=== PATIENT | female | born 2000 | race Caucasian/White ===

== ENCOUNTER 2021-01-29 13:49 | Emergency (ER) | payer OTHER ==
[~2021-01-29] VITALS: Ht 157.5 cm; Wt 83.5 kg
[2021-01-29] MEDS ORDERED: VITAD400CA FT (14:09)
[2021-01-29] MEDS ORDERED: PRENMIS3 PO (14:09)
[2021-01-29] MEDS ORDERED: METF500T13 PO (14:09)
[2021-01-29 15:21] LABS: BASO # 0.1 10^3/uL (0.0-0.2); BASO % 1.2 % (0.0-1.0); EOS # 0.2 10^3/uL (0.0-0.5); EOS % 1.9 % (0.0-3.0); HEMATOCRIT 40.4 % (36.0-47.0); HEMOGLOBIN 13.8 g/dl (12.0-15.5); LYMPH # 2.9 10^3/uL (1.5-5.0); MEAN CORPUSCULAR HEMOGLOBIN 30.3 pg (27.0-33.0); MEAN CORPUSCULAR HGB CONC 34.2 g/dl (32.0-36.5); MEAN CORPUSCULAR VOLUME 88.8 fl (80.0-96.0); MONO # 0.6 10^3/uL (0.0-0.8); NEUTROPHILS # 6.5 10^3/uL (1.5-8.5); NEUTROPHILS % 62.6 % (36.0-66.0); PLATELET COUNT, AUTOMATED 369 10^3/uL (150-450); RED BLOOD COUNT 4.55 10^6/uL (4.00-5.40); WHITE BLOOD COUNT 10.4 10^3/uL (4.0-10.0)
[2021-01-29] MEDS ORDERED: NS 1,000 ML IV ONE (15:25)
[2021-01-29 15:51] LABS: ALBUMIN 3.8 GM/DL (3.2-5.2); ALT/SGPT 40 U/L (12-78); BILIRUBIN,DIRECT < 0.1 MG/DL (0.0-0.2); BILIRUBIN,TOTAL 0.3 MG/DL (0.2-1.0); LIPASE 86 U/L (73-393); TOTAL PROTEIN 7.3 GM/DL (6.4-8.2)
--- NOTE | 2021-01-29 16:20 | REP ---
INDICATION: right flank/abd pain COMPARISON: None. TECHNIQUE: Real time garcia scale ultrasound examination using curved array transducer. FINDINGS: Liver suggests fatty infiltration without focal hepatic lesion. Pancreas is incompletely evaluated due to interposed bowel gas but visualized portions appear normal. Gallbladder appears contracted and without significant wall thickening, gallstones or pericholecystic fluid. No biliary ductal dilatation is appreciated and the common bile duct measures 2.5 mm diameter. The right kidney is normal in reniform shape without hydronephrosis and measures 9.8 x 5.4 x 4.4 cm. No ascites in the visualized right upper quadrant. IMPRESSION: Hepatosteatosis. Otherwise normal right upper quadrant ultrasound. <Electronically signed by Casper Presley > 01/29/21 [id number]
[2021-01-29 18:20] VITALS: BP 105/75
== END 2021-01-29 19:34 | disposition home or self-care (01) ==
LOC: M ED 13:49
DX: R10.9 Unspecified abdominal pain (principal); E28.2 Polycystic ovarian syndrome; Z79.84 Long term (current) use of oral hypoglycemic drugs

== ENCOUNTER 2021-03-20 13:54 | Emergency (ER) | payer OTHER ==
[~2021-03-20] VITALS: Ht 157.5 cm; Wt 84.3 kg
[~2021-03-20 13:54] MED LIST: METF500T13 PO; PRENMIS3 PO; VITAD400CA FT
[2021-03-20] MEDS ORDERED: PROG1CAP8 PO (14:03)
[2021-03-20] MEDS ORDERED: NS 1,000 ML IV ONE (15:30)
[2021-03-20 15:59] LABS: BASO # 0.1 10^3/uL (0.0-0.2); BASO % 0.5 % (0.0-1.0); EOS # 0.1 10^3/uL (0.0-0.5); EOS % 0.6 % (0.0-3.0); HEMATOCRIT 39.3 % (36.0-47.0); HEMOGLOBIN 13.4 g/dl (12.0-15.5); LYMPH # 1.9 10^3/uL (1.5-5.0); LYMPH % 16.4 % (24.0-44.0); MEAN CORPUSCULAR HEMOGLOBIN 30.5 pg (27.0-33.0); MEAN CORPUSCULAR HGB CONC 34.1 g/dl (32.0-36.5); MEAN CORPUSCULAR VOLUME 89.3 fl (80.0-96.0); MONO # 0.7 10^3/uL (0.0-0.8); MONO % 5.6 % (2.0-8.0); NEUTROPHILS # 8.9 10^3/uL (1.5-8.5); NEUTROPHILS % 76.4 % (36.0-66.0); PLATELET COUNT, AUTOMATED 305 10^3/uL (150-450); WHITE BLOOD COUNT 11.6 10^3/uL (4.0-10.0)
[2021-03-20 16:48] LABS: ALBUMIN 3.4 GM/DL (3.2-5.2); ALT/SGPT 21 U/L (12-78); BILIRUBIN,DIRECT < 0.1 MG/DL (0.0-0.2); BILIRUBIN,TOTAL 0.2 MG/DL (0.2-1.0); BLOOD UREA NITROGEN 5 MG/DL (7-18); CALCIUM LEVEL 8.9 MG/DL (8.5-10.1); CARBON DIOXIDE LEVEL 26 MEQ/L (21-32); CHLORIDE LEVEL 106 MEQ/L (98-107); CREATININE FOR GFR 0.56 MG/DL (0.55-1.30); FREE THYROXINE INDEX 4.1 % (1.3-4.8); GLOMERULAR FILTRATION RATE > 60.0 (>60); GLUCOSE, FASTING 97 MG/DL (70-100); MAGNESIUM LEVEL 2.1 MG/DL (1.8-2.4); POTASSIUM SERUM 3.8 MEQ/L (3.5-5.1); SODIUM LEVEL 139 MEQ/L (136-145); T UPTAKE 27 % (30-39); TOTAL PROTEIN 6.9 GM/DL (6.4-8.2)
[2021-03-20 17:22] VITALS: BP 137/87
--- NOTE | 2021-03-21 03:16 | ECGEPIP ---
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
== END 2021-03-20 17:26 | disposition home or self-care (01) ==
LOC: M ED 13:54
DX: O99.411 Diseases of the circulatory system complicating pregnancy, first trimester (principal); R00.2 Palpitations; R53.1 Weakness; O21.9 Vomiting of pregnancy, unspecified; Z3A.08 8 weeks gestation of pregnancy; Z79.899 Other long term (current) drug therapy

== ENCOUNTER 2021-04-20 21:45 | Emergency (ER) | payer OTHER ==
[~2021-04-20] VITALS: Ht 157.5 cm; Wt 85.0 kg
[2021-04-20 21:45] VITALS: BP 139/82
[~2021-04-20 21:45] MED LIST changes: +PROG1CAP8 PO
[2021-04-20] MEDS ORDERED: ACET-683 PO (22:00)
== END 2021-04-20 22:10 | disposition left against medical advice (07) ==
LOC: M ED 21:45
DX: Z53.21 Procedure and treatment not carried out due to patient leaving prior to being seen by health care provider (principal)

== ENCOUNTER 2021-05-08 15:14 | Emergency (ER) | payer OTHER ==
[~2021-05-08] VITALS: Ht 157.5 cm; Wt 85.5 kg
[~2021-05-08 15:14] MED LIST changes: +ACET-683 PO
[2021-05-08 15:55] LABS: BASO # 0.1 10^3/uL (0.0-0.2); BASO % 0.4 % (0.0-1.0); EOS # 0.1 10^3/uL (0.0-0.5); EOS % 0.6 % (0.0-3.0); HEMATOCRIT 37.3 % (36.0-47.0); HEMOGLOBIN 12.8 g/dl (12.0-15.5); LYMPH % 16.2 % (24.0-44.0); MEAN CORPUSCULAR HEMOGLOBIN 30.3 pg (27.0-33.0); MEAN CORPUSCULAR HGB CONC 34.3 g/dl (32.0-36.5); MEAN CORPUSCULAR VOLUME 88.4 fl (80.0-96.0); MONO # 0.6 10^3/uL (0.0-0.8); MONO % 4.8 % (2.0-8.0); NEUTROPHILS # 9.7 10^3/uL (1.5-8.5); NEUTROPHILS % 77.4 % (36.0-66.0); PLATELET COUNT, AUTOMATED 235 10^3/uL (150-450); RED BLOOD COUNT 4.22 10^6/uL (4.00-5.40); WHITE BLOOD COUNT 12.5 10^3/uL (4.0-10.0)
[2021-05-08] MEDS ORDERED: NS 1,000 ML IV ONE (16:05)
[2021-05-08 16:23] LABS: FREE T4 0.97 NG/DL (0.76-1.46); THYROID STIMULATING HORMONE 1.52 uIU/ML (0.358-3.740)
[2021-05-08 16:45] VITALS: BP 124/79
[2021-05-08] MEDS ORDERED: ACETAMINOPHEN 325 MG/10.15 ML UDC PO ONE (17:00)
== END 2021-05-08 17:34 | disposition home or self-care (01) ==
LOC: M ED 15:14
DX: I45.6 Pre-excitation syndrome (principal); R00.2 Palpitations; E28.2 Polycystic ovarian syndrome

== ENCOUNTER 2021-07-12 23:45 | Outpatient (CLI) | payer OTHER ==
[~2021-07-12] VITALS: Ht 157.5 cm; Wt 91.6 kg
[2021-07-13 00:01] VITALS: BP 114/61
--- NOTE | 2021-07-13 00:44 | IPNPDOC ---
Text Note Date of Service The patient was seen on 07/13/21. NOTE Chief Complaint: Ms. Jovel is a 21 year old at 25+1 weeks gestation presenting to L&D triage for complaints of decreased movement. Patient presents: spouse HPI: Reports usually fetus is active throughout the day, ever since 19wks . On Wednesday, felt only 2 movements throughout the day. No contractions, no bleeding. Some increased vaginal discharge. No other concerns today. . Denies any headaches, nausea, vomiting, RUQ pain. Denies any dysuria, vaginal itching/burning. Objective: VS: BP 114/61, HR 63, RR 18, Temp 98.2 General: Alert. Well-appearing, in no acute distress PSYCH: Well groomed. Appropriate affect, normal mood. Conversed easily. Neuro: Oriented to time, place, and person. RESP: Unlabored breathing. CV: No cyanosis. No edema to bilateral upper and lower extremities. ABD: Soft, non-tender. MSK: legs without edema bilaterally. Normal mvmt all extremities. Steady gait. Mamta from a seated position without assistance. Obstetrical: FHR: FHR on monitor 145 with moderate variability. No contractions. Toll Test Worker present for exam: Yeni Lorenzana&D RN Limited Trans-Abdominal Ultrasound Performed Today: Presentation: BREECH Placenta location: anterior Movement Present Heart Rate Present Amniotic fluid: MVP 3.86cm A/P 21yo at 25+1 wks gestation evaluated in L&D triage for complaints of decreased movement. VSS and normal Benign physical exam Normal FHR, reassuring. Normal MVP. TAUS showing: breech with anterior placenta. Pt feeling movement after being placed on monitor, in addition to feeling movement visualized on US. Discussed change in movements when fetus is breech with anterior placenta. Discussed where best to feel movements while fetus in this position. She royal balized understanding. Plan: Educated on routine OB return precautions and warning signs. Follow up on [facility] clinic as previously scheduled. VS,Fishbone, I+O VS, Fishbone, I+O Vital Signs Date Time Temp Pulse Resp B/P (MAP) Pulse Ox O2 Delivery O2 Flow Rate FiO2 07/13/21 00:01 98.2 83 18 114/61 (78) Room Air COLLEEN KWON CNM Jul 13, 2021 00:43
== END 2021-07-13 00:45 | disposition home or self-care (01) ==
LOC: M LDO 23:45
PROVIDERS: ATTEND Advanced Practice Midwife
DX: O36.8120 Decreased fetal movements, second trimester, not applicable or unspecified (principal); Z3A.25 25 weeks gestation of pregnancy; O32.1XX0 Maternal care for breech presentation, not applicable or unspecified
CPT/HCPCS: 59025; G0378; G0463

== ENCOUNTER 2021-07-20 09:06 | Outpatient (CLI) | payer OTHER ==
[~2021-07-20] VITALS: Ht 157.5 cm; Wt 91.8 kg
[2021-07-20 09:38] VITALS: BP 128/75
[2021-07-20] MEDS ORDERED: HOME MED LIST COMPLETE! XX SCH (09:45)
[2021-07-20 10:15] VITALS: BP 123/70
--- NOTE | 2021-07-20 17:13 | HPE ---
HISTORY AND PHYSICAL DATE OF ADMISSION: 07/20/2021 HISTORY OF PRESENT ILLNESS: This lady is a 21-year-old 3, para 0, whose last menstrual period (LMP) is unknown. Her estimated date of confinement (EDC) by early ultrasound on 7 weeks, 6 days is October 25, 2021. She is at 26 weeks of gestation, comes with a history of decreased movement after having gone to the [facility] [employer]. She reports that she had issues with decreased movement at 20 weeks and has intermittent periods where she does not feel the baby move. She has not had headache, nausea, vomiting, right upper quadrant pain, no dysuria, vaginal discharge, bleeding. PHYSICAL EXAMINATION: On examination today, she does not appear in any acute distress. Vital signs: Blood pressure is 128/75, respirations 16, pulse 90, temperature is 97.4. She is on the monitor, which shows good variability, moderate variability with baseline normal accelerations were noted. No contractions were seen. The baby seems to be quite active. Limited ultrasound. The patient is in the breech presentation. The placenta is anterior. Good movements were seen. Heart rate was normal at 144 beats per minute and the NEGRO was within normal limits. The smallest vertical pocket was 3.0. She is GBS positive, as one of her risk factors. She has maternal obesity with a body mass index (BMI) of 33.149, history of suicidal ideation and depression, frequency urinary tract infection and Erjwk-Xtonjpvbr-Aolbz syndrome for which she is waiting to get her Holter monitor to evaluate the situation. SUMMARY IN PRESENT: We have an active fetus issue of not feeling movement secondary to anterior placenta has nothing to do with her travel experience. The patient was reassured by looking at the monitor strip and the patient was discharged undelivered to follow up with her appointment with Daisha Long and her cardiology appointment for her Holter monitor. All questions were answered, 20 minute discussion. Daisha Long OB
== END 2021-07-20 10:28 | disposition home or self-care (01) ==
LOC: M LDO 09:06
PROVIDERS: ATTEND Obstetrics & Gynecology
DX: O36.8120 Decreased fetal movements, second trimester, not applicable or unspecified (principal); Z3A.20 20 weeks gestation of pregnancy; O99.820 Streptococcus B carrier state complicating pregnancy; O99.212 Obesity complicating pregnancy, second trimester; E66.9 Obesity, unspecified; O99.342 Other mental disorders complicating pregnancy, second trimester; F32.9 Major depressive disorder, single episode, unspecified; I45.6 Pre-excitation syndrome; O99.412 Diseases of the circulatory system complicating pregnancy, second trimester
CPT/HCPCS: 59025; G0378; G0463

== ENCOUNTER 2021-08-05 13:04 | Outpatient (CLI) | payer OTHER ==
[~2021-08-05] VITALS: Ht 157.5 cm; Wt 97.8 kg
[2021-08-05 13:36] VITALS: BP 132/66
[2021-08-05] MEDS ORDERED: HOME MED LIST COMPLETE! XX SCH (13:50)
[2021-08-05 13:58] VITALS: BP 125/67
[2021-08-05 14:02] LABS: HEMATOCRIT 38.5 % (36.0-47.0); HEMOGLOBIN 12.8 g/dl (12.0-15.5); MEAN CORPUSCULAR HEMOGLOBIN 29.8 pg (27.0-33.0); MEAN CORPUSCULAR HGB CONC 33.2 g/dl (32.0-36.5); MEAN CORPUSCULAR VOLUME 89.5 fl (80.0-96.0); PLATELET COUNT, AUTOMATED 231 10^3/uL (150-450); WHITE BLOOD COUNT 12.2 10^3/uL (4.0-10.0)
--- NOTE | 2021-08-05 14:14 | REP ---
INDICATION: fall, r/o abruption. COMPARISON: None. TECHNIQUE: Real-time sonographic evaluation of gravid uterus performed. FINDINGS: There is a single living intrauterine gestation. The estimated gestational age is reportedly 28 weeks 3 days, EDC 10/25/2021. position cephalic. Placenta lateral on the left, grade 2 with no previa or abruption. heart rate 161 beats per minute. Amniotic fluid within normal limits. NEGRO 10.6 within normal range 9.3-22.9. The cervix is closed and measures 3.1 cm in length. IMPRESSION: No evidence of placenta previa or abruption as described above. <Electronically signed by Jaswant Alcantar > 08/05/21 [id number]
--- NOTE | 2021-08-05 14:35 | IPNPDOC ---
Obstetrical Progress Note Date of Service Aug 05, 2021 Subjective 21 yo at 28w3d with MAGALI of 25 OCT 2021 presents to L&D with complaints of fall from standing at 1230 today after tripping. She reports that she landed on her right side and her right abdomen. She denies contractions, leaking of fluid, vaginal bleeding, and reports positive movement. She reports only soreness to her right side and her right abdomen. She has supportive family at the bedside. Objective Vital Signs Date Time Temp Pulse Resp B/P (MAP) Pulse Ox O2 Delivery O2 Flow Rate FiO2 08/05/21 13:36 99.1 84 18 132/66 (88) US: Reassuring, with no abruption or placenta previa noted, NEGRO: 10.6 cm Blood type: A Positive, no rhogam indicated Assessment: IUP at 28w3d Fall from standing Assessment Heart Rate (FHR): 145 Variability: Moderate Accelerations: Present Decelerations: None Tocometer Contractions: No Assessment and Plan Age: 21 : 3 Term: 0 Pre-term: 0 Abortions: 2 Livin Weeks & Days 28w3d Status: Reassuring Additional Comments Plan: Prolonged monitoring x4 hours If remains stable, then will discharge to home Recommended to continue to monitor QID blood sugars, as she is checking her blood sugars vs 28 wk GCT Reminded to complete remainder of 28 week labs FKC and PTL precautions discussed Recommend to keep all appointments at [facility] INSURANCE LEGAL ASSISTANT Return to L&D if symptoms worsen or persist EULA DE LA ROSA CNM Aug 05, 2021 14:35
[2021-08-05 14:39] LABS: ALBUMIN 2.7 GM/DL (3.2-5.2); ALT/SGPT 14 U/L (12-78); BILIRUBIN,TOTAL 0.2 MG/DL (0.2-1.0); BLOOD UREA NITROGEN 6 MG/DL (7-18); CALCIUM LEVEL 8.8 MG/DL (8.5-10.1); CARBON DIOXIDE LEVEL 23 MEQ/L (21-32); CHLORIDE LEVEL 110 MEQ/L (98-107); CREATININE FOR GFR 0.44 MG/DL (0.55-1.30); GLOMERULAR FILTRATION RATE > 60.0 (>60); GLUCOSE, FASTING 103 MG/DL (70-100); POTASSIUM SERUM 3.7 MEQ/L (3.5-5.1); SODIUM LEVEL 141 MEQ/L (136-145); TOTAL PROTEIN 6.2 GM/DL (6.4-8.2)
[2021-08-05 15:25] VITALS: BP 126/76
[2021-08-05 17:14] VITALS: BP 122/78
== END 2021-08-05 17:30 | disposition home or self-care (01) ==
LOC: M LDO 13:04
PROVIDERS: ATTEND Registered Nurse Maternal Newborn
DX: O26.893 Other specified pregnancy related conditions, third trimester (principal); R10.9 Unspecified abdominal pain; M25.551 Pain in right hip; Z3A.28 28 weeks gestation of pregnancy; W19.XXXA Unspecified fall, initial encounter
CPT/HCPCS: 36415; 59025; 76815; 80053; 85027; 85460; G0378; G0463

== ENCOUNTER 2021-08-11 17:39 | Outpatient (CLI) | payer OTHER ==
[~2021-08-11] VITALS: Ht 157.5 cm; Wt 93.9 kg
[2021-08-11] MEDS ORDERED: CLEO300C2 PO (18:06)
[2021-08-11] MEDS ORDERED: CETI10CH PO (18:06)
[2021-08-11 18:08] VITALS: BP 115/70
[2021-08-11] MEDS ORDERED: HOME MED LIST COMPLETE! XX SCH (18:10)
== END 2021-08-11 18:40 | disposition home or self-care (01) ==
LOC: M LDO 17:39
PROVIDERS: ATTEND Obstetrics & Gynecology
DX: O26.893 Other specified pregnancy related conditions, third trimester (principal); N89.9 Noninflammatory disorder of vagina, unspecified; Z3A.29 29 weeks gestation of pregnancy
CPT/HCPCS: 59025; G0378; G0463

== ENCOUNTER → 2021-08-27 | Outpatient (CLI) | payer OTHER ==
[~2021-08-27] MED LIST changes: +CETI10CH PO; +CLEO300C2 PO
[2021-08-27 12:00] LABS: BASO % 0.3 % (0.0-1.0); EOS % 0.4 % (0.0-3.0); HEMATOCRIT 37.8 % (36.0-47.0); HEMOGLOBIN 12.6 g/dl (12.0-15.5); LYMPH # 1.5 10^3/uL (1.5-5.0); LYMPH % 14.8 % (24.0-44.0); MEAN CORPUSCULAR HEMOGLOBIN 30.1 pg (27.0-33.0); MEAN CORPUSCULAR HGB CONC 33.3 g/dl (32.0-36.5); MEAN CORPUSCULAR VOLUME 90.2 fl (80.0-96.0); MONO # 0.6 10^3/uL (0.0-0.8); MONO % 5.7 % (2.0-8.0); NEUTROPHILS # 8.1 10^3/uL (1.5-8.5); NEUTROPHILS % 77.6 % (36.0-66.0); PLATELET COUNT, AUTOMATED 183 10^3/uL (150-450); RED BLOOD COUNT 4.19 10^6/uL (4.00-5.40); WHITE BLOOD COUNT 10.4 10^3/uL (4.0-10.0)
[2021-08-27 12:27] LABS: TOTAL PROTEIN,RANDOM URINE 42.3 MG/DL (0.0-12.0)
[2021-08-27 12:36] LABS: ALBUMIN 2.4 GM/DL (3.2-5.2); ALT/SGPT 16 U/L (12-78); BILIRUBIN,TOTAL 0.2 MG/DL (0.2-1.0); BLOOD UREA NITROGEN 5 MG/DL (7-18); CALCIUM LEVEL 9.2 MG/DL (8.5-10.1); CARBON DIOXIDE LEVEL 25 MEQ/L (21-32); CHLORIDE LEVEL 109 MEQ/L (98-107); CREATININE FOR GFR 0.39 MG/DL (0.55-1.30); GLOMERULAR FILTRATION RATE > 60.0 (>60); GLUCOSE, FASTING 92 MG/DL (70-100); LDH LACTATE DEHYDROGENASE 171 U/L (84-246); POTASSIUM SERUM 3.6 MEQ/L (3.5-5.1); SODIUM LEVEL 141 MEQ/L (136-145); TOTAL PROTEIN 5.6 GM/DL (6.4-8.2); URIC ACID 2.8 MG/DL (2.6-6.0)
== END ==
LOC: M LAB 10:43
PROVIDERS: ATTEND Obstetrics & Gynecology
DX: O13.9 Gestational [pregnancy-induced] hypertension without significant proteinuria, unspecified trimester (principal)

== ENCOUNTER 2021-08-28 23:45 | Outpatient (CLI) | payer OTHER ==
[~2021-08-28] VITALS: Ht 157.5 cm; Wt 95.9 kg
[2021-08-29 00:07] VITALS: BP 146/90
[2021-08-29 00:58] VITALS: BP 136/90
[2021-08-29 01:19] VITALS: BP 122/75
[2021-08-29 01:19] LABS: ALT/SGPT 16 U/L (12-78); BILIRUBIN,TOTAL 0.2 MG/DL (0.2-1.0); CREATININE FOR GFR 0.37 MG/DL (0.55-1.30); GLOMERULAR FILTRATION RATE > 60.0 (>60); LDH LACTATE DEHYDROGENASE 335 U/L (84-246)
[2021-08-29 01:39] VITALS: BP 128/79
--- NOTE | 2021-08-29 01:51 | IPNPDOC ---
Text Note Date of Service The patient was seen on 08/29/21. NOTE 21 yo at 31+6 weeks gestation presented to L&D after checking her blood pressure at home and seeing it greater than 170 systolic. Her headache from earlier today resolved completely after she took a nap. In triage she denies any RUQ pain or visual changes or SOB. She hasn't felt baby move as much as usual but is still feeling movement. She denies any bleeding or LOF. Vitals - Initial mildly elevated BP in triage (140s/90s) resolved to normal levels on serial checks General - AAOX3, laying in bed, NAD Abdomen - Gravid uterus, no fundal tenderness FHR tracing - Cat I and appropriate for gestational age. Moderate variability, +accels, no decels BP stable. She has known pre eclampsia. AST/ALT normal. LDH elevated at 335. Creatinine normal. Platelets were not drawn appropriately by the lab. Reassuring status. Ant also felt movement in triage and was reassured. She has follow up in the office at 1000 today. Return to care soone r for any urgent concerns. All questions answered. 30 minutes Tere Regan, I+O Tere MARLEY, I+O Laboratory Tests 08/29/21 00:48 Vital Signs Date Time Temp Pulse Resp B/P (MAP) Pulse Ox O2 Delivery O2 Flow Rate FiO2 08/29/21 00:07 98.3 75 18 146/90 (108) CHRISTIANO PHAN DO Aug 29, 2021 01:51
== END 2021-08-29 01:52 | disposition home or self-care (01) ==
LOC: M LDO 23:45
PROVIDERS: ATTEND Obstetrics & Gynecology
DX: O16.3 Unspecified maternal hypertension, third trimester (principal); Z87.59 Personal history of other complications of pregnancy, childbirth and the puerperium; Z3A.31 31 weeks gestation of pregnancy
CPT/HCPCS: 36415; 59025; 82247; 82565; 83615; 84450; 84460; 84550; G0378; G0463

== ENCOUNTER 2021-09-02 15:38 | Inpatient (IN) | payer OTHER ==
[2021-09-02] VITALS (22 sets, daily range): BP systolic 126–183; BP diastolic 69–106
[~2021-09-02] VITALS: Ht 157.5 cm; Wt 100.3 kg
[2021-09-02] MEDS ORDERED: METR1GEL7 PV (15:56)
[2021-09-02] MEDS ORDERED: FIOR1CAP PO (15:56)
[2021-09-02] MEDS ORDERED: HOME MED LIST COMPLETE! XX SCH (16:00)
[2021-09-02] MEDS: BETAMETHASONE SOLUSPAN 6MG/ML 5ML VIAL (J0702 PER 3MG) IM SCH (17:11)
[2021-09-02 17:24] LABS: HEMATOCRIT 37.2 % (36.0-47.0); HEMOGLOBIN 12.6 g/dl (12.0-15.5); MEAN CORPUSCULAR HEMOGLOBIN 30.4 pg (27.0-33.0); MEAN CORPUSCULAR HGB CONC 33.9 g/dl (32.0-36.5); MEAN CORPUSCULAR VOLUME 89.9 fl (80.0-96.0); PLATELET COUNT, AUTOMATED 170 10^3/uL (150-450); RED BLOOD COUNT 4.14 10^6/uL (4.00-5.40); WHITE BLOOD COUNT 11.8 10^3/uL (4.0-10.0)
[2021-09-02 17:43] LABS: ALBUMIN 2.5 GM/DL (3.2-5.2); ALT/SGPT 19 U/L (12-78); BILIRUBIN,TOTAL 0.1 MG/DL (0.2-1.0); BLOOD UREA NITROGEN 8 MG/DL (7-18); CARBON DIOXIDE LEVEL 25 MEQ/L (21-32); CHLORIDE LEVEL 109 MEQ/L (98-107); CREATININE FOR GFR 0.42 MG/DL (0.55-1.30); GLOMERULAR FILTRATION RATE > 60.0 (>60); GLUCOSE, FASTING 70 MG/DL (70-100); POTASSIUM SERUM 3.5 MEQ/L (3.5-5.1); SODIUM LEVEL 141 MEQ/L (136-145)
[2021-09-02] MEDS ORDERED: NIFEdipine 10 MG CAP PO SCH (22:35)
[2021-09-02] MEDS ORDERED: NIFEdipine 10 MG CAP PO STA (22:36)
[2021-09-02] MEDS ORDERED: CALCIUM GLUCONATE 1,000 MG in D5W MINI-BAG PLUS 100 ML IV PRN (22:55)
[2021-09-02] MEDS ORDERED: MAG Sulf (L&D) 4 GM/100 ML 4 GM in IV 1 EA IV ONE (22:55)
[2021-09-03] VITALS (80 sets, daily range): BP systolic 115–162; BP diastolic 64–100
--- OUTSIDE RECORDS SUMMARY | 2021-09-03 00:39 | CCD | Continuity of Care Document ---
Author Author Ant EVASN MD Organization Unknown Address [facility] [place] [address] Phone [phone] Care Team Providers Care Retail Project Merchandiser Name Role Phone Michaela Willis CNM AUTM Unavailable Gricelda Clarkblanca Montez AUTM Problems Active Problems Provider Date Chronic migraine without aura Live Evans MD Onset: Electrocardiogram abnormal Live Evans MD Onset: 2020 Precordial pain Live Evans MD Onset: 07/04/2021 Palpitations Live Evans MD Onset: 07/04/2021 Social History Type Date Description Comments Sex Unknown ETOH Use Does not consume alcohol Tobacco Use Start: Unknown Patient has never smoked Prior 1 8 years secondhand smoke exposure Smoking Status Reviewed: 07/04/21 Patient has never smoked Prio r 18 years secondhand smoke exposure Exercise Type/Frequency Does housework 3 times a week light duty only Exercise Type/Frequency General Activities Daily up and down stairs frequently during the day Exercise Limitations Other moderately high risk Exercise Limitations Palpitations Allergies, Adverse Reactions, Alerts Description No Known Drug Allergies Medications Active Medications SIG Qnty Indications Ordering Provide r Date 27-1mg Tablets 1 by mouth daily Unknown 07/03/2021 Immunizations Description No Information Available Vital Signs Date Vital Result Comment 07/04/2021 2:11pm Weight 197.00 lb Height 62 inches 5'2" BMI (Body Mass Index) 36.0 kg/m2 Heart Rate 74 /min regular Respiratory Rate 16 /min BP Systolic Sitting 116 mmHg Medium cuff, Ra: 118 /82 LA BP Diastolic Sitting 78 mmHg Medium cuff, Ra: 11 8/82 LA BP Systolic Lying Down 118 mmHg Ra BP Diastolic Lying Down 78 mmHg Ra Results Test Acquired Date Facility Test Result H/L Range Note Laboratory test finding 05/08/2021 [facility] - not interf aced (315)- - Thyroid Stimulating Hormone 1.520 Free T4 0.97 CBC without Differential 05/08/2021 [facility] - not inter faced (315)- - White Blood Count 12.5 5.0-10.0 Red Blood Count 4.22 4.00-5.40 Platelets 235 172-450 Hemoglobin 12.8 Hematocrit 37.3 CMP 03/20/2021 [facility] - not interfaced (315)- - Albumin Serum/Plasma 3.4 Alt - SGPT 21 Calcium Ser/Plasma Mass/Vol 8.9 Carbon Dioxide Ser/Plasm 26 Chloride Serum/Plasma 106 Alkaline Phosphatase 54 Potassium 3.8 Protein Total 6.9 Sodium 139 Ast - Sgot 8 BUN - Urea Nitrogen 5 Glucose 97 83-110 Creatinine For GFR 0.56 Laboratory test finding 03/20/2021 [facility] - not interf aced (315)- - Magnesium Level 2.1 1.8-2.4 Procedures Date Code Description Status 07/04/2021 54158 Office/Outpatient New Moderate M DM 45-59 Minutes Completed 07/04/2021 53527 ECG 12-Lead Completed Medical Devices Description No Information Available Encounters Type Date Location Provider Dx Diagnosis Office Visit 07/04/2021 1:00p Main Office Live Evans MD R00.2 Palpitations R07.2 Precordial pain R94.31 Abnormal electrocardiogram [ ECG] [EKG] G43.709 Chronic migraine w/o aura, n ot intractable, w/o stat migr Assessments Date Code Description Provider 07/04/2021 R00.2 Palpitations Live Evans MD 07/04/2021 R07.2 Precordial pain Live Evans MD 07/04/2021 R94.31 Abnormal electrocardiogram [ECG] [EKG] Live Evans MD 07/04/2021 G43.709 Chronic migraine wit hout aura, not intractable, without status migrainosus Live Evans MD Plan of Treatment 07/04/2021 - Live Evans MD* R00.2 Palpitations* New Orders:* Event Monitor, Ordered: 07/04/21 * Recommendations:* From her description, have no doubt she is experiencing paroxysmal supraventricular tachycardia. At this point, with her state, have requested a 30 day event recording of spontaneous rhythm. Have encouraged continued avoiding of all caffeinated beverages, alcohol, nicotine and iaxb-xsw-yiqqizh decongestants, pep pills, dietary aids etc. Have discussed the use of vagal maneuvers i.e. Valsalva and gag reflex immediately at the onset of her palpitations. No pharmacological therapy would be advised at this time. Should call an ambulance for sustained tachycardia lasting 15 minutes or more, especially if associated with faintness. * R07.2 Precordial pain* Recommendations:* Undoubtedly, related to paroxysmal tachycardia. Has no coronary risk factors. 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 Moser management would be that of her tachycardia. 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 Her reported heart rate of 200 bpm, would be considered dangerous for risk of hemodynamic decompensation and malignant ventricular arrhythmias. Following the delivery of her child, would strongly encourage official electrophysiological evaluation and curative radiofrequency pathway ablation. * G43.709 Chronic migraine without aura, not intractable, without status migrainosus* Recommendations:* A problem of some chronicity, currently less with her . Frustratingly, therapy for this condition including Imitrex and Topamax. In light of her underlying rhythm disturbance she can suffer potentially fatal cardiac arrhythmia following the use of these agents. Even prophylactic beta-lenny therapy for migraine can be potentially hazardous by promoting accessory pathway conduction and rapid ventricular responses that might lead to ventricular fibrillation. Should be avoiding caffeinated beverages in light of her rhythm disturbance. Excedrin Migraine should not be used in the last 3 months of her in light of its risk for cardiac defects. * All * Comments:* I will ensure that the aforementioned test findings are reported to you along with any further recommendations. Thank you for allowing me to participate in the care of your patient. Best regards. * Follow up:* Pending her 30 day event monitor findings, we will plan on a follow-up appointment following the of her child. We would be pleased to reassess the patient at any time. Functional Status Functional Condition Comment Date Status Independent with all ADL's Activ e Mental Status Description No Information Available Referrals Description No Information Available
--- OUTSIDE RECORDS SUMMARY | 2021-09-03 00:40 | CCD | Continuity of Care Document ---
Author Organization Unknown Address Unknown Phone Unavailable Problems Description No Information Available Social History Type Date Description Comments Sex Unknown Allergies, Adverse Reactions, Alerts Description No Information Available Medications Description No Information Available Immunizations Description No Information Available Vital Signs Description No Information Available Results Test Acquired Date Facility Test Result H/L Range Note Laboratory test finding 05/08/2021 [facility] - not interf aced (315)- - Thyroid Stimulating Hormone 1.520 Free T4 0.97 CBC without Differential 05/08/2021 [facility] - not inter faced (315)- - White Blood Count 12.5 5.0-10.0 Red Blood Count 4.22 4.00-5.40 Platelets 235 172-450 Hemoglobin 12.8 Hematocrit 37.3 Procedures Description No Information Available Medical Devices Description No Information Available Encounters Description No Information Available Assessments Description No Information Available Plan of Treatment Future Appointment(s):* 07/04/2021 1:00 pm - Live Evans MD at Main Office Functional Status Description No Information Available Mental Status Description No Information Available Referrals Description No Information Available
--- OUTSIDE RECORDS SUMMARY | 2021-09-03 00:40 | CCD | Continuity of Care Document ---
[...] H/L Range Note Laboratory test finding 05/08/2021 [facility] - not interf aced (315)- - Thyroid Stimulating Hormone 1.520 Free T4 0.97 CBC without Differential 05/08/2021 [facility] - not inter faced (315)- - White Blood Count 12.5 5.0-10.0 Red Blood Count 4.22 4.00-5.40 Platelets 235 172-450 Hemoglobin 12.8 Hematocrit 37.3 CMP 03/20/2021 [facility] - not interfaced (315)- - Albumin Serum/Plasma 3.4 Alt - SGPT 21 Calcium Ser/Plasma Mass/Vol 8.9 Carbon Dioxide Ser/Plasm 26 Chloride Serum/Plasma 106 Alkaline Phosphatase 54 Potassium 3.8 Protein Total 6.9 Sodium 139 Ast - Sgot 8 BUN - Urea Nitrogen 5 Glucose 97 83-110 Creatinine For GFR 0.56 Laboratory test finding 03/20/2021 [facility] - not interf aced (315)- - Magnesium Level 2.1 1.8-2.4 Procedures Description No Information Available Medical Devices Description No Information Available Encounters Description No Information Available Assessments Description No Information Available Plan of Treatment Future Appointment(s):* 07/04/2021 1:00 pm - Live Evans MD at Main Office Functional Status Description No Information Available Mental Status Description No Information Available Referrals Description No Information Available
--- OUTSIDE RECORDS SUMMARY | 2021-09-03 00:40 | CCD | Continuity of Care Document ---
Author Author Ant EVANS MD Organization Unknown Address [facility] [place] [address] Phone [phone] Care Team Providers Care Rim Technician Name Role Phone Lazaro Michaela CNM AUTM Unavailable Gricelda Clark DO AUTM [phone] Problems Active Problems Provider Date Chronic migraine without aura Live Evans MD Onset: Electrocardiogram abnormal Live Evans MD Onset: 2020 Precordial pain Live Evans MD Onset: 07/04/2021 Palpitations Live Evans MD Onset: 07/04/2021 Social History Type Date Description Comments Sex Unknown ETOH Use Does not consume alcohol Tobacco Use Start: Unknown Patient has never smoked Smoking Status Reviewed: 07/04/21 Patient has never smoked Exercise Type/Frequency Does housework 3 times a [...] For GFR 0.56 Laboratory test finding 03/20/2021 [facility] - not interf aced (315)- - Magnesium Level 2.1 1.8-2.4 Procedures Date Code Description Status 07/04/2021 43511 Office/Outpatient New Moderate M DM 45-59 Minutes Completed 07/04/2021 81366 ECG 12-Lead Completed Medical Devices Description No [...] of all caffeinated beverages, alcohol, nicotine and kics-rjt-jxsuabj decongestants, pep pills, dietary aids etc. Have [...] paroxysmal tachycardia she clear ly does have Iwpam-Gehaxmprt-Ywgfl syndrome. Her reported heart rate of 200 [...]
--- OUTSIDE RECORDS SUMMARY | 2021-09-03 00:40 | CCD ---
Author Author [facility] Organization [facility] Address Unknown Phone Unavailable Care Team Providers Care Quality Assurance Coordinator Name Role Phone NO, PCP Unavailable Unavailable CHERELLE, F REZA DO Unavailable Unavailable CHERELLE, F REZA DO Unavailable Unavailable CHERELLE, F REZA DO Unavailable Unavailable CHERELLE, F REZA DO Unavailable Unavailable CHERELLE, F REZA DO Unavailable Unavailable CHERELLE, F REZA DO Unavailable Unavailable CHERELLE, F REZA DO Unavailable Unavailable CHERELLE, F REZA DO Unavailable Unavailable CHERELLE, F REZA DO Unavailable Unavailable CHERELLE, F REZA DO Unavailable Unavailable CHERELLE, F REZA DO Unavailable Unavailable CHERELLE, F REZA DO Unavailable Unavailable CHERELLE, F REZA DO Unavailable Unavailable CHERELLE, F REZA DO Unavailable Unavailable CHERELLE, F REZA DO Unavailable Unavailable CHERELLE, F REZA DO Unavailable Unavailable CHERELLE, F REZA DO Unavailable Unavailable CHERELLE, F REZA DO Unavailable Unavailable CHERELLE, F REZA DO Unavailable Unavailable CHERELLE, F REZA DO Unavailable Unavailable CHERELLE, F REZA DO Unavailable Unavailable CHERELLE, F REZA DO Unavailable Unavailable CHERELLE, F REZA DO Unavailable Unavailable CHERELLE, F REZA DO Unavailable Unavailable CHERELLE, F REZA DO Unavailable Unavailable CHERELLE, F REZA DO Unavailable Unavailable CHERELLE, F REZA DO Unavailable Unavailable CHERELLE, F REZA DO Unavailable Unavailable CHERELLE, F REZA DO Unavailable Unavailable CHERELLE, F REZA DO Unavailable Unavailable CHERELLE, F REZA DO Unavailable Unavailable CHERELLE, F REZA DO Unavailable Unavailable CHERELLE, F REZA DO Unavailable Unavailable CHERELLE, F REZA DO Unavailable Unavailable Joan SMITH Unavailable Unavailable Melida CHAWLA MD Unavailable Unavailable Melida CHAWLA MD Unavailable Unavailable CHAWLAMelida Vigil MD Unavailable Unavailable CHAWLAMelida MD Unavailable Unavailable CHAWLAMelida MD Unavailable Unavailable CHAWLA E ROLAND MCGRATH Unavailable Unavailable CHAWLA E ROLAND MCGRATH Unavailable Unavailable CHAWLA E ROLAND MCGRATH Unavailable Unavailable CHAWLA E ROLAND MCGRATH Unavailable Unavailable CHAWLA E ROLAND MCGRATH Unavailable Unavailable CHAWLA E ROLAND MCGRATH Unavailable Unavailable CHAWLA E ROLAND MCGRATH Unavailable Unavailable CHAWLA E ROLAND MCGRATH Unavailable Unavailable CHAWLA E ROLAND MCGRATH Unavailable Unavailable CHAWLA E ROLAND MCGRATH Unavailable Unavailable CHAWLA E ROLAND MCGRATH Unavailable Unavailable CHAWLA E ROLAND MCGRATH Unavailable Unavailable CHAWLAMelida MD Unavailable Unavailable CHAWLAMelida MD Unavailable Unavailable CHAWLA E ROLAND MCGRATH Unavailable Unavailable CHAWLA E ROLAND MCGRATH Unavailable Unavailable CHAWLA E ROLAND MCGRATH Unavailable Unavailable CHAWLA E ROLAND MCGRATH Unavailable Unavailable CHAWLA E ROLAND MCGRATH Unavailable Unavailable CHAWLA E ROLAND MCGRATH Unavailable Unavailable CHAWLA E ROLAND MCGRATH Unavailable Unavailable CHAWLA E ROLAND MCGRATH Unavailable Unavailable CHAWLA E ROLAND MCGRATH Unavailable Unavailable CHAWLA E ROLAND MCGRATH Unavailable Unavailable CHAWLA E ROLAND MCGRATH Unavailable Unavailable CHAWLA E ROLAND MCGRATH Unavailable Unavailable CHAWLA E ROLAND MCGRATH Unavailable Unavailable CHAWLAMelida MD Unavailable Unavailable CHAWLAMelida MD Unavailable Unavailable CHAWLAMelida Vigil MD Unavailable Unavailable CHAWLAMelida MD Unavailable Unavailable CHAWLA E ROLAND MCGRATH Unavailable Unavailable CHAWLA E ROLAND MCGRATH Unavailable Unavailable CHAWLA E ROLAND MCGRATH Unavailable Unavailable CHAWLAMelida Vigil MD Unavailable Unavailable CHAWLAMelida MD Unavailable Unavailable CHAWLA E ROLAND MCGRATH Unavailable Unavailable CHAWLAMelida MD Unavailable Unavailable CHAWLA E ROLAND MCGRATH Unavailable Unavailable CHAWLAMelida MD Unavailable Unavailable CHAWLAMelida MD Unavailable Unavailable CHAWLA E ROLAND MCGRATH Unavailable Unavailable Melida CHAWLA MD Unavailable Unavailable CHAWLAMelida Vigil MD Unavailable Unavailable CHAWLAMelida MD Unavailable Unavailable Melida CHAWLA MD Unavailable Unavailable CHAWLAMelida MD Unavailable Unavailable CHAWLA E ROLAND MCGRATH Unavailable Unavailable DENTON E ROLAND MCGRATH Unavailable Unavailable Ang Tapia MD Unavailable Unavailable Ang Tapia MD Unavailable Unavailable Ang Tapia MD Unavailable Unavailable Ang Tapia MD Unavailable Unavailable Ang Tapia MD Unavailable Unavailable Ang Tapia MD Unavailable Unavailable TURRIN, ANDREA Unavailable Unavailable TURRIN, ANDREA Unavailable Unavailable TURRIN, ANDREA Unavailable Unavailable TURRIN, ANDREA Unavailable Unavailable Kirsty PEREZ DEVELOPMENT INTERN Unavailable Unavailable CHRIS, T VÍCTOR DEVELOPMENT INTERN Unavailable Unavailable CHRIS, T VÍCTOR DEVELOPMENT INTERN Unavailable Unavailable CHRIS, T VÍCTOR DEVELOPMENT INTERN Unavailable Unavailable CHRIS, T VÍCTOR DEVELOPMENT INTERN Unavailable Unavailable CHRIS, T VÍCTOR DEVELOPMENT INTERN Unavailable Unavailable CHRIS, T VÍCTOR DEVELOPMENT INTERN Unavailable Unavailable CHRIS, T VÍCTOR DEVELOPMENT INTERN Unavailable Unavailable CHRIS, T VÍCTOR DEVELOPMENT INTERN Unavailable Unavailable CHRIS, T VÍCTOR DEVELOPMENT INTERN Unavailable Unavailable CHRIS, T VÍCTOR DEVELOPMENT INTERN Unavailable Unavailable CHRIS, T VÍCTOR DEVELOPMENT INTERN Unavailable Unavailable CHRIS, T VÍCTOR DEVELOPMENT INTERN Unavailable Unavailable CHRIS, T VÍCTOR DEVELOPMENT INTERN Unavailable Unavailable CHRIS, T VÍCTOR DEVELOPMENT INTERN Unavailable Unavailable CHRIS, T VÍCTOR DEVELOPMENT INTERN Unavailable Unavailable CHRIS, T VÍCTOR DEVELOPMENT INTERN Unavailable Unavailable CHRIS, T VÍCTOR DEVELOPMENT INTERN Unavailable Unavailable CHRIS, T VÍCTOR DEVELOPMENT INTERN Unavailable Unavailable CHRIS, T VÍCTOR DEVELOPMENT INTERN Unavailable Unavailable CHRIS, T VÍCTOR DEVELOPMENT INTERN Unavailable Unavailable CHRIS, T VÍCTOR DEVELOPMENT INTERN Unavailable Unavailable CHRIS, T VÍCTOR DEVELOPMENT INTERN Unavailable Unavailable CHRIS, T VÍCTOR DEVELOPMENT INTERN Unavailable Unavailable CHRIS, T VÍCTOR DEVELOPMENT INTERN Unavailable Unavailable CHRIS, T VÍCTOR DEVELOPMENT INTERN Unavailable Unavailable CHRIS, T VÍCTOR DEVELOPMENT INTERN Unavailable Unavailable CHRIS, T VÍCTOR DEVELOPMENT INTERN Unavailable Unavailable CHRIS, T VÍCTOR DEVELOPMENT INTERN Unavailable Unavailable CHRIS, T VÍCTOR DEVELOPMENT INTERN Unavailable Unavailable CHRIS, T VÍCTOR DEVELOPMENT INTERN Unavailable Unavailable CHRIS, T VÍCTOR DEVELOPMENT INTERN Unavailable Unavailable CHRIS, T VÍCTOR DEVELOPMENT INTERN Unavailable Unavailable CHRIS, T VÍCTOR DEVELOPMENT INTERN Unavailable Unavailable CHRIS, T VÍCTOR DEVELOPMENT INTERN Unavailable Unavailable CHRIS, T VÍCTOR DEVELOPMENT INTERN Unavailable Unavailable CHRIS, T VÍCTOR DEVELOPMENT INTERN Unavailable Unavailable CHRIS, T VÍCTOR DEVELOPMENT INTERN Unavailable Unavailable CHRIS, T VÍCTOR DEVELOPMENT INTERN Unavailable Unavailable CHRIS, T VÍCTOR DEVELOPMENT INTERN Unavailable Unavailable Reynaldo Montes De Oca MD Unavailable Unavailable Reynaldo Montes De Oca MD Unavailable Unavailable Reynaldo Montes De Oca MD Unavailable Unavailable Reynaldo Montes De Oca MD Unavailable Unavailable Reynaldo Montes De Oca MD Unavailable Unavailable Reynaldo Montes De Oca MD Unavailable Unavailable Reynaldo Montes De Oca MD Unavailable Unavailable Reynaldo Montes De Oca MD Unavailable Unavailable Reynaldo Montes De Oca MD Unavailable Unavailable Reynaldo Montes De Oca MD Unavailable Unavailable Reynaldo Montes De Oca MD Unavailable Unavailable Reynaldo Montes De Oca MD Unavailable Unavailable Reynaldo Montes De Oca MD Unavailable Unavailable Montes De Oca, C Chyna MD Unavailable Unavailable Falguni C Chyna MD Unavailable Unavailable Montes De Oca, C Chyna MD Unavailable Unavailable Montes De Oca, C Chyna MD Unavailable Unavailable Montes De Oca, C Chyna MD Unavailable Unavailable Montes De Oca, C Chyna MD Unavailable Unavailable Montes De Oca, C Chyna MD Unavailable Unavailable Montes De Oca, C Chyna MD Unavailable Unavailable Montes De Oca, C Chyna MD Unavailable Unavailable Montes De Oca, C Chyna MD Unavailable Unavailable Montes De Oca, C Chyna MD Unavailable Unavailable Montes De Oca, C Chyna MD Unavailable Unavailable CHANLIECCO, C BRIDGER MD Unavailable Unavailable CHANLIECCO, C BRIDGER MD Unavailable Unavailable CHANLIECCO, C BRIDGER MD Unavailable Unavailable CHANLIECCO, C BRIDGER MD Unavailable Unavailable CHANLIECCO, C BRIDGER MD Unavailable Unavailable CHANLIECCO, C BRIDGER MD Unavailable Unavailable CHANLIECCO, C BRIDGER MD Unavailable Unavailable CHANLIECCO, C BRIDGER MD Unavailable Unavailable CHANLIECCO, C BRIDGER MD Unavailable Unavailable CHANLIECCO, C BRIDGER MD Unavailable Unavailable CHANLIECCO, C BRIDGER MD Unavailable Unavailable Re-disclosure Warning The records that you are about to access may contain information from federally-assisted alcohol or drug abuse programs. If such information is present, then the following federally mandated warning applies: This information has been disclosed to you from records protected by federal confidentiality rules (42 CFR part 2). The federal rules prohibit you from making any further disclosure of this information unless further disclosure is expressly permitted by the written consent of the person to whom it pertains or as otherwise permitted by 42 CFR part 2. A general authorization for the release of medical or other information is NOT sufficient for this purpose. The Federal rules restrict any use of the information to criminally investigate or prosecute any alcohol or drug abuse patient.The records that you are about to access may contain highly sensitive health information, the redisclosure of which is protected by Article 27-F of the [facility] Public Health law. If you continue you may have access to information: Regarding HIV / AIDS; Provided by facilities licensed or operated by the [facility] Office of Mental Health; or Provided by the [facility] Office for People With Developmental Disabilities. If such information is present, then the following [facility] mandated warning applies: This information has been disclosed to you from confidential records which are protected by state law. State law prohibits you from making any further disclosure of this information without the specific written consent of the person to whom it pertains, or as otherwise permitted by law. Any unauthorized further disclosure in violation of state law may result in a fine or correction sentence or both. A general authorization for the release of medical or other information is NOT sufficient authorization for further disc losure. Encounters Encounter Providers Location Date Indications Data Source(s ) Outpatient Attender: ROLAND CHAWLA MD Main Office 07/04/2021 01:00:00 PM EDT [facility] ([facility] Emergency Attender: BRIDGER HAMILTON MDConsultant: SACHIN MCKINNON 04/27/2021 02:36:00 PM EDT - 04/27/2021 05:53:[address] [facility] Patient discharged. Emergency Attender: Ang Tapia MDConsultant: GLENDY SMITH 04/20/2021 10:50:00 PM EDT - 04/21/2021 12:44:[address] [facility] l Patient discharged. Emergency Attender: BRIDGER HAMILTON MDConsultant: SACHIN MCKINNON 03/07/2021 04:47:00 PM EDT - 03/07/2021 06:58:[address] [facility] Patient discharged. Emergency Attender: ANDREA Conradant: GLENDY CHAUDHARY EConsultant: PCP NO 02/17/2021 06:20:00 PM EDT - 02/17/2021 09:03:[address] [facility] Patient discharged. Outpatient Attender: Chyna Montes De Oca MD 0 12/16/2020 01:02:15 PM EST - 12/16/2020 01:48:36 PM EST [facility] ([facility]) Outpatient Attender: VÍCTOR FITZPATRICK 11/12 06:47:55 PM EST - 12/02/2020 07:25:15 PM EST [facility] ([facility] ) Emergency Attender: ANDREA Conradant: PCP NO 09/23/2020 11:13:00 PM EST - 09/24/2020 12:22:00 AM EST [facility] Patient discharged. Emergency Attender: REZA VILLARREAL DOConsultant: PCP NO 09/21/2020 09:17:00 AM EST - 09/21/2020 11:40:00 AM EST [facility] Patient discharged. Emergency Attender: ANDREA Harmon: PCP NO 07/03/2020 03:38:00 PM EDT - 07/03/2020 04:27:00 PM EDT [facility] Patient admitted. Medications Medication Brand Name Start Date Product Form Dose Route Admi nistrative Instructions Pharmacy Instructions Status Indications Reaction Description Data Source(s) 07/03/2021 12:00:00 AM EDT ORAL active [facility] ([facility]) Insurance Providers Payer name Policy type / Coverage type Policy ID Covered republican ID Covered republican's relationship to pearson Policy Pearson Plan Information / [id number] Self 01 [id number] [facility] HUMAN [id number] [id number] [facility] - O/P [id number] 01 [id number] Problems, Conditions, and Diagnoses Code Display Name Description Problem Type Effective Dates Data Source(s) Z3A15 15 weeks gestation of 15 weeks gestation of Diagnosis 04/27/2021 02:36:[address] [facility] R102 Pelvic and perineal pain Pelvic and perineal pain Diag nosis 04/27/2021 02:36:[address] [facility] D65605 Other specified related condit ions, second trimester Other specified related conditions, second trimester Diagnosis 04/27/2021 02:36:[address] [facility] Z8759 Personal history of other co mplications of , childbirth and the puerperium Personal history of other complications of , childbirth and the puerperium Diagnosis 04/20/2021 10:50:[address] [facility] Z3A00 Weeks of gestation of not spec ified Weeks of gestation of not specified Diagnosis 04/20/2021 10:50:[address] [facility] G8929 Other chronic pain Other chronic pain Diagnosis 08/2021 10:50:[address] [facility] Q92909 Migraine without aura, intractable, with out status migrainosus Migraine without aura, intractable, without status migrainosus Diagnosis 04/20/2021 10:50:[address] [facility] S65343 Diseases of the nervous syst em complicating , unspecified trimester Diseases of the nervous system complicat ing , unspecified trimester Diagnosis 04/20/2021 10:50:[address] [facility] B95118 Other specified related condit ions, unspecified trimester Other specified related conditions, unspecified trimester Diagnosis 04/20/2021 10:50:[address] [facility] Z3A01 Less than 8 weeks gestation of Less than 8 weeks gestation of Diagnosis 03/07/2021 04:47:[address] [facility] K66103 Other specified related condit ions, first trimester Other specified related conditions, first trimester Diagnosis [facility]/07[facility] Threatened Threatened Diagnosis 0 02/17/2021 06:20:[facility] 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 Diagnosis 09/23/2020 11:13:00 PM [facility] R00.2 Palpitations Palpitations Problem 07/04/2021 12:00:00 A M EDT [facility] ([facility]) R07.2 Precordial pain Precordial pain Problem 07/04/2021 12:0 0:00 AM EDT [facility] ([facility]) R94.31 Electrocardiogram abnormal Electrocardiogram abnormal Problem 07/04/2021 12:00:00 AM EDT [facility] ([facility]) G43.709 Chronic migraine without aura Chronic migraine without aura Problem 07/04/2021 12:00:00 AM EDT [facility] ([facility]) Surgeries/Procedures Procedure Description Date Indications Data Source(s) ECG ROUTINE ECG W/LEAST 12 LDS W/I&R 07/04/2021 12:00: 00 AM EDT [facility] ([facility]) OFFICE OUTPATIENT NEW 45 MINUTES 07/04/2021 12:00:00 A M EDT [facility] ([facility]) Results ID Date Data Source [id number] 07/18/2021 12:00:00 AM EDT [facility] Name Value Range Interpretation Code Description Data Opal rce(s) Supporting Document(s) SARS-COV-2 Negative [facility] This lab was ordered by Fazal and re ported by Fazal. ID Date Data Source [id number] 05/08/2021 01:52:00 PM EDT [facility] ([facility]) Name Value Range Interpretation Code Description Data Opal rce(s) Supporting Document(s) White Blood Count 12.5 5.0-10.0 [facility] ([facility]) Red Blood Count 4.22 4.00-5.40 [facility] ([facility]) Platelets 235 172-450 [facility]) Hemoglobin 12.8 [facility] ([facility]) Hematocrit 37.3 [facility] ([facility]) ID Date Data Source [id number] 05/08/2021 01:52:00 PM EDT [facility] ([facility]) Name Value Range Interpretation Code Description Data Opal rce(s) Supporting Document(s) Thyroid Stimulating Hormone 1.520 [facility] ([facility]) Free T4 0.97 [facility] ([facility]) ID Date Data Source [id number] 04/29/2021 10:29:00 [place] [address] PHONE: [phone] FAX: [phone] Name .................. : LIZZETH Bernardo Acct Number.................. : [id number] ROOM. ................. : TR-05 Number ................... : [id number] Stay type ............. : E/R Discharge Date......... ... : 04/27/21 Admit Date .... ..... : 04/27/21 Admit Phys .................... : MYCHAL Date of ....... : 2000 Family Phys ................... : SARAH CAME Phone .................. : [phone] Age ................................ : 20 Film# .................. .:[id number] Sex ................................. : F Unsigned transcriptions are preliminary reports and do not represent a medical or legal document OB COMPLETE 14WKS OR>(2ND& 09172 COMPLETE:04/27/21 16:33 ADB 21319 Reason for Exam: CRAMPING COMPLETE OB ULTRASOUND: INDICATION: Cramping. FINDINGS: There is a single live intrauterine with a heart rate of 155 beats per minute. Based on today's ultrasound, the estimated gestational age is 15 weeks 0 days with estimated delivery date of October 19, 2021. Estimated weight is 112 grams, which is in the 41st percentile. The fetus is in the variable position. There is an anterior placenta without evidence of previa or abruption. IMPRESSION: Single live intrauterine as above. No evidence of placenta abruption or previa. Electronically Reviewed and Signed By Pro Tai M.D. , 04/29/21 10:29, [facility] Transcribe Initials: SHIRLENE , Transcribe Date: 04/27/21 18:02, Dictation Date: Copy for: SARAH Franco via fax Copy for: EMERG[place]PT [place] [facility] Copy for: 710 MED REC DISCHARGED Page 1 of 1 Name Value Range Interpretation Code Description Data Opal rce(s) Supporting Document(s) ID Date Data Source [id number] 04/27/2021 02:36:[address] [facility] [address] [facility] Emergency Department [address] [place] [address] Phone #: ext- [phone] 04/27/2021 14:33 Patient: CHRISTOS MOREAU Sex: F : 2000 Age: 20yWEIGHT:85.2 kg (S) HEIGHT:62 inches (S) BMI:34.4ALLERGIES: NoneCHIEF COMPLAINT: pelvic painDIAGNOSIS: C/O pelvic painLAB ORDERSOrder Description Priority Entered Acknowledged InitialedBeta-HCG, Quant STAT 14:40 04/27/2021 14:42 PeterSerum Bridger Hamilton RN ;Urinalysis (Clean STAT 14:40 04/27/2021 14:43 BurnhamCatch) Bridger Hamilton fulfillment specialist, [facility] ; [id number], Urine STAT 14:40 04/27/2021 14:43 Frantz(Urine, [facility]) ; [id number] w Diff STAT 14:40 04/27/2021 14:42 Bridger Harrison RN ;CMP STAT 14:40 04/27/2021 14:42 Bridger Harrison RN ;DIAGNOSTIC STUDY ORDERSOrder Description Priority Entered Acknowledged InitialedUS OB 1ST TRI W STAT 15:50 04/27/2021 16:02 CarlosTSven IF NEEDED Bridger Hamilton RN(Oxygen?(No)) ;(IV?(No)) Reason for Study: pelvic pain 14 weeks MEDICATION/IV/DRIP/FLUID ORDERSOrder Description Priority Entered Acknowledged InitialedTylenol PO 650 mg 15:48 04/27/2021 16:19 Carlos(NOW) Bridger Hamilton RN ;GENERAL ORDERS [address] [facility] Emergency Department [address] [place] [address] Phone #: ext- [phone] 04/27/2021 14:33 Patient: CHRISTOS MOREAU Sex: Katy : 2000 Age: 20yOrder Description Priority Entered Acknowledged Initialed[Electronically signed by Carlos Gallagher RN (17:53 04/27/2021)][Electronically signed by Bridger Hamilton (22:45 04/27/2021)][Electronically locked by Carlos Gallagher RN (17:53 04/27/2021)] Name Value Range Interpretation Code Description Data [facility](s) Supporting Document(s) ID Date Data Source [id number] 04/27/2021 02:36:00 PM EDT [place] [address] [facility] Emergency Department [address] [place] [address] Phone #: ext [phone] 04/27/2021 14:33 Patient: CHRISTOS MOREAU Sex: F : 2000 Age: 20yWeight: 85.2 kgHeight/Length: 62 in.BMI: 34.4ALLERGIES: NoneThe patient's Home Medications are listed below:CONTINUE TAKING THE FOLLOWING MEDICATIONS: Oral, dailyThe source(s) of the original Home Medication information:Not obtained.The following Medications were given to the patient in the Emergency Department:Tylenol [PO] PO 650 mg, administered: 16:19 04/27/2021The following Medications were prescribed to the patient:None. Name Value Range Interpretation Code Description Data Opal rce(s) Supporting Document(s) ID Date Data Source [id number] 04/27/2021 02:36:[address] [facility] [address] [facility] Emergency [facility] [address] [place] [address] Phone #: ext- [phone] 04/27/2021 14:33 Patient: CHRISTOS MOREAU Sex: F : 2000 Age: 20yWeight: 85.2 kgHeight/Length: 62 inBMI: 34.4ALLERGIES: None Date/Time Medication Administered Medication OrderedGiven TYLENOL [PO] (APAP) Tylenol PO 650 mg (NOW)16:19 04/27/2021 Dose: 650 mg Tablets Marialuisa Gallagher RN Name Value Range Interpretation Code Description Data Opal rce(s) Supporting Document(s) ID Date Data Source [id number] 04/27/2021 02:36:[address] [facility] [address] [facility] Emergency Department [address] [place] [address] Phone #: ext- [phone] 04/27/2021 14:33 Patient: CHRISTOS MOREAU Sex: F : 2000 Age: 20y Pelvic pain. Ultrasound demonstrated an intrauterine .INSTRUCTIONS Drink plenty of fluids. (take Tylenol for pain. 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 your pelvic US showed a live intrauterine of 15 weeks and 2 days). Your Current Medications: Your current home medications have been reviewed. CONTINUE TAKING THE FOLLOWING MEDICATIONS: Oral : daily. Follow-up: Follow up with your healthcare provider in three. Reason for referral: evaluation. Summary of care provided to patient via paper. ADDITIONAL INFORMATIONPelvic Pain in : Unclear (23 Trimester)You are well into your and are having pain and pressure in your pelvic area. This is yourlower belly (abdomen). Mild pelvic pressure or heaviness is very common in the latter stages of ahealthy . This is due to the growing uterus (womb). Although the exact cause of your painis not certain, it does not appear to be dangerous. It may be due to ligaments in your belly stretchingto support your uterus as it grows. The weight of your baby may also be causing pressure and pain.Pain can be caused by the bones of your pelvis shifting as your body makes room for the baby topass through. This is known as symphysis pubis dysfunction (SPD). SPD can cause quite a bit ofpain and discomfort as the due date nears. [address] [facility] Emergency Department [address] [place] [address] Phone #: ext- [phone] 04/27/2021 14:33 Patient: CHRISTOS MOREAU Sex: F : 2000 Age: 20yPain in the low back is common during .Home careThe following are general care guidelines: Avoid strenuous activities and long periods of standing. Bed rest is not needed unless your doctor has recommended it. Exercise for 30 minutes all or most days of the week. This will promote muscle tone, strength, and endurance. Ask your healthcare provider what exercises to do and to avoid. Sit in a warm (NOT hot) bath. This helps relax tight, painful muscles. Sleep on your side with a pillow between your legs. This helps align your pelvis. Eat frequent, light meals. Choose foods that are easy to digest. Ask your doctor whether a support belt could help you. If told to by your healthcare provider, take an ddqo-[id number]-dageimf medicine, such as acetaminophen, to relieve pain. Follow instructions carefully for how much to take and how often to take it. Do not take aspirin or nonsteroidal anti-inflammatory medicines (like ibuprofen) unless you have been told to do so by your healthcare provider.Follow-up careFollow up with your healthcare provider, or as advised. [address] [facility] Emergency Department [address] [place] [address] Phone #: ext- [phone] 04/27/2021 14:33 Patient: CHRISTOS MOREAU Sex: Katy : 2000 Age: 20yWhen to seek medical adviceCall your healthcare provider right away if any of these occur: Sudden or gradual worsening abdominal pain Fainting, dizziness, or weakness when standing Any vaginal bleeding Leakage of fluid from the vagina Decreased motion Repeated vomiting or diarrhea Pain that seems to settle in one area, especially the lower right abdomen Blood in vomit or bowel movements (dark red or black color) Fever of 100.4F (38C) or higher 1999- 2019 [employer]. [address] [place] [address]. All rights reserved. This information is not intended as asubstitute for professional medical care. Always follow your healthcare professional's instructions. You have been given the following additional information: Pelvic Pain In : Unclear (2-3 Trimester)(Electronically signed by Bridger Hamilton 04/27/2021 22:45) Name Value Range Interpretation Code Description Data Opal rce(s) Supporting Document(s) ID Date Data Source [id number] 04/27/2021 02:36:[address] [facility] 1 Clinical Report - Nurses [facility] Emergency Department [address] [place] [address] Phone #: ext- [phone] 04/27/2021 14:33 Patient: CHRISTOS MOREAU Sex: F : 2000 Age: 20yTRIAGEArrived by private vehicle. Historian: patient. Accompanied by family.Acuity: LEVEL 3.Chief Complaint: ABDOMINAL PAIN and CRAMPS.Onset. (8 days ago). ( Pt states she is about 14 weeks and starting 8 days ago she began tohave lower abdominal cramping which turned to a sharp pain 2 days ago, she has called her OBGYN andwas told to drink more water, pt denies any discharge or bleeding).Treatment STITCHER AROUND:None.SEPSIS SCREEN: SIRS SCREEN NEGATIVE. SEPSIS SCREEN NEGATIVE. No suspected or confirmedsigns of infection present.JENNIFER COMA SCORE: 15- eyes open- spontaneous (4); best verbal response- oriented (5); bestmotor response- obeys commands (6). --14:39 04/27/21 Carlos Gallagher RN14:34 04/27/21. BP: 135/85. MAP: 101. HR: 92. RR: 16. O2 saturation: 100%. Pain level now: 06/20.--14:39 04/27/21 Carlos Gallagher RN14:39 04/27/21. Temp: 99.5 F. --14:40 04/27/21 Carlos Gallagher RN.Weight: 85.2 kg stated. Height/Length: 62 inches Per Patient. BMI: 34.4. --14:33 04/27/21 Carlos Gallagher RN.MedicationsPrenatal Oral, daily. --14:36 04/27/21 Carlos Gallagher RN.AllergiesNone. --14:36 04/27/21 Carlos Gallagher RN.ADDITIONAL SURGERIES:no known surgeries.HistoryPAST MEDICAL HX: Immunizations: up-to-date. Last normal menstrual period- Nov 16. Confirmedpregnancy. In 2nd trimester. confirmed with urine test and serum test. Has had care byobstetrician. Recent sonogram showed intrauterine . G 3. P 0. 2 Clinical Report - Nurses [facility] Emergency Department [address] [place] [address] Phone #: ext- [phone] 04/27/2021 14:33 [id number] Sex: F : 2000 Age: 20y SOCIAL HX: Never smoker. No alcohol use or drug use. She was offered HIV testing but declined and hepatitis C testing but declined. She has not trave led outside the [place] Infectious disease exposure: No infectious disease exposure. The patient was not exposed to Coronavirus. SELF HARM ASSESSMENT: Self harm assessment was performed. The patient answered "no" to the question(s) "Have you recently felt down, depressed, or hopeless?", "Do you have thoughts of harming or killing yourself?", "Do you have a plan for harming or killing yourself?", "Have you recently had thoughts about harming or killing others?", "Do you have any dangerous items in your possession?", "Have you noticed less interest or pleasure in doing things?", "Are you here because you tried to hurt yourself?" and "Have you ever tried to hurt yourself before today?". ABUSE ASSESSMENT: No report of abuse. NUTRITIONAL RISK ASSESSMENT: The nutritional risk assessment revealed no deficiencies. FUNCTIONAL ASSESSMENT: Functional assessment: no impairments noted. LEARNING NEEDS ASSESSMENT: The learning needs assessment revealed no barriers. FALL RISK ASSESSMENT: Fall risk assessment completed. No risk factors identified. SKIN INTEGRITY ASSESSMENT: Skin integrity risk assessment completed. No skin integrity risk identified. --14:39 04/27/21 Carlos Gallagher RN. Interventions Identification band on patient. To treatment room. --14:39 04/27/21 Carlos Gallagher RN.PHYSICAL ASSESSMENTAmbulatory to room.GENERAL / NEURO / PSYCH: Alert. Oriented X 4. Appears in pain.HEENT: Mucous membranes are pink.RESPIRATORY: Respirations not labored. Breath sounds within normal limits.CVS: Normal heart rate and rhythm. Capillary refill less than 2 seconds.GI / : Abdomen soft and nontender. Bowel sounds within normal limits. ( pt voices cramping but nopain with palpation of abdomen).EXTREMITIES: No lower extremity edema.SKIN: Skin is warm and dry. --14:42 04/27/21 Carlos Gallagher RN.NURSING PROGRESS NOTESPatient gowned. Head of bed elevated. Reassurance given. Call light placed in reach. Bed placed inlowest position. Brakes of bed on. Patient ready for evaluation- ED physician and PA notified. --14: Carlos Gallagher RN PELVIC EXAM: 3 Clinical Report - Nurses [facility] Emergency Department [address] [place] [address] Phone #: ext- [phone] 04/27/2021 14:33 Patient: CHRISTOS MOREAU Sex: F : 2000 Age: 20y Pelvic exam performed by ED physician. Assisted by one nurse. Preparation: patient placed in lithotomy position. Procedure: speculum and bimanual exam. S tatus post-procedure: she was stable and no complications were noted. Patient tolerated the procedure well. Total time of assist / procedure: (7 minutes). --15:03 04/27/21 Carlos Gallagher RN 16:19 04/27/2021 Tylenol (APAP) PO Tablets 650 mg given. Allergies verified and confirmed 5 rights. Information reviewed with patient including reason for taking this medication. Verbalizes understanding. --16:19 04/27/21 Carlos Gallagher RN.DISPOSITION / DISCHARGE Condition at departure: improved and stable. Discharge instructions provided and reviewed with the patient. Patient verbalized understanding. Written instructions provided in Omani. The patient was discharged by the physician. She was discharged home and accompanied by spouse. She left ambulatory and via private vehicle. Spouse driving. --17:53 04/27/21 Carlos Gallagher RN 17:49 04/27/21. BP: 103/66. MAP: 78. HR: 76. RR: 16. O2 saturation: 100%. Pain level now: 0/10. --17:53 04/27/21 Carlos Gallagher RN.Locked/Released at 04/27/2021 17:53 by Carlos Gallagher RN Name Value Range Interpretation Code Description Data Opal rce(s) Supporting Document(s) ID Date Data Source [id number] 04/27/2021 02:36:[address] [facility] 1 Clinical Report - Physicians/[facility] Emergency Department [address] [place] [address] Phone #: ext- [phone] 04/27/2021 14:33 Patient: CHRISTOS MOREAU Sex: F : 2000 Age: 20y Time Seen: 14:41 04/27/2021; initial patient contact, initial documentation. Arrived- By private vehicle. Historian- patient. Disposition decision: 17:44 04/27/2021.HISTORY OF PRESENT ILLNESS Chief Complaint: PELVIC PAIN. This started 8 days STITCHER AROUND and still present (persistent). It was gradual in onset and has been intermittent. The symptoms are described as moderate. Modifying factors. Not worsened by anything. Not relieved by anything. The pa tient has had pelvic pain and a vaginal discharge. No abnormal bleeding. She has had pain with urination and urgency of urination. The patient has had urinary frequency. (Patient currently being treated for Bacterial vaginosis and vaginal yeast infection. patient is H6O3Mf8 and is 14 weeks ). Currently .REVIEW OF SYSTEMSNo nausea, vomiting, diarrhea, black stools or anorexia. No eye discomfort, sore throat, cough, difficultybreathing or chest pain. No skin rash, enlarged lymph nodes or joint pain. All other systems reviewedand are negative.PAST HISTORYProblems:Migraine Headache.Chronic Headache.Anxiety Reaction.. Additional Surgeries: no known surgeries. Medications: Oral, daily. Allergies: None.SOCIAL HISTORYNever smoker. No alcohol use or drug use.ADDITIONAL NOTESThe nursing notes have been reviewed.PHYSICAL EXAM 2 Clinical Report - Physicians/Mid Levels [facility] Emergency Department [address] [place] [address] Phone #: ext- [phone] 04/27/2021 14:33 Patient: CHRISTOS MOREAU [facility]#: [id number] Sex: F : 2000 Age: 20y Vital Signs: Have been reviewed. Oxygen saturation normal. Appearance: Alert. Oriented X3. No acute distress. HEENT: Normal external inspection. Respiratory: No respiratory distress. Breath sounds normal. Chest nontender. Abdomen: Soft. Mild tenderness in the suprapubic area and left lower quadrant. No guarding or rebound tenderness. Bowel sounds normal. Back: Normal external inspection. : Marine Superintendent present (nurse Rafael). Speculum and bimanual exam performed. Normal external exam. Speculum exam normal. A moderate amount of thick and white vaginal discharge present (consistent with anti fungal medication). No cervical lesions. Cervical os closed. No cervical dilation. Bimanual exam normal. No tenderness on bimanual exam. No tenderness with movement of the cervix. No pelvic mass. Skin: Skin warm and dry. Normal skin color. No rash. Normal skin turgor. Extremities: Extremities nontender. No lower extremity edema. Neuro: Oriented X 3. Mood/affect normal.LABS, X-RAYS, AND EKGPelvic Sonogram: Zaire keys Neal - 04/27/2021 4:30:54 PMNo evidence of placental abruption or previa. Single live uterine . The study was interpreted bythe radiologist.Laboratory Tests: US OB COMPLETE 14WKS OR>(2ND: (RHONDA: 04/27/2021 16:00) ( [facility] [place]33[facility] In Progress US OB COMPLETE 14WKS OR>(2ND Reason for Exam: CRAMPING TRANSPORTATION: AMB IV? N O2? N ISOLATION N US OB 1ST TRI W TV IF NEEDED: (RHONDA: 04/27/2021 15:50) ( MsgRcvd 04/27/2021 16:24) Canceled US OB 1ST TRI W TV IF NEEDED Reason(s): pelvic pain 14 weeks TRANSPORTATION: WC IV? IV?(No) O2? Oxygen?(No) Ayde Beta-HCG, Quant Serum: (RHONDA: 04/27/2021 14:50) ( MsgRcvd 04/27/2021 15:39) Final results Test Result Flag Units (Reference) HCG QUANT 72020.0 mIU/mL Interpretation: Less than 5 mU/mL: Negative 6-10 mU/mL: Borderline (suggest repeat in 48 hours) >10: Positive Approx HCG range (mU/mL) Weeks post LMP 5.4-708 mU/mL 3-4 Weeks 217-26905 mU/mL 5-6 Weeks 4059-127873 mU/mL 7-8 Weeks 90916-328320 mU/mL 9-10 Weeks 93071-89731 mU/mL 12- 14 Weeks 92394-58007 mU/mL 15-16 Weeks 8240-50977 mU/mL 17-18 Weeks Urinalysis: (RHONDA: 04/27/2021 14:45) ( MsgRcvd 04/27/2021 15:40) Final results Test Result Flag Units (Reference) URINALYSIS URINALYSIS 3 Clinical Report - Physicians/Mid Levels [facility] Emergency Department [address] [place] [address] Phone #: ext- [phone] 04/27/2021 14:33 Patient: CHRISTOS MOREAU Sex: F : 2000 Age: 20y SOURCE Clean Catch COLOR yellow (NORMAL: Yello CLARITY turbid (NORMAL: Clear SPEC GRAVITY 1.015 (1.001 - 1.030 pH 6.5 (5 - 9) GLUCOSE 50 A (NORMAL: Negat BILIRUBIN NEG (NORMAL: Negat KETONE NEG (NORMAL: Negat PROTEIN NEG (NORMAL: Negat NITRITE NEG (NORMAL: Negat BLOOD NEG (NORMAL: Negat LEUK EST 25 (NORMAL: Negat UROBILINOGEN NOR (less than 1.0 MICROSCOPIC See Below WBC 1 - 3 (NORMAL: NONE RBC 0 - 1 (NORMAL: NONE EPITHELIAL MANY A (NORMAL: NONE AMORPH SED RARE (NORMAL: NONECBC w Diff: (RHONDA: 04/27/2021 14:50) ( MsgRcvd 04/27/2021 15:10) Final results Test Result Flag Units (Reference) CBC W/AUTOMATED DIFF COMPLETE BLOOD COUNT WBC 12.6 H 10/uL (4.2 - 11.0) RBC 4.36 10/uL (4.20 - 5.40) HEMOGLOBIN 13.3 g/dL (12.0 - 16.0) HEMATOCRIT 38.4 % (37.0 - 47.0) MCV 88.1 fL (81.0 - 101) MCH 30.5 pg (27.0 - 34.0) MCHC 34.6 g/dL (31.0 - 36.0) RDW 13.2 % (11.5 - 14.5) PLATELETS 296 10/uL (150 - 450) MPV 11.7 H fL (7.4 - 10.4) NEUT 78.5 % (37.0 - 80.0) LYMPH 14.7 L % (25.0 - 40.0) MONO 5.3 % (3.0 - 8.0) EOS 0.6 % (0.0 - 7.0) BASO 0.3 % (0.0 - 2.5) %IG 0.6 H % (0.0 - 0.0) %NRBC 0.0 % (0.0 - 0.0) #NEUT 9.88 H 10/uL (2.00 - 6.90) #LYMPH 1.85 10/uL (0.60 - 3.40) #MONO 0.67 10/uL (0.00 - 0.90) #EOS 0.08 10/uL (0.00 - 0.70) #BASO 0.04 10/uL (0.00 - 0.20) #IG 0.07 10/uL (0.00 - 0.10) #NRBC 0.00 10/uL (0.00 - 0.00) MANUAL DIFF NOT INDICATED RBC MORPH NOT INDICATEDCMP: (RHONDA: 04/27/2021 14:50) ( MsgRcvd 04/27/2021 15:39) Final results Test Result Flag Units (Reference) COMPREHENSIVE METABOLIC PANEL COMPREHENSIVE METABOLIC PANEL SODIUM 137 mEq/L (134 - 153) POTASSIUM 3.9 mEq/L (3.6 - 5.0) CHLORIDE 104 mEq/L (98 - 107) 4 Clinical Report - Physicians/Mid Levels [facility] Emergency Department [address] [place] [address] Phone #: ext- [phone] 04/27/2021 14:33 Patient: CHRISTOS MOREAU Sex: F : 2000 Age: 20y CO2 23 MEQ/L (22 - 30) GLUCOSE 83 MG/DL (70 - 99) BUN 5 L MG/DL (7 - 21) CREATININE 0.4 L MG/DL (0.7 - 1.5) BUN/CREAT 13 (8 - 27) TOTAL PROTEIN 6.8 G/DL (6.3 - 8.2) ALBUMIN 4.1 G/DL (3.9 - 5.0) GLOBULIN 2.7 GM/DL (2.4 - 3.2) A/G RATIO 1.5 (0.8 - 2.0) CALCIUM 9.2 MG/DL (8.4 - 10.2) TOTAL BILI <0.7 MG/DL (0.2 - 1.3) ALKALINE PHOS 51 U/L (38 - 126) SGOT/AST 10 U/L (5 - 40) SGPT/ALT 7 U/L (7 - 56) ANION GAP 10.0 mmol/L (8.0 - 16.0) AGE 20 yrs NON-AA GFR >60 mL/min AFR AMER GFR >60 mL/min Male GFR Interprentation 20-49 yrs >60 mL/min Normal 50-59 yrs >56 mL/min Normal 60- 69 yrs >49 mL/min Normal 70-79yrs >42 mL/min Normal 80 and above >35 mL/min Normal Female GFR Interpretation 20-39 yrs >60 mL/min Normal 40-49 yrs >58 mL/min Normal 50-59 yrs >51 mL/min Normal 60-69 yrs >45 mL/min Normal 70-79 yrs >39 mL/min Normal 80 and above >32 mL/min Normal.PROGRESS AND PROCEDURESCourse of Care: 15:50 04/27/21. Patient's BHCG is only45,000. her HCG was 22,000 when she was 7weeks . will send her for US 17:38 04/27/21. patient has a live IUP of 15 weeks and 2 days. blood work and urinalysis normal. will discharge her home and advised to take tylenol for pain and to increase fluids. Patient and spouse counseled in person regarding the patient's stable condition and need for follow-up. Patient and spouse agrees with plan of care. 17:43. Disposition orders written. Disposition: Discharged home in good and improved condition (17:44). Condition: good and stable. Discharge decision based on the following: patient's condition is stable; patient's pain is controlled; patient's exam is stable; no seriously abnormal test results; stable condition on multiple repeat evaluations; social support is adequate; transportation is available; follow-up is available; clinical impression is consistent with outpatient treatment.CLINICAL IMPRESSION Pelvic pain. Ultrasound demonstrated an intrauterine . 5 Clinical Report - Physicians/Mid Levels [facility] Emergency Department [address] [place] [address] Phone #: ext- [phone] 04/27/2021 14:33 Patient: CHRISTOS MOREAU Sex: F : 2000 Age: 20yINSTRUCTIONS Drink plenty of fluids. (take Tylenol for pain. 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 your pelvic US showed a live intrauterine of 15 weeks and 2 days). Your Current Medications: Your current home medications have been reviewed. CONTINUE TAKING THE FOLLOWING MEDICATIONS: Oral : daily. Follow-up: Follow up with your healthcare provider in three. Reason for referral: evaluation. Summary of care provided to patient via paper.(Electronically signed by Bridger Hamilton 04/27/2021 22:45) Name Value Range Interpretation Code Description Data Opal rce(s) Supporting Document(s) ID Date Data Source [id number] 04/27/2021 03:39:[address] [facility] Name Value Range Interpretation Code Description Data Opal rce(s) Supporting Document(s) Choriogonadotropin.intact [Units/volume] in Serum or Plasma 28874.0 mIU/mL [facility] Interpr etation: Less than 5 mU/mL: Negative 6-10 mU/mL: Borderline (suggest repeat in 48 hours) >10: Positive Approx HCG range (mU/mL) Weeks post LMP 5.4-708 mU/mL 3-4 Weeks 217-09883 mU/mL 5-6 Weeks 4059-677460 mU/mL 7-8 Weeks 62505-585796 mU/mL 9-10 Weeks 18353-45137 mU/mL 12-14 Weeks 70650-30141 mU/mL 15-16 Weeks 8240- 58090 mU/mL 17-18 Weeks ID Date Data Source [id number] 04/27/2021 03:38:[address] [facility] Name Value Range Interpretation Code Description Data [facility](s) Supporting Document(s) COMPREHENSIVE METABOLIC PANEL [facility] COMPREHENSIVE METABOLIC PANEL Sodium [Moles/volume] in Serum or Plasma 137 mEq/L 134 - 153 [facility] Potassium [Moles/volume] in Serum or Plasma 3.9 mEq/L 3.6 - 5.0 [facility] Chloride [Moles/volume] in Serum or Plasma 104 mEq/L 98 - 107 [facility] Carbon dioxide, total [Moles/volume] in Serum or Plasma 23 MEQ/L 22 - 30 [facility] Glucose [Mass/volume] in Serum or Plasma 83 MG/DL 70 - 99 [facility] BUN 5 MG/DL 7 - 21 [facility] Creatinine [Mass/volume] in Serum or Plasma 0.4 MG/DL 0.7 - 1.[address] [facility] BUN/CREAT 13 8 - [address] [facility] al Protein [Mass/volume] in Serum or Plasma 6.8 G/DL 6.3 - 8.2 [facility] Albumin [Mass/volume] in Serum or Plasma 4.1 G/DL 3.9 - 5.0 [facility] Globulin [Mass/volume] in Serum by calculation 2.7 GM/DL 2.4 - 3.2 [facility] A/G RATIO 1.5 0.8 - 2.0 [facility] Calcium [Mass/volume] in Serum or Plasma 9.2 MG/DL 8.4 - 10.2 [facility] Bilirubin.total [Mass/volume] in Serum or Plasma <0.7 MG/DL 0.2 - 1.3 [facility] Alkaline phosphatase [Enzymatic activity/volume] in Serum or Plasma 51 U/L 38 - 126 [facility] Aspartate aminotransferase [Enzymatic activity/volume] in Serum or Plasma 10 U/L 5 - 40 [facility] Alanine aminotransferase [Enzymatic activity/volume] in Seru m or Plasma 7 U/L 7 - 56 [facility] Anion gap 3 in Serum or Plasma 10.0 mmol/L 8.0 - 16.0 [facility] AGE [address] [facility] NON-AA GFR >60 mL/min [facility] ital AFR AMER GFR >60 mL/min [facility] Ho spital Male GFR In terprentation 20-49 yrs >60 mL/min Normal 50-59 yrs >56 mL/min Normal 60-69 yrs >49 mL/min Normal 70-79yrs >42 mL/min Normal 80 and above >35 mL/min Normal Female GFR Interpretation 20-39 yrs >60 mL/min Normal 40-49 yrs >58 mL/min Normal 50-59 yrs >51 mL/min Normal 60-69 yrs >45 mL/min Normal 70-79 yrs >39 mL/min Normal 80 and above >32 mL/min Normal ID Date Data Source [id number] 04/27/2021 03:09:[address] [facility] Name Value Range Interpretation Code Description Data Opal rce(s) Supporting Document(s) CBC W/AUTOMATED DIFF [facility] COMPLETE BLOOD COUNT Leukocytes [#/volume] in Blood by Automated count 12.6 10^3/uL 4.2 - 11.[address] [facility] Erythrocytes [#/volume] in Blood by Automated count 4.36 10^6/uL 4. 20 - 5.40 [facility] Hemoglobin [Mass/volume] in Blood 13.3 g/dL 12.0 - 16.0 [facility] Hematocrit [Volume Fraction] of Blood by Automated count 38.4 % 3 7.0 - 47.0 [facility] Erythrocyte mean corpuscular volume [Entitic volume] by Auto mated count 88.1 fL 81.0 - 101 [facility] Erythrocyte mean corpuscular hemoglobin [Entitic mass] by Automated count 30.5 pg 27.0 - 34.0 [facility] Erythrocyte mean corpuscular hemoglobin concentration [Mass/volume] by Automated count 34.6 g/dL 31.0 - 36.0 [facility] Erythrocyte distribution width [Ratio] by Automated count 13.2 % 11.5 - 14.5 [facility] Platelets [#/volume] in Blood by Automated count 296 10^3/uL 150 - [address] [facility] Platelet mean volume [Entitic volume] in Blood by Automated count 11.7 fL 7.4 - 10.[address] [facility] Neutrophils/100 leukocytes in Blood by Automated count 78.5 % 37. 0 - 80.0 [facility] Lymphocytes/100 leukocytes in Blood by Manual count 14.7 % 25.0 - 40.[address] [facility] Monocytes/100 leukocytes in Blood by Automated count 5.3 % 3.0 - 8.0 [facility] Eosinophils/100 leukocytes in Blood by Automated count 0.6 % 0.0 - 7.0 [facility] Basophils/100 leukocytes in Blood by Automated count 0.3 % 0.0 - 2.5 [facility] %IG 0.6 % 0.0 - 0.0 [facility] %NRBC 0.0 % 0.0 - 0.[address] [facility] al Neutrophils [#/volume] in Blood by Automated count 9.88 10^3/uL 2.00 - 6.[address] [facility] Lymphocytes [#/volume] in Blood by Automated count 1.85 10^3/uL 0.60 - 3.40 [facility] Monocytes [#/volume] in Blood by Automated count 0.67 10^3/uL 0.00 - 0.90 [facility] Eosinophils [#/volume] in Blood by Automated count 0.08 10^3/uL 0.00 - 0.70 [facility] Basophils [#/volume] in Blood by Automated count 0.04 10^3/uL 0.00 - 0.20 [facility] #IG 0.07 10^3/uL 0.00 - 0.10 [facility] ospital #NRBC 0.00 10^3/uL 0.00 - 0.00 [facility] H ospital MANUAL DIFF NOT INDICATED [facility] RBC MORPH NOT INDICATED [facility] Ho spital ID Date Data Source [id number] 05/01/2021 08:05:[address] [facility] Name Value Range Interpretation Code Description Data Opal rce(s) Supporting Document(s) CULTURE URINE [facility] Ho spital _CULTURE URINE_$$[id number]$$[id number]$$[id number]$$[id number]$$[id number]$$[id number]$$[id number]$$246379$$[id number]$$ 865422$$234272$$911490$$[id number]$$659690$$808373$$681213$$599239$$862374$$637411$$ 007554$$646049$$120500$$731934$$304143$$605879$$[id number]$$[id number] -- Continued on next page --Patient: LIZZETH Bernardo Order: [id number] Page 2Culture: CULTURE URINE Status: Final ==== -- Continued on next page --Patient: LIZZETH Bernardo Order: [id number] Page 2Culture: CULTURE URINE Status: Prelim =====$$[id number]$$[id number] DATE/TIME: 05/01/2021 15:06Culture: CULTURE URINE Status: FinalUrine Culture,Comprehensive: P1No growth in 36 - 48 hours. Previous result entered on 04/30/2021 06:54 ET No growth after 18-24 hours.P1 Test performed by: [facility] HospitalWalnut[facility]ossie MONTANO #: [id number] [address] [place] [address] [id number] [facility] [id number] Director : Mark Bernardo MD NPI #:Lab Di jose : 04/30/21.0719.[email or web address].SENT REF 05/01/21.thiago.SENT REF ID Date Data Source [id number] 04/27/2021 03:39:[address] [facility] Name Value Range Interpretation Code Description Data Opal rce(s) Supporting Document(s) URINALYSIS [facility] URINALYSIS SOURCE Clean Catch [facility] ital COLOR yellow NORMAL: Yellow [facility] CLARITY turbid NORMAL: Clear [facility] Specific gravity of Urine by Test strip 1.015 1.001 - 1.030 [facility] pH 6.5 5 - 9 [facility] al Glucose [Mass/volume] in Urine by Test strip 50 NORMAL: Negat collette A [facility] Bilirubin.total [Presence] in Urine by Test strip NEG NORMAL: Negative [facility] Ketones [Presence] in Urine by Test strip NEG NORMAL: Negative [facility] Protein [Mass/volume] in Urine by Test strip NEG NORMAL: Negat collette [facility] Nitrite [Presence] in Urine by Test strip NEG NORMAL: Negative [facility] BLOOD NEG NORMAL: Negative [facility] LEUK EST 25 NORMAL: Negative [facility] Urobilinogen [Mass/volume] in Urine by Test strip NOR less moreno n 1.0 mg/dL [facility] MICROSCOPIC See Below [facility] ital WBC 1 - 3 NORMAL: NONE SEEN [facility] Erythrocytes [#/volume] in Urine by Test strip 0 - 1 NORMAL: NON E SEEN [facility] EPITHELIAL MANY NORMAL: NONE SEEN A [facility] Amorphous sediment [Presence] in Urine sediment by Light kayley roscopy RARE NORMAL: NONE SEEN [facility] ID Date Data Source [id number] 04/20/2021 10:50:[address] [facility] [address] [facility] Emergency Department [address] [place] [address] Phone #: [phone] 04/20/2021 22:48 Patient: CHRISTOS MOREAU Sex: F : 2000 Age: 20yWEIGHT:84.3 kg (S)ALLERGIES: NoneCHIEF COMPLAINT: headacheDIAGNOSIS: MigraineLAB ORDERSOrder Description Priority Entered Acknowledged InitialedDIAGNOSTIC STUDY ORDERSOrder Description Priority Entered Acknowledged InitialedMEDICATION/IV/DRIP/FLUID ORDERSOrder Description Priority Entered Acknowledged InitialedBenadryl IVP 25 mg 23:38 04/20/2021 23:57 Vargas(NOW x1) Ang Tapia ; Tony CATHERINE IV 1000 mL 23:38 04/20/2021 Ack'd: 00:01 00:05 04/21/2021olus: : Bolus 1000 Ang Tapia ; 04/21/2021 Mya Jimenez RNmL (X1) Francisco J Jimenez R.N.Zofran 4 mg IVP X 1 23:39 04/20/2021 23:58 Stevendose: 4 mg (NOW Ang Tapia ; Tony RNx1)Acetaminophen IV 23:39 04/20/2021 23:59 Vavqal8731 mg (NOW x1, Ang Tapia ; Tony RNInfuse over 15minutes)GENERAL ORDERSOrder Description Priority Entered Acknowledged Initialed[Electronically signed by Vargas Jimenez RN (00:43 04/21/2021)][Electronically signed by Ang Tapia (04:53 2020)][Electronically locked by Vargas Jimenez RN (00:43 04/21/2021)] Name Value Range Interpretation Code Description Data Opal rce(s) Supporting Document(s) ID Date Data Source [id number] 04/20/2021 10:50:[address] [facility] [address] [facility] Emergency Department [address] [place] [address] Phone #: ext- [phone] 04/20/2021 22:48 Patient: CHRISTOS MOREAU Sex: F : 2000 Age: 20yWeight: 84.3 kgHeight/Length: 62 in.BMI: 34.0ALLERGIES: NoneThe patient's Home Medications are listed below:CONTINUE TAKING THE FOLLOWING MEDICATIONS: Oral, dailyThe source(s) of the original Home Medication information:Not obtained.The following Medications were given to the patient in the Emergency Department:Benadryl [IVP] IVP 12.5 mg, administered: 23:52 04/20/2021Zofran [IVP] IVP 4 mg, administered: 23:58 04/20/2021cetaminophen Drip IV bolus 0, then 1000mg, administered: 23:59 04/20/2021NS [IV] IV Fluids bolus 1000 mL, then 1200 mL/hr, administered: 00:05 04/21/2021The following Medications were prescribed to the patient:None. Name Value Range Interpretation Code Description Data Opal rce(s) Supporting Document(s) ID Date Data Source [id number] 04/20/2021 10:50:[address] [facility] [address] [facility] Emergency Department [address] [place] [address] Phone #: ext- [phone] 04/20/2021 22:48 Patient: CHRISTOS MOREAU Sex: F : 2000 Age: 20yWeight: 84.3 kgHeight/Length: 62 inBMI: 34ALLERGIES: None Date/Time Medication Administered Medication OrderedGiven BENADRYL [IVP] (DIPHENHYDRAMINE Benadryl IVP 25 mg (NOW x1)23:52 04/20/2021 HCL)Vargas Jimenez RN Dose: 12.5 mg IVP Site: #1 left ACStart NS [IV] NS IV 1000 mL Bolus: : Bolus [id number] 04/21/2021 Dose: IV Fluids mL (X1)Vargas Jimenez RN Rate: 1200 mL/hr---- Bolus: 1000 mLStop Dispensed: 1000 mL bag00:36 04/21/2021 Site: #1 left Manpreet Jimenez RNGiven ZOFRAN [IVP] (ONDANSETRON HCL) Zofran 4 mg IVP X 1 dose: 4 mg23:58 04/20/2021 Dose: 4 mg IVP (NOW x1)Vargas Jimenez RN Site: #1 left ACSgauravrt Acetaminophen * Acetaminophen IV 1000 mg (NOW23:59 04/20/2021 Dose: 1000mg * Drip IV x1, Infuse over 15 minutes)Vargas Jimenez RN----Stop00:04 04/21/2021rebecca Jimenez RN Name Value Range Interpretation Code Description Data Opal rce(s) Supporting Document(s) ID Date Data Source [id number] 04/20/2021 10:50:[address] [facility] [address] [facility] Emergency Department [address] [place] [address] Phone #: [phone] 04/20/2021 22:48 Patient: CHRISTOS MOREAU Sex: F : 2000 Age: 20yRecurrent migraine headache without aura- poorly controlled. No status migrainosus.INSTRUCTIONSWarnings: Further evaluation is necessary.GENERAL WARNINGS: Return or contact your physician immediately if your condition worsens orchanges unexpectedly, if not improving as expected, or if other problems arise.Your Current Medications: Your current home medications have been reviewed.CONTINUE TAKING THE FOLLOWING MEDICATIONS: Oral : daily.Follow-up:Follow up with your healthcare provider in two days if not better. Call for an appointment.Understanding of the discharge instructions verbalized by patient. ADDITIONAL INFORMATIONMigraine HeadacheA migraine headache is an often severe type of headache. It's different from other types ofheadaches in that symptoms other than pain occur with the it. For instance, a classic migraineheadache means visual symptoms (or aura) such as flashes of light, blind spots or other visionchanges, warns you a headache is coming on. Nausea and vomiting, lightheadedness, sensitivity tolight or sound, and other visual disturbances are common migraine symptoms. The pain may lastfrom a few hours to several days. It's not clear why migraines occur, but certain factors called triggerscan raise the risk of having a migraine attack. A migraine may be triggered by emotional stress ordepression, or by hormone changes during the menstrual cycle. Other triggers include certain birthcontrol pills, overuse of migraine medicines, alcohol or caffeine, foods with tyramine such as agedcheese and wine, eyestrain, weather changes, missed meals, or too little or too much sleep.Home careFollow these tips when taking care of yourself at home: Don't drive yourself home if you were given pain medicine for your headache or are having [address] [facility] Emergency Department [address] [place], [place] [address] Phone #: ext- [phone] 04/20/2021 22:48 ----- Patient: CHRISTOS MOREAU Sex: F : 2000 Age: 20y visual symptoms. Instead, have someone else drive you home. Try to sleep when you get home. You should feel much better when you wake up. Cold can help ease migraine symptoms. Put an ice pack wrapped in a thin towel on your forehead or at the base of your skull. Put heat on the back of your neck to help ease any neck spasm. Drink only clear liquids or eat a light diet until your symptoms get better. This will help you prevent nausea and vomiting.How to prevent migrainesPay attention to what seems to trigger your headache. Try to stay away from the triggers when youcan. If you have headaches often, consider keeping a headache diary. In it, write down what youwere doing, feeling, or eating in the hours before each headache. Show this to your healthcareprovider to help find the cause of your headaches.If stress seems to be a trigger for your headaches, figure out what is causing stress in your life. Learnnew ways to handle your stress. Ideas include regular exercise, biofeedback, self-hypnosis, yoga,and meditation. Talk with your healthcare provider to find out more information about managingstress. Many books and digital media are also availab le on this subject.Tyramine is a substance found in many foods. It can trigger a migraine in some people. These foodscontain tyramine: Chocolate Yogurt All cheeses, but especially aged cheeses Smoked or pickled fish and meat, including barker, caviar, bologna, pepperoni, and salami Liver Avocados Bananas Figs Raisins Red wineTry staying away from these foods for 1 to 2 months to see if you have fewer headaches.How to treat future headaches [address] [facility] Emergency Department [address] [facility], [place] [address] Phone #: ext- [phone] 04/20/2021 22:48 Patient: [id number] Sex: F : 2000 Age: 20y Take time out at the first sign of a headache, if possible. Find a quiet, dark, comfortable place to sit or lie down. Let yourself relax or sleep. Put an ice pack wrapped in a thin towel on your forehead or on the area of greatest pain. A heating pad and massage may help if you are having a muscle spasm and tightness in your neck. If you have been prescribed a medicine to stop a migraine headache, use this at the first warning sign of the headache for best results. First signs may be an aura or pain. If you have been prescribed a medicine to prevent the headaches, it's important to take the medicine as directed. Many of these medicines may take a few weeks to start preventing headaches, so it's important to not give up on them right away. If you continue to have just as many headaches after taking these medicines for a while, talk with your doctor to see if the dose needs to be changed or if a different medicine is advised. If you need to take medicine often for your migraine, ta lk with your healthcare provider about other ways to prevent your headaches.Follow-up careFollow up with your healthcare provider, or as advised. Talk with your provider if you have frequentheadaches. He or she can figure out a treatment plan. Ask if you can have medicine to take at homethe next time you get a bad headache. This may keep you from having to visit the emergencydepartment in the future. You may need to see a headache specialist (neurologist) if you continue tohave headaches.When to seek medical adviceCall your healthcare provider right away if any of these occur: Your head pain g ets worse, or doesn't get better within 24 hours You can't keep liquids down (repeated vomiting) Pain in your sinuses, ears, or throat Fever of 100.4 F (38 C) or higher, or as directed by your healthcare provider Stiff neck Extreme drowsiness, confusion, or fainting Dizziness, or dizziness with spinning sensation (vertigo) Weakness or trouble feeling in an arm or leg, or on one side of your face [address] [facility] Emergency Department [address] [place] [address] Phone #: ext- [phone] 04/20/2021 22:48 Patient: CHRISTOS MOREAU Sex: F : 2000 Age: 20y Trouble talking or seeing [phone] [employer] [place] [address]. All rights reserved. Th is information is not intended as asubstitute for professional medical care. Always follow your healthcare professional's instructions. You have been given the following additional information: Headache, Migraine, Classic(Electronically signed by Ang Tapia 04/21/2021 04:53) Name Value Range Interpretation Code Description Data Opal rce(s) Supporting Document(s) ID Date Data Source [id number] 04/20/2021 10:50:[address] [facility] 1 Clinical Report - Nurses [facility] Emergency Department [address] [place] [address] Phone #: ext- [phone] 04/20/2021 22:48 Patient: CHRISTOS MOREAU Sex: F : 2000 Age: 20yTRIAGEArrived by private vehicle. Historian: patient.Triage time: 22:50 04/20/2021.Chief Complaint: MIGRAINE HEADACHE.This started 2 weeks. She has had vomiting (2 times last time around 330). ( Ate burlinda norton and Doritosearlier today).Treatment STITCHER AROUND:Took Tylenol. (2 ES at 9am). --23:00 04/20/21 Mya Jimenez R.N.Acuity: LEVEL 3.SEPSIS SCREEN: SEPSIS SCREEN NEGATIVE. No suspected or confirmed signs of infection present.--23:04 04/20/21 Mya Jimenez R.N.23:02 04/20/21. BP: 100/70. MAP: 80. HR: 87. RR: 20. O2 saturation: 100%. Temp: 98.1 F. Pain levelnow: 05/20. --23:04 04/20/21 Mya Jimenez R.N.Weight: 84.3 kg stated. Height/Length: 62 inches Per Patient. BMI: 34. --22:56 04/20/21 Mya Jimenez R.N.MedicationsPrenatal Oral, daily. --23:01 04/20/21 Mya Jimenez R.N.AllergiesNone. --23:01 04/20/21 Mya Jimenez R.N.PROBLEMS:Laceration.Anxiety Reaction. Care.Threatened .OB History. --23:01 04/20/21 Mya Jimenez R.N.ADDITIONAL SURGERIES:no known surgeries.History 2 Clinical Report - Nurses [facility] Emergency Department [address] [place] [address] Phone #: ext- [phone] 04/20/2021 22:48 Patient: CHRISTOS MOREAU Sex: F : 2000 Age: 20y PAST MEDICAL HX: Headaches. Currently : Sees [facility], LMP b 6, EDC oct 25 2021. Recent sonogram showed intrauterine . G 3. P 0. --23:00 04/20/21 Mya Jimenez R.N. SOCIAL HX: Never smoker. No alcohol use or drug use. No recent travel. She was offered HIV testing but declined and hepatitis C testing but declined. She has not traveled outside the [place] Infectious disease exposure: No infectious disease exposure. The patient was not exposed to C-diff, MRSA, VRE or CRE. SELF HARM ASSESSMENT: Self harm assessment was performed. The patient answered "no" to the question(s) "Do you have thoughts of harming or killing yourself?" and "Have you recently had thoughts about harming or killing others?". ABUSE ASSESSMENT: No report of abuse. FALL RISK ASSESSMENT: Fall risk assessment completed. Risk factors identified include severe pain and nausea. Fall interventions initiated. Bed in low position. Brakes on. Job Developer at bedside. Call light in reach of patient. --23:04 04/20/21 Mya Jimenez R.N. FAMILY HX: Father: Migraine Headache. --23:44 04/20/21 Ang Tapia.PHYSICAL ASSESSMENTAmbulatory to room.GENERAL / NEURO / PSYCH: Alert. Oriented X 4. Speech within normal limits.HEENT: No facial asymmetry noted. Pupils equal, round and reactive to light.RESPIRATORY: Respirations not labored.CVS: Capillary refill less than 2 seconds.GI / : The patient has had nausea. Emesis noted. ( Reports that she had some intermittent crampingearlier in the day. fluid intake almost 70 ounces).SKIN: Skin is warm and dry. --23:06 04/20/21 Mya Jimenez R.N.NURSING PROGRESS NOTESPatient gowned. Head of bed elevated. Reassurance given. Call light placed in reach. Bed placed inlowest position. Brakes of bed on. --23:07 04/20/21 Mya Jimenez R.N. 23:47 04/20/2021 Site #1 started via IV in the left antecubital space with an 20g angiocath, with aseptic technique and good blood return; one attempt. Saline lock flushed with 10 mL saline. --23:57 04/20/21 Vargas Jimenez RN 23:52 04/20/2021 Benadryl (diphenhydrAMINE HCl) IVP 12.5 mg given over 30 second(s) via site #1. Allergies verified and confirmed 5 rights. IV patency established. IV site checked: no pain, redness, or swelling. IV flushed thoroughly pre- and post-medication administration. IVP given by RN. Information reviewed with patient including reason for taking this medication, signs of allergic reaction, precautions and sedative warning. Verbalizes understanding. --23:57 04/20/21 Vargas Jimenez RN 3 Clinical Report - Nurses [facility] Emergency Department [address] [place] [address] Phone #: ext- [phone] 04/20/2021 22:48 Patient: CHRISTOS MOREAU Sex: F : 2000 Age: 20y 23:58 04/20/2021 Zofran (Ondansetron HCl) IVP 4 mg given over 2 minute(s) via site #1. Allergies verified and confirmed 5 rights. IV patency established. IV site checked: no pain, redness, or swelling. IV flushed thoroughly pre- and post-medication administration. IVP given by RN. Information reviewed with patient including reason for taking this medication, signs of allergic reaction and precautions. Verbalizes understanding. --23:58 04/20/21 Vargas Jimenez RN 23:59 04/20/2021 Acetaminophen * Drip IV 1000mg --23:59 04/20/21 Vargas Jimenez RN 00:04 04/21/2021 Acetaminophen Drip IV Discontinued: completed. Total amount infused: 100 mL. IV patency established. IV site checked: no pain, redness, or swelling. IV flushed thoroughly. --00:04 04/21/21 Vargas Jimenez RN 00:05 04/21/2021 Started bag #1 1000 mL IV Fluids NS; bolus of 1000 mL then at 1200 mL/hr via site #1 via IV pump. Allergies verified and confirmed 5 rights. IV patency established. IV site checked: no pain, redness, or swelling. IV flushed thoroughly pre- and post-medication administration. Information reviewed with patient including reason for taking this medication, signs of allergic reaction and precautions. Verbalizes understanding. --00:05 04/21/21 Vargas Jimenez RN 00:36 04/21/2021 IV Fluids NS via IV site #1 Discontinued: discontinued. Total amount infused: 600 mL. IV patency established. IV site checked: no pain, redness, or swelling. IV flushed thoroughly. --00:41 04/21/21 Vargas Jimenez RN.DISPOSITION / DISCHARGE Jennifer Coma Scale: 15- eyes open- spontaneous (4); best verbal response- oriented (5); best motor response- obeys commands (6). Condition at departure: improved. No learning barriers present. Discharge instructions provided and reviewed with the patient. Reviewed referral to family practice for followup. Patient verbalized understanding. Written instructions provided in Omani. The patient was discharged home and accompanied by flanging operator. She left ambulatory and via private vehicle. Job Developer driving. --00:43 04/21/21 Vargas Jimenez RN 00:41 04/21/21. BP: 112/68 (regular adult cuff) taken on the right arm, via an automated monitor, while lying. MAP: 82. HR: 78 (regular, normal rate and strong). RR: 16 (regular, unlabored and normal). O2 saturation: 98% on room air. Temp: 98.4 F (oral). Pain level now: 0/10. --00:43 04/21/21 Vargas Jimenez RN Departure time: 00:43 04/21/2021. --00:43 04/21/21 Vargas Jimenez RN.Locked/Released at 04/21/2021 00:43 by Vargas Jimenez RN 4 Clinical Report - Nurses [facility] Emergency Department [address] [place] [address] Phone #: ext- [phone] 04/20/2021 22:48 Patient: CHRISTOS MOREAU Sex: F : 2000 Age: 20y Name Value Range Interpretation Code Description Data Opal rce(s) Supporting Document(s) ID Date Data Source [id number] 04/20/2021 10:50:[address] [facility] 1 Clinical Report - Physicians/Mid Levels [facility] Emergency Department [address] [place] [address] Phone #: ext- [phone] 04/20/2021 22:48 Patient: CHRISTOS MOREAU Sex: F : 2000 Age: 20y Time Seen: 23:37 04/20/2021. Arrived- By private vehicle. Historian- patient.HISTORY OF PRESENT ILLNESS Chief Complaint: HEADACHE. Is still present (2 weeks). This started weeks. It has been constant. It is described as similar to previous headaches and pressure. Located in the frontal and occipital region. No neck pain. At its maximum, severity described as moderate. When seen in the E.D., severity described as moderate. Modifying factors. Not worsened by anything. The patient has had nausea and vomiting. No preceding symptoms, blurred vision, photophobia, numbness or weakness. (Patient took tylenol this morning.). No recent travel. Similar symptoms previously. Recent medical care: The patient was seen recently in the emergency department. ( Seen in ED in [place]).REVIEW OF SYSTEMSCurrently . No fever, muscle aches, sinus pressure, sore throat or head injury. No chest pain,abdominal pain, skin rash, enlarged lymph nodes or back pain. All other systems reviewed and arenegative.PAST HISTORYSee nurses notes. History of chronic headaches. No history of head injury or diabetes mellitus. Problems: Anxiety Reaction. Threatened . . Surgeries: No history of previous surgery. Additional Surgeries: no known surgeries. Medications: Oral, daily. Allergies: None. 2 Clinical Report - Physicians/Mid Levels [facility] Emergency Department [address] [place] [address] Phone #: ext- [phone] 04/20/2021 22:48 Patient: CHRISTOS MOREAU Sex: F : 2000 Age: 20ySOCIAL HISTORYNever smoker. No alcohol use.FAMILY HISTORYFather: Migraine Headache.ADDITIONAL NOTESThe nursing notes have been reviewed.PHYSICAL EXAMVital Signs: 04/20/2021 23:02 BP: 100/70. MAP: 80. HR: 87. RR: 20. O2 saturation: 100%. Temp: 98.1 F.Pain level now: 8/10.Appearance: Alert. No acute distress.Eyes: Pupils equal, round and reactive to light. Eyes normal inspection.ENT: Nose normal. Pharynx normal.Neck: Normal inspection. Neck supple.CVS: Normal heart rate and rhythm. Heart sounds normal.Respiratory: No respiratory distress. Painless inspiration.Abdomen: Soft and nontender. No abdominal tenderness.Back: Normal inspection.Skin: Skin warm and dry. Normal skin color. No rash.Extremities: Extremities exhibit normal ROM. No lower extremity edema.Neuro: Oriented X 3. Alert. Cranial nerves normal (as tested). No cerebellar findings. No motordeficit. No sensory deficit.PROGRESS AND PROCEDURESCourse of Care: 23:46 04/20/21. History of migraines associated with nausea. No unusual headaches.Normal neurologic exam 00:32 04/21/21. Headache is almost completely resolved. No vomiting in ED . Nausea also resolved after Zofran, and iv tylenol. Disposition: Discharged. Condition: stable.CLINICAL IMPRESSION Recurrent migraine headache without aura- poorly controlled. No status migrainosus.INSTRUCTIONS Warnings: Further evaluation is necessary. 3 Clinical Report - Physicians/Mid Levels [facility] Emergency Department [address] [place] [address] Phone #: ext- [phone] 04/20/2021 22:48 Patient: [facility]STOS [facility]AU [id number] Sex: F : 2000 Age: 20y GENERAL WARNINGS: Return or contact your physician immediately if your condition worsens or changes unexpectedly, if not improving as expected, or if other problems arise. Your Current Medications: Your current home medications have been reviewed. CONTINUE TAKING THE FOLLOWING MEDICATIONS: Oral : daily. Follow-up: Follow up with your healthcare provider in two days if not better. Call for an appointment. Understanding of the discharge instructions verbalized by patient.(Electronically signed by Ang Tapia 04/21/2021 04:53) Name Value Range Interpretation Code Description Data Opal rce(s) Supporting Document(s) ID Date Data Source [id number] 03/20/2021 01:54:00 PM EDT [facility] ([facility]) Name Value Range Interpretation Code Description Data Opal rce(s) Supporting Document(s) Magnesium Level 2.1 1.8-2.4 [facility] ([facility]) ID Date Data Source [id number] 03/20/2021 01:54:00 PM EDT [facility] ([facility]) Name Value Range Interpretation Code Description Data Opal rce(s) Supporting Document(s) Albumin [Mass/volume] in Serum or Plasma 3.4 [facility] ([facility]) Alanine aminotransferase [Enzymatic activity/volume] in Serum or Pl asma 21 [facility] ([facility]) Calcium [Mass/volume] in Serum or Plasma 8.9 [facility] ([facility]) Carbon dioxide, total [Moles/volume] in Serum or Plasma 26 [facility] ([facility]) Chloride [Moles/volume] in Serum or Plasma 106 [facility] ([facility]) Alkaline phosphatase [Enzymatic activity/volume] in Serum or Plasma 5 4 [facility] ([facility]) Potassium [Moles/volume] in Serum or Plasma 3.8 [facility] ([facility]) Protein [Mass/volume] in Serum or Plasma 6.9 [facility] ([facility]) Sodium 139 [facility] Aspartate aminotransferase [Enzymatic activity/volume] in Serum or Plasma 8 [facility] ([facility] Urea nitrogen [Mass/volume] in Serum or Plasma 5 [facility] ([facility]) Creatinine For GFR 0.56 [facility] ([facility] [facility]) Glucose 97 83-110 MEDENT (Cardiology A ssociates [facility]) ID Date Data Source [id number] 03/11/2021 10:07:00 AM EDT [facility] [address] [place] [address] PHONE: [phone] FAX: [phone] Name .................. : LIZZETH Bernardo Acct Number.................. : [id number] ROOM. ................. : VT-05 Number ................... : [id number] Stay type ............. : E/R Discharge Date......... ... : 03/07/21 Admit Date ......... : 03/07/21 Admit Phys .................... : [facility] Date of ....... : 2000 Family Phys ................... : SARAH CAME Phone .................. : [phone] Age ................................ : 20 Film# .................. .:[id number] Sex ................................. : F Unsigned transcriptions are preliminary reports and do not represent a medical or legal document OB 1ST TRI W TV IF NEEDED [id number] COMPLETE:03/07/21 18:21 CML [id number] Reason(s): 5 weeks preg nant vaginal bleeding FIRST TRIMESTER OB ULTRASOUND: INDICATION: Five weeks with vaginal bleeding. FINDINGS: There is a single live intrauterine with a heart rate of 140 beats per minute. Based on measurements, the estimated gestational age is 7 weeks 0 days. There is a corpus luteum cyst in the right ovary. The left ovary is normal. IMPRESSION: Single live intrauterine as above. Electronically Reviewed and Signed By Pro Tai M.D. , 03/11/21 10:07, MSSuman Transcribe Initials: SHIRLENE , Transcribe Date: 03/08/21 02:46, Dictation Date: Copy for: SARAH Franco via fax Copy for: EMERGENCY DEPT via [facility] Copy for: 710 MED REC DISCHARGED Page 1 of 1 Name Value Range Interpretation Code Description Data Opal rce(s) Supporting Document(s) ID Date Data Source [id number] 03/11/2021 07:37:[address] [facility] Name Value Range Interpretation Code Description Data [facility] rce(s) Supporting Document(s) ID Date Data Source [id number] 03/07/2021 04:47:[address] [facility] [address] [facility] Emergency Department [address] [place] [address] Phone #: ext- [phone] 03/07/2021 16:45 Patient: CHRISTOS MOREAU Sex: F : 2000 Age: 20yWEIGHT:83.0 kg (S) HEIGHT:62 inches (S) BMI:33.5ALLERGIES: NoneCHIEF COMPLAINT: pelvic painDIAGNOSIS: Patient currently LAB ORDERSOrder Description Priority Entered Acknowledged InitialedBeta-HCG, Quant STAT 16:59 03/07/2021 17:08 Grace,Serum Bridger Hamilton R.N. ;PT/INR STAT 16:59 03/07/2021 17:08 Mychal Edwards Victoria John R.N. ;CBC w Diff STAT 16:59 03/07/2021 17:08 Mycahl Edwards Victoria John R.N. ;BMP STAT 16:59 03/07/2021 17:08 Mychal Edwards Victoria John R.N. ;Urinalysis (Clean STAT 17:12 03/07/2021 17:58 Grace,Catch) Bridger Hamilton R.N. ;DIAGNOSTIC STUDY ORDERSOrder Description Priority Entered Acknowledged InitialedUS OB 1ST TRI W STAT 16:59 03/07/2021 17:08 Grace,TV IF NEEDED Bridger Hamilton R.N.(Oxygen?(No)) ;(IV?(Yes)) Reason for Study: 5 weeks vaginal bleedingMEDICATION/IV/DRIP/FLUID ORDERSOrder Description Priority Entered Acknowledged InitialedGENERAL ORDERSOrder Description Priority Entered Acknowledged Initialed[Electronically signed by Scarlett Hackett RN (18:59 03/07/2021)] [address] [facility] Emergency Department [address] [place] [address] Phone #: ext- [phone] 03/07/2021 16:45 Patient: CHRISTOS MOREAU Sex: F : 2000 Age: 20y[El ectronically signed by Bridger Hamilton (19:54 03/07/2021)][Electronically locked by Scarlett Hackett RN (18:59 03/07/2021)] Name Value Range Interpretation Code Description Data Opal rce(s) Supporting Document(s) ID Date Data Source [id number] 03/07/2021 04:47:[address] [facility] [address] [facility] Emergency Department [address] [place] [address] Phone #: ext [phone] 03/07/2021 16:45 Patient: CHRISTOS MOREAU Sex: F : 2000 Age: 20yWeight: 83.0 kgHeight/Length: 62 in.BMI: 33.5ALLERGIES: NoneThe patient's Home Medications are listed below:CONTINUE TAKING THE FOLLOWING MEDICATIONS: Oral, daily Progesterone Vaginal, 2x a dayThe source(s) of the original Home Medication information:patientThe following Medications were given to the patient in the Emergency Department:None.The following Medications were prescribed to the patient:None. Name Value Range Interpretation Code Description Data [facility](s) Supporting Document(s) ID Date Data Source [id number] 03/07/2021 04:47:[address] [facility] [address] [facility] Emergency Department [address] [place] [address] Phone #: ext- [phone] 03/07/2021 16:45 Patient: CHRISTOS MOREAU Sex: F : 2000 Age: 20yWeight: 83.0 kgHeight/Length: 62 inBMI: 33.5ALLERGIES: NoneDate/Time Medication Administered Medication Ordered Name Value Range Interpretation Code Description Data Opal e(s) Supporting Document(s) ID Date Data Source [id number] 03/07/2021 04:47:[address] [facility] [address] [facility] Emergency Department [address] [place] [address] Phone #: ext- [phone] 03/07/2021 16:45 Patient: CHRISTOS MOREAU Sex: F : 2000 Age: 20yFirst trimester .INSTRUCTIONS(you are 7 weeks . there is a live intrauterine and your [facility] [place] [address]. follow up withyour OB GY N for care).Your Current Medications: Your current home medications have been reviewed.CONTINUE TAKING THE FOLLOWING MEDI CATIONS: Oral : daily.Progesterone Vaginal : 2x a day.Follow-up with: [facility], , , [address], [place], [facility] Follow up in seven days. Call for an appointment. Reason for referral: evaluation. Summary of careprovided to patient via paper. ADDITIONAL INFORMATIONPregnancy [address] [facility] Emergency Department [address] [place] [address] Phone #: ext- [phone] 03/07/2021 16:45 Patient: CHRISTOS MOREAU Sex: F : 2000 Age: 20yYour exam today shows that you are . symptomsDuring your body's hormones change. This causes physical and emotional changes. Thisis normal. Knowing what to expect is important for your piece of mind and so you know when to seekhelp for a problem. Here are some of the most common symptoms: Morning sickness or nausea. This can happen any time of the day or night. Tender, swollen breasts Need to urinate frequently Tiredness or fatigue Dizziness Indigestion or heartburn Food cravings or turn-offs Constipation Emotional changes. This can range from anxiety to excitement to depression.General care for a healthy pregnancyHere are things you can do to help make sure your baby is born healthy: [address] [facility] Emergency Department [address] [place] [address] Phone #: ext- [phone] 03/07/2021 16:45 Patient: CHRISTOS MOREAU Sex: F : 2000 Age: 20y Rest when you feel tired. This is especially true in the later months of . Drink more fluids. Your body needs more fluids than you may be used to. Drink 8 to10 glasses of juice, milk, or water every day. Eat well-balanced meals. Eat at regular times to give your body enough protein. You can expect to gain about 30 pounds during the . Don't try to diet or lose weight while you are . Take a vitamin every day. This helps you meet the extra nutritional needs of . Don't take any other medicine during your unless your healthcare provider tells you to. This includes prescription medicines and those you buy over the counter. Many medicines can harm the growing baby. If you have nausea or vomiting, don't eat greasy or fried foods. Eat several smaller meals throughout the day rather than 3 large meals. If you smoke, you must stop. The nicotine you breathe in goes right to the baby. Stay away from alcohol, even in moderate amounts. Daily drinking will harm your baby and can cause permanent brain damage. Don't use recreational drugs, especially cocaine, crack, and heroin. These will harm your baby. Also avoid marijuana. If you were using recreational drugs or prescribed medicine when you found out that you were , talk with your healthcare provider about possible effects on your growing baby. If you have medical problems that you need to take medicine for, talk with your healthcare provider.Follow-up careCall your healthcare provider to arrange for care. care is important. You can seeyour family provider, a specialist (light fixture servicer), a senior net engineer, or a primary care clinic.When to seek medical adviceCall your healthcare provider right away if any of these occur: Vaginal bleeding Pain in your belly (abdomen) or back that is moderate or severe Lots of vomiting, or you can't keep any fluids down for [address] [facility] Emergency Department [address] [place] [address] Phone #: ext- [phone] 03/07/2021 16:45 Patient: CHRISTOS MOREAU Sex: F : 2000 Age: 20y Burning feeling when you urinate Headache, dizziness, or rapid weight gain Fever Vision changes or blurred vision [id number] [employer] [place] [address]. All rights reserved. This information is not intended as asubstitute for professional medical care. Always follow your healthcare professional's instructions. You have been given the following additional information: , New Dx(Electronically signed by Bridger Hamilton 03/07/2021 19:54) Name Value Range Interpretation Code Description Data Opal rce(s) Supporting Document(s) ID Date Data Source [id number] 03/07/2021 04:47:[address] [facility] 1 Clinical Report - Nurses [facility] Emergency Department [address] [place] [address] Phone #: hbd- [phone] 03/07/2021 16:45 Patient: CHRISTOS MOREAU Sex: F : 2000 Age: 20yTRIAGEArrived by private vehicle. Historian: patient. Accompanied by spouse.Triage time: late entry - 16:45 03/07/2021. Acuity: LEVEL 3.Chief Complaint: VAGINAL BLEEDING.Alert. No acute distress.Onset. (1 week ago.). ( Pt believes she is about 7 weeks according to her yelena however LMPwas in November and had a miscarriage in December and has not had a period after this and is not completelysure. Pt had an u/s around 5 weeks gestation and showed a gestastional and yolk sac; Pt states herpregnancy symptoms disappeared over the past week, denies vaginal bleeding but is on progesteronecurrently. Pt states she has some slight lower abdominal cramping but no other symptoms. Pt i sconcerned for miscarriage because she just feels "something is off".). No vomiting.Treatment STITCHER AROUND:None.SEPSIS SCREEN: SIRS SCREEN NEGATIVE. SEPSIS SCREEN NEGATIVE. No suspected or confirmedsigns of infection present. (16:53 03/07/2021). HEART TONES: heart tones: unable to obtain. --16:55 03/07/21 Yisel Mendez R.N.16:48 03/07/21. BP: 120/81. MAP: 94. HR: 80. RR: 18. O2 saturation: 100% on room air. Temp: 99 F(oral). Pain level now: 4/10. Describes the quality as dull. Additional comments: cramping. --16:55 03/07/21Yisel Mendez R.N.Weight: 83 kg stated. Height/Length: 62 inches Per Patient. BMI: 33.5. --16:45 03/07/21 Yisel Mendez R.N.MedicationsPrenatal Oral, daily. Progesterone Vaginal, 2x a day. --16:51 03/07/21 Yisel Mendez R.N.AllergiesNone. --16:51 03/07/21 Yisel Mendez R.N.PROBLEMS:. --16:51 03/07/21 Yisel Mendez R.N.Medication/allergy information source: the patient. --16:55 03/07/21 Yisel Mendez R.N. 2 Clinical Report - Nurses [facility] Emergency Department [address] [place] [address] Phone #: ext- [phone] 03/07/2021 16:45 Patient: CHRISTOS MOREAU Sex: F : 2000 Age: 20y ADDITIONAL SURGERIES: no known surgeries. History PAST MEDICAL HX: Immunizations: up-to-date. Last normal menstrual period- 11/16/2020, miscarriage in early December, no menses since then, not entirely sure. 3. Para 0. Abortions 2. Confirmed . In 1st trimester. confirmed with sonogram. Has had care by light fixture servicer. SOCIAL HX: Never smoker. No alcohol use or drug use. She was offered HIV testing but declined. Patient education was provided. She was offered hepatitis C testing but declined. Patient education was provided. ( COVID screen negative). She has not traveled outside the [place] Infectious disease exposure: No infectious disease exposure. The patient was not exposed to Coronavirus. Mask placed on patient. Patient is not a known carrier of tuberculosis, hepatitis, HIV, MRSA or VRE. Patient is not a known carrier of CRE. SELF HARM ASSESSMENT: Self harm assessment was performed. The patient answered "no" to the question(s) "Do you have thoughts of harming or killing yourself?" and "Do you have a plan for harming or killing yourself?". ABUSE ASSESSMENT: Abuse assessment. The patient had positive responses to the question(s) "Do you feel safe in your home?". Abuse denied. No suspicion of abuse. No report of abuse. NUTRITIONAL RISK ASSESSMENT: The nutritional risk assessment revealed no deficiencies. FUNCTIONAL ASSESSMENT: Functional assessment: no impairments noted. LEARNING NEEDS ASSESSMENT: The learning needs assessment revealed no barriers. FALL RISK ASSESSMENT: Fall risk assessment completed. No risk factors identified. SKIN INTEGRITY ASSESSMENT: Skin integrity risk assessment completed. No skin integrity risk identified. --16:55 03/07/21 Yisel Mendez R.N. Interventions Identification band on patient. --16:55 03/07/21 Yisel Mendez R.N.PHYSICAL ASSESSMENTAmbulatory to room.GENERAL / NEURO / PSYCH: Alert. Oriented X 4. Appears in no acute distress.HEENT: Mucous membranes are pink.RESPIRATORY: Respirations not labored. Breath sounds within normal limits.CVS: Capillary refill less than 2 seconds.GI / : Abdomen soft and nontender. Abdominal tenderness in the lower abdomen (intermittently,currently denies). Bowel sounds within normal limits. No vaginal bleeding or discharge. ( Pt denies 3 Clinical Report - Nurses [facility] Emergency Department [address] [place] [address] Phone #: ext- [phone] 03/07/2021 16:45 Patient: CHRISTOS MOREAU Sex: F : 2000 Age: 20y urinary symptoms). EXTREMITIES: No lower extremity edema. SKIN: Skin is warm and dry. --16:56 03/07/21 Yisel Mendez R.N.NURSING PROGRESS NOTESPatient gowned. Reassurance given. Three patient identifiers checked. Call light placed in reach. Siderails up x 2. Bed placed in lowest position. Brakes of bed on. Patient ready for evaluation- ED physiciannotified. --16:55 03/07/21 Yisel Mendez R.N. NIBP monitor and pulse oximeter placed on patient; monitor alarms on. --16:55 03/07/21 Yisel Mendez R.N. 17:06 03/07/21. Marine Superintendent provided for the genital exam by the physician and to witness discussions. PELVIC EXAM: Pelvic exam performed by ED physician. Assisted by one nurse. Preparation: pelvic tray; patient placed in lithotomy position. Procedure: speculum and bimanual exam. Status post-procedure: she was stable and no complications were noted. Total time of assist / procedure: (5 minutes). --17:11 03/07/21 Scarlett Hackett RN.DISPOSITION / DISCHARGE 18:58 03/07/21. Condition at departure: improved and stable. No learning barriers present. Discharge instructions provided and reviewed with the patient. Patient verbalized understanding. Written instructions provided in Omani. The patient was discharged home and accompanied by spouse. She left ambulatory and via private vehicle. Spouse driving. --18:59 03/07/21 Scarlett Hackett RN 18:56 03/07/21. BP: 131/80. MAP: 97. HR: 66. RR: 16. O2 saturation: 100%. Temp: 99.5 F. Pain level now: 0/10. --18:59 03/07/21 Scarlett Hackett RN.Locked/Released at 03/07/2021 18:59 by Scarlett Hackett RN Name Value Range Interpretation Code Description Data Opal rce(s) Supporting Document(s) ID Date Data Source [id number] 03/07/2021 04:47:[address] [facility] 1 Clinical Report - Physicians/Mid Levels [facility] Emergency Department [address] [place] [address] Phone #: ext- [phone] 03/07/2021 16:45 [facility]: [id number] Sex[facility] F : 2000 Age: 20y Time Seen: 17:04 03/07/2021; initial patient contact, initial documentation. Arrived- By private vehicle. Historian- patient. Disposition decision: 18:51 03/07/2021.HISTORY OF PRESENT ILLNESS Chief Complaint: PELVIC PAIN. This started 1 week STITCHER AROUND and now gone. It was abrupt in onset and has been intermittent. The symptoms are described as mild. Modifying factors. Not worsened by anything. Not relieved by anything. No abdominal pain, pelvic pain, vaginal pain, low back pain or pain with urination. No urinary frequency, urgency of urination or hematuria. Not sexually active. Does not use control measures. (Patient is [id number] suppose to be 7 weeks . was seen in the ER on february 17, 2021. her BHCG then was 166. she was seen at [facility] 10 days ago and was told her HCH was 4,365. she states that she was spotting initially but gone now. she however states that her symptoms of is gone and this is what happened in the past. so she wants to be checked). Currently .REVIEW OF SYSTEMSNo nausea, vomiting, diarrhea, black stools or headache. No fever, chills, anorexia, eye discomfort orsore throat. No cough, difficulty breathing, chest pain, skin rash or enlarged lymph nodes. No joint pain.All other systems rev iewed and are negative.PAST HISTORYSee nurses notes. Problems: Threatened . Anxiety Reaction. . Additional Surgeries: no known surgeries. Medications: Oral, daily. Progesterone Vaginal, 2x a day. Allergies: None.SOCIAL HISTORYNever smoker. No alcohol use or drug use. 2 Clinical Report - Physicians/Mid Levels [facility] Emergency Department [address] [place] [address] Phone #: ext- [phone] 03/07/2021 16:45 Patient: CHRISTOS MOREAU Sex: F : 2000 Age: 20yADDITIONAL NOTESThe nursing notes have been reviewed.PHYSICAL EXAMVital Signs: 03/07/2021 16:48 BP: 120/81. MAP: 94. HR: 80. RR: 18. O2 satur ation: 100% on room air.Temp: 99 F. Pain level now: 01/18. Have been reviewed. Oxygen saturation normal.Appearance: Alert. Oriented X3. No acute distress.Neck: Neck supple.CVS: Heart sounds normal.Respiratory: No respiratory distress. Painless inspiration. Breath sounds normal. Chest nontender.Abdomen: Soft and nontender. Bowel sounds normal. No organomegaly. No mass.Back: Normal external inspection.: External inspection normal. Speculum exam normal. No vaginal discharge or bleeding. Cervical osclosed. No cervical dilation. No cervicitis. No tenderness present on bimanual exam. Uterus notenlarged. No uterine tenderness. No tenderness with movement of the cervix. No adnexal tenderness.Skin: Skin warm and dry. Normal skin color. No rash. Normal skin turgor.Extremities: Extremities nontender. No lower extremity edema.Neuro: Oriented X 3. Mood/affect normal.LABS, X-RAYS, AND EKGPelvic Sonogram: Zaire keys Neal - 03/07/2021 6:37:11 PMsliup 7w0d. The study was interpreted by the radiologist.Laboratory Tests: Urinalysis: (RHONDA: 03/07/2021 18:00) ( [facility] [place] 18:19[facility] Final results Test Result Flag Units (Reference) URINALYSIS URINALYSIS SOURCE R COLOR yellow (NORMAL: Yello CLARITY clear (NORMAL: Clear SPEC GRAVITY 1.020 (1.001 - 1.030 pH 6.5 (5 - 9) GLUCOSE NORM (NORMAL: Negat BILIRUBIN NEG (NORMAL: Negat KETONE NEG (NORMAL: Negat PROTEIN NEG (NORMAL: Negat NITRITE NEG (NORMAL: Negat BLOOD NEG (NORMAL: Negat LEUK EST NEG (NORMAL: Negat UROBILINOGEN NOR (less than 1.0 MICROSCOPIC Not Indicate Beta-HCG, Quant Serum: (RHONDA: 03/07/2021 17:08) ( [facility] [place]/07[facility] 18:19) Final results Test Result Flag Units (Reference) HCG QUANT 93085.0 mIU/mL Interpretation: Less than 5 mU/mL: Negative 6-10 mU/mL: Borderline (suggest repeat in 48 hours) >10: Positive Approx HCG range (mU/mL) Weeks post LMP 5.4-708 mU/mL 3-4 Weeks 3 Clinical Report - Physicians/Mid Levels [facility] Emergency Department [address] [place] [address] Phone #: ext- [phone] 03/07/2021 16:45 Patient: CHRISTOS MOREAU Sex: F : 2000 Age: 90f397-73859 mU/mL 5-6 Weeks 4059-936507 mU/mL 7-8 Unzqe69549-893526 mU/mL 9-10 Weeks 87794-03550 mU/mL 12-14 Vjoyr96800-88255 mU/mL 15-16 Weeks 8240-02191 mU/mL 17-18 WeeksPT/INR: (RHONDA: 03/07/2021 17:08) ( WygRcvd 03/07/2021 17:43) Final results Test Result Flag Units (Reference) PROTIME 13.0 SECONDS (11.0 - 15.5) INR 0.94 (0.93 - 1.23) \\BLDo\\INR INTERPRETATION\\BLDx\\ Therapeutic range for Coumadin andrelated oral anticoagulants. -International Normalized Ratio (INR): 2.0 - 3.0 for VenousThrombosis, Pulmonary Embolus, Tissue heart valves, Acute ME, Atrial Fibrillation, Valvular heartdisease and recurrent Systemic Embolism. -International Normalized Ratio (INR): 2.5 - 3.5for Mechanical Prosthetic valve.CBC w Diff: (RHONDA: 03/07/2021 17:08) ( MsgRcvd 03/07/2021 17:29) Final results Test Result Flag Units (Reference) CBC W/AUTOMATED DIFF COMPLETE BLOOD COUNT WBC 12.6 H 10/uL (4.2 - 11.0) RBC 4.37 10/uL (4.20 - 5.40) HEMOGLOBIN 13.6 g/dL (12.0 - 16.0) HEMATOCRIT 38.8 % (37.0 - 47.0) MCV 88.8 fL (81.0 - 101) MCH 31.1 pg (27.0 - 34.0) MCHC 35.1 g/dL (31.0 - 36.0) RDW 12.7 % (11.5 - 14.5) PLATELETS 347 10/uL (150 - 450) MPV 11.7 H fL (7.4 - 10.4) NEUT 67.1 % (37.0 - 80.0) LYMPH 25.5 % (25.0 - 40.0) MONO 5.3 % (3.0 - 8.0) EOS 1.1 % (0.0 - 7.0) BASO 0.6 % (0.0 - 2.5) %IG 0.4 H % (0.0 - 0.0) %NRBC 0.0 % (0.0 - 0.0) #NEUT 8.47 H 10/uL (2.00 - 6.90) #LYMPH 3.22 10/uL (0.60 - 3.40) #MONO 0.67 10/uL (0.00 - 0.90) #EOS 0.14 10/uL (0.00 - 0.70) #BASO 0.08 10/uL (0.00 - 0.20) #IG 0.05 10/uL (0.00 - 0.10) #NRBC 0.00 10/uL (0.00 - 0.00) MANUAL DIFF NOT INDICATED RBC MORPH NOT INDICATEDBMP: (RHONDA: 03/07/2021 17:08) ( MsgRcvd 03/07/2021 17:44) Final results Test Result Flag Units (Reference) BASIC METABOLIC PANEL BASIC METABOLIC PANEL SODIUM 135 mEq/L (134 - 153) POTASSIUM 3.9 mEq/L (3.6 - 5.0) CHLORIDE 101 mEq/L (98 - 107) CO2 24 MEQ/L (22 - 30) GLUCOSE 93 MG/DL (70 - 99) BUN 7 MG/DL (7 - 21) 4 Clinical Report - Physicians/Mid Levels [facility] Emergency Department [address] [place] [address] Phone #: ext- [phone] 03/07/2021 16:45 Patient: CHRISTOS MOREAU Sex: F : 2000 Age: 20y CREATININE 0.6 L MG/DL (0.7 - 1.5) BUN/CREAT 12 (8 - 27) CALCIUM 9.5 MG/DL (8.4 - 10.2) ANION GAP 10.0 mmol/L (8.0 - 16.0) AGE 20 yrs AFR AMER GFR >60 mL/min NON-AA GFR >60 mL/min Male GFR Interprentation 20-49 yrs >60 mL/min Normal 50-59 yrs >56 mL/min Normal 60-69 yrs >49 mL/min Normal 70-79yrs >42 mL/min Normal 80 and above >35 mL/min Normal Female GFR Interpretation 20-39 yrs >60 mL/min Normal 40-49 yrs >58 mL/min Normal 50-59 yrs >51 mL/min Normal 60-69 yrs >45 mL/min Normal 70-79 yrs >39 mL/min Normal 80 and above >32 mL/min Normal US OB 1ST TRI W TV IF NEEDED: (RHONDA: 03/07/2021 16:59) ( MsgRcvd 03/07/2021 18:21) In Progress US OB 1ST TRI W TV IF NEEDED Reason(s): 5 weeks vaginal bleeding TRANSPORTATION: IV? IV?(Yes) O2? Oxygen?(No) Ro.PROGRESS AND PROCEDURESCourse of Care: 18:36 03/07/21. [place] [address]. awaiting for US 18:48 03/07/21. us showed IUP approx 7 weeks. urinalysis was normal. Patient and spouse counseled in person regarding the patient's stable condition, test results, diagnosis and need for follow-up. Patient and spouse agrees with plan of care. 18:51. Disposition: Discharged home in good and unchanged condition (18:52). Condition: good and stable. Discharge decision based on the following: patient's condition is stable; patient's exam is stable; no seriously abnormal test results; stable condition on multiple repeat evaluations; social support is adequate; transportation is available; follow-up is available; clinical impression is consistent with outpatient treatment.CLINICAL IMPRESSION First trimester .INSTRUCTIONS (you are 7 weeks . there is a live intrauterine and [place] [facility] [place] [address]. follow up with your OB GY N for care). Your Current Medications: Your current home medications have been reviewed. CONTINUE TAKING THE FOLLOWING MEDICATIONS: 5 Clinical Report - Physicians/Mid Levels [facility] Emergency Department [address] [place] [address] Phone #: ext- [phone] 03/07/2021 16:45 Patient: CHRISTOS MOREAU Sex: F : 2000 Age: 20y Oral : daily. Progesterone Vaginal : 2x a day. Follow-up with: [facility], , , [address] [place] [address], [facility] Follow up in seven days. Call for an appointment. Reason for referral: evaluation. Summary of care provided to patient via paper.(Electronically signed by Bridger Hamilton 03/07/2021 19:54) Name Value Range Interpretation Code Description Data Opal e(s) Supporting Document(s) ID Date Data Source [id number] 03/07/2021 06:18:[address] [facility] Name Value Range Interpretation Code Description Data Opal [facility](s) Supporting Document(s) URINALYSIS [facility] [place] URINALYSIS SOURCE [facility] COL[facility] yellow NORMAL: Yellow [facility]sp[facility] CLARITY clear NORMAL: Clear [facility] Ho spital Specific gravity of Urine by Test strip 1.020 1.001 - 1.030 [facility] pH 6.5 5 - 9 [facility] Glucose [Mass/volume] in Urine by Test strip NORM NORMAL: Negat collette [facility] Bilirubin.total [Presence] in Urine by Test strip NEG NORMAL: Negative [facility] Ketones [Presence] in Urine by Test strip NEG NORMAL: Negative [facility] Protein [Mass/volume] in Urine by Test strip NEG NORMAL: Negat collette [facility] Nitrite [Presence] in Urine by Test strip NEG NORMAL: Negative [facility] BLOOD NEG NORMAL: Negative [facility] Leukocyte esterase [Presence] in Urine by Test strip NEG CANDIDA L: Negative [facility] Urobilinogen [Mass/volume] in Urine by Test strip NOR less moreno n 1.0 mg/dL [facility] MICROSCOPIC Not Indicate [facility] ospital ID Date Data Source [id number] 03/07/2021 06:19:[address] [facility] Name Value Range Interpretation Code Description Data Opal rce(s) Supporting Document(s) Choriogonadotropin.intact [Units/volume] in Serum or Plasma 38510.0 mIU/mL [facility] Interpr etation: Less than 5 mU/mL: Negative 6-10 mU/mL: Borderline (suggest repeat in 48 hours) >10: Positive Approx HCG range (mU/mL) Weeks post LMP 5.4-708 mU/mL 3-4 Weeks 217-58374 mU/mL 5-6 Weeks 4059-329980 mU/mL 7-8 Weeks 40532-858788 mU/mL 9-10 Weeks 75416-23053 mU/mL 12-14 Weeks 71813-43987 mU/mL 15-16 Weeks 8240- 04615 mU/mL 17-18 Weeks ID Date Data Source [id number] 03/07/2021 05:44:[address] [facility] Name Value Range Interpretation Code Description Data Opal rce(s) Supporting Document(s) BASIC METABOLIC PANEL [facility] BASIC METABOLIC PANEL Sodium [Moles/volume] in Serum or Plasma 135 mEq/L 134 - 153 [facility] Potassium [Moles/volume] in Serum or Plasma 3.9 mEq/L 3.6 - 5.0 [facility] Chloride [Moles/volume] in Serum or Plasma 101 mEq/L 98 - 107 [facility] Carbon dioxide, total [Moles/volume] in Serum or Plasma 24 MEQ/L 22 - 30 [facility] Glucose [Mass/volume] in Serum or Plasma 93 MG/DL 70 - 99 [facility] BUN 7 MG/DL 7 - [address] [facility] al Creatinine [Mass/volume] in Serum or Plasma 0.6 MG/DL 0.7 - 1.[address] [facility] BUN/CREAT 12 8 - 27 [facility] Calcium [Mass/volume] in Serum or Plasma 9.5 MG/DL 8.4 - 10.2 [facility] Anion gap 3 in Serum or Plasma 10.0 mmol/L 8.0 - 16.0 [facility] AGE [address] [facility] al AFR AMER GFR >60 mL/min [facility] Ho spital NON-AA GFR >60 mL/min [facility] ital Male GFR Inter prentation 20-49 yrs >60 mL/min Normal 50-59 yrs >56 mL/min Normal 60-69 yrs >49 mL/min Normal 70-79yrs >42 mL/min Normal 80 and above >35 mL/min Normal Female GFR Interpretation 20-39 yrs >60 mL/min Normal 40-49 yrs >58 mL/min Normal 50-59 yrs >51 mL/min Normal 60-69 yrs >45 mL/min Normal 70-79 yrs >39 mL/min Normal 80 and above >32 mL/min Normal ID Date Data Source [id number] 03/07/2021 05:43:[address] [facility] Name Value Range Interpretation Code Description Data Opal rce(s) Supporting Document(s) Prothrombin time (PT) 13.0 SECONDS 11.0 - 15.5 [facility] INR in Platelet poor plasma by Coagulation assay 0.94 0.93 - 1. 23 [facility] \\BLDo\\INR INTERPRETATION\\BLDx\\ Therapeutic range for Coumadin and related oral anticoagulants. - International Normalized Ratio (INR): 2.0 - 3.0 for Venous Thrombosis, Pulmonary Embolus, Tissue heart valves, Acute ME, Atrial Fibrillation, Valvular heart disease and recurrent Systemic Embolism. -International Normalized Ratio (INR): 2.5 - 3.5 for Mechanical Prosthetic valve. ID Date Data Source [id number] 03/07/2021 05:28:[address] [facility] Name Value Range Interpretation Code Description Data Opal rce(s) Supporting Document(s) CBC W/AUTOMATED DIFF [facility] COMPLETE BLOOD COUNT Leukocytes [#/volume] in Blood by Automated count 12.6 10^3/uL 4.2 - 11.[address] [facility] Erythrocytes [#/volume] in Blood by Automated count 4.37 10^6/uL 4. 20 - 5.40 [facility] Hemoglobin [Mass/volume] in Blood 13.6 g/dL 12.0 - 16.0 [facility] Hematocrit [Volume Fraction] of Blood by Automated count 38.8 % 3 7.0 - 47.0 [facility] Erythrocyte mean corpuscular volume [Entitic volume] by Auto mated count 88.8 fL 81.0 - 101 [facility] Erythrocyte mean corpuscular hemoglobin [Entitic mass] by Automated count 31.1 pg 27.0 - 34.0 [facility] Erythrocyte mean corpuscular hemoglobin concentration [Mass/volume] by Automated count 35.1 g/dL 31.0 - 36.0 [facility] Erythrocyte distribution width [Ratio] by Automated count 12.7 % 11.5 - 14.5 [facility] Platelets [#/volume] in Blood by Automated count 347 10^3/uL 150 - [address] [facility] Platelet mean volume [Entitic volume] in Blood by Automated count 11.7 fL 7.4 - 10.[address] [facility] Neutrophils/100 leukocytes in Blood by Automated count 67.1 % 37. 0 - 80.0 [facility] Lymphocytes/100 leukocytes in Blood by Manual count 25.5 % 25.0 - 40.0 [facility] Monocytes/100 leukocytes in Blood by Automated count 5.3 % 3.0 - 8.0 [facility] Eosinophils/100 leukocytes in Blood by Automated count 1.1 % 0.0 - 7.0 [facility] Basophils/100 leukocytes in Blood by Automated count 0.6 % 0.0 - 2.5 [facility] %IG 0.4 % 0.0 - 0.0 [facility] %NRBC 0.0 % 0.0 - 0.[address] [facility] al Neutrophils [#/volume] in Blood by Automated count 8.47 10^3/uL 2.00 - 6.[address] [facility] Lymphocytes [#/volume] in Blood by Automated count 3.22 10^3/uL 0.60 - 3.40 [facility] Monocytes [#/volume] in Blood by Automated count 0.67 10^3/uL 0.00 - 0.90 [facility] Eosinophils [#/volume] in Blood by Automated count 0.14 10^3/uL 0.00 - 0.70 [facility] Basophils [#/volume] in Blood by Automated count 0.08 10^3/uL 0.00 - 0.20 [facility] #IG 0.05 10^3/uL 0.00 - 0.10 [facility] osp[facility] #NRBC 0.00 10^3/uL 0.00 - 0.00 [facility] osp[facility] MANUAL DIFF NOT INDICATED [facility] RBC MORPH NOT INDICATED [facility] spital ID Date Data Source [id number] 02/17/2021 06:20:[address] [facility] [address] [facility] Emergency Department [address] [place] [address] Phone #: ext- [phone] 02/17/2021 18:10 Patient: CHRISTOS MOREAU Sex: F : 2000 Age: 20yWEIGHT:81.6 kg (S) HEIGHT:62 inches (S) BMI:32.9ALLERGIES: NoneCHIEF COMPLAINT: abd crampsDIAGNOSIS: Patient currently , Threatened abortionLAB ORDERSOrder Description Priority Entered Acknowledged InitialedCBC w Diff STAT 18:34 02/17/2021 19:07 Mya ChaoNLucie P.A.-C;CMP STAT 18:34 02/17/2021 19:07 Mya Jimenez R.N. P.A.-C;Type Rh STAT 18:34 02/17/2021 19:07 Mya Francisco J Curly Jimenez R.N. P.A.-C;Urinalysis (Clean STAT 18:34 02/17/2021 19:17 Mya SamuelirCatch) Curly Jimenez R.N. P.A.-C;Culture, Urine STAT 18:34 02/17/2021 19:17 Mya Marx(Urine, Clean Curly Jimenez R.N.Catch) P.A.-C;HCG Serum Quant STAT 18:34 02/17/2021 19:07 Mya Francisco J Jimenez R.N. P.A.-C;DIAGNOSTIC STUDY ORDERSOrder Description Priority Entered Acknowledged InitialedUS OB 1ST TRI W STAT 18:34 02/17/2021 19:17 Mya MarxTV IF NEEDED Curly ChaoNLucie(Oxygen?(No)) P.A.-C;(IV?(No)) Reason for Study: crmapingMEDICATION/IV/DRIP/FLUID ORDERSOrder Description Priority Entered Acknowledged InitialedGENERAL ORDERS [address] [facility] Emergency Department [address] [place] [address] Phone #: ext- [phone] 02/17/2021 18:10 [id number] Sex: F : 2000 Age: 20yOrder Description Priority Entered Acknowledged InitialedNPO 18:34 02/17/2021 18:38 Elier Delaney- Reynaldo;[Electronically signed by Vargas Jimenez RN (21:03 02/17/2021)][Electronically signed by Curly Saravia P.A.-C (14:28 02/19/2021)][Electronically locked by Vargas Jimenez RN (21:02/17/2021)] Name Value Range Interpretation Code Description Data Opal e(s) Supporting Document(s) ID Date Data Source [id number] 02/17/2021 06:20:[address] [facility] [address] [facility] Emergency Department [address] [place] [address] Phone #: ext- [phone] 02/17/2021 18:10 Patient: CHRISTOS MOREAU Sex: F : 2000 Age: 20yWeight: 81.6 kgHeight/Length: 62 in.BMI: 32.9ALLERGIES: NoneThe patient's Home Medications are listed below:THE FOLLOWING MEDICATIONS NEED TO BE RECONCILED: metFORMIN HCl Oral (500 mg), 3x a day Oral Progesterone Vaginal, stopped 5/6 Vitamin D Oral (50 MCG (1999)), dailyThe source(s) of the original Home Medication information:Not obtained.The following Medications were given to the patient in the Emergency Department:None.The following Medications were prescribed to the patient:None. Name Value Range Interpretation Code Description Data Opal e(s) Supporting Document(s) ID Date Data Source [id number] 02/17/2021 06:20:[address] [facility] [address] [facility] Emergency Department [address] [place] [address] Phone #: ext- [phone] 02/17/2021 18:10 Patient: CHRISTOS MOREAU Sex: F : 2000 Age: 20yWeight: 81.6 kgHeight/Length: 62 inBMI: 32.9ALLERGIES: NoneDate/Time Medication Administered Medication Ordered Name Value Range Interpretation Code Description Data Opal rce(s) Supporting Document(s) ID Date Data Source [id number] 02/17/2021 06:20:[address] [facility] [address] [facility] Emergency Department [address] [place] [address] Phone #: ext- [phone] 02/17/2021 18:10 Patient: CHRISTOS MOREAU Sex: F : 2000 Age: 20yFirst trimester ; positive test in emergency department.Threatened .INSTRUCTIONS(Recommend to utilize OTC Tylenol to control inflammation and pain management. Recommend to followthe instructions on the bottle and not to exceed.).Warnings: Further evaluation is necessary.GENERAL WARNINGS: Return or contact your physician immediately if your condition worsens orchanges unexpectedly, if not improving as expected, or if other problems arise.Follow-up:Return to the emergency department as needed. Follow up with your healthcare provider in about twodays if not better. Call for an appointment. Follow up with an light fixture servicer in two days. Call for the nextavailable appointment.Understanding of the discharge instructions verbalized by patient. ADDITIONAL INFORMATIONPregnancy [address] [facility] Emergency Department [address] [place] [address] Phone #: ext- [phone] 02/17/2021 18:10 Patient: CHRISTOS MOREAU Sex: F : 2000 Age: 20yYour exam today shows that you are . symptomsDuring your body's hormones change. This causes physical and emotional changes. Thisis normal. Knowing what to expect is important for your piece of mind and so you know when to seekhelp for a problem. Here are some of the most common symptoms: Morning sickness or nausea. This can happen any time of the day or night. Tender, swollen breasts Need to urinate frequently Tiredness or fatigue Dizziness Indigestion or heartburn Food cravings or turn-offs Constipation Emotional changes. This can range from anxiety to excitement to depression.General care for a healthy pregnancyHere are things you can do to help make sure your baby is born healthy: [address] [facility] Emergency Department [address] [place] [address] Phone #: ext- [phone] 02/17/2021 18:10 [facility]: [id number] Sex[facility] F : 2000 Age: 20y Rest when you feel tired. This is especially true in the later months of . Drink more fluids. Your body needs more fluids than you may be used to. Drink 8 to10 glasses of juice, milk, or water every day. Eat well-balanced meals. Eat at regular times to give your body enough protein. You can expect to gain about 30 pounds during the . Don't try to diet or lose weight while you are . Take a vitamin every day. This helps you meet the extra nutritional needs of . Don't take any other medicine during your unless your healthcare provider tells you to. This includes prescription medicines and those you buy over the counter. Many medicines can harm the growing baby. If you have nausea or vomiting, don't eat greasy or fried foods. Eat several smaller meals throughout the day rather than 3 large meals. If you smoke, you must stop. The nicotine you breathe in goes right to the baby. Stay away from alcohol, even in moderate amounts. Daily drinking will harm your baby and can cause permanent brain damage. Don't use recreational drugs, especially cocaine, crack, and heroin. These will harm your baby. Also avoid marijuana. If you were using recreational drugs or prescribed medicine when you found out that you were , talk with your healthcare provider about possible effects on your growing baby. If you have medical problems that you need to take medicine for, talk with your healthcare provider.Follow-up careCall your healthcare provider to arrange for care. care is important. You can seeyour family provider, a specialist (light fixture servicer), a senior net engineer, or a primary care clinic.When to seek medical adviceCall your healthcare provider right away if any of these occur: Vaginal bleeding Pain in your belly (abdomen) or back that is moderate or severe Lots of v omiting, or you can't keep any fluids down for [address] [facility] Emergency Department [address] [place] [address] Phone #: ext- [phone] 02/17/2021 18:10 Patient: CHRISTOS MOREAU Sex: F : 2000 Age: 20y Burning feeling when you urinate Headache, dizziness, or rapid weight gain Fever Vision changes or blurred vision [id number] [employer] [place] [address]. All rights reserved. This information is not intended as asubstitute for professional medical care. Always follow your healthcare professional's instructions.PregnancyYour exam today shows that you are . symptomsDuring your body's hormones change. This causes physical and emotional changes. Thisis normal. Knowing what to expect is important for your piece of mind and so you know when to seekhelp for a problem. Here are some of the most common symptoms: Morning sickness or nausea. This can happen any time of the day or night. Tender, swollen breasts Need to urinate frequently Tiredness or fatigue [address] [facility] Emergency Department [address] [place] [address] Phone #: ext- [phone] 02/17/2021 18:10 Patient: CHRISTOS MOREAU ct#: [id number] Sex: F : 2000 Age: 20y Dizziness Indigestion or heartburn Food cravings or turn-offs Constipation Emotional changes. This can range from anxiety to excitement to depression.General care for a healthy pregnancyHere are things you can do to help make sure your baby is born healthy: Rest when you feel tired. This is especially true in the later months of . Drink more fluids. Your body needs more fluids than you may be used to. Drink 8 to10 glasses of juice, milk, or water every day. Eat well-balanced meals. Eat at regular times to give your body enough protein. You can expect to gain about 30 pounds during the . Don't try to diet or lose weight while you are . Take a vitamin every day. This helps you meet the extra nutritional needs of . Don't take any other medicine during your unless your healthcare provider tells you to. This includes prescription medicines and those you buy over the counter. Many medicines can harm the growing baby. If you have nausea or vomiting, don't eat greasy or fried foods. Eat several smaller meals throughout the day rather than 3 large meals. If you smoke, you must stop. The nicotine you breathe in goes right to the baby. Stay away from alcohol, even in moderate amounts. Daily drinking will harm your baby and can cause permanent brain damage. Don't use recreational drugs, especially cocaine, crack, and heroin. These will harm your baby. Also avoid marijuana. If you were using recreational drugs or prescribed medicine when you found out that you were , talk with your healthcare provider about possible effects on your growing baby. If you have medical problems that you need to take medicine for, talk with your healthcare provider.Follow-up care [address] [facility] Emergency Department [address] [place] [address] Phone #: ext- [phone] 02/17/2021 18:10 Patient: [facility]STOS [facility]AU [id number] Sex: F : 2000 Age: 20yCall your healthcare provider to arrange for care. care is important. You can seeyour family provider, a specialist (light fixture servicer), a senior net engineer, or a primary care clinic.When to seek medical adviceCall your healthcare provider right away if any of these occur: Vaginal bleeding Pain in your belly (abdomen) or back that is moderate or severe Lots of vomiting, or you can't keep any fluids down for 6 hours Burning feeling when you urinate Headache, dizziness, or rapid weight gain Fever Vision changes or blurred vision [phone] [employer]. [address] [place] [address]. All rights reserved. This information is not intended as asubstitute for professional medical care. Always follow your healthcare professional's instructions.Possible Miscarriage (Threatened )You may be having a miscarriage.Common signs of a miscarriage are pain and bleeding. A small amount of bleeding can be normalduring the first 3 months of . Often the pain and bleeding stop, and you have a normalpregnancy and baby. But heavy bleeding or severe cramping can be an early sign of miscarriage. Amiscarriage means an unexpected loss of your .At this time, your healthcare provider doesn't know whether you will have a miscarriage, or if thingswill clear up and your will continue normally. This can be emotionally difficult. There is littlethat can be done to change the way you feel. But understand that miscarriages are common.About 1 or 2 out of every [address] Some even end before you know you are. This happens for a number of reasons, and usually the cause is never known. It's importantyou know that it is not your fault. It didn't happen because you did anything wrong.Having sex or exercising does not cause a miscarriage. These activities are usually safe unless youhave pain or bleeding or your healthcare provider tells you to stop. Even minor falls won't cause amiscarriage. Miscarriages happen because things were not developing as they were supposed to. Nomedicine can prevent a miscarriage.Again, understand that things are uncertain right now. You may still have some bleeding. This may be [address] [facility] Emergency Department [address] [place] [address] Phone #: ext- [phone] 02/17/2021 18:10 Patient: CHRISTOS MOREAU Sex: F : 2000 Age: 20ylight spotting or like a period, and you may pass some tissue. You may have some cramping. This iswhy follow-up care is important.Home careTo improve the chance of keeping your , you should take these steps: Rest in bed until the pain and bleeding stop. Don't have sex until your healthcare provider says it's OK. Use sanitary napkins instead of tampons. Don't douche. Don't take aspirin, ibuprofen, or naproxen. Don't have alcoholic or caffeinated beverages or smoke.Follow-up careMake an appointment with your healthcare provider within the next week, or as directed.If you had an ultrasound, a radiologist will review it. You will be told of any new findings that mayaffect your care.Call [phone] if you have: Severe pain and very heavy bleeding Severe lightheadedness, passing out, or fainting Rapid heart rate Trouble breathing Confusion or trouble waking upWhen to seek medical adviceCall your healthcare provider right away if any of these occur: Vaginal bleeding or pain that lasts for more than 3 days Heavy bleeding. This means soaking 1 new pad an hour over 3 hours. Fever of 100.4F (38C) or higher, or as directed by your healthcare provider [address] [facility] Emergency Department [address] [place] [address] Phone #: ext- [phone] 02/17/2021 18:10 Patient: CHRISTOS MOREAU Sex: F : 2000 Age: 20y Pain in your lower belly (abdomen) that gets worse Weakness or dizziness Passage of anything that resembles tissue. This would be pink or grayish membrane or solid material. Save the tissue in a clean container and bring it to your provider. [employer]. [address] [place] [address], [place] [address]. All rights reserved. This information is not intended as asubstitute for professional medical care. Always follow your healthcare professional's instructions. You have been given the following additional information: , New Dx , New Dx Possible Miscarriage (Threatened )(Electronically signed by Curly Saravia P.A.-C 02/19/2021 14:28) Name Value Range Interpretation Code Description Data Opal rce(s) Supporting Document(s) ID Date Data Source [id number] 02/17/2021 06:20:[address] [facility] 1 Clinical Report - Nurses [facility] Emergency Department [address] [place] [address] Phone #: ext- [phone] 02/17/2021 18:10 Patient: CHRISTOS MOREAU Sex: F : 2000 Age: 20yTRIAGEArrived by private vehicle. Historian: patient. Accompanied by family. ( last week had beta was 29 48hours later it was 37, ob told the pregancy was not viable and stop taking her progresterone went intotoday and beta 161 not sure if viable or ectopic , ob told her to come back wednesday if beta is not higherto get meds to end but pt is not comfortable with that without a ultrasound, had miscarriage inthe beginning of december is unsure of last menses).Acuity: LEVEL 3.Chief Complaint: ABDOMINAL CRAMPS and (possible eptopic pregancy).Alert. No acute distress.Onset. (last week).Treatment STITCHER AROUND:None.SEPSIS SCREEN: SIRS SCREEN NEGATIVE. SEPSIS SCREEN NEGATIVE. No suspected or confirmedsigns of infection present. --18:23 02/17/21 Kiara Flores R.N.18:15 02/17/21. BP: 132/83. MAP: 99. HR: 93. RR: 18. O2 saturation: 100%. Temp: 97.2 F. Pain levelnow: 0/10. --18:23 02/17/21 Kiara Flores R.N.Weight: 81.6 kg stated. Height/Length: 62 inches Per Patient. BMI: 32.9. --18:15 02/17/21 Kiara Flores R.N.MedicationsmetFORMIN HCl Oral (Tablet 500 mg), 3x a day. --18:20 02/17/21 Kiara Flores R.N. Oral. --18:20 02/17/21 Kiara Flores R.N. Vitamin D Oral (Capsule 50 MCG (1999 UT)), daily. --18:20 02/17/21 Kiara Flores R.N. Progesterone Vaginal (stopped 02/13). --18:21 02/17/21 Kiara Flores R.N.AllergiesNone. --18:19 02/17/21 Kiara Flores R.N.HistoryPAST MEDICAL HX: Immunizations: status is unknown. Last normal menstrual period- unknown. OBhistory: G 3; Ab 2.SOCIAL HX: Never smoker. No alcohol use or drug use. The patient was offered HIV testing butdeclined and hepatitis C testing but declined. The patient has not traveled outside the [place]Infectious disease exposure: No infectious disease exposure. Patient is not a known carrier of tuberculosis,hepatitis, HIV, MRSA or VRE. Patient is not a known carrier of CRE. 2 Clinical Report - Nurses [facility] Emergency Department [address] [place], [place] [id number] Phone #: ext- [id number] 02/17/2021 18:10 Patient: CHRISTOS MOREAU Sex: F : 2000 Age: 20y SELF HARM ASSESSMENT: Self harm assessment was performed. The patient answered "no" to the question(s) "Have you recently felt down, depressed, or hopeless?", "Do you have thoughts of harming or killing yourself?", "Do you have a plan for harming or killing yourself?", "Have you recently had thoughts about harming or killing others?", "Do you have any dangerous items in your possession?", "Have you noticed less interest or pleasure in doing things?", "Are you here because you tried to hurt yourself?" and "Have you ever tried to hurt yourself before today?". ABUSE ASSESSMENT: Abuse assessment. Abuse denied. No suspicion of abuse. No report of abuse. NUTRITIONAL RISK ASSESSMENT: The nutritional risk assessment revealed no deficiencies. FUNCTIONAL ASSESSMENT: Functional assessment: no impairments noted. FALL RISK ASSESSMENT: Fall risk assessment completed. No risk factors identified. SKIN INTEGRITY ASSESSMENT: Skin integrity risk assessment completed. No skin integrity risk identified. --18:02/17/21 Kiara Flores R.N. Interventions Identification band on patient. To treatment room. --18:02/17/21 Kiara Flores R.N.PHYSICAL ASSESSMENTGENERAL / NEURO / PSYCH: Alert. Oriented X 4. Appears in no acute distress.HEENT: Mucous membranes are pink.RESPIRATORY: Respirations not labored. Breath sounds within normal limits.CVS: Normal heart rate and rhythm. Capillary refill less than 2 seconds.GI / : Abdomen soft and nontender. Bowel sounds within normal limits. No vaginal bleeding. Novaginal discharge.EXTREMITIES: No lower extremity edema.SKIN: Skin is warm and dry. --18:02/17/21 Kiara Flores R.N.NURSING PROGRESS NOTESPatient gowned. Reassuranc e given. Two patient identifiers checked. Call light placed in reach. Siderails up x 2. Bed placed in lowest position. Brakes of bed on. Patient ready for evaluation. --18: Kiara Flores R.N. 18:55 02/17/21. Patient transported to [facility] by wheelchair with interventional radiology tech. --19:11 02/17/21 Mya Jimenez R.N. 19:14 02/17/21. [facility] returned [facility] by wheelchair with interventional radiology tech. --19:18 02/17/21 Mya Jimenez R.N. 19:16 02/17/21. Checked patient name and birthdate. Clean catch urine collected with return of 3 Clinical Report - Nurses [facility] Emergency Department [address] [place] [address] Phone #: ext- [phone] 02/17/2021 18:10 Patient: CHRISTOS MOREAU Sex: F : 2000 Age: 20y yellow-colored clear urine; sample sent to lab for urinalysis and culture. Specimen labeled in the presence of the patient (Hand carried to lab). --19:19 02/17/21 Mya Jimenez R.N.DISPOSITION / DISCHARGE 20:43 02/17/21. BP: 131/66. MAP: 87. HR: 76. RR: 16. O2 saturation: 100%. Temp: 97.2 F. --20:43 02/17/21 Shahrzad Hancock ED, ER Tech1 Jennifer Coma Scale: 15- eyes open- spontaneous (4); best verbal response- oriented (5); best motor response- obeys commands (6). Condition at departure: improved. No learning barriers present. Discharge instructions provided and reviewed with the patient. Reviewed referral to an light fixture servicer for followup. Patient verbalized understanding. Written instructions provided in Omani. The patient was discharged home and accompanied by spouse. She left ambulatory and via private vehicle. Spouse driving. --21:03 02/17/21 Vargas Jimenez RN 21:02 02/17/21. Pain level now: 010. --21:03 02/17/21 Vargas Jimenez RN.Locked/Released at 02/17/2021 21:03 by Vargas Jimenez RN Name Value Range Interpretation Code Description Data Opal rce(s) Supporting Document(s) ID Date Data Source [id number] 02/17/2021 06:20:[address] [facility] 1 Clinical Report - Physicians/Mid Levels [facility] Emergency Department [address] [place] [address] Phone #: ext- [phone] 02/17/2021 18:10 Patient: CHRISTOS MOREAU Sex: F : 2000 Age: 20y Time Seen: 18:25 02/17/2021; initial patient contact, initial documentation. Arrived- By private vehicle. Historian- patient. Disposition decision: 20:37 02/17/2021.HISTORY OF PRESENT ILLNESS Chief Complaint: ABDOMINAL CRAMPS. This started today and is still present but is improving. No vaginal bleeding or complaint of leakage of fluid. (last week had beta was 29 48 hours later it was 37, ob told the pregancy was not viable and stop taking her progresterone went into today and beta 161 not sure if viable or ectopic , ob told her to come back wednesday if beta is not higher to get meds to end but pt is not comfortable with that without a ultrasound, had miscarriage in the beginning of december is unsure of last menses). Similar symptoms previously. None. Recent medical care: The patient was seen recently at another facility in a clinic.REV IEW OF SYSTEMSNo nausea, vomiting, diarrhea, black stools or bloody stools. No headache, double vision, faintingepisodes, fever or eye discomfort. No eye discharge, sore throat, cough, difficulty breathing or chest pain.No skin rash, enlarged lymph nodes, chills or joint pain. All other systems reviewed and are negative.PAST HISTORYSee nurses notes. G 3; P 0; Ab 2. Problems: Laceration. Anxiety Reaction. . Care. . Threatened . Medications: Progesterone Vaginal (stopped 02/13). Vitamin D Oral (Capsule 50 MCG (1999 UT)), daily. Oral. metFORMIN HCl Oral (Tablet 500 mg), 3x a day. Allergies: None.SOCIAL HISTORY 2 Clinical Report - Physicians/Mid [facility] Emergency Department [address] [place] [address] Phone #: ext- [phone] 02/17/2021 18:10 Patient: CHRISTOS MOREAU Sex: F : 2000 Age: 20y Never smoker. No alcohol use or drug use.ADDITIONAL NOTESThe nursing notes have been reviewed.PHYSICAL EXAMVital Signs: 02/17/2021 18:15 BP: 132/83. MAP: 99. HR: 93. RR: 18. O2 saturation: 100%. Temp: 97.2 F.Pain level now: 0/10. Have been reviewed. Oxygen saturation normal.Appearance: Alert. Oriented X3. No acute distress.CVS: Normal heart rate and rhythm. No JVD present. Pulses normal. C apillary refill normal. Strongperipheral pulses. Heart sounds normal. Pulses: right radial 2+; left radial 2+; right dorsalis pedis 2+; leftdorsalis pedis 2+; right posterior tibial 2+; left posterior tibial 2+.Respiratory: Chest normal on inspection. No respiratory distress. Unlabored respirations. Lungs clear.Good chest movement. Breath sounds normal and equal.Abdomen: Normal inspection. Soft and nontender. Bowel sounds normal.Skin: Skin warm and dry.Extremities: No lower extremity edema. Extremities nontender. No calf tenderness. No pathologicedema.Neuro: Awake. Alert. Mood/affect normal. No motor deficit. No sensory deficit.Psych: Cognition normal. Thought process and content normal. Insight and judgement normal.LABS, X-RAYS, AND EKGPelvic Sonogram: Escobar barnhart Brian - 02/17/2021 8:30:33 PMNo intrauterine gestational sac. Thickened heterogeneous endometrium measuring 1.6 cm. Clinicalcorrelation recommended. Follow-up beta hCG and ultrasound depending on results. No adnexal mass. Nofree fluid.Laboratory Tests: US OB TRANSVAGINAL [place]: (RHONDA: 02/17/2021 18:49) ( Mscvd 02/17/2021 19:22) In Progress US OB TRANSVAGINAL [place] Reason for Exam: CRAMPING TRANSPORTATION: AMB IV? N O2? N STATUS: UNKNOWN ISOLATION N CBC w Diff: (RHONDA: 02/17/2021 18:40) ( WygRcvd 02/17/2021 18:50) Final results Test Result Flag Units (Reference) CBC W/AUTOMATED DIFF COMPLETE BLOOD COUNT WBC 12.4 H 10/uL (4.2 - 11.0) RBC 4.37 10/uL (4.20 - 5.40) HEMOGLOBIN 13.5 g/dL (12.0 - 16.0) HEMATOCRIT 38.3 % (37.0 - 47.0) MCV 87.6 fL (81.0 - 101) MCH 30.9 pg (27.0 - 34.0) MCHC 35.2 g/dL (31.0 - 36.0) RDW 12.4 % (11.5 - 14.5) PLATELETS 421 10/uL (150 - 450) MPV 11.0 H fL (7.4 - 10.4) 3 Clinical Report - Physicians/Mid Levels [facility] Emergency Department [address] [place] [address] Phone #: ext- [phone] 02/17/2021 18:10 Patient: CHRISTOS MOREAU Sex: F : 2000 Age: 20y NEUT 66.5 % (37.0 - 80.0) LYMPH 27.0 % (25.0 - 40.0) MONO 4.0 % (3.0 - 8.0) EOS 1.4 % (0.0 - 7.0) BASO 0.8 % (0.0 - 2.5) %IG 0.3 H % (0.0 - 0.0) %NRBC 0.0 % (0.0 - 0.0) #NEUT 8.23 H 10/uL (2.00 - 6.90) #LYMPH 3.35 10/uL (0.60 - 3.40) #MONO 0.50 10/uL (0.00 - 0.90) #EOS 0.17 10/uL (0.00 - 0.70) #BASO 0.10 10/uL (0.00 - 0.20) #IG 0.04 10/uL (0.00 - 0.10) #NRBC 0.00 10/uL (0.00 - 0.00) MANUAL DIFF NOT INDICATED RBC MORPH NOT INDIC ATEDCMP: (RHONDA: 02/17/2021 18:40) ( MsgRcvd 02/17/2021 19:15) Final results Test Result Flag Units (Reference) COMPREHENSIVE METABOLIC PANEL COMPREHENSIVE METABOLIC PANEL SODIUM 136 mEq/L (134 - 153) POTASSIUM 3.6 mEq/L (3.6 - 5.0) CHLORIDE 104 mEq/L (98 - 107) CO2 24 MEQ/L (22 - 30) GLUCOSE 108 H MG/DL (70 - 99) BUN 7 MG/DL (7 - 21) CREATININE 0.5 L MG/DL (0.7 - 1.5) BUN/CREAT 14 (8 - 27) TOTAL PROTEIN 7.3 G/DL (6.3 - 8.2) ALBUMIN 4.4 G/DL (3.9 - 5.0) GLOBULIN 2.9 GM/DL (2.4 - 3.2) A/G RATIO 1.5 (0.8 - 2.0) CALCIUM 9.5 MG/DL (8.4 - 10.2) TOTAL BILI <0.7 MG/DL (0.2 - 1.3) ALKALINE PHOS 64 U/L (38 - 126) SGOT/AST 15 U/L (5 - 40) SGPT/ALT 27 U/L (7 - 56) ANION GAP 8.0 mmol/L (8.0 - 16.0) AGE 20 yrs NON-AA GFR >60 mL/min AFR AMER GFR >60 mL/min Male GFR Interprentation 20-49 yrs >60 mL/min Mvmibn61-65 yrs >56 mL/min Normal 60-69 yrs >49 mL/min Normal 70-79yrs>42 mL/min Normal 80 and above >35 mL/min Normal Female GFRInterpretation 20-39 yrs >60 mL/min Normal 40-49 yrs >58 mL/minNormal 50-59 yrs >51 mL/min Normal 60-69 yrs >45 mL/min Cdgpuk23-37 yrs >39 mL/min Normal 80 and above >32 mL/min NormalType Rh: (RHONDA: 02/17/2021 18:40) ( WygRcvd 02/17/2021 19:16) Final results Test Result Flag Units (Reference) ABO GROUP A RH TYPE POSITIVE { ABO/RH REENTER A POSITIVEUrinalysis: (RHONDA: 02/17/2021 19:10) ( MsgRcvd 02/17/2021 19:35) Final results 4 Clinical Report - Physicians/Mid Levels [facility] Emergency Department [address] [place] [address] Phone #: ext- [phone] 02/17/2021 18:10 Patient: CHRISTOS MOREAU Sex: F : 2000 Age: 20y Test Result Flag Units (Reference) URINALYSIS URINALYSIS SOURCE Clean Catch COLOR yellow (NORMAL: Yello CLARITY hazy (NORMAL: Clear SPEC GRAVITY 1.030 (1.001 - 1.030 pH 6 (5 - 9) GLUCOSE NORM (NORMAL: Negat BILIRUBIN NEG (NORMAL: Negat KETONE NEG (NORMAL: Negat PROTEIN NEG (NORMAL: Negat NITRITE NEG (NORMAL: Negat BLOOD NEG (NORMAL: Negat LEUK EST NEG (NORMAL: Negat UROBILINOGEN NOR (less than 1.0 MICROSCOPIC Not Indicate Beta-HCG, Quant Serum: (RHONDA: 02/17/2021 18:40) ( [facility] 02/17/2021 19:16) Final results Test Result Flag Units (Reference) HCG QUANT 166.6 mIU/mL Interpretation: Less than 5 mU/mL: Negative 6-10 mU/mL: Borderline (suggest repeat in 48 hours) >10: Positive Approx HCG range (mU/mL) Weeks post LMP 5.4-708 mU/mL 3-4 Weeks 217-78997 mU/mL 5-6 Weeks 4059-789368 mU/mL 7-8 Weeks 86221-343822 mU/mL 9-10 Weeks 39278-44669 mU/mL 12-14 Weeks 31971-78372 mU/mL 15-16 Weeks 8240-63711 mU/mL 17-18 Weeks US OB 1ST TRI W TV IF NEEDED: (RHONDA: 02/17/2021 18:34) ( [facility] 02/17/2021 19:21) Canceled US OB 1ST TRI W TV IF NEEDED Reason(s): crmaping TRANSPORTATION: WC IV? IV?(No) O2? Oxygen?(No) Ayde.PROGRESS AND PROCEDURESCourse of Care: Enter room and pt lying peacefully in bed in NAD. Patient stable. Denies any newissues, concerns, or complaints. VSS, NAD, AOx3, interacting well and appropriately, no use ofaccessory muscle, able to speak full sentences, stable, non-toxic looking. St s that HCG was 36 on Wednesday and earlier today was 161. Noted cramping today. Came to the ER for eval. PE demos NV intact b/l UE and LE. WIll obtain labs and imaigng for further eval. Pending resuls. Reviewed results. Noted that HCG has increased from stated Wednesday and even todays levels. Discussed wiht attanding and agrees iwth discharge. Enter room and patient lying peacefully in bed in NAD. Patient stable. Denies any new issues, concerns, or complaints. Discussed results with pt. Discussed tx plan with pt. Discussed and counseled on stable condition. 5 Clinical Report - Physicians/Mid Levels [facility] Emergency Department [address] [place] [address] Phone #: ext- [phone] 02/17/2021 18:10 Patient: CHRISTOS MOREAU Sex: F : 2000 Age: 20y Discussed importance of a f/u with PCP. Discussed return to ER criteria. Answered their questions. Indicates and verbalizes that they understand, agree, and will comply with above. Denies any new questions or concerns. Patient has capacity to understand. Discharge decision based on the following: patient's condition is stable; patient's exam is stable; social support is adequate; transportation is available; follow-up is available. Discussed of OTC Motrin and Tylenol to control inflammation and pain management. Informed to follow directions on bottle that are appropriate for age and/or weight. Discussed case with health care provider (Angelica). Disposition: Discharged home in good and imp roved condition. Condition: good and stable.CLINICAL IMPRESSION First trimester ; positive test in emergency department. Threatened .INSTRUCTIONS (Recommend to utilize OTC Tylenol to control inflammation and pain management. Recommend to follow the instructions on the bottle and not to exceed.). Warnings: Further evaluation is necessary. GENERAL WARNINGS: Return or contact your physician immediately if your condition worsens or changes unexpectedly, if not improving as expected, or if other problems arise. Follow- up: Return to the emergency department as needed. Follow up with your healthcare provider in about two days if not better. Call for an appointment. Follow up with an light fixture servicer in two days. Call for the next available appointment. Understanding of the discharge instructions verbalized by patient.(Electronically signed by Curly Saravia P.A.-C 02/19/2021 14:28) 6Clinical Report - Physicians/Mid Levels [facility] Emergency Department [address] [place] [address] Phone #: ext- [phone] 02/17/2021 18:10 Patient: CHRISTOS MOREAU Sex: F : 2000 Age: 20y Name Value Range Interpretation Code Description Data Opal rce(s) Supporting Document(s) ID Date Data Source [id number] 02/18/2021 10:17:00 [place] [address] PHONE: [phone] FAX: [phone] Name .................. : LIZZETH Bernardo Acct Number.................. : [id number] ROOM. ................. : TR1B MR Number ................... : [id number] Stay type ............. : E/R Discharge Date......... ... : 02/17/21 Admit Date .... ..... : 02/17/21 Admit Phys .................... : ANGELICA DENG Date of ....... : 2000 Family Phys ................... : SARAH STEPHENSON Phone .................. : [phone] Age ................................ : 20 Film# .................. .:[id number] Sex ................................. : F Unsigned transcriptions are preliminary reports and do not represent a medical or legal document [place] [id number] COMPLETE:02/17/21 19:21 ADB [id number] Reason for Exam: CRAMPING TRANSVAGINAL PELVIC ULTRASOUND: INDICATION: Cramping. FINDINGS: Transvaginal pelvic ultrasound performed. The uterus is anteverted. The uterus measures 7.5 x 4.5 x 4.2 cm. The endometrium is thickened, measuring 1.6 cm. A small endometrial cyst. No definitive gestational sac. Small Nabothian cyst. The ovaries are unremarkable. Small amount of free fluid in the right adnexa. No adnexal mass. IMPRESSION: No intrauterine gestational sac. Thickened heterogeneous endometrium measuring 1.6 cm. Clinical correlation recommended. Follow up beta hCG and ultrasound depending on results. No adnexal mass. No free fluid. Electronically Reviewed and Signed By Vinny Cody DO , 02/18/21 10:17, BELA Transcribe Initials: SHIRLENE , Transcribe Date: 02/18/21 03:17, Dictation Date: Copy for: EMERGENCY DEPT via modem Copy for: 710 MED REC DISCHARGED Page 1 of 1 Name Value Range Interpretation Code Description Data Opal rce(s) Supporting Document(s) ID Date Data Source [id number] 02/24/2021 06:22:[address] [facility] Name Value Range Interpretation Code Description Data Opal rce(s) Supporting Document(s) CULTURE URINE [facility] spital _CULTURE URINE_$$[id number]$$[id number]$$[id number]$$268026$$249516$$373491$$048839$$042595$$335154$$ 534419$$677695$$133327$$982082$$930015$$143037$$179669$$123330$$504954$$841890$$ 142035$$763797$$795230$$710760$$829642$$389860$$393210$$[id number] -- Continued on next page --Patient: LIZZETH Bernardo Order: [id number] Page 2Culture: CULTURE URINE Status: Final ==== -- Continued on next page --Patient: LIZZETH Bernardo Order: [id number] Page 2Culture: CULTURE URINE Status: Prelim =====$$[id number]$$[id number] DATE/TIME: 02/23/2021 16:06Culture: CULTURE URINE Status: FinalUrine Culture,Comprehensive: P1No growth in 36 - 48 hours. Previous result entered on 02/20/2021 10:28 ET No growth after 18-24 hours.P1 Test performed by: [facility] Craig MONTANO #: [id number] [address] [place] [address] [id number] [facility] [id number] Director : Mark Bernardo MD NPI #:[employer] Feeder : 02/20/21.1159.XMT.SENT REF 02/24/21.0622.XMT.SENT REF ID Date Data Source [id number] 02/17/2021 07:35:[address] [facility] Name Value Range Interpretation Code Description Data Opal rce(s) Supporting Document(s) URINALYSIS [facility] [place]a URINALYSIS SOURCE Clean Catch [facility] ital COLOR yellow NORMAL: Yellow [facility]sp[facility] CLARITY hazy NORMAL: Clear [facility] Ho spital Specific gravity of Urine by Test strip 1.030 1.001 - 1.030 [facility] pH 6 5 - 9 [facility] Glucose [Mass/volume] in Urine by Test strip NORM NORMAL: Negat [facility] Bilirubin.total [Presence] in Urine by Test strip NEG NORMAL: Negative [facility] Ketones [Presence] in Urine by Test strip NEG NORMAL: Negative [facility] Protein [Mass/volume] in Urine by Test strip NEG NORMAL: Negat [facility] Nitrite [Presence] in Urine by Test strip NEG NORMAL: Negative [facility] BLOOD NEG NORMAL: Negative [facility] Leukocyte esterase [Presence] in Urine by Test strip NEG CANDIDA L: Negative [facility] Urobilinogen [Mass/volume] in Urine by Test strip NOR less moreno n 1.0 mg/dL [facility] MICROSCOPIC Not Indicate [facility] ID Date Data Source [id number] 02/17/2021 07:15:[address] [facility] Name Value Range Interpretation Code Description Data Opal rce(s) Supporting Document(s) ABO group [Type] in Blood A [facility] Rh [Type] in Blood POSITIVE [facility] { ABO/RH REENTER A POSITIVE ID Date Data Source [id number] 02/17/2021 07:15:[address] [facility] Name Value Range Interpretation Code Description Data Opal rce(s) Supporting Document(s) Choriogonadotropin.intact [Units/volume] in Serum or Plasma 166.6 mIU /mL [facility] Interpr etation: Less than 5 mU/mL: Negative 6-10 mU/mL: Borderline (suggest repeat in 48 hours) >10: Positive Approx HCG range (mU/mL) Weeks post LMP 5.4-708 mU/mL 3-4 Weeks 217-47840 mU/mL 5-6 Weeks 4059-900946 mU/mL 7-8 Weeks 82294-076427 mU/mL 9-10 Weeks 08313-44168 mU/mL 12-14 Weeks 48404-66895 mU/mL 15-16 Weeks 8240- 43631 mU/mL 17-18 Weeks ID Date Data Source [id number] 02/17/2021 07:15:[address] [facility] Name Value Range Interpretation Code Description Data Opal rce(s) Supporting Document(s) COMPREHENSIVE METABOLIC PANEL [facility] COMPREHENSIVE METABOLIC PANEL Sodium [Moles/volume] in Serum or Plasma 136 mEq/L 134 - 153 [facility] Potassium [Moles/volume] in Serum or Plasma 3.6 mEq/L 3.6 - 5.0 [facility] Chloride [Moles/volume] in Serum or Plasma 104 mEq/L 98 - 107 [facility] Carbon dioxide, total [Moles/volume] in Serum or Plasma 24 MEQ/L 22 - 30 [facility] Glucose [Mass/volume] in Serum or Plasma 108 MG/DL 70 - [address] [facility] BUN 7 MG/DL 7 - 21 [facility] Creatinine [Mass/volume] in Serum or Plasma 0.5 MG/DL 0.7 - 1.[address] [facility] BUN/CREAT 14 8 - 27 [facility] Protein [Mass/volume] in Serum or Plasma 7.3 G/DL 6.3 - 8.2 [facility] Albumin [Mass/volume] in Serum or Plasma 4.4 G/DL 3.9 - 5.0 [facility] Globulin [Mass/volume] in Serum by calculation 2.9 GM/DL 2.4 - 3.2 [facility] A/G RATIO 1.5 0.8 - 2.0 [facility] Calcium [Mass/volume] in Serum or Plasma 9.5 MG/DL 8.4 - 10.2 [facility] Bilirubin.total [Mass/volume] in Serum or Plasma <0.7 MG/DL 0.2 - 1.3 [facility] Alkaline phosphatase [Enzymatic activity/volume] in Serum or Plasma 64 U/L 38 - 126 [facility] Aspartate aminotransferase [Enzymatic activity/volume] in Serum or Plasma 15 U/L 5 - 40 [facility] Alanine aminotransferase [Enzymatic activity/volume] in Seru m or Plasma 27 U/L 7 - 56 [facility] Anion gap 3 in Serum or Plasma 8.0 mmol/L 8.0 - 16.0 [facility] AGE 20 yrs [facility] al NON-AA GFR >60 mL/min [facility] ital AFR AMER GFR >60 mL/min [facility] spital Male GFR In terprentation 20-49 yrs >60 mL/min Normal 50-59 yrs >56 mL/min Normal 60-69 yrs >49 mL/min Normal 70-79yrs >42 mL/min Normal 80 and above >35 mL/min Normal Female GFR Interpretation 20-39 yrs >60 mL/min Normal 40-49 yrs >58 mL/min Normal 50-59 yrs >51 mL/min Normal 60-69 yrs >45 mL/min Normal 70-79 yrs >39 mL/min Normal 80 and above >32 mL/min Normal ID Date Data Source [id number] 02/17/2021 06:49:[address] [facility] Name Value Range Interpretation Code Description Data Opal rce(s) Supporting Document(s) CBC W/AUTOMATED DIFF [facility] COMPLETE BLOOD COUNT Leukocytes [#/volume] in Blood by Automated count 12.4 10^3/uL 4.2 - 11.[address] [facility] Erythrocytes [#/volume] in Blood by Automated count 4.37 10^6/uL 4. 20 - 5.40 [facility] Hemoglobin [Mass/volume] in Blood 13.5 g/dL 12.0 - 16.0 [facility] Hematocrit [Volume Fraction] of Blood by Automated count 38.3 % 3 7.0 - 47.0 [facility] Erythrocyte mean corpuscular volume [Entitic volume] by Auto mated count 87.6 fL 81.0 - 101 [facility] Erythrocyte mean corpuscular hemoglobin [Entitic mass] by Automated count 30.9 pg 27.0 - 34.0 [facility] Erythrocyte mean corpuscular hemoglobin concentration [Mass/volume] by Automated count 35.2 g/dL 31.0 - 36.0 [facility] Erythrocyte distribution width [Ratio] by Automated count 12.4 % 11.5 - 14.5 [facility] Platelets [#/volume] in Blood by Automated count 421 10^3/uL 150 - [address] [facility] Platelet mean volume [Entitic volume] in Blood by Automated count 11.0 fL 7.4 - 10.[address] [facility] Neutrophils/100 leukocytes in Blood by Automated count 66.5 % 37. 0 - 80.0 [facility] Lymphocytes/100 leukocytes in Blood by Manual count 27.0 % 25.0 - 40.0 [facility] Monocytes/100 leukocytes in Blood by Automated count 4.0 % 3.0 - 8.0 [facility] Eosinophils/100 leukocytes in Blood by Automated count 1.4 % 0.0 - 7.0 [facility] Basophils/100 leukocytes in Blood by Automated count 0.8 % 0.0 - 2.5 [facility] %IG 0.3 % 0.0 - 0.0 [facility] %NRBC 0.0 % 0.0 - 0.[address] [facility] al Neutrophils [#/volume] in Blood by Automated count 8.23 10^3/uL 2.00 - 6.[address] [facility] Lymphocytes [#/volume] in Blood by Automated count 3.35 10^3/uL 0.60 - 3.40 [facility] Monocytes [#/volume] in Blood by Automated count 0.50 10^3/uL 0.00 - 0.90 [facility] Eosinophils [#/volume] in Blood by Automated count 0.17 10^3/uL 0.00 - 0.70 [facility] Basophils [#/volume] in Blood by Automated count 0.10 10^3/uL 0.00 - 0.20 [facility] #IG 0.04 10^3/uL 0.00 - 0.10 [facility] ospital #NRBC 0.00 10^3/uL 0.00 - 0.00 [facility] ospital MANUAL DIFF NOT INDICATED [facility] RBC MORPH NOT INDICATED [facility] spital ID Date Data Source [id number] 09/23/2020 11:13:00 PM [facility] [address] [facility] [address] [place] [address] Phone #: ext- [phone] 09/23/2020 23:12 Patient: CHRISTOS MOREAU Sex: F : 2000 Age: 20yWEIGHT:81.6 kg (S) HEIGHT:62 inches (S) BMI:32.9ALLERGIES: No Known Drug AllergyCHIEF COMPLAINT: vag bleeding, pelvic painDIAGNOSIS: AbortionLAB ORDERSOrder Description Priority Entered Acknowledged InitialedCBC w Diff STAT 23:31 09/23/2020 23:31 Andrea Laguna RN, M.D.;HCG Serum Quant STAT 23:31 09/23/2020 23:31 Andrea Laguna RN, M.D.;DIAGNOSTIC STUDY ORDERSOrder Description Priority Entered Acknowledged InitialedMEDICATION/IV/DRIP/FLUID ORDERSOrder Description Priority Entered Acknowledged InitialedGENERAL ORDERSOrder Description Priority Entered Acknowledged Initialed[Electronically signed by Candelaria Yoo R.N. (00:22 09/24/2020)][Electronically signed by Andrea Mathias M.D. (00:28 09/24/2020)][Electronically locked by Candelaria Yoo R.N. (00:22 09/24/2020)] Name Value Range Interpretation Code Description Data Opal rce(s) Supporting Document(s) ID Date Data Source [id number] 09/23/2020 11:13:00 PM [facility] [address] [facility] [address] [place] [address] Phone #: ext- [phone] 09/23/2020 23:12 Patient: CHRISTOS MOREAU Sex: F : 2000 Age: 20yWeight: 81.6 kgHeight/Length: 62 in.BMI: 32.9ALLERGIES: No Known Drug AllergyThe patient's Home Medications are listed below:CONTINUE TAKING THE FOLLOWING MEDICATIONS: Vitamins OralThe source(s) of the original Home Medication information:Not obtained.The following Medications were given to the patient in the Emergency Department:None.The following Medications were prescribed to the patient:None. Name Value Range Interpretation Code Description Data Opal rce(s) Supporting Document(s) ID Date Data Source [id number] 09/23/2020 11:13:00 PM [place] [address] [facility] [address] [place] [address] Phone #: ext- [phone] 09/23/2020 23:12 Patient: CHRISTOS MOREAU Sex: F : 2000 Age: 20yWeight: 81.6 kgHeight/Length: 62 inBMI: 32.9ALLERGIES: No Known Drug AllergyDate/Time Medication Administered Medication Ordered Name Value Range Interpretation Code Description Data Opal rce(s) Supporting Document(s) ID Date Data Source [id number] 09/23/2020 11:13:00 PM [facility] [address] [facility] [address] [place] [address] Phone #: ext [phone] 09/23/2020 23:12 Patient: CHRISTOS MOREAU Sex: F : 2000 Age: 20yIncomplete spontaneous .No complications.INSTRUCTIONS Drink plenty of fluids. Do not smoke. No alcohol. (YOU MUST FOLLOW UP WITH TEXTILE MACHINE MAINTENANCE MECHANIC IN 2-3 DAYS FOR REPEAT QUANT. B-HCG TO MAKE SURE IT GOES DOWN TO ZERO AND NOT STAGNATE OR RISE LIKE ECTOPIC ).Warnings: Further evaluation is necessary (TEXTILE MACHINE MAINTENANCE MECHANIC). It is very important to follow up with a healthcareprovider.GENERAL WARNINGS: Return or contact your physician immediately if your condition worsens orchanges unexpectedly, if not improving as expected, or if other problems arise. Specifically return if pain,vomiting, bleeding, breathing difficulty or fever greater than 102 degrees F and not controlled byacetaminophen or ibuprofen worsens.Your Current Medications: Your current home medications have been reviewed.CONTINUE TAKING THE FOLLOWING MEDICATIONS: Vitamins Oral.Follow-up:Return to the emergency department as needed. Follow up with an light fixture servicer in two days even if well.Call for an appointment. Reason for referral: evaluation, treatment and repeat B-HCG. Summary of careprovided to patient via paper.Understanding of the discharge instructions verbalized by patient. Expected course of illness, dischargeinstructions, activity level, diet, follow-up appointment and risks and benefits of treatment reviewed withpatient and understanding verbalized. Agrees to plan of care.Follow-up with: [facility], , , [address] [place], [address] Follow up in two days even if well. Call for an appointment. Reason for referral: evaluation, treatment andrepeat B- HCG. Summary of care provided to patient via paper. ADDITIONAL INFORMATIONCompleted Spontaneous Miscarriage [address] [facility] [address] [place] [address] Phone #: ext- [phone] 09/23/2020 23:12 Patient: CHRISTOS MOREAU Sex: F : 2000 Age: 20yToday's exams show your has ended suddenly. This can be emotionally very difficult.There is little that can be done to change the way you feel. But understand that miscarriages arecommon.About 1 or 2 out of every [address] Some end even before you know you are. This happens for a number of reasons, and usually the cause is never known. It's importantyou know that it is not your fault. It didn't happen because you did anything wrong.Having sex or exercising does not cause a miscarriage. These activities are usually safe unless youhave pain or bleeding or your healthcare provider tells you to stop. Even minor falls won't cause amiscarriage. Miscarriages happen because things were not developing as they were supposed to.It appears that your miscarriage is complete. All tissue from the should have passed out ofyour uterus. If some of the tissue remains in the uterus, you will probably have morecramping and bleeding. The bleeding can be light spotting or like a period, but it's usually not heavy.You may also pass some tissue.After you have recovered, you should still be able to get again. But before trying, talk withyour healthcare provider.Home careFollow these tips to take of yourself at home: You can go back to your normal activities if you don't have heavy bleeding or pain. You may have some cramping and bleeding, but it shouldn't be severe.Until the bleeding stops completely and to prevent infection: Don't have sex until your healthcare provider says it's OK Use sanitary napkins instead of tampons. Don't douche.Having a miscarriage can be very difficult emotionally. It's natural to feel sadness or grief. It may helpto talk about your feelings with family and friends, or with a counselor.Follow-up careMake an appointment to see your healthcare provider in 1 to 2 weeks for a checkup.If cramping and bleeding return and continue for more than a few days, call your healthcare provideror return here for an exam. To prevent infection in the uterus, your provider might need to take outany tissue that remains. Or you may be given medicine to take at home to help your body expel therest of the tissue. [address] [facility] [address] [place] [address] Phone #: ext- [phone] 09/23/2020 23:12 Patient: CHRISTOS MOREAU Sex: F : 2000 Age: 20yIf you had an ultrasound, a radiologist will review it. You will be told of any new findings that mayaffect your care.Call [phone] if you have: Severe pain and very heavy bleeding Severe lightheadedness, passing out, or fainting Rapid heart rate Trouble breathing Confusion or trouble waking upWhen to seek medical adviceCall your healthcare provider right away if any of these occur: Heavy bleeding. This means soaking 1 new pad an hour over 3 hours. Bleeding that doesn't stop after 10 days Foul-smelling vaginal discharge Fever of 100.4F (38C) or higher, or as directed by your healthcare provider Pain in your lower belly (abdomen) that gets worse Weakness or dizziness 6419-5800 [employer]. [address] [place] [address]. All rights reserved. This information is not intended as asubstitute for professional medical care. Always follow your healthcare professional's inst ructions.Incomplete MiscarriageToday's exams show your has ended suddenly. This can be emotionally very difficult.There is little that can be done to change the way you feel. But understand that miscarriages arecommon.About 1 or 2 out of every [address] Some even end before you know you are. This happens for a number of reasons, but usually the cause is never known. It's importantyou know that it is not your fault. It didn't happen because you did anything wrong.Having sex or exercising does not cause a miscarriage. These activities are usually safe unless youhave pain or bleeding or your healthcare provider tells you to stop. Even minor falls won't cause a [address] [facility] [address] [place] [address] Phone #: ext- [phone] 09/23/2020 23:12 Patient: CHRISTOS MOREAU Sex: F : 2000 Age: 20ymiscarriage. Miscarriages happen because things were not developing as they were supposed to. Nomedicine can prevent a miscarriage. After you have recovered, you should still be able to get again. But before trying, talk with your healthcare provider.It appears that your miscarriage is not yet complete. Some tissue from the is still in theuterus. You will proba torey have more cramping and bleeding for the next few days as the tissue leavesyour uterus. Usually all of the tissue will pass out by itself. But sometimes tissue remains. In thatcase, it must be removed to stop bleeding and prevent infection.Home careFollow these tips to take of yourself at home: You can go back to your normal activities if you don't have heavy bleeding or pain. You may have some cramping and bleeding, but it shouldn't be severe.Until the bleeding stops completely and to prevent infection: Don't have sex until your healthcare provider says it's OK. Use sanitary napkins instead of tampons. Don't douche.Having a miscarriage can be very difficult emotionally. It's natural to feel sadness or grief. It may helpto talk about your feelings with family and friends, or with a counselor.Follow-up careYou may pass tissue. If you see anything, it may appear as a 1-inch or larger piece of garcia orpink flesh. If tissue has not passed from your vagina within the next 5 days, you need to see yourhealthcare provider for another exam. To prevent infection in the uterus, your provider might need totake out the tissue by surgery. Or you may be given medicine to take at home to help your body expelthe rest of the tissue.If you had an ultrasound, a radiologist will review it. You will be told of any new findings that mayaffect your care.Call [phone] if you have: Severe pain and very heavy bleeding Severe lightheadedness, passing out, or fainting [address] [facility] [address] [place] [address] Phone #: ext- [phone] 09/23/2020 23:12 Patient: CHRISTOS MOREAU Sex: F : 2000 Age: 20y Rapid heart rate Trouble breathing Confusion or trouble waking upWhen to seek medical adviceCall your healthcare provider right away if any of these occur: Heavy bleeding. This means soaking 1 new pad an hour over 3 hours. Foul-smelling vaginal discharge Fever of 100.4F (38C) or higher, or as directed by your healthcare provider Pain in your lower belly (abdomen) that gets worse Weakness or d izziness 3186-[address] [employer] [place] [address]. All rights reserved. This information is not intended as asubstitute for professional medical care. Always follow your healthcare professional's instructions. You have been given the following additional information: Miscarriage, Spontaneous (Completed) Miscarriage, Incomplete(Electronically signed by Andrea Mathias M.D. 09/24/2020 00:28) Name Value Range Interpretation Code Description Data Opal rce(s) Supporting Document(s) ID Date Data Source [id number] 09/23/2020 11:13:[address] [facility] 1 Clinical Report - Nurses [facility] [address] [place] [address] Phone #: ext- [phone] 09/23/2020 23:12 Patient: CHRISTOS MOREAU Sex: F : 2000 Age: 20yTRIAGEArrived by private vehicle. Historian: patient. Accompanied by family.Acuity: LEVEL 3.Chief Complaint: ABDOMINAL CRAMPS.Alert. No acute distress.This started today. ( Patient reports she took a home test a couple days ago and started toexperience abdominal cramping and brownish discharge. Pt states she was seen on the and told tocome back if it worsened. Pt states today she continues to have abdominal cramping and brownishdischarge. Pt states discharge is no longer pink, it is brown in color. Pt denies any cramping at this time. Ptstates she has an apt with her pcp tomorrow but has not scheduled an apt with OB. Pt is , states thisis her fi rst . Pt states her home tests have also been welfare director in [place]. Pt denies anyother complaints at this time.).Treatment STITCHER AROUND:None. --23:20 09/23/20 Candelaria Yoo R.N.23:14 09/23/20. BP: 153/83. MAP: 106. HR: 76. RR: 17. O2 saturation: 100% on room air. Temp: 97.8 F.Pain level now: 0/10. --23:20 09/23/20 Candelaria Yoo R.N.Weight: 81.6 kg stated. Height/Length: 62 inches Per Patient. BMI: 32.9. --23:15 09/23/20 Candelaria Yoo R.N.MedicationsPrenatal Vitamins Oral. --23:15 09/23/20 Candelaria Yoo R.N.AllergiesNo Known Drug Allergy. --23:15 09/23/20 Candelaria Yoo R.N.VA OBLEMS:Laceration.Anxiety Reaction.Threatened . Care. --23:15 09/23/20 Candelaria Yoo R.N.HistoryPAST MEDICAL HX: Immunizations: up-to-date. Last normal menstrual period- Aug 19, 2020. Currently.SOCIAL HX: Never smoker. No alcohol use or drug use. She was offered HIV testing but declined. 2 Clinical Report - Nurses [facility] [address] [place] [address] Phone #: ext- [phone] 09/23/2020 23:12 Patient: CHRISTOS MOREAU Sex: F : 2000 Age: 20y Patient education was provided. She was offered hepatitis C testing but declined. Patient education was provided. ( COVID screen negative). She has not traveled outside the [place] Infectious disease exposure: No infectious disease exposure. Patient is not a known carrier of tuberculosis, hepatitis, HIV, MRSA or VRE. Patient is not a known carrier of CRE. SELF HARM ASSESSMENT: Self harm assessment was performed. The patient answered "no" to the question(s) "Have you recently felt down, depressed, or hopeless?", "Do you have thoughts of harming or killing yourself?", "Do you have a plan for harming or killing yourself?" and "Have you recently had thoughts about harming or killing others?". ABUSE ASSESSMENT: Abuse assessment. The patient had positive responses to the question(s) "Do you feel safe in your home?", "Are you afraid to go home?" and "Has anyone hurt you or threatened to hurt you?". Abuse denied. NUTRITIONAL RISK ASSESSMENT: The nutritional risk assessment revealed no deficiencies. FUNCTIONAL ASSESSMENT: Functional assessment: no impairments noted. LEARNING NEEDS ASSESSMENT: The learning needs assessment revealed no barriers. FALL RISK ASSESSMENT: Fall risk assessment completed. No risk factors identified. SKIN INTEGRITY ASSESSMENT: Skin integrity risk assessment completed. No skin integrity risk identified. --23:09/23/20 Candelaria Yoo R.N. Interventions Identification band on patient. To treatment room. --23:20 09/23/20 Candelaria Yoo R.N.PHYSICAL ASSESSMENTAmbulatory to room. Patient gowned.GENERAL / NEURO / PSYCH: Alert. Oriented X 4. Appears in no acute distress.HEENT: Mucous membranes are pink.RESPIRATORY: Respirations not labored. Breath sounds within normal limits.CVS: Normal heart rate and rhythm. Capillary refill less than 2 seconds.GI / : Abdomen soft and nontender. Bowel sounds within normal limits. A scant amount of thickvaginal discharge present (Pt reports thick brownish discharge). ( Pt reports abdominal cramping butdenies at this time).EXTREMITIES: No lower extremity edema.SKIN: Skin is warm and dry. --23:21 09/23/20 Candelaria Yoo R.N.NURSING PROGRESS NOTESReassurance given. Two patient identifiers checked. Call light placed in reach. Side rails up x 2. Bedplaced in lowest position. Brakes of bed on. --23:21 09/23/20 Candelaria Yoo R.N. 3 Clinical Report - Nurses [facility] [address] [place] [address] Phone #: ext- [phone] 09/23/2020 23:12 Patient: CHRISTOS MOREAU Sex: F : 2000 Age: 20y Patient ready for evaluation- ED physician notified. --23:21 09/23/20 Candelaria Yoo R.N.DISPOSITION / DISCHARGE No learning barriers present. Discharge instructions provided and reviewed with the patient. Reviewed warnings. Reviewed medication(s). Treatments reviewed. Reviewed referral to an light fixture servicer. Patient verbalized understanding. Written instructions provided in Omani. The patient was discharged home and accompanied by spouse. She left ambulatory and via private vehicle. Spouse driving. --00:22 09/24/20 Candelaria Yoo R.N. 00:21 09/24/20. BP: 145/83. MAP: 103. HR: 89. RR: 17. O2 saturation: 99%. Temp: 97.9 F. Pain level now: 0/10. --00:22 09/24/20 Candelaria Yoo R.N.Locked/Released at 09/24/2020 00:22 by Candelaria Yoo R.N. Name Value Range Interpretation Code Description Data Opal rce(s) Supporting Document(s) ID Date Data Source [id number] 09/23/2020 11:13:[address] [facility] 1 Clinical Report - Physicians/Mid Levels [facility] [address] [place] [address] Phone #: ext- [phone] 09/23/2020 23:12 Patient: CHRISTOS MOREAU Sex: F : 2000 Age: 20y Time Seen: 23:16 09/23/2020; initial patient contact. Arrived- By private vehicle. Historian- patient. Disposition decision: 00:11 09/24/2020.HISTORY OF PRESENT ILLNESS Chief Complaint: PELVIC PAIN and VAGINAL BLEEDING. This started 5 days ago and still present. The symptoms are described as moderate. Modifying factors- worsened by urination. Relieved by rest and lying down. The patient has had intermittent, crampy pelvic pain. She has had abnormal bleeding described as welfare director than normal period. She is . No abdominal pain, vaginal pain, low back pain, flank pain or pain with urination. No urinary frequency, urgency of urination or hematuria. 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 tests were welfare director). Currently : LNMP: 08-19-20 EDC: 05-25-21 5 weeks. In 1st trimester. confirmed with home test and serum test. Has had no care. G 1. Similar symptoms previously. None. Recent medical care: The patient was seen recently at this facility. ( on 09-21-20).REVIEW OF SYSTEMSNo nausea, vomiting, diarrhea, black stools or headache. No fever, chills, anorexia, eye discomfort orsore throat. No cough, difficulty breathing, chest pain, skin rash or enlarged lymph nodes. No joint pain.All other systems reviewed and are negative.PAST HISTORYSee nurses notes. Problems: Anxiety Reaction. Medications: Vitamins Oral. Allergies: No Known Drug Allergy.SOCIAL HISTORYNever smoker. No alcohol use or drug use.ADDITIONAL NOTESThe nursing notes have been reviewed with agreement regarding the chief complaint, HPI, ROS, PMH and 2 Clinical Report - Physicians/Mid Levels [facility] [address] [place] [address] Phone #: ext- [phone] 09/23/2020 23:12 Patient: CHRISTOS MOREAU Sex: F : 2000 Age: 20y patient medications and allergies.PHYSICAL EXAMVital Signs: 09/23/2020 23:14 BP: 153/83. MAP: 106. HR: 76. RR: 17. O2 saturation: 100% on room air.Temp: 97.8 F. Pain level now: 0/10. Have been reviewed. Oxygen saturation normal.Appearance: Alert. Oriented X3. No acute distress. Anxious.HEENT: Normal external inspection.ENT: Pharynx normal.Neck: Neck supple.CVS: Heart sounds normal.Respiratory: No respiratory distress. Painless inspiration. Breath sounds normal. Chest nontender.Abdomen: Soft and nontender. Bowel sounds normal. No organomegaly. No mass.Back: Normal external inspection. No CVA tenderness.Skin: Skin warm and dry. Normal skin color. No rash. Normal skin turgor.Extremities: Extremities nontender. No lower extremity edema.Neuro: Oriented X 3. Mood/affect normal. No motor deficit. No sensory deficit.LABS, X-RAYS, AND EKGLaboratory Tests: Laboratory tests have been ordered, with results reviewed and considered in themedical decision making process. CBC w Diff: (RHONDA: 09/23/2020 23:18) ( [facility] [place] Final results Test Result Flag Units (Reference) CBC W/AUTOMATED DIFF COMPLETE BLOOD COUNT WBC 10.8 10/uL (4.2 - 11.0) RBC 4.61 10/uL (4.20 - 5.40) HEMOGLOBIN 13.9 g/dL (12.0 - 16.0) HEMATOCRIT 40.5 % (37.0 - 47.0) MCV 87.9 fL (81.0 - 101) MCH 30.2 pg (27.0 - 34.0) MCHC 34.3 g/dL (31.0 - 36.0) RDW 11.9 % (11.5 - 14.5) PLATELETS 389 10/uL (150 - 450) MPV 11.8 H fL (7.4 - 10.4) NEUT 57.3 % (37.0 - 80.0) LYMPH 32.9 % (25.0 - 40.0) MONO 7.0 % (3.0 - 8.0) EOS 1.8 % (0.0 - 7.0) BASO 0.7 % (0.0 - 2.5) %IG 0.3 H % (0.0 - 0.0) %NRBC 0.0 % (0.0 - 0.0) #NEUT 6.18 10/uL (2.00 - 6.90) #LYMPH 3.55 H 10/uL (0.60 - 3.40) #MONO 0.75 10/uL (0.00 - 0.90) #EOS 0.19 10/uL (0.00 - 0.70) #BASO 0.08 10/uL (0.00 - 0.20) #IG 0.03 10/uL (0.00 - 0.10) #NRBC 0.00 10/uL (0.00 - 0.00) MANUAL DIFF NOT INDICATED RBC MORPH NOT INDICATED Beta-HCG, Quant Serum: (RHONDA: 09/23/2020 23:18) ( [facility] 09/23/2020 23:56) Final results 3 Clinical Report - Physicians/Mid Levels [facility] [address] [place] [address] Phone #: ext- [phone] 09/23/2020 23:12 Patient: CHRISTOS MOREAU Sex: F : 2000 Age: 20y Test Result Flag Units (Reference) HCG QUANT 15.1 mIU/mL Interpretation: Less than 5 mU/mL: Negative 6-10 mU/mL: Borderline (suggest repeat in 48 hours) >10: Positive Approx HCG range (mU/mL) Weeks post LMP 5.4-708 mU/mL 3-4 Weeks [id number] mU/mL 5-6 Weeks 4059-111453 mU/mL 7-8 Weeks [id number] mU/mL 9-10 Weeks 62995-86379 mU/mL 12-14 Weeks 91110-27630 mU/mL 15-16 Weeks 8240-29533 mU/mL 17-18 Weeks.PROGRESS AND PROCEDURESCourse of Care: 00:09 09/24/20. CBC nml, Quant. B-HCG is 15 tonight, was 20 on 09-21-20, had nmlpelvic US on 09-21-20 except for small rt ovarian cyst; pt is A positive; pt is probably having a miscarriage;advised to f/u w TEXTILE MACHINE MAINTENANCE MECHANIC in 2 days for repeat Quant. B-HCG to make sure it goes down to zero and notstagnate like ectopic ; pt understands and agrees. Patient counseled in person regarding the patient's stable condition, test results, diagnosis and need for follow-up. Patient agrees with plan of care. Disposition: Condition: good and stable. Discharge decision based on the following: patient's condition is stable; patient's condition is improved; patient is ambulatory; patient is active; patient drinking fluids; patient eating; patient's pain is controlled; patient's exam is improved; no seriously abnormal test results; improving condition on repeat evaluation; social support is good; transportation is available; follow-up is available; clinical impression is consistent with outpatient treatment.CLINICAL IMPRESSION Incomplete spontaneous .No complications.INSTRUCTIONS Drink plenty of fluids. Do not smoke. No alcohol. (YOU MUST FOLLOW UP WITH TEXTILE MACHINE MAINTENANCE MECHANIC IN 2-3 DAYS FOR REPEAT QUANT. B-HCG TO MAKE SURE IT GOES DOWN TO ZERO AND NOT STAGNATE OR RISE LIKE ECTOPIC ). Warnings: Further evaluation is necessary (TEXTILE MACHINE MAINTENANCE MECHANIC). It is very important to follow up with a healthcare provider. GENERAL WARNINGS: Return or contact your physician immediately if your condition worsens or changes unexpectedly, if not improving as expected, or if other problems arise. Specifically return if pain, vomiting, bleeding, breathing difficulty or fever greater than 102 degrees F and not controlled by acetaminophen or ibuprofen worsens. 4 Clinical Report - Physicians/Mid Levels [facility] [address] [place] [address] Phone #: ext- [phone] 09/23/2020 23:12 Patient: CHRISTOS MOREAU Sex: F : 2000 Age: 20y Your Current Medications: Your current home medications have been reviewed. CONTINUE TAKING THE FOLLOWING MEDICATIONS: Vitamins Oral. Follow-up: Return to the emergency department as needed. Follow up with an light fixture servicer in two days even if well. Call for an appointment. Reason for referral: evaluation, treatment and repeat B-HCG. Summary of care provided to patient via paper. Understanding of the discharge instructions verbalized by patient. Expected course of illness, discharge instructions, activity level, diet, follow-up appointment and risks and benefits of treatment reviewed with patient and understanding verbalized. Agrees to plan of care. Follow-up with: [facility], , , [address] [place], [address] Follow up in two days even if well. Call for an appointment. Reason for referral: evaluation, treatment and repeat B-HCG. Summary of care provided to patient via paper.(Electronically signed by Andrea Mathias M.D. 09/24/2020 00:28) Name Value Range Interpretation Code Description Data Opal rce(s) Supporting Document(s) ID Date Data Source [id number] 09/23/2020 11:56:[address] [facility] Name Value Range Interpretation Code Description Data Opal rce(s) Supporting Document(s) Choriogonadotropin.intact [Units/volume] in Serum or Plasma 15.1 mIU/ mL [facility] Interpr etation: Less than 5 mU/mL: Negative 6-10 mU/mL: Borderline (suggest repeat in 48 hours) >10: Positive Approx HCG range (mU/mL) Weeks post LMP 5.4-708 mU/mL 3-4 Weeks 217-25943 mU/mL 5-6 Weeks 4059-209250 mU/mL 7-8 Weeks 09443-652600 mU/mL 9-10 Weeks 01355-26066 mU/mL 12-14 Weeks 12576-20701 mU/mL 15-16 Weeks 8240- 29812 mU/mL 17-18 Weeks ID Date Data Source [id number] 09/23/2020 11:38:[address] [facility] Name Value Range Interpretation Code Description Data Opal [facility](s) Supporting Document(s) CBC W/AUTOMATED DIFF [facility] COMPLETE BLOOD COUNT Leukocytes [#/volume] in Blood by Automated count 10.8 10^3/uL 4.2 - 11.0 [facility] Erythrocytes [#/volume] in Blood by Automated count 4.61 10^6/uL 4. 20 - 5.40 [facility] Hemoglobin [Mass/volume] in Blood 13.9 g/dL 12.0 - 16.0 [facility] Hematocrit [Volume Fraction] of Blood by Automated count 40.5 % 3 7.0 - 47.0 [facility] Erythrocyte mean corpuscular volume [Entitic volume] by Auto mated count 87.9 fL 81.0 - 101 [facility] Erythrocyte mean corpuscular hemoglobin [Entitic mass] by Automated count 30.2 pg 27.0 - 34.0 [facility] Erythrocyte mean corpuscular hemoglobin concentration [Mass/volume] by Automated count 34.3 g/dL 31.0 - 36.0 [facility] Erythrocyte distribution width [Ratio] by Automated count 11.9 % 11.5 - 14.5 [facility] Platelets [#/volume] in Blood by Automated count 389 10^3/uL 150 - [address] [facility] Platelet mean volume [Entitic volume] in Blood by Automated count 11.8 fL 7.4 - 10.[address] [facility] Neutrophils/100 leukocytes in Blood by Automated count 57.3 % 37. 0 - 80.0 [facility] Lymphocytes/100 leukocytes in Blood by Manual count 32.9 % 25.0 - 40.0 [facility] Monocytes/100 leukocytes in Blood by Automated count 7.0 % 3.0 - 8.0 [facility] Eosinophils/100 leukocytes in Blood by Automated count 1.8 % 0.0 - 7.0 [facility] Basophils/100 leukocytes in Blood by Automated count 0.7 % 0.0 - 2.5 [facility] %IG 0.3 % 0.0 - 0.0 [facility] %NRBC 0.0 % 0.0 - 0.[address] [facility] al Neutrophils [#/volume] in Blood by Automated count 6.18 10^3/uL 2.00 - 6.90 [facility] Lymphocytes [#/volume] in Blood by Automated count 3.55 10^3/uL 0.60 - 3.[address] [facility] Monocytes [#/volume] in Blood by Automated count 0.75 10^3/uL 0.00 - 0.90 [facility] Eosinophils [#/volume] in Blood by Automated count 0.19 10^3/uL 0.00 - 0.70 [facility] Basophils [#/volume] in Blood by Automated count 0.08 10^3/uL 0.00 - 0.20 [facility] #IG 0.03 10^3/uL 0.00 - 0.10 [facility] #NRBC 0.00 10^3/uL 0.00 - 0.00 [facility] MANUAL DIFF NOT INDICATED [facility] Hospital RBC MORPH NOT INDICATED [facility] spital ID Date Data Source [id number] 09/23/2020 09:07:00 AM EST [facility] [address] [place] [address] PHONE: [phone] FAX: [phone] Name .................. : LIZZETH Bernardo Acct Number.................. : [id number] ROOM. ................. : TR-03 MR Number ................... : [id number] Stay type ............. : E/R Discharge Date......... ... : 09/21/20 Admit Date ......... : 09/21/20 Admit Phys .................... : CHERELLE DUNCAN Date of ....... : 2000 Family Phys ................... : NO PCP Phone .................. : [phone] Age ................................ : 20 Film# .................. .:[id number] Sex ................................. : F Unsigned transcriptions are preliminary reports and do not represent a medical or [place] [id number] COMPLETE:09/21/20 11:12 MCM 78 Reason(s): Pain and cramping ENDOVAGINAL PELVIC ULTRASOUND: FINDINGS: Endovaginal sonography demonstrates a heterogeneous uterus measuring at least 7.7 x 4 x 3.6 cm. No discrete myometrial mass is demonstrated. The endometrium is thickened to 2 cm and clinical correlation and MANAGER SERVICES consult is suggested. Consider hysterosonography if clinically warranted. The right ovary measures 3.8 x 2.6 x 3.4 cm and the left ovary measures 3.4 x 1.7 x 2.5 cm. No ovarian mass or cyst is noted. In the right adnexa is what likely represents a paraovarian cyst measuring 1.6 x 1.2 x 1.8 cm. There is no free fluid. Blood flow is demonstrated to the bilateral ovaries. IMPRESSION: 1.8 cm right-sided paraovarian cyst. Electronically Reviewed and Signed By Joaquin Lynne MD , 09/23/20 09:07, EDUARDO Transcribe Initials: SHIRLENE , Transcribe Date: 09/21/20 16:30, Dictation Date: Copy for: EMERGENCY DEPT via modem Copy for: 710 MED REC DISCHARGED Page 1 of 1 Name Value Range Interpretation Code Description Data Opal rce(s) Supporting Document(s) ID Date Data Source [id number] 09/21/2020 09:17:[address] [facility] [address] [facility] Emergency Department [address] [place] [address] Phone #: ext- [phone] 09/21/2020 09:08 Patient: CHRISTOS MOREAU Sex: F : 2000 Age: 20yWEIGHT:81.6 kg HEIGHT:62 inches BMI:32.9ALLERGIES: NoneCHIEF COMPLAINT: pelvic painDIAGNOSIS: Threatened abortionLAB ORDERSOrder Description Priority Entered Acknowledged InitialedCBC w Diff STAT 09:55 09/21/2020 Ack'd: 09:55 10:21 Reza Chiang, Anabel Little Physician;HCG Serum Quant STAT 09:55 09/21/2020 Ack'd: 09:55 10:21 Reza Chiang Katelyn Katelyn Physician;Urinalysis (Clean STAT 09:55 09/21/2020 Ack'd: 09:55 09:57 [place] EDCatch) Anabel Hernández Tiffany ER Physician; Alne3Dqow Rh STAT 09:55 09/21/2020 Ack'd: 09:55 10:21 Reza Chiang Katelyn Katelyn Physician;BMP STAT 09:55 09/21/2020 Ack'd: 09:55 10:21 Reza Chiang Katelyn Katelyn Physician;DIAGNOSTIC STUDY ORDERSOrder Description Priority Entered Acknowledged InitialedUS OB 1ST TRI UP STAT 09:55 09/21/2020 Ack'd: 09:55 Kamran Chiang 14 WEEKS Reza Villarreal Cancelled: Wrong Order 10:38 Reza(Oxygen?(No)) Physician; Cherelle Physician(IV?(No)) NOTES: lower abdominal pain and cramping no bleeding Reason for Study: Lower abdominal pain and cramping.US OB STAT 10:40 09/21/2020 Ack'd: 10:40 10:50 Андрей,TRANSVAGINAL Anabel HernándezREGNANT [place] Physician;(IV?(No))(Oxygen?(No)) NOTES: Pain and cramping Reason for Study: Painand cramping [address] [facility] Emergency Department [address] [place] [address] Phone #: ext- [phone] 09/21/2020 09:08 Patient: CHRISTOS MOREAU Sex: F : 2000 Age: 20yMEDICATION/IV/DRIP/FLUID ORDERSOrder Description Priority Entered Acknowledged InitialedGENERAL ORDERSOrder Description Priority Entered Acknowledged Initialed[Electronically signed by Anabel Chiang (11:40 09/21/2020)][Electronically signed by Reza Villarreal (13:19 09/21/2020)][Electronically locked by Anabel Chiang (11:40 09/21/2020)] Name Value Range Interpretation Code Description Data Opal rce(s) Supporting Document(s) ID Date Data Source [id number] 09/21/2020 09:17:00 AM [facility] [address] [facility] Emergency Department [address] [place] [address] Phone #: ext- [phone] 09/21/2020 09:08 Patient: CHRISTOS MOREAU Sex: F : 2000 Age: 20yWeight: 81.6 kgHeight/Length: 62 in.BMI: 32.9ALLERGIES: NoneThe patient's Home Medications are listed below:NONE.The source(s) of the original Home Medication information:Not obtained.The following Medications were given to the patient in the Emergency Department:None.The following Medications were prescribed to the patient:None. Name Value Range Interpretation Code Description Data Opal rce(s) Supporting Document(s) ID Date Data Source [id number] 09/21/2020 09:17:00 AM [facility] [address] [facility] Emergency Department [address] [place] [address] Phone #: ext- [phone] 09/21/2020 09:08 Patient: CHRISTOS MOREAU Sex: F : 2000 Age: 20yWeight: 81.6 kgHeight/Length: 62 inBMI: 32.9ALLERGIES: NoneDate/Time Medication Administered Medication Ordered Name Value Range Interpretation Code Description Data Opal rce(s) Supporting Document(s) ID Date Data Source [id number] 09/21/2020 09:17:[address] [facility] [address] [facility] Emergency Department [address] [place] [address] Phone #: ext- [phone] 09/21/2020 09:08 Patient: CHRISTOS MOREAU Sex: F : 2000 Age: 20yThreatened ; positive test in emergency department.INSTRUCTIONS(Your test was positive HCG level 20 Need repeat in 3 to 4 days. No heavy lifting or hazardousactivity).Warnings: Further evaluation is necessary (Repeat Serum Quantitative HCG). It is very imp ortant to followup with a healthcare provider.GENERAL WARNINGS: Return or contact your physician immediately if your condition worsens orchanges unexpectedly, if not improving as expected, or if other problems arise.Your Current Medications: .No home medication.Understanding of the discharge instructions verbalized.Follow-[facility] with: [facility] Res[facility] [place], , , [address], , [place], [address] Follow up in four days as scheduled. Reason for referral: evaluation. Summary of care provided topatient via paper. ADDITIONAL INFORMATIONAbdominal Pain and Early [address] [facility] Emergency Department [address] [place], [place] [id number] Phone #: ext- [phone] 09/21/2020 09:08 Patient: CHRISTOS MOREAU Sex: F : 2000 Age: 20yThe tests you had show that you are , but the exact cause of your pain isn't clear.Some pain and bleeding are common early in . Often they stop, and you can go on to havea normal and baby. Other times the pain or bleedi ng can be signs ofa miscarriage or ectopic . An ectopic is a very serious problem. At this time it isunclear if your will continue normally, if you will have a miscarriage, or if you could have anectopic . Below is some information about this.MiscarriageAt this time we don't know whether you will have a miscarriage, or if things will clear up and yourpregnancy will continue normally. We understand that this is emotionally difficult. There is little we cansay to change the way you feel. But understand that miscarriages are common.About 1 or 2 out of every [address] Some end even before you know you are. This happens for a number of reasons, and usually we never figure out why. It's importantyou know that it is not your fault. It didn't happen because you did anything wrong.Having sex or exercising does not cause a miscarriage. These activities are usually safe unless youhave pain or bleeding or your healthcare provider tells you to stop. Even minor falls won't cause amiscarriage. Miscarriages happen because things were not developing as they were supposed to. Nomedicine can prevent a miscarriage.Ectopic pregnancyIn a normal , the fertilized egg attaches to the wall of the womb (uterus). In an ectopic ortubal , the fertilized egg attaches outside the uterus, usually in the fallopian tube. Veryrarely, the egg attaches to an ovary or somewhere else in the abdomen. An ectopic ismuch less common than a miscarriage, but it is very serious. The baby can't survive, and as it grows [address] [facility] Emergency Department [address] [place] [address] Phone #: ext- [phone] 09/21/2020 09:08 Patient: CHRISTOS MOREAU Sex: F : 2000 Age: 20yit can rupture the tube. This can cause internal bleeding and even . Risk factors for an ectopicare: An ectopic in the past Pelvic inflammatory disease (PID) Endometriosis Smoking An IUDAdditional testsBecause we don't know what's causing your symptoms, you will need more tests to figure out whatthe problem is. You may need the following.UltrasoundAn ultrasound can usually find a normal as early as 4 to 5 weeks along. If the ultrasounddoes not show the baby inside the uterus, it means one of the following. You have a normal less than 4 weeks along You are having or recently had a miscarriage You have an ectopic pregnancyQuantitative HCGThis test measures the amount of a hormone in your blood. Comparing today's test resultto a repeat test in 2 days will show whether you have a normal .LaparoscopyThis is a type of surgery. The healthcare provider will put a tube with a light inside your belly(abdomen) to look directly at your pelvic organs. This test is used when it is not safe to wait 2 days forblood test results.Important informationIf you do have an ectopic , there is a small chance that the growing fetus can tear thefallopian tube. This can cause severe internal bleeding. If this happens, you may have: Sudden severe pain in your lower abdomen Vaginal bleeding [address] [facility] Emergency Department [address] [place] [address] Phone #: ext- [phone] 09/21/2020 09:08 Patient: CHRISTOS MOREAU Sex: F : 2000 Age: 20y Weakness, dizziness, and sometimes faintingIf any of these symptoms occur: Call 911or return right away to the hospital. Don't drive yourself. Don't go to your healthcare provider's office or to a clinic. Go to the hospital.Home careFollow these guidelines to help care for yourself at home: Rest until your next exam. Don't do anything strenuous. Eat a light diet with foods that are easy to digest. Don't have sex until your healthcare provider says it's OK.Follow-up careFollow up with your healthcare provider, or as advised. If you were told to have a repeat blood test in2 days, it's important to get it done.If you had an X-ray or ultrasound, a radiologist will review it. You will be told of any new findings thatmay affect your care.Call [phone] if you have any of these: Severe pain and very heavy bleeding Severe lightheadedness, passing out, or fainting Rapid heart rate Trouble breathing Confused or difficulty waking upWhen to seek medical adviceCall your healthcare provider right away if any of these occur: The pain in your abdomen gets worse, either suddenly or gradually. You are dizzy or weak when you stand. [address] [facility] Emergency Department [address] [place] [address] Phone #: ext- [phone] 09/21/2020 09:08 Patient: CHRISTOS MOREAU Sex: F : 2000 Age: 20y You have heavy vaginal bleeding. This means soaking 1 pad an hour for 3 hours. You have vaginal bleeding for more than 5 days. You have repeated vomiting or diarrhea. The pain in your abdomen moves to the lower right. You have blood in your vomit or bowel movements. This will be dark red or black. You have a fever of 100.4F (38C) or higher, or as directed by your healthcare provider. [id number] [employer]. [address] [place] [address], [place] [address]. All rights reserved. This information is not intended as asubstitute for professional medical care. Always follow your healthcare professional's instructions. You have been given the following additional information: Abdominal Pain, Early (Electronically signed by Reza Villarreal, Physician 09/21/2020 13:19) Name Value Range Interpretation Code Description Data Opal rce(s) Supporting Document(s) ID Date Data Source [id number] 09/21/2020 09:17:[address] [facility] 1 Clinical Report - Nurses [facility] Emergency Department [address] [place] [address] Phone #: ext- [phone] 09/21/2020 09:08 Patient: CHRISTOS MOREAU Sex: F : 2000 Age: 20yTRIAGEArrived by private vehicle. Historian: patient. Accompanied by spouse.Acuity: LEVEL 3.Chief Complaint: ABDOMINAL CRAMPS.Alert. No acute distress.Onset. (2 days ago). ( Patient c/o cramping for past 2 days. States she had a positive home pregnancytest 3 days ago.).Treatment STITCHER AROUND:None. --09:18 09/21/20 Anabel Chiang09:13 09/21/20. BP: 151/93. MAP: 112. HR: 88. RR: 16. O2 saturation: 99%. Temp: 98.5 F. Pain levelnow: 0/10. --09:18 09/21/20 Shilo Chiang Complaint: ABDOMINAL CRAMPS. --09:27 09/21/20 Anabel Chiang.Weight: 81.6 kg. Height/Length: 62 inches. BMI: 32.9. --09:15 09/21/20 Anabel Chiang.MedicationsNone. --09:15 09/21/20 Anabel Chiang.AllergiesNone. --09:15 09/21/20 Anabel Chiang.PROBLEMS:no known problems.ADDITIONAL SURGERIES:no known surgeries.HistoryPAST MEDICAL HX: Last normal menstrual period- Aug 19. 1. Para 0. No contraception. Thepatient has had care (No care yet).SURGERY HX: No history of previous surgery.SOCIAL HX: Never smoker. No alcohol use or drug use. The patient was offered HIV testing butdeclined. Patient education was provided. The patient was offered hepatitis C testing but declined. Patienteducation was provided. The patient has not traveled outside the [place] 2 Clinical Report - Nurses [facility] Emergency Department [address] [place] [address] Phone #: ext- [phone] 09/21/2020 09:08 Patient: CHRISTOS MOREAU Sex: F : 2000 Age: 20y Infectious disease exposure: No infectious disease exposure. Patient is not a known carrier of tuberculosis, hepatitis, HIV, MRSA or VRE. Patient is not a known carrier of CRE. SELF HARM ASSESSMENT: Self harm assessment was performed. The patient answered "no" to the question(s) "Have you recently felt down, depressed, or hopeless?" and "Do you have thoughts of harming or killing yourself?". ABUSE ASSESSMENT: Abuse assessment. The patient had positive responses to the question(s) "Do you feel safe in your home?", "Are you afraid to go home?" and "Has anyone hurt you or threatened to hurt you?". Abuse denied. No suspicion of abuse. NUTRITIONAL RISK ASSESSMENT: The nutritional risk assessment revealed no deficiencies. FUNCTIONAL ASSESSMENT: Functional assessment: no impairments noted. LEARNING NEEDS ASSESSMENT: The learning needs assessment revealed no barriers. FALL RISK ASSESSMENT: Fall risk assessment completed. No risk factors identified. SKIN INTEGRITY ASSESSMENT: Skin integrity risk assessment completed. No skin integrity risk identified. --09:18 09/21/20 Anabel Chiang. FAMILY HX: Negative. --09:50 09/21/20 Reza Villarreal Physician.PHYSICAL ASSESSMENT( Patient states intermittent cramping for past 2 days. Denies pain at this time, states worst pain is 8/10when cramping occurs.).GENERAL / NEURO / PSYCH: Alert. Oriented X 4. Appears in no acute distress.HEENT: Mucous membranes are pink.RESPIRATORY: Respirations not labored. Breath sounds within normal limits.CVS: Normal heart rate and rhythm. Capillary refill less than 2 seconds.GI / : Abdomen soft and nontender. Bowel sounds within normal limits. No vaginal bleeding. Novaginal discharge.SKIN: Skin is warm and dry. --09:20 09/21/20 Anabel Chiang.NURSING PROGRESS NOTESReassurance given. Two patient identifiers checked. Call light placed in reach. Side rails up x 2. Bedplaced in lowest position. Patient ready for evaluation. --09:18 09/21/20 Anabel Chiang ( Dr. Villarreal at bedside to assess patient). --09:45 09/21/20 Anabel Chiang 09:57 09/21/20. BP: 120/79. MAP: 92. HR: 67. RR: 16. O2 saturation: 99%. --09:57 09/21/20 [place] fulfillment specialist, [facility] Tech1 3 Clinical Report - Nurses [facility] Emergency Department [address] [place] [address] Phone #: ext- [phone] 09/21/2020 09:08 Patient: CHRISTOS MOREAU Sex: F : 2000 Age: 20y ( Lab in room drawing blood for ordered labs.). --10:21 09/21/20 Anabel Chiang Patient walked to [facility] with mask and tech. --10:49 09/21/20 Anabel Chiang late entry - 10:00 09/21/20. Reassurance given. Rounding: Pain: assessed pain level. Position: states comfortable. Personal care / toileting: denies toileting needs. Proximity of possessions / care items: call light within easy reach. --10:58 09/21/20 Anabel Chiang late entry - 11:13 09/21/20. Patient walked back from sonogram with mask and tech. --11:23 09/21/20 Anabel Chiang 11:25 09/21/20. BP: 112/69. MAP: 83. HR: 74. RR: 15. O2 saturation: 99%. Pain level now: 0/10. --11:25 09/21/20 Anabel Chiang ( Dr. Villarreal at bedside to discuss results of ultrasound, labs, and plan of follow up care.). --11:31 09/21/20 Anabel Chiang.DISPOSITION / DISCHARGE Condition at departure: unchanged. No learning barriers present. Discharge instructions provided and reviewed with the patient and the patient left prior to discharge education being provided. Reviewed warnings. Reviewed referrals. Patient verbalized understanding. Written instructions provided in Omani. The patient was discharged by the physician. She was discharged home and unaccompanied at time of discharge. She left ambulatory and via private vehicle. Spouse driving. --11:30 09/21/20 Anabel Chiang 11:29 09/21/20. BP: 112/69. MAP: 83. HR: 74. RR: 15. O2 saturation: 99%. Temp: 98.1 F. Pain level now: 0/10. --11:30 09/21/20 Anabel Chiang Departure time: 11:39 09/21/2020. --11:39 09/21/20 Anabel Chiang.Locked/Released at 09/21/2020 11:40 by Anabel Chiang Name Value Range Interpretation Code Description Data Opal rce(s) Supporting Document(s) ID Date Data Source [id number] 09/21/2020 09:17:[address] [facility] 1 Clinical Report - Physicians/Mid Levels [facility] Emergency Department [address] [place] [address] Phone #: ext- [phone] 09/21/2020 09:08 Patient: CHRISTOS MOREAU Sex: F : 2000 Age: 20y Time Seen: 09:44 09/21/2020. Arrived- By private vehicle. Historian- patient. Disposition decision: 11:33 09/21/2020.HISTORY OF PRESENT ILLNESS Chief Complaint: PELVIC PAIN. This started 2 days ago and still present. The symptoms are described as moderate. Modifying factors. Not worsened by anything. Not relieved by anything. The patient has had pelvic pain. No abdominal pain, vaginal pain, low back pain, flank pain or irregular periods. No abnormal bleeding, vaginal discharge, vaginal itching, genital lesions or pain with urination. No urinary frequency, urgency of urination or hematuria. The patient has missed a period ([facility] 08/19). Last normal menstrual period- Aug 19. 1. Para 0. Sexual history - sexually active. Sexually active. Currently . Similar symptoms previously. None. Recent medical care: Not recently seen/assessed.REVIEW OF SYSTEMSNo nausea, vomiting, diarrhea, black stools or headache. No fever, chills, anorexia, sore throat or cough.No difficulty breathing, chest pain, skin rash, enlarged lymph nodes or joint pain.PAST HISTORYSee nurses notes. Problems: Care. Additional Surgeries: no known surgeries. Medications: None. Allergies: None.SOCIAL HISTORYNever smoker. No alcohol use or drug use. No recent travel.FAMILY HISTORY 2 Clinical Report - Physicians/Mid Levels [facility] Emergency Department [address] [place] [address] Phone #: diw- [phone] 09/21/2020 09:08 Patient: CHRISTOS MOREAU Sex: F : 2000 Age: 20y Negative.ADDITIONAL NOTESThe nursing notes have been reviewed with agreement regarding the chief complaint, HPI, ROS, PMH andpatient medications and allergies.PHYSICAL EXAMVital Signs: 09/21/2020 09:13 BP: 151/93. MAP: 112. HR: 88. RR: 16. O2 saturation: 99%. Temp: 98.5 F.Pain level now: 0/10. Have been reviewed as abnormal. Hypertensive. Heart rate normal. Respiratoryrate normal. Temperature normal. Oxygen saturation normal.Appearance: Alert. Oriented X3. No acute distress.HEENT: Normal external inspection.ENT: Pharynx normal.Neck: Neck supple.CVS: Heart sounds normal.Respiratory: No respiratory distress. Painless inspiration. Breath sounds normal. Chest nontender.Abdomen: Soft and nontender. Bowel sounds normal. No organomegaly. No mass.Back: Normal external inspection.Skin: Skin warm and dry. Normal skin color. No rash. Normal skin turgor.Extremities: Extremities nontender. No lower extremity edema.Neuro: Oriented X 3. Mood/affect normal. No motor deficit. No sensory deficit.LABS, X- RAYS, AND EKGPelvic Sonogram: Normal study. An ovarian cyst is present. Interpretation time: 11:30 09/21/2020.Laboratory Tests: Laboratory tests have been ordered, with results reviewed and considered in themedical decision making process. OB TRANSVAGINAL [place]: (RHONDA: 09/21/2020 10:40) ( [facility] [place] [facility]12[facility] In Progress OB TRANSVAGINAL [place] Reason(s): Painand cramping TRANSPORTATION: WC IV? IV?(No) O2? Oxygen?(No) Ayde : Yes CMTS: Pain and cramping CBC w Diff: (RHONDA: 09/21/2020 10:20) ( [facility] [place] 10[facility]58[facility] Final results Test Result Flag Units (Reference) CBC W/AUTOMATED DIFF COMPLETE BLOOD COUNT WBC 8.2 10/uL (4.2 - 11.0) RBC 4.56 10/uL (4.20 - 5.40) HEMOGLOBIN 13.6 g/dL (12.0 - 16.0) HEMATOCRIT 40.1 % (37.0 - 47.0) MCV 87.9 fL (81.0 - 101) MCH 29.8 pg (27.0 - 34.0) MCHC 33.9 g/dL (31.0 - 36.0) RDW 11.9 % (11.5 - 14.5) PLATELETS 338 10/uL (150 - 450) MPV 11.8 H fL (7.4 - 10.4) NEUT 66.1 % (37.0 - 80.0) 3 Clinical Report - Physicians/Mid Levels [facility] Emergency Department [address] [place] [address] Phone #: ext- [phone] 09/21/2020 09:08 Patient: CHRISTOS MOREAU Sex: F : 2000 Age: 20y LYMPH 26.3 % (25.0 - 40.0) MONO 5.2 % (3.0 - 8.0) EOS 1.2 % (0.0 - 7. 0) BASO 1.0 % (0.0 - 2.5) %IG 0.2 H % (0.0 - 0.0) %NRBC 0.0 % (0.0 - 0.0) #NEUT 5.44 10/uL (2.00 - 6.9 0) #LYMPH 2.17 10/uL (0.60 - 3.40) #MONO 0.43 10/uL (0.00 - 0.90) #EOS 0.10 10/uL (0.00 - 0.70) #BASO 0.08 10/uL (0.00 - 0.20) #IG 0.02 10/uL (0.00 - 0.10) #NRBC 0.00 10/uL (0.00 - 0.00) MANUAL DIFF NOT INDICATED RBC MORPH NOT INDICATED Beta-HCG, Quant Serum: (RHONDA: 09/21/2020 10:20) ( MsgRcvd 09/21/2020 11:20) Final results Test Result Flag Units (Reference) HCG QUANT 20.6 mIU/mL Interpretation: Less than 5 mU/mL: Negative 6-10 mU/mL: Borderline (suggest repeat in 48 hours) >10: Positive Approx HCG range (mU/mL) Weeks post LMP 5.4-708 mU/mL 3-4 Weeks 217-53331 mU/mL 5-6 Weeks 4059-884075 mU/mL 7-8 Weeks 72851-307461 mU/mL 9-10 Weeks 11034-67164 mU/mL 12-14 Weeks 13006-53453 mU/mL 15-16 Weeks 8240-12241 mU/mL 17-18 Weeks Urinalysis: (RHONDA: 09/21/2020 09:45) ( [facility] 09/21/2020 10:58) Final results Test Result Flag Units (Reference) URINALYSIS URINALYSIS SOURCE R COLOR yellow (NORMAL: Yello CLARITY clear (NORMAL: Clear SPEC GRAVITY 1.015 (1.001 - 1.030 pH 6 (5 - 9) GLUCOSE NORM (NORMAL: Negat BILIRUBIN NEG (NORMAL: Negat KETONE NEG (NORMAL: Negat PROTEIN NEG (NORMAL: Negat NITRITE NEG (NORMAL: Negat BLOOD NEG (NORMAL: Negat LEUK EST NEG (NORMAL: Negat UROBILINOGEN NOR (less than 1.0 MICROSCOPIC Not Indicate US OB 1ST TRI UP TO 14 WEEKS: (RHONDA: 09/21/2020 09:55) ( [facility] 09/21/2020 10:38) Canceled Reason(s): Lower abdominal pain and cramping. Reason(s): Lower abdominal pain and cramping. TRANSPORTATION: IV? IV?(No) O2? Oxygen?(No) Ayde : Yes CMTS: lower abdominal pain and cramping no bleeding.PROGRESS AND PROCEDURES 4 Clinical Report - Physicians/Mid Levels [facility] Emergency Department [address] [place] [address] Phone #: ext- [phone] 09/21/2020 09:08 Patient: CHRISTOS MOREAU Sex: F : 2000 Age: 20y Course of Care: 09:55 Sep 21 2020. (Patient's history obtained and exam completed. Treatment plan discussed and agreed upon. Labs and OB ultrasound ordered.). 11:30 Sep 21 2020. (Results of US given to Patient. Patient has follow up appointment in 4 days with her doctor. Recommended follow serum HCG Quantitative be done. Return if worsen. Vaginal rest. rest.). Disposition: Condition: stable.CLINICAL IMPRESSION Threatened ; positive test in emergency department.INSTRUCTIONS (Your test was positive HCG level 20 Need repeat in 3 to 4 days. No heavy lifting or hazardous activity). Warnings: Further evaluation is necessary (Repeat Serum Quantitative HCG). It is very important to follow up with a healthcare provider. GENERAL WARNINGS: Return or contact your physician immediately if your condition worsens or changes unexpectedly, if not improving as expected, or if other problems arise. Your Current Medications: . No home medication. Understanding of the discharge instructions verbalized. Follow-[facility] with: [facility] Respective Team [place], , , [id number] [facility] [place], , [place], [address] Follow up in four days as scheduled. Reason for referral: evaluation. Summary of care provided to patient via paper.(Electronically signed by Reza Villarreal, Physician 09/21/2020 13:19) Name Value Range Interpretation Code Description Data Opal rce(s) Supporting Document(s) ID Date Data Source [id number] 09/21/2020 11:49:[address] [facility] Name Value Range Interpretation Code Description Data Opal rce(s) Supporting Document(s) ABO group [Type] in Blood A [facility] Rh [Type] in Blood POSITIVE [facility] { ABO/RH REENTER A POSITIVE ID Date Data Source [id number] 09/21/2020 11:45:[address] [facility] Name Value Range Interpretation Code Description Data Opal rce(s) Supporting Document(s) BASIC METABOLIC PANEL [facility] BASIC METABOLIC PANEL Sodium [Moles/volume] in Serum or Plasma 137 mEq/L 134 - 153 [facility] Potassium [Moles/volume] in Serum or Plasma 4.7 mEq/L 3.6 - 5.0 [facility] Chloride [Moles/volume] in Serum or Plasma 105 mEq/L 98 - 107 [facility] Carbon dioxide, total [Moles/volume] in Serum or Plasma 24 MEQ/L 22 - 30 [facility] Glucose [Mass/volume] in Serum or Plasma 86 MG/DL 65 - 110 [facility] BUN 10 MG/DL 7 - [address] [facility] al Creatinine [Mass/volume] in Serum or Plasma 0.6 MG/DL 0.7 - 1.[address] [facility] BUN/CREAT 17 8 - 27 [facility] Calcium [Mass/volume] in Serum or Plasma 9.7 MG/DL 8.4 - 10.2 [facility] Anion gap 3 in Serum or Plasma 8.0 mmol/L 8.0 - 16.0 [facility] AGE [address] [facility] al AFR AMER GFR >60 mL/min [facility] Ho spital NON-AA GFR >60 mL/min [facility] ital Male GFR Inter prentation 20-49 yrs >60 mL/min Normal 50-59 yrs >56 mL/min Normal 60-69 yrs >49 mL/min Normal 70-79yrs >42 mL/min Normal 80 and above >35 mL/min Normal Female GFR Interpretation 20-39 yrs >60 mL/min Normal 40-49 yrs >58 mL/min Normal 50-59 yrs >51 mL/min Normal 60-69 yrs >45 mL/min Normal 70-79 yrs >39 mL/min Normal 80 and above >32 mL/min Normal ID Date Data Source [id number] 09/21/2020 11:20:[address] [facility] Name Value Range Interpretation Code Description Data Opal rce(s) Supporting Document(s) Choriogonadotropin.intact [Units/volume] in Serum or Plasma 20.6 mIU/ mL [facility] Interpr etation: Less than 5 mU/mL: Negative 6-10 mU/mL: Borderline (suggest repeat in 48 hours) >10: Positive Approx HCG range (mU/mL) Weeks post LMP 5.4-708 mU/mL 3-4 Weeks 217-11298 mU/mL 5-6 Weeks 4059-845534 mU/mL 7-8 Weeks 86927-352077 mU/mL 9-10 Weeks 51878-08184 mU/mL 12-14 Weeks 94332-31131 mU/mL 15-16 Weeks 8240- 65607 mU/mL 17-18 Weeks ID Date Data Source [id number] 09/21/2020 10:58:[address] [facility] Name Value Range Interpretation Code Description Data Opal rce(s) Supporting Document(s) CBC W/AUTOMATED DIFF [facility] COMPLETE BLOOD COUNT Leukocytes [#/volume] in Blood by Automated count 8.2 10^3/uL 4.2 - [address] [facility] Erythrocytes [#/volume] in Blood by Automated count 4.56 10^6/uL 4. 20 - 5.40 [facility] Hemoglobin [Mass/volume] in Blood 13.6 g/dL 12.0 - 16.0 [facility] Hematocrit [Volume Fraction] of Blood by Automated count 40.1 % 3 7.0 - 47.0 [facility] Erythrocyte mean corpuscular volume [Entitic volume] by Auto mated count 87.9 fL 81.0 - 101 [facility] Erythrocyte mean corpuscular hemoglobin [Entitic mass] by Automated count 29.8 pg 27.0 - 34.0 [facility] Erythrocyte mean corpuscular hemoglobin concentration [Mass/volume] by Automated count 33.9 g/dL 31.0 - 36.0 [facility] Erythrocyte distribution width [Ratio] by Automated count 11.9 % 11.5 - 14.5 [facility] Platelets [#/volume] in Blood by Automated count 338 10^3/uL 150 - [address] [facility] Platelet mean volume [Entitic volume] in Blood by Automated count 11.8 fL 7.4 - 10.[address] [facility] Neutrophils/100 leukocytes in Blood by Automated count 66.1 % 37. 0 - 80.0 [facility] Lymphocytes/100 leukocytes in Blood by Manual count 26.3 % 25.0 - 40.0 [facility] Monocytes/100 leukocytes in Blood by Automated count 5.2 % 3.0 - 8.0 [facility] Eosinophils/100 leukocytes in Blood by Automated count 1.2 % 0.0 - 7.0 [facility] Basophils/100 leukocytes in Blood by Automated count 1.0 % 0.0 - 2.5 [facility] %IG 0.2 % 0.0 - 0.0 [facility] %NRBC 0.0 % 0.0 - 0.[address] [facility] al Neutrophils [#/volume] in Blood by Automated count 5.44 10^3/uL 2.00 - 6.90 [facility] Lymphocytes [#/volume] in Blood by Automated count 2.17 10^3/uL 0.60 - 3.40 [facility] Monocytes [#/volume] in Blood by Automated count 0.43 10^3/uL 0.00 - 0.90 [facility] Eosinophils [#/volume] in Blood by Automated count 0.10 10^3/uL 0.00 - 0.70 [facility] Basophils [#/volume] in Blood by Automated count 0.08 10^3/uL 0.00 - 0.20 [facility] #IG 0.02 10^3/uL 0.00 - 0.10 [facility] H ospital #NRBC 0.00 10^3/uL 0.00 - 0.00 [facility] ospital MANUAL DIFF NOT INDICATED [facility] RBC MORPH NOT INDICATED [facility] Ho spital ID Date Data Source [id number] 09/21/2020 10:58:[address] [facility] Name Value Range Interpretation Code Description Data Opal rce(s) Supporting Document(s) [facility]IS [facility] [place] URINALYSIS SOURCE R [facility] al COLOR yellow NORMAL: Yellow [facility] ospital CLARITY clear NORMAL: Clear [facility] Ho spital Specific gravity of Urine by Test strip 1.015 1.001 - 1.030 [facility] pH 6 5 - [address] [facility] al Glucose [Mass/volume] in Urine by Test strip NORM NORMAL: Negat collette [facility] Bilirubin.total [Presence] in Urine by Test strip NEG NORMAL: Negative [facility] Ketones [Presence] in Urine by Test strip NEG NORMAL: Negative [facility] Protein [Mass/volume] in Urine by Test strip NEG NORMAL: Negat collette [facility] Nitrite [Presence] in Urine by Test strip NEG NORMAL: Negative [facility] BLOOD NEG NORMAL: Negative [facility] Leukocyte esterase [Presence] in Urine by Test strip NEG CANDIDA L: Negative [facility] Urobilinogen [Mass/volume] in Urine by Test strip NOR less moreno n 1.0 mg/dL [facility] MICROSCOPIC Not Indicate [facility] ospital ID Date Data Source [id number] 07/03/2020 03:38:00 PM EDT [place] [id number] [facility] Emergency Department [address] [place] [address] Phone #: ext- [phone] 07/03/2020 15:29 Patient: CHRISTOS HERNANDEZ Sex: F : 2000 Age: 20yWeight: 79.3 kgHeight/Length: 62 in.BMI: 32.0ALLERGIES: NoneThe patient's Home Medications are listed below:THE FOLLOWING MEDICATIONS NEED TO BE RECONCILED: traZODone HCl Oral (100 mg), daily, at bedtime Weight lost medicationThe source(s) of the original Home Medication information:Not obtained.The following Medications were given to the patient in the Emergency Department:None.The following Medications were prescribed to the patient:None. Name Value Range Interpretation Code Description Data Opal rce(s) Supporting Document(s) ID Date Data Source [id number] 07/03/2020 03:38:[address] [facility] [address] [facility] Emergency Department [address] [place] [address] Phone #: ext- [phone] 07/03/2020 15:29 Patient: CHRISTOS HERNANDEZ Sex: F : 2000 Age: 20yWeight: 79.3 kgHeight/Length: 62 inBMI: 32ALLERGIES: NoneDate/Time Medication Administered Medication Ordered Name Value Range Interpretation Code Description Data Opal rce(s) Supporting Document(s) ID Date Data Source [id number] 07/03/2020 03:38:[address] [facility] [address] [facility] Emergency Department [address] [place] [address] Phone #: ext- [phone] 07/03/2020 15:29 Patient: CHRISTOS HERNANDEZ Sex: F : 2000 Age: 20ySingle superficial laceration to the left thumb. No foreign body present or left fingernail injury.INSTRUCTIONSNo dietary restrictions.(Recommend to utilize OTC Motrin and Tylenol to control inflammation and pain management.Recommend to follow the instructions on the bot tle and not to exceed.).Follow-up:Return to the emergency department as needed. Follow up with your healthcare provider in about twodays if not better. Call for an appointment.Understanding of the discharge instructions verbalized by patient. ADDITIONAL INFORMATIONExtremity Laceration: Stitches, Lisa, or TapeA laceration is a cut through the skin. If it is deep, it may require stitches or lisa to close so it canheal. Minor cuts may be treated with surgical tape closures, or skin glue.X-rays may be done if something may have entered the skin through the cut. You may also need atetanus shot if you are not up to date on this vaccine.Home care Follow the healthcare provider's instructions on how to care for the cut. Wash your hands with soap and warm water before and after caring for your wound. This is to help prevent infection. Keep the wound clean and dry. If a bandage was applied and it becomes wet or dirty, replace it. Otherwise, leave it in place for the first 24 hours, then change it once a day or as directed. If stitches or lisa were used, clean the wound daily: o After removing the bandage, wash the area with soap and water. Use a wet cotton swab to loosen and remove any blood or crust that forms. [address] [facility] Emergency Department [address] [place] [address] Phone #: ext- [phone] 07/03/2020 15:29 Patient: CHRISTOS HERNANDEZ Sex: F : 2000 Age: 20y o After cleaning, keep the wound clean and dry. Talk with your healthcare provider before putting any antibiotic ointment on the wound. Reapply the bandage. You may remove the bandage to shower as usual after the first 24 hours, but don't soak the area in water (no swimming) until the stitches or lisa are removed. If surgical tape closures were used, keep the area clean and dry. If it becomes wet, blot it dry with a towel. Let the surgical tape fall off on its own. The healthcare provider may prescribe an antibiotic cream or ointment to prevent infection. He or she may also prescribe an antibiotic p ill. Don't stop taking this medicine until you have finished it all or the provider tells you to stop. The provider may also prescribe medicine for pain. Follow the instructions for taking these medicines. Don't do activities that may reopen your wound.Follow-up careFollow up with your healthcare provider, or as advised. Most skin wounds heal within 10 days. But aninfection may sometimes occur even with proper treatment. Check the wound daily for the signs ofinfection listed below. Stitches and lisa should be removed within 7 to14 days. If surgical tapeclosures were used, you may remove them after 10 days if they have not fallen off by then.When to seek medical adviceCall your healthcare provider right away if any of these occur: Wound bleeding not controlled by direct pressure Signs of infection, including increasing pain in the wound, increasing wound redness or swelling, or pus or bad odor coming from the wound Fever of 100.4F (38C) or higher, or as directed by your healthcare provider Stitches or lisa come apart or fall out or surgical tape falls off before 7 days Wound edges reopen Wound changes colors Numbness occurs around the wound Decreased movement around the injured area [id number] [employer]. [address] [place] [address], [place] [address]. All rights reserved. This information is not intended as a [address] 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 Always follow your healthcare professional's instructions.Extremity Laceration: Skin GlueA laceration is a cut through the skin. You have a laceration that has been closed with skin glue. Thisis used on cuts that have smooth edges and are not infected. It's best used on straight, clean cuts onareas that do not get a lot of tension.You may need a tetanus shot. This is given if you have no record of a shot, and the object thatcaused the cut may lead to tetanus.Home care Your healthcare provider may prescribe an antibiotic. This is to help prevent infection. Follow all instructions for taking this medicine. Take the medicine every day until it is gone or you are told to stop. You should not have any left over. The healthcare provider may prescribe medicines for pain. Follow instructions for taking them. Follow the healthcare provider's instructions on how to care for the cut. No bandage is needed. Skin glue peels off on its own within 5 to 10 days. Most skin wounds heal within 10 days. Keep the wound clean. You may shower or bathe as usual, but do not use soaps, lotions, or ointments on the wound area. Do not scrub the wound. After bathing, pat the wound dry with a soft towel. Don't scratch, rub, or pick at the film. Don't place tape directly over the film. Don't put liquids such as peroxide, ointments, or creams on the wound while the skin glue is in place. Many oil based products can weaken and dissolve the glue. Don't do any activities that may reinjure your wound. Don't do any activities that cause heavy sweating. Protect the wound from sunlight. Most skin wounds heal without problems. But an infection sometimes occurs even with proper treatment. Watch for the signs of infection listed below.Follow-up careFollow up as directed with your healthcare provider, or as advised.When to seek medical adviceCall your healthcare provider right away if any of these occur: [address] [facility] Emergency Department [address] [place] [address] Phone #: [phone]- [phone] 07/03/2020 15:29 Patient: CHRISTOS HERNANDEZ Sex: F : 2000 Age: 20y Wound bleeding not controlled by direct pressure Signs of infection, including increasing pain in the wound, increasing wound redness or swelling, or pus or bad odor coming from the wound Fever of 100.4F (38.C) or higher, or as directed by your healthcare provider Wound edges reopen Wound changes colors Numbness around the wound Decreased movement around the injured area [id number] [employer]. [address] [place] [address]. All rights reserved. This information is not intended as asubstitute for professional medical care. Always follow your healthcare professional's instructions. You have been given the following additional information: Laceration, Extremity: Stitches, Staple, or Tape Laceration, Extremity: Skin Glue(Electronically signed by Curly Saravia P.A.-C 07/04/2020 20:38) Name Value Range Interpretation Code Description Data Opal rce(s) Supporting Document(s) ID Date Data Source [id number] 07/03/2020 03:38:[address] [facility] 1 Clinical Report - Nurses [facility] Emergency Department [address] [place] [address] Phone #: ext- [phone] 07/03/2020 15:29 Patient: CHRISTOS HERNANDEZ Sex: F : 2000 Age: 20yTRIAGE( opening letters and cut left thumb).Acuity: LEVEL 4.Chief Complaint: Location of symptoms- (left thumb cut).Alert. No acute distress.Injury occurred. This started today. Onset. (1 hour).Treatment STITCHER AROUND:None.SEPSIS SCREEN: SIRS Screen negative. Sepsis Screen negative. No suspect ed or confirmed signs ofinfection present. --15:34 07/03/20 Kiara Flores R.N.15:30 07/03/20. BP: 113/65. MAP: 81. HR: 82. RR: 16. O2 saturation: 98% on room air. Temp: 97.8 F.Pain level now: 10/20. --15:34 07/03/20 Kiara Flores R.N.Weight: 79.3 kg stated. Height/Length: 62 inches Per Patient. BMI: 32. --15:29 07/03/20 Kiara Flores R.N.MedicationstraZODone HCl Oral (Tablet 100 mg), daily at bedtime. --15:32 07/03/20 Kiara Flores R.N. Weight lost medication. --15:32 07/03/20 Mark, Kiara, R.N.AllergiesNone. --15:31 07/03/20 Kiara Flores R.N.PROBLEMS:Anxiety Reaction. --15:32 07/03/20 Kiara Flores R.N.ADDITIONAL SURGERIES:no known surgeries.HistoryPAST MEDICAL HX: Tetanus status: up-to-date. Immunizations: up-to-date. Last normal menstrualperiod- Jun 10.SOCIAL HX: Never smoker. No alcohol use or drug use. The patient was offered HIV testing butdeclined and hepatitis C testing but declined. The patient has not traveled outside the [place]Infectious disease exposure: No infectious disease exposure. Patient is not a known carrier of tuberculosis,hepatitis, HIV, MRSA or VRE. Patient is not a known carrier of CRE. 2 Clinical Report - Nurses [facility] Department [address] [place] [address] Phone #: ext- [phone] 07/03/2020 15:29 ------- Patient: CHRISTOS HERNANDEZ Sex: F : 2000 Age: 20y SELF HARM ASSESSMENT: Self harm assessment was performed. The patient answered "no" to the question(s) "Have you recently felt down, depressed, or hopeless?", "Do you have thoughts of harming or killing yourself?", "Do you have a plan for harming or killing yourself?", "Have you recently had thoughts about harming or killing others?", "Do you have any dangerous items in your possession?", "Have you noticed less interest or pleasure in doing things?", "Are you here because you tried to hurt yourself?" and "Have you ever tried to hurt yourself before today?". ABUSE ASSESSMENT: Abuse assessment. Abuse denied. No suspicion of abuse. No report of abuse. NUTRITIONAL RISK ASSESSMENT: The nutritional risk assessment revealed no deficiencies. FUNCTIONAL ASSESSMENT: Functional assessment: no impairments noted. LEARNING NEEDS ASSESSMENT: The learning needs assessment revealed no barriers. FALL RISK ASSESSMENT: Fall risk assessment completed. No risk factors identified. SKIN INTEGRITY ASSESSMENT: Skin integrity risk assessment completed. No skin integrity risk identified. --15:34 07/03/20 Kiara Flores R.N. Interventions Identification band on patient. To treatment room. --15:34 07/03/20 Kiara Flores R.N.PHYSICAL ASSESSMENTAmbulatory to room.GENERAL / NEURO / PSYCH: Oriented X 4. Alert. Appears in no acute distress.EXTREMITIES: Extremities exhibit normal ROM. Neuro-vascular status intact to the extremity. No upperextremity edema. Skin is non-tender on the extremities. Tip of left thumb: superficial laceration.SKIN: Skin is warm and dry. --15:36 07/03/20 Kiara Flores R.N.NURSING PROGRESS NOTESReassurance given. Two patient identifiers checked. Call light placed in reach. Side rails up x 2. Bedplaced in lowest position. Brakes of bed on. Patient ready for evaluation- ED physician and PA notified.--15:34 07/03/20 Kiara Flores R.N.DISPOSITION / DISCHARGE 16:25 07/03/20. BP: 102/57. MAP: 72. HR: 74. RR: 16. O2 saturation: 100%. Temp: 98.3 F. Pain level now: 10/20. --16:25 07/03/20 Kiara Flores R.N. Condition at departure: improved. No learning barriers present. Discharge instructions provided and reviewed with the patient. Patient verbalized understanding. Written instructions provided in Omani. The patient was discharged home and accompanied by family. She left ambulatory and via private v ehicle. Spouse driving. --16:27 07/03/20 Kiara Flores R.N. 3 Clinical Report - Nurses [facility] [address] [place] [address] Phone #: ext- [phone] 07/03/2020 15:29 Patient: CHRISTOS HERNANDEZ Sex: F : 2000 Age: 20y Departure time: 16:27 07/03/2020. --16:27 07/03/20 Kiara Flores R.N.Locked/Released at 07/03/2020 16:27 by Kiara Flores R.N. Name Value Range Interpretation Code Description Data Opal rce(s) Supporting Document(s) ID Date Data Source [id number] 07/03/2020 03:38:[address] [facility] 1 Clinical Report - Physicians/Mid Levels [facility] [address] [place] [address] Phone #: ext- [phone] 07/03/2020 15:29 Patient: CHRISTOS HERNANDEZ Sex: F : 2000 Age: 20y Time Seen: 16:19 07/03/2020; initial patient contact, initial documentation. Arrived- By private vehicle. Historian- patient.HISTORY OF PRESENT ILLNESS Chief Complaint: Injury to the left thumb. The injury happened just prior to arrival. Occurred at home. The patient sustained a laceration. Patient is not experiencing pain. No injury to the head or neck or other injury. ( Opening letters and sustained a deep papercut to the lateral aspect of the d istal thumb).REVIEW OF SYSTEMSThe patient sustained a laceration. No swelling, tingling, numbness, weakness or foreign body. All othersystems reviewed and are negative.PAST HISTORYSee nurses notes. The patient's dominant hand is the right. Tetanus immunization status is up-to-date. Problems: Anxiety Reaction. Additional Surgeries: no known surgeries. Medications: Weight lost medication. traZODone HCl Oral (Tablet 100 mg), daily at bedtime. Allergies: None.SOCIAL HISTORYNever smoker. No alcohol use or drug use.ADDITIONAL NOTESThe nursing notes have been reviewed.PHYSICAL EXAMVital Signs: 07/03/2020 15:30 BP: 113/65. MAP: 81. HR: 82. RR: 16. O2 saturation: 98% on room air.Temp: 97.8 F. Pain level now: 10/20. Have been reviewed. Oxygen saturation normal.ENT: Voice normal.CVS: Pulses normal. Capillary refill normal. Strong peripheral pulses. Pulses: right radial 2+; left radial 2 Clinical Report - Physicians/Mid Levels [facility] [address] [place] [address] Phone #: ext- [phone] 07/03/2020 15:29 Patient: CHRISTOS HERNANDEZ Sex: F : 2000 Age: 20y 2+. Respiratory: No respiratory distress. Unlabored respirations. Good chest movement. Skin: Skin warm and dry. Extremities: Tip of left thumb: mild tenderness and superficial 0.5 cm laceration with controlled bleeding. No erythema, swelling, puncture wound or foreign body. No laceration involving the nail bed, subungual hematoma, exposed bone or loss of the nail bed on the left thumb or tip amputation of the left thumb. No right wrist abnormality. No wrist injury. No hand injury. Hand and wrist exam otherwise negative. Extremities otherwise negative. Neuro, Vascular and Tendons: Vascular status intact. Sensation intact. Motor intact. Tendon function intact. (AIN, PIN, R/U/M intact b/l UE. N/V intact. SILT. A/P FROM). Neuro: Awake. Alert. Mood/affect normal. Speech normal. No motor deficit. No sensory deficit. Psych: Cognition normal. Thought process and content normal. Insight and judgement normal.PROGRESS AND PROCEDURESLaceration Repair: Location: left thumb. Time-out completed immediately before the procedure.Length: 0.5cm. Complexity: simple (closed with tissue adhesive).Wound depth/shape- subcutaneous and linear. Wound is clean. Distal neuro/vascular/tendon statusnormal. Wound cleansed and irrigated. Closure of superficial layer. Skin adhesive used.Post-procedure: she is stable and there are no complications. Bleeding is controlled and neuro-vascularstatus is intact distal to the wound. Dressing applied. Tetanus immunization up-to-date. Course of Care: VSS, NAD, AOx3, interacting well and appropriately, no use of accessory muscle, able to speak full sentences, stable, non-toxic looking. Enter room and pt lying peacefully in bed in NAD. Patient stable. Denies any new issues, concerns, or complaints. PE kjos NV intact b/l UE. Noted small superfiscial lac to the thumb. Too superfisicial for sutures, but glue will approximate and cover/seal to decrease discomfort. Pt agees. Enter room and patient lying peacefully in bed in NAD. Patient stable. Denies any new issues, concerns, or complaints. Repared wound. Discussed results with pt. Discussed tx plan with pt. Discussed and counseled on stable condition. Discussed importance of a f/u with PCP. Discussed return to ER criteria. Answered their questions. Indicates and verbalizes that they understand, agree, and will comply with above. Denies any new questions or concerns. Patient has capacity to understand. Discharge decision based on the following: patient's condition is stable; patient's exam is stable; social support is adequate; transportation is available; follow-up is available. Discussed of OTC Motrin and Tylenol to control inflammation and pain management. Informed to follow 3 Clinical Report - Physicians/Mid Levels [facility] [address] [place] [address] Phone #: [phone] pxy- [phone] 07/03/2020 15:29 Patient: CHRISTOS HERNANDEZ Sex: F : 2000 Age: 20y directions on bottle that are appropriate for age and/or weight. Disposition: Discharged home in good and improved condition. Condition: good and stable.CLINICAL IMPRESSION Single superficial laceration to the left thumb. No foreign body present or left fingernail injury.INSTRUCTIONS No dietary restrictions. (Recommend to utilize OTC Motrin and Tylenol to control inflammation and pain management. Recommend to follow the instructions on the bottle and not to exceed.). Follow-up: Return to the emergency department as needed. Follow up with your healthcare provider in about two days if not better. Call for an appointment. Understanding of the discharge instructions verbalized by patient.(Electronically signed by Curly Saravia P.A.-C 07/04/2020 20:38) Name Value Range Interpretation Code Description Data Opal rce(s) Supporting Document(s) Procedure Social History Code Duration Value Status Description Data Source(s ) Smoking 07/04/2021 12:00:00 AM EDT Patient has never smoked co mpleted Patient has never smoked [facility] ([facility]) Vital Signs ID Date Data Source UNK Name Value Range Interpretation Code Description Data Source(s) Body weight 197.00 [lb_av] 197.00 [lb_av] [facility] T ([facility]) Body height 62 [in_i] 62 [in_i] [facility]) 5'2" Body mass index (BMI) [Ratio] 36.0 kg/m2 36.0 k g/m2 [facility] ([facility]) Heart rate 74 /min 74 /min [facility] ([facility]) regular Respiratory rate 16 /min 16 /min [facility] ( [facility]) Systolic blood pressure--sitting 116 mm[Hg] 116 mm[Hg] [facility] ([facility]) Medium cuff, Ra: 118/82 LA Diastolic blood pressure--sitting 78 mm[Hg] 78 mm[Hg] [facility] ([facility]) Medium cuff, Ra: 118/82 LA Systolic blood pressure--supine 118 mm[Hg] 118 mm[Hg] [facility] ([facility]) Ra Diastolic blood pressure--supine 78 mm[Hg] 78 mm[Hg] [facility] ([facility]) Ra
--- OUTSIDE RECORDS SUMMARY | 2021-09-03 00:40 | CCD | Continuity of Care Document ---
[...] Thyroid Stimulating Hormone 1.520 Free T4 0.97 Procedures Description No Information Available Medical Devices Description No Information Available Encounters Description No Information Available Assessments Description No Information Available Plan of Treatment Future Appointment(s):* 07/04/2021 1:00 pm - Live Evans MD at Main Office Functional Status Description No Information Available Mental Status Description No Information Available Referrals Description No Information Available
[2021-09-03] MEDS: MAG Sulf (OBGYN) 20GM/500ML 20,000 MG in IV 1 EA IV SCH ×3 (00:50→21:44)
--- NOTE | 2021-09-03 05:44 | HPEPDOC ---
Obstetrical History & Physical General Date of Admission History of Present Illness 21 yo @ 32W3D by 7W4D US presents to triage after being sent from clinic with severe range BP in the setting of an already known Diagnosis of pre e w/o severe features doing outpatient management. she had BP that were 171/107 and repeat of 160s/90's. she was then sent up to triage and first BP In triage was 140's/100's. she denies any headaches, vision changes, RUQ, nausea or vomiting. she reports regular movements and denies any VB, LOF or painful contractions. Information Provided By: Patient Age: 21 : 3 Term: 0 Pre-term: 0 Abortions: 2 Livin Care Care: Good Care Dating Final EDC: Oct 25, 2021 Final EDC by: 1st trimester (US) 1st Trimester Date: Mar 14, 2021 Weeks + Days: 7 (7w4d) Estimated Date of Confinement: Oct 25, 2021 EGA at Admission: 32 (32w3d) Antepartum Course Diagnos(e)s 1. Pre e w/o severe features- being observed for development of severe features 2. Obesity, prepreg BMI 33, with excessive weght gain, #42lb 3. Depression, not on meds, denies SI/HI 4. Varicella non-immune 5. GBS positive in urine- TX with Penicillin when start IOL 6. Unsat pap, needs repeat PP Height (inches): 62 Pre- weight (lbs.): 180 Admission Weight (lbs.): 222 Change in Weight (lbs.): 42 Past Medical History Past Obstetrical History : Past Obstetrical History: Primgravida Complications: No [employer] History: No pertinent history Past Medical History Medical History Obesity Surgical History: Denies/None Family History Significant Family History: No pertinent family hx Family History Non contributory Social History Marital Status: Family situation: Spouse/partner home Psychosocial History: Depression * Smoker: non-smoker Alcohol: Denies Drugs: denies Abuse Violence Screening Have you been hit/kicked/slapp: No Have you been sexually assault: No Imunizations Tdap status: current Influenza Status: current Allergies Coded Allergies: No Known Allergies (Unverified , 07/20/21) Medications Scheduled Cetirizine HCl (Cetirizine HCl) 10 Mg Tab.chew, 1 TAB PO DAILY for allergy symptoms Metronidazole (Metrogel-Vaginal) 70 Gm Gel.w.appl, 1 APLCTR PV QPM 95/Iron Fum/Folic/Dha ( + Dha Combo Pack) 1 Each Combo..pkg, 1 TAB PO DAILY Scheduled PRN Butalb/Acetaminophen/Caffeine (Fioricet 50-300-40 mg Capsule) 1 Each Capsule, 1 CAP PO Q6HP PRN for HEADACHE Physical Examination Physical Examination GENERAL: Alert and oriented times three. BREAST: . ABDOMEN: Gravid and non-tender to touch. FETUS: Is vertex (VTX) by sterile vaginal examination (SVE) HEART RATE: Regular rate and rhythm. LUNGS: Clear to auscultation (CTA). EXTREMITIES: No edema. No clonus. Deep tendon reflexes (DTRs) + Vital Signs/I&O Vital Signs Date Time Temp Pulse Resp B/P (MAP) Pulse Ox O2 Delivery O2 Flow Rate FiO2 09/02/21 15:57 98.1 80 18 146/97 (113) Laboratory Data Urine Culture: Other (GBS Positive) Pertinent Laboratoy Data Blood Type: A+ RBC Antibody Screen: Negative HIV: Negative Hepatitis B: Negative Hepatitis C: Unknown Rapid Plasma Reagin: Nonreactive Rubella: Immune Varicella: Nonreactive Chlamydia/Gonorrhea: Negative Group B Streptococcus: Positive Quad Screen Test: Negative Cystic Fibrosis: Negative Anatomy Ultrasound Ultrasound Date: Jun 09, 2021 Placenta Location: Anterior Normal Anatomy: Yes Placenta Previa: No Estimated Weight (grams): 354 (54%) Other Ultrasounds 1. 15sep 2020: normal spine 2. 02 SEP 2021: EFW: 1992g, 43%, normal BP Steroid Therapy Steroid Therapy: Yes Date #1: Sep 02, 2021 Reason Anticipated delivery at or before 34 Weeks due to worsening BP Assessment Heart Rate (FHR): 150 Variability: Moderate Accelerations: Positive Decelerations: None Tocometer Contractions: Yes Frequency: irregular Duration: less than 60 seconds Strength: palpated as mild Multi-drug resistant Organism: No history of MDRO Assessment/Plan Assessment 21 yo @ 32W3D by 7W4D US presents to triage after being sent from clinic with severe range BP in the setting of an already known Diagnosis of pre e w/o severe features doing outpatient management. she had BP that were 171/107 and repeat of 160s/90's. Patient now meeting criteria for pre e with severe featiures due to severe range BP that are more than 4 hours apart. Plan kept patient for observation overnight and she met criteria for severe feature with severe range BP that are 4 hours apart. 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 Diet: reg diet while on observation Group B Streptococcus (GBS) positive- will treat when we start IOL Labs and intravenous (IV) per unit protocol. Counseled on Pitocin and induction of labor (IOL). First dose on steroid given at 5pm on 2020 -start mag tx for seizure prophylaxis for 24 hours, then keep inpatient until delivery at 34w0d. MANOHAR DEAN MD Sep 02, 2021 16:45
[2021-09-03] MEDS ORDERED: LR 1,000 ML IV PRN (06:15)
--- NOTE | 2021-09-03 06:29 | IPNPDOC ---
Obstetrical Progress Note Date of Service Sep 03, 2021 Subjective 21 yo @ 32W4D by 7wk us ADmitted for pre e with severe features now on mag that started at 00 on Aug. she has had severee range BP that are more than 4 hrs aparts but has not needed IV antihypertensives. she is comfortable and her BP have remained normotensive since starting mag. she denies any ODONNELL, Vision changes, Ruq pain, nausea or vomting, or SOB. She has no acute concerns this morning. FHT: 150, MOd daniella,+accels, -Decel---cat I tracing BP Normotensive UOP:75ml per hr A/P 21 yo @ 32W4D by 7wk us ADmitted for pre e with severe features now on mag that started at 00 on Aug. Stable at this time, no s/s of worsening pre e or mag toxicity. -Mag for 24hrs -North in place, strict monitoring of UOP while on mag -second dose of steroid today at 5pm -after mag off, transfer to [facility] with BID NST and once weekly BPP or PRN if abnormal NST -Daily PRE E LAS( CBC/CMP). -Antihypertensive IV Meds PRN , Goal is less than 160/110 -Clears while on mag -PCN when IOL starts -IOL at 34 WEEKS, OR SOONER if conditions worsens. -Plan discussed with patient and and they expressed understanding Objective Vital Signs Date Time Temp Pulse Resp B/P (MAP) Pulse Ox O2 Delivery O2 Flow Rate FiO2 09/03/21 06:01 80 16 129/72 (91) 09/03/21 05:16 97.8 MANOHAR DEAN MD Sep 03, 2021 06:29
[2021-09-03 07:18] LABS: HEMATOCRIT 37.4 % (36.0-47.0); HEMOGLOBIN 12.8 g/dl (12.0-15.5); MEAN CORPUSCULAR HEMOGLOBIN 30.3 pg (27.0-33.0); MEAN CORPUSCULAR HGB CONC 34.2 g/dl (32.0-36.5); MEAN CORPUSCULAR VOLUME 88.6 fl (80.0-96.0); PLATELET COUNT, AUTOMATED 188 10^3/uL (150-450); RED BLOOD COUNT 4.22 10^6/uL (4.00-5.40); WHITE BLOOD COUNT 17.2 10^3/uL (4.0-10.0)
[2021-09-03 07:52] LABS: ALBUMIN 2.4 GM/DL (3.2-5.2); ALT/SGPT 17 U/L (12-78); BILIRUBIN,TOTAL 0.2 MG/DL (0.2-1.0); BLOOD UREA NITROGEN 4 MG/DL (7-18); CALCIUM LEVEL 7.6 MG/DL (8.5-10.1); CARBON DIOXIDE LEVEL 21 MEQ/L (21-32); CHLORIDE LEVEL 110 MEQ/L (98-107); CREATININE FOR GFR 0.45 MG/DL (0.55-1.30); GLOMERULAR FILTRATION RATE > 60.0 (>60); GLUCOSE, FASTING 106 MG/DL (70-100); POTASSIUM SERUM 3.9 MEQ/L (3.5-5.1); SODIUM LEVEL 141 MEQ/L (136-145); TOTAL PROTEIN 5.8 GM/DL (6.4-8.2)
--- NOTE | 2021-09-03 09:17 | IPNPDOC ---
Text Note Date of Service The patient was seen on 09/03/21. NOTE Acceptance of Care Linda Jovel is a 21yo at 32+4 diagnosed with preeclampsia with severe features. I have seen her in clinic, she was being monitored outpatient for preeclampsia without severe features; however she has developed severe range pressures. She was admitted yesterday, started on magnesium and betamethasone series. She is GBS+ by urine. Preeclampsia labs within normal limits. She was seen in her room and is comfortable. Denies headaches, vision changes, shortness of breath, right upper quadrant pain. We discussed her plan of care and she indicated understanding. A/P 21 yo @ 32W4D by 7wk us ADmitted for pre e with severe features now on mag that started at 00 on Aug. Stable at this time, no s/s of worsening pre e or mag toxicity. -Mag for 24hrs -North in place, strict monitoring of UOP while on mag -second dose of steroid today at 1700 -after mag off, transfer to [facility] with BID NST and once weekly BPP or PRN if abnormal NST -Daily PRE E labs (CBC/CMP). -Antihypertensive IV Meds PRN , Goal is less than 160/110 -Clears while on mag -PCN when IOL starts -IOL at 34 WEEKS, OR SOONER if conditions worsens. -Plan discussed with patient and and they expressed understanding VSTere, I+O VSTere, I+O Laboratory Tests 09/02/21 16:38 09/03/21 07:09 Vital Signs Date Time Temp Pulse Resp B/P (MAP) Pulse Ox O2 Delivery O2 Flow Rate FiO2 09/03/21 09:01 85 147/88 (107) 09/03/21 08:16 18 09/03/21 05:16 97.8 I&O- Last 24 Hours up to 6 AM 09/03/21 06:00 Intake Total 431.6 ml Output Total 675 ml Balance -243.4 ml NIKOLAS GUARDADO DO Sep 03, 2021 09:16
[2021-09-03] MEDS: BETAMETHASONE SOLUSPAN 6MG/ML 5ML VIAL (J0702 PER 3MG) IM SCH (17:21)
--- NOTE | 2021-09-03 17:58 | IPNPDOC ---
Text Note Date of Service The patient was seen on 09/03/21. NOTE Entered room for patient request to be off of continuous monitoring; I explained that the reason for monitoring is to be able to intervene in the event of an emergency and that this cannot be done while not monitoring. The bands are very uncomfortable for her and as the tracing has been reassuring when able to trace through mutual decision making we will take a 20 minute break then resume continuous monitoring until the magnesium is finished. Other her pressures have been mild range. She is afebrile. Denies headaches, vision changes shortness of breath, right upper quadrant pain. Urine output adequate. No signs/symptoms of magnesium toxicity. continue magnesium until 24 hours complete. VS,Fishbone, I+O VS, Fishbone, I+O Laboratory Tests 09/03/21 07:09 Vital Signs Date Time Temp Pulse Resp B/P (MAP) Pulse Ox O2 Delivery O2 Flow Rate FiO2 09/03/21 17:16 84 134/75 (94) 09/03/21 16:32 18 09/03/21 14:46 97.9 I&O- Last 24 Hours up to 6 AM 09/03/21 06:00 Intake Total 431.6 ml Output Total 675 ml Balance -243.4 ml NIKOLAS GUARDADO DO Sep 03, 2021 17:58
[2021-09-04] VITALS (8 sets, daily range): BP systolic 125–162; BP diastolic 77–86
[2021-09-04] MEDS: MAG Sulf (OBGYN) 20GM/500ML 20,000 MG in IV 1 EA IV SCH ×2 (04:55→14:55)
--- NOTE | 2021-09-04 06:09 | IPNPDOC ---
Text Note Date of Service The patient was seen on 09/04/21. NOTE Ant Jovel is a 21yo at 32+5 diagnosed with preeclampsia with severe f eatures. I have seen her in clinic, she was being monitored outpatient for preeclampsia without severe features; however she has developed severe range pressures. She was admitted 23NOV, received 24 hours magnesium and has completed one betamethasone series (23-24NOV) . She is GBS+ by urine. Preeclampsia labs within normal limits. She was seen in her room and is comfortable. Denies headaches, vision changes, shortness of breath, right upper quadrant pain. We discussed her plan of care and she indicated understanding. Her labs are not yet returned this morning. Exam a&o x3 nonlabored breathing abd soft nontender negative calf tenderness bilaterally monitoring while on magnesium was category I; she will have NSTs twice daily starting today. A/P 21 yo @ 32W5D by 7wk us admitted for pre e with severe features now s/p mag and betamethasone series. Stable at this time, no s/s of worsening pre e or mag toxicity. -discontinue parker -BID NST and once weekly BPP or PRN if abnormal NST -Daily PRE E labs (CBC/CMP). -Antihypertensive IV Meds PRN , Goal is less than 160/110 - consider oral antihypertensives if persistent high mild range pressures -regular diet -PCN when IOL starts -IOL at 34 WEEKS, OR SOONER if conditions worsens. -Plan discussed with patient and and they expressed understanding VS,Tere, I+O VS, Kristiee, I+O Laboratory Tests 09/03/21 07:09 Vital Signs Date Time Temp Pulse Resp B/P (MAP) Pulse Ox O2 Delivery O2 Flow Rate FiO2 09/04/21 02:34 98.5 101 125/81 (96) 09/03/21 19:01 18 I&O- Last 24 Hours up to 6 AM 09/04/21 06:00 Intake Total 2316.4 ml Output Total 3120 ml Balance -803.6 ml NIKOLAS GUARDADO DO Sep 04, 2021 06:09
[2021-09-04 08:45] LABS: HEMATOCRIT 34.6 % (36.0-47.0); HEMOGLOBIN 11.1 g/dl (12.0-15.5); MEAN CORPUSCULAR HEMOGLOBIN 29.8 pg (27.0-33.0); MEAN CORPUSCULAR HGB CONC 32.1 g/dl (32.0-36.5); PLATELET COUNT, AUTOMATED 172 10^3/uL (150-450); RED BLOOD COUNT 3.72 10^6/uL (4.00-5.40)
[2021-09-04 09:07] LABS: ALBUMIN 2.3 GM/DL (3.2-5.2); ALT/SGPT 16 U/L (12-78); BILIRUBIN,TOTAL 0.2 MG/DL (0.2-1.0); BLOOD UREA NITROGEN 5 MG/DL (7-18); CALCIUM LEVEL 7.2 MG/DL (8.5-10.1); CARBON DIOXIDE LEVEL 25 MEQ/L (21-32); CHLORIDE LEVEL 108 MEQ/L (98-107); CREATININE FOR GFR 0.43 MG/DL (0.55-1.30); GLOMERULAR FILTRATION RATE > 60.0 (>60); GLUCOSE, FASTING 96 MG/DL (70-100); LDH LACTATE DEHYDROGENASE 205 U/L (84-246); POTASSIUM SERUM 3.7 MEQ/L (3.5-5.1); SODIUM LEVEL 141 MEQ/L (136-145); TOTAL PROTEIN 5.4 GM/DL (6.4-8.2)
[2021-09-05] VITALS (8 sets, daily range): BP systolic 140–197; BP diastolic 82–108
[2021-09-05] MEDS: MAG Sulf (OBGYN) 20GM/500ML 20,000 MG in IV 1 EA IV SCH (00:55)
--- NOTE | 2021-09-05 07:09 | IPNPDOC ---
Obstetrical Progress Note Date of Service Sep 05, 2021 Nils Jovel is a 21yo at 32+6 diagnosed with preeclampsia with severe features. in clinic, she was being monitored outpatient for preeclampsia without severe features; however she has developed severe range pressures. She was admitted 23NOV, received 24 hours magnesium and has completed one betamethasone series (23-24NOV) . She is GBS+ by urine. Preeclampsia labs within normal limi ts. She was seen in her room and is comfortable. Denies headaches, vision changes, shortness of breath, right upper quadrant pain. We discussed her plan of care and she indicated understanding. Her labs are has remained stable. on vital sign riview, patient had one severe range BP and 2 other that were over 150's systolic overnight. other reading are mild range. Exam a&o x3 nonlabored breathing abd soft nontender negative calf tenderness bilaterally Reactive NST Overnight A/P 21 yo @ 32W6D by 7wk us admitted for pre e with severe features now s/p mag and betamethasone series. Stable at this time, no s/s of worsening pre e -start 100mg PO BID of labetalol -BID NST and once weekly BPP or PRN if abnormal NST -Daily PRE E labs (CBC/CMP). -Antihypertensive IV Meds PRN , Goal is less than 160/110 - consider oral antihypertensives if persistent high mild range pressures -regular diet -Get BPP on wednesday -PCN when IOL starts -IOL at 34 WEEKS, OR SOONER if conditions worsens. -Plan discussed with patient and and they expressed understanding Objective Vital Signs Date Time Temp Pulse Resp B/P (MAP) Pulse Ox O2 Delivery O2 Flow Rate FiO2 09/05/21 06:00 98.1 64 18 142/83 (102) 97 Room Air MANOHAR DEAN MD Sep 05, 2021 07:09
[2021-09-05 08:44] LABS: HEMATOCRIT 34.9 % (36.0-47.0); HEMOGLOBIN 11.2 g/dl (12.0-15.5); MEAN CORPUSCULAR HEMOGLOBIN 30.1 pg (27.0-33.0); MEAN CORPUSCULAR HGB CONC 32.1 g/dl (32.0-36.5); MEAN CORPUSCULAR VOLUME 93.8 fl (80.0-96.0); PLATELET COUNT, AUTOMATED 164 10^3/uL (150-450); RED BLOOD COUNT 3.72 10^6/uL (4.00-5.40); WHITE BLOOD COUNT 12.7 10^3/uL (4.0-10.0)
[2021-09-05] MEDS ORDERED: LABETALOL 100MG TAB PO SCH (09:00)
[2021-09-05] MEDS: PRENATAL VITAMINS CHEWABLE TABLET PO SCH (09:30)
[2021-09-05] MEDS: LABETALOL 200 MG TAB PO SCH (20:40)
[2021-09-06] VITALS (29 sets, daily range): BP systolic 130–180; BP diastolic 70–104
[2021-09-06] MEDS ORDERED: LABETALOL 100MG/20ML VIAL IV STA ×4 (02:25→16:31)
--- NOTE | 2021-09-06 07:37 | IPNPDOC ---
Text Note Date of Service Item Value Date Time Sodium Level 141 MEQ/L 09/04/21 0808 Potassium Level 3.7 MEQ/L 09/04/21 0808 Chloride Level 108 MEQ/L H 09/04/21 0808 Carbon Dioxide Level 25 MEQ/L 09/04/21 0808 Anion Gap 8 MEQ/L 09/04/21 0808 Blood Urea Nitrogen 5 MG/DL L 09/04/21 0808 Creatinine 0.43 MG/DL L 09/04/21 0808 Glomerular Filtration Rate > 60.0 09/04/21 0808 Fasting Glucose 96 MG/DL 09/04/21 0808 Calcium Level 7.2 MG/DL L 09/04/21 0808 Total Bilirubin 0.2 MG/DL 09/04/21 0808 Aspartate Amino Transf (AST/SGOT) 9 U/L 09/04/21 0808 Alanine Aminotransferase (ALT/SGPT) 16 U/L 09/04/21 0808 Alkaline Phosphatase 70 U/L 09/04/21 0808 Lactate Dehydrogenase 205 U/L 09/04/21 0808 Total Protein 5.4 GM/DL L 09/04/21 0808 Albumin 2.3 GM/DL L 09/04/21 0808 Albumin/Globulin Ratio 0.7 L 09/04/21 0808 Albumin 2.4 GM/DL L 09/03/21 0709 Total Protein 5.8 GM/DL L 09/03/21 0709 Albumin/Globulin Ratio 0.7 L 09/03/21 0709 Alkaline Phosphatase 79 U/L 09/03/21 0709 Alanine Aminotransferase (ALT/SGPT) 17 U/L 09/03/21 0709 Aspartate Amino Transf (AST/SGOT) 15 U/L 09/03/21 0709 Total Bilirubin 0.2 MG/DL # 09/03/21 0709 Fasting Glucose 106 MG/DL H 09/03/21 0709 Calcium Level 7.6 MG/DL L # 09/03/21 0709 Glomerular Filtration Rate > 60.0 09/03/21 0709 Creatinine 0.45 MG/DL L 09/03/21 0709 Blood Urea Nitrogen 4 MG/DL L 09/03/21 0709 Anion Gap 10 MEQ/L 09/03/21 0709 Carbon Dioxide Level 21 MEQ/L 09/03/21 0709 Chloride Level 110 MEQ/L H 09/03/21 0709 Potassium Level 3.9 MEQ/L 09/03/21 0709 Sodium Level 141 MEQ/L 09/03/21 0709 Item Value Date Time Platelet Count 164 10^3/uL 09/05/21 0755 Red Cell Distribution Width 14.7 % H 09/05/21 0755 Mean Corpuscular Hemoglobin Concent 32.1 g/dl 09/05/21 0755 Mean Corpuscular Volume 93.8 fl 09/05/21 0755 Mean Corpuscular Hemoglobin 30.1 pg 09/05/21 0755 Hematocrit 34.9 % L 09/05/21 0755 Hemoglobin 11.2 g/dl L 09/05/21 0755 Red Blood Count 3.72 10^6/uL L 09/05/21 0755 White Blood Count 12.7 10^3/uL H 09/05/21 0755 White Blood Count 15.0 10^3/uL H 09/04/21 0808 Red Blood Count 3.72 10^6/uL L 09/04/21 0808 Hemoglobin 11.1 g/dl L 09/04/21 0808 Hematocrit 34.6 % L 09/04/21 0808 Mean Corpuscular Volume 93.0 fl 09/04/21 0808 Mean Corpuscular Hemoglobin 29.8 pg 09/04/21 0808 Mean Corpuscular Hemoglobin Concent 32.1 g/dl 09/04/21 0808 Red Cell Distribution Width 14.7 % H 09/04/21 0808 Platelet Count 172 10^3/uL 09/04/21 0808 Platelet Count 188 10^3/uL 09/03/21 0709 Red Cell Distribution Width 14.6 % H 09/03/21 0709 Mean Corpuscular Hemoglobin Concent 34.2 g/dl 09/03/21 0709 Mean Corpuscular Hemoglobin 30.3 pg 09/03/21 0709 Mean Corpuscular Volume 88.6 fl 09/03/21 0709 Hematocrit 37.4 % 09/03/21 0709 Hemoglobin 12.8 g/dl 09/03/21 0709 Red Blood Count 4.22 10^6/uL 09/03/21 0709 Vital Signs Label Value Date Time Blood Pressure Assessment 150/90 (110) 09/06/21 0310 Source Automatic Cuff (NIBP) Blood Pressure Assessment 158/84 (108) 09/06/21 0254 Source Automatic Cuff (NIBP) Blood Pressure Assessment 172/82 (112) 09/06/21 0244 Source Automatic Cuff (NIBP) Blood Pressure Assessment 172/82 09/06/21 0244 Blood Pressure Assessment 172/82 (112) 09/06/21 0205 Source Automatic Cuff (NIBP) Blood Pressure Assessment 168/82 (110) 09/05/21 2045 Source Automatic Cuff (NIBP) Blood Pressure Assessment 168/82 09/05/21 2040 Pulse 80 09/05/21 2040 Pulse 74 09/06/21 0244 Blood Pressure Assessment 182/105 (130) 09/05/21 1802 Source Automatic Cuff (NIBP) Blood Pressure Assessment 197/108 (137) 09/05/21 1800 Source Automatic Cuff (NIBP) Blood Pressure Assessment 168/88 (114) 09/05/21 1753 Source Automatic Cuff (NIBP) Blood Pressure Assessment 140/83 (102) 09/05/21 1402 Source Automatic Cuff (NIBP) Blood Pressure Assessment 154/83 (106) 09/05/21 1000 Source Automatic Cuff (NIBP) Blood Pressure Assessment 154/83 09/05/21 0929 Pulse 67 09/05/21 0929 Pulse 67 09/05/21 1000 Pulse 71 09/05/21 1402 Patient Temperature 97.4 degrees F 09/05/21 1402 Temperature Source Temporal 09/05/21 1402 Pulse 83 09/05/21 1800 Respiratory Rate 17 bpm 09/05/21 1800 Patient Temperature 96.9 degrees F 09/05/21 1800 Temperature Source Temporal 09/05/21 1800 Respiratory Rate 18 bpm 09/05/21 1402 Respiratory Rate 16 bpm 09/05/21 1000 Patient Temperature 98.1 degrees F 09/05/21 0600 Temperature Source Temporal 09/05/21 0600 Pulse 64 09/05/21 0600 Respiratory Rate 18 bpm 09/05/21 0600 Blood Pressure Assessment 142/83 (102) 09/05/21 0600 Source Automatic Cuff (NIBP) Bedside Pulse Oximetry 97 % 09/05/21 0600 Blood Pressure Assessment 155/87 (109) 09/05/21 0200 Source Automatic Cuff (NIBP) Bedside Pulse Oximetry 97 % 09/05/21 0200 Respiratory Rate 18 bpm 09/05/21 0200 Pulse 65 09/05/21 0200 Patient Temperature 99.0 degrees F 09/05/21 0200 Temperature Source Temporal 09/05/21 0200 Patient Temperature 98.4 degrees F 09/04/21 2200 Temperature Source Temporal 09/04/21 2200 Pulse 73 09/04/21 2200 Respiratory Rate 16 bpm 09/04/21 2200 Blood Pressure Assessment 162/80 (107) 09/04/21 2200 Source Automatic Cuff (NIBP) Blood Pressure Assessment 150/80 (103) 09/04/21 1800 Source Automatic Cuff (NIBP) Respiratory Rate 18 bpm 09/04/21 1800 Pulse 73 09/04/21 1800 Patient Temperature 97.8 degrees F 09/04/21 1800 Temperature Source Axillary 09/04/21 1800 Patient Temperature 98.3 degrees F 09/04/21 1400 Temperature Source Temporal 09/04/21 1400 Pulse 77 09/04/21 1400 Respiratory Rate 18 bpm 09/04/21 1400 Blood Pressure Assessment 138/84 (102) 09/04/21 1400 Source Automatic Cuff (NIBP) Blood Pressure Assessment 140/82 (101) 09/04/21 1000 Source Automatic Cuff (NIBP) Respiratory Rate 18 bpm 09/04/21 1000 Pulse 83 09/04/21 1000 Patient Temperature 97.2 degrees F 09/04/21 1000 Temperature Source Temporal 09/04/21 1000 The patient was seen on 09/06/21. NOTE 09/06/21 review progress to date . 21 Y.O A2 NOW AT 33 WEEKS WITH KNOWN HISTORY HYPERTENSION NOW WITH DIAGNOSIS OF PRE -E WITH SEVERE FEATURES WAS TREATED OUTPATIENT NOW WITH SEVER FEATURES ADMITTED AT 32.2 FOR MANAGEMENT AND PLANNED IOL AFTER 34 WEEKS UNLESS SEVERE RANGE OR SYMPTOMATIC . PATIENT RISK FACTORS ARE BMI DEPRESSION GBS POSITIVE URINE. TO DATE PATIENT RECEIVED MGSO4 X 24 HOURS FOR NEURO PROPHYLAXIS, STEROIDS X 24 HOURS FOR LUNG MATURITY. INITIALLY STARTED ON ORAL LABETALOL 100MG BID INCREASED TO 200MG BID WITH BREAKTHROUGH MEDICATION INITIATE BP PROTOCOL HAD 1 DOSE IV LABETALOL 20 MG RESOLVED UNTIL 0600 WITH ELEVATED BUT NOT MET CRITERIA FOR IV MEDICATION. THROUGHOUT ASYMPTOMATIC . ORDERED PRE-E PROFILE NOT YET DRAWN AND POSSIBLY ADD NIFEDIPINE TO MEDICATION PROFILE. PATIENT IS 33 WEEKS TODAY NEONATOLOGY CONSULTED VS,Tere, I+O VS, Tere, I+O Laboratory Tests 09/05/21 07:55 Vital Signs Date Time Temp Pulse Resp B/P (MAP) Pulse Ox O2 Delivery O2 Flow Rate FiO2 09/06/21 03:10 150/90 (110) 09/06/21 02:44 74 09/05/21 18:00 96.9 17 100 Room Air I&O- Last 24 Hours up to 6 AM 09/06/21 06:00 Intake Total 300 ml Balance 300 ml Gaudencio Hemphill MD Sep 06, 2021 07:30
--- NOTE | 2021-09-06 07:50 | IPNPDOC ---
Text Note Date of Service The patient was seen on 09/06/21. NOTE 09/06/21 blood work not available yet. patient complains of slight headache was diagnosed as chronic migraines and medication prescribed but not taken here so will order Fioricet as per her Rx VS,Fishbone, I+O VS, Fishbone, I+O Laboratory Tests 09/05/21 07:55 Vital Signs Date Time Temp Pulse Resp B/P (MAP) Pulse Ox O2 Delivery O2 Flow Rate FiO2 09/06/21 03:10 150/90 (110) 09/06/21 02:44 74 09/05/21 18:00 96.9 17 100 Room Air I&O- Last 24 Hours up to 6 AM 09/06/21 06:00 Intake Total 300 ml Balance 300 ml Gaudencio Hemphill MD Sep 06, 2021 07:50
[2021-09-06 07:53] LABS: CREATININE,RANDOM URINE 33.5 MG/DL; TOTAL PROTEIN,RANDOM URINE 169.5 MG/DL (0.0-12.0)
[2021-09-06] MEDS ORDERED: FIORICET TAB PO ONE (08:15)
[2021-09-06] MEDS: PRENATAL VITAMINS CHEWABLE TABLET PO SCH (08:30)
[2021-09-06] MEDS: LABETALOL 200 MG TAB PO SCH (08:30)
[2021-09-06 08:40] LABS: ALT/SGPT 16 U/L (12-78); BILIRUBIN,TOTAL 0.2 MG/DL (0.2-1.0); GLOMERULAR FILTRATION RATE > 60.0 (>60); LDH LACTATE DEHYDROGENASE 198 U/L (84-246); URIC ACID 2.6 MG/DL (2.6-6.0)
[2021-09-06] MEDS ORDERED: PRENATAL VITAMINS CHEWABLE TABLET PO SCH (09:00)
[2021-09-06] MEDS ORDERED: FIORICET TAB PO PRN (09:00)
--- NOTE | 2021-09-06 09:17 | IPNPDOC ---
Text Note Date of Service The patient was seen on 09/06/21. NOTE Acceptance of Care Ant Jovel is a 21yo at 33+0 diagnosed with preeclampsia with severe features. in clinic, she was being monitored outpatient for preeclampsia without severe features; however she has developed severe range pressures. She was admitted 23NOV, received 24 hours magnesium and has completed one betamethasone series (23-24NOV) . She is GBS+ by urine. Preeclampsia labs within normal limits. She was seen in her room and is comfortable. Denies headaches, vision changes, shortness of breath, right upper quadrant pain. We discussed her plan of care and she indicated understanding. Her labs have remained stable. Per physician signout and chart review she had sustained severe range blood pressures last night treated with IV labetalol 20mg. Mild range pressures since. Currently on 200mg oral labetalol twice daily. She was seen in her room eating breakfast. She had a headache earlier relieved with fioricet which she usually takes at home for migraines. She was alert and oriented with no signs of distress and nonlabored breathing, upright in chair eating breakfast. A/P 21 yo @ 33+0 by 7wk us admitted for pre e with severe features now s/p mag and betamethasone series. Stable at this time, no s/s of worsening pre e -continue Labetalol 200mg PO BID -BID NST and once weekly BPP or PRN if abnormal NST -Daily PRE E labs (CBC/CMP). -Antihypertensive IV Meds PRN , Goal is less than 160/110 -regular diet -Get BPP on , Wednesday -PCN when IOL starts -IOL at 34 WEEKS, OR SOONER if conditions worsens. -Plan discussed with patient and and they expressed understanding Nikolas Keller, DO VS,Kristiee, I+O VS, Kristiee, I+O Laboratory Tests 09/06/21 07:37 Vital Signs Date Time Temp Pulse Resp B/P (MAP) Pulse Ox O2 Delivery O2 Flow Rate FiO2 09/06/21 08:31 16 09/06/21 03:10 150/90 (110) 09/06/21 02:44 74 09/05/21 18:00 96.9 100 Room Air I&O- Last 24 Hours up to 6 AM 09/06/21 05:59 Intake Total 300 ml Balance 300 ml NIKOLAS KELLER DO Sep 06, 2021 09:17
[2021-09-06] MEDS ORDERED: CALCIUM GLUCONATE 1,000 MG in D5W MINI-BAG PLUS 100 ML IV PRN (16:40)
[2021-09-06] MEDS ORDERED: MAG Sulf (L&D) 4 GM/100 ML 4 GM in IV 1 EA IV ONE (16:50)
[2021-09-06] MEDS: LR 1,000 ML IV SCH ×2 (16:57→19:55)
[2021-09-06] MEDS: MAG Sulf (OBGYN) 20GM/500ML 20,000 MG in IV 1 EA IV SCH (17:17)
[2021-09-06 17:34] LABS: HEMATOCRIT 36.7 % (36.0-47.0); HEMOGLOBIN 11.8 g/dl (12.0-15.5); MEAN CORPUSCULAR HEMOGLOBIN 30.3 pg (27.0-33.0); MEAN CORPUSCULAR HGB CONC 32.2 g/dl (32.0-36.5); MEAN CORPUSCULAR VOLUME 94.3 fl (80.0-96.0); PLATELET COUNT, AUTOMATED 164 10^3/uL (150-450); RED BLOOD COUNT 3.89 10^6/uL (4.00-5.40); WHITE BLOOD COUNT 13.7 10^3/uL (4.0-10.0)
[2021-09-06] MEDS ORDERED: OXYTOCIN 30 UNITS IN 0.9% NaCl 500ML IV BAG (J2590) As Ordered ONE ×2 (18:01→20:06)
--- NOTE | 2021-09-06 18:01 | IPNPDOC ---
Text Note Date of Service The patient was seen on 09/06/21. NOTE I transferred Ant Jovel to Labor & Delivery as she had severe range pressures requiring 20mg, 40mg, then 80mg of labetalol to control, all this over a period of 2 hours. Due to severe pressures for greater than two hours, I started magnesium therapy for seizure prophylaxis, which will continue for 24 hours. She now has a blood pressure of 140s/80s. She is on labetalol 200mg po BID. There is room to raise this or to start nifedipine extended release. I will see what her pressures are like after this acute phase and reevaluate. A CBC and CMP were drawn during this acute period. At this time the mother does wish to continue with expectant management; whe is aware that while the goal is 34 weeks, uncontrollable hypertension may require delivery sooner. -addendum: called to patient room as she had severe range 160s systolic. She is also complaining of 7/10 headache for which fioricet did not resolve. I discussed with her my concerns about ability to control her blood pressures; we have used labetalol up to 80mg and now have only hydralazine left. Also her hea dache refractory to medication is concerning for worsening preeclampsia. I consulted Dr. Coy who reviewed care of the 33-week with Ant Jovel and her spouse. After this discussion she declined expectant management and I recommended delivery as induction may take days and her blood pressures remain uncontrolled. Nikolas Keller DO VSTere, I+O VS, Tree, I+O Laboratory Tests 09/06/21 07:37 Vital Signs Date Time Temp Pulse Resp B/P (MAP) Pulse Ox O2 Delivery O2 Flow Rate FiO2 09/06/21 17:10 80 146/87 (106) 09/06/21 17:01 98.1 20 09/06/21 14:00 74 09/06/21 10:00 Room Air I&O- Last 24 Hours up to 6 AM 09/06/21 05:59 Intake Total 300 ml Balance 300 ml NIKOLAS KELLER DO Sep 06, 2021 17:24
[2021-09-06] MEDS ORDERED: MORPHINE PRES-FREE INJ 10 MG/10 ML VIAL (J2274) As Ordered ONE (18:02)
[2021-09-06] MEDS ORDERED: ceFAZolin SOD 2 GM in IV 1 EA IV ONE (18:05)
[2021-09-06 18:06] LABS: ALBUMIN 2.3 GM/DL (3.2-5.2); ALT/SGPT 15 U/L (12-78); BILIRUBIN,TOTAL 0.2 MG/DL (0.2-1.0); BLOOD UREA NITROGEN 9 MG/DL (7-18); CALCIUM LEVEL 8.9 MG/DL (8.5-10.1); CARBON DIOXIDE LEVEL 24 MEQ/L (21-32); CHLORIDE LEVEL 109 MEQ/L (98-107); CREATININE FOR GFR 0.38 MG/DL (0.55-1.30); GLOMERULAR FILTRATION RATE > 60.0 (>60); GLUCOSE, FASTING 76 MG/DL (70-100); POTASSIUM SERUM 3.9 MEQ/L (3.5-5.1); SODIUM LEVEL 142 MEQ/L (136-145); TOTAL PROTEIN 5.4 GM/DL (6.4-8.2)
[2021-09-06] MEDS ORDERED: ceFAZolin 2 GM/D5W 50 ML IV BAG (J0690 PER 500MG) As Ordered ONE (18:11)
[2021-09-06] MEDS ORDERED: NALOXONE INJ 0.4MG/1ML VIAL (J2310 PER 1MG) IV PRN ×2 (18:38)
[2021-09-06] MEDS ORDERED: diphenhydrAMINE 50MG/ML VIAL (J1200) IV PRN (18:38)
[2021-09-06] MEDS ORDERED: ONDANSETRON 4MG/2ML VIAL IV PRN ×3 (18:38→20:00)
[2021-09-06] MEDS ORDERED: NALBUPHINE HCL 10 MG/ML AMP (J2300) IV PRN (18:38)
[2021-09-06] MEDS ORDERED: METOCLOPRAMIDE INJ 10MG/2ML VIAL (J2765 PER 1) IV PRN ×2 (18:38→20:00)
[2021-09-06] MEDS ORDERED: ONDANSETRON 4MG/2ML VIAL As Ordered ONE (18:59)
[2021-09-06] MEDS ORDERED: dexameTHASONE 4 MG/ML 1ML VIAL (J1100 PER 1MG) As Ordered ONE (18:59)
[2021-09-06 19:08] LABS: CORD GAS HCO3 A 24.5 MEQ/L; CORD GAS O2 SAT A 61.9 %; CORD GAS PCO2 A 52.5 mmHg; CORD GAS PH A 7.286 UNITS; CORD GAS PO2 A 27.6 mmHg; CORD GAS SBC A 21.1 MEQ/L; CORD GAS TCO2 A 26.1 MEQ/L
[2021-09-06 19:11] LABS: CORD GAS HCO3 V 22.7 MEQ/L; CORD GAS O2 SAT V 64.5 %; CORD GAS PCO2 V 42.8 mmHg; CORD GAS PH V 7.343 UNITS; CORD GAS PO2 V 26.9 mmHg; CORD GAS SBC V 21.2 MEQ/L
[2021-09-06] MEDS ORDERED: KETOROLAC 60MG 2ML VIAL As Ordered ONE (19:18)
[2021-09-06] MEDS: ACETAMINOPHEN 500 MG TAB PO SCH (19:55)
[2021-09-06] MEDS ORDERED: MEASLES,MUMPS,RUBELLA VACCINE INJ (MMR-II) (90707) SC SCH (19:55)
[2021-09-06] MEDS ORDERED: oxyCODONE 5MG TAB PO PRN (19:55)
[2021-09-06] MEDS ORDERED: PROMETHAZINE 25 MG TAB PO PRN (19:55)
[2021-09-06] MEDS ORDERED: MORPHINE 2 MG/ML 1ML VIAL (J2270) IV PRN (19:55)
[2021-09-06] MEDS ORDERED: RHOGAM 300 MCG (1500 IU) INJ (J2790) IM SCH (19:55)
[2021-09-06] MEDS ORDERED: SIMETHICONE 80MG CHEW TAB PO PRN (19:55)
[2021-09-06] MEDS ORDERED: OXYTOCIN DRIP 30 UNITS in IV 1 EA IV SCH ×4 (19:55)
[2021-09-06] MEDS ORDERED: LR 1,000 ML IV SCH (20:00)
[2021-09-06] MEDS ORDERED: PERCOCET 5MG/325MG TAB PO PRN (20:00)
[2021-09-06] MEDS ORDERED: fentaNYL 100 MCG/2 ML INJECTION (J3010) IV PRN (20:00)
--- NOTE | 2021-09-06 20:20 | ROOPDOC ---
[facility] Report Of Operation Report of Operation DATE OF PROCEDURE: 09/06/21 PREPROCEDURE DIAGNOSES: 1. 33 weeks gestation 2. preeclampsia with severe features 3. uncontrolled hypertension 4. headache refractory to medications 5. maternal declination of expectant management POSTPROCEDURE DIAGNOSES: same as above, delivered PROCEDURE PERFORMED: primary low transverse delivery SURGEON: Helder Keller DO PANEL GLUER: Becki Martinez MD; whose assistance with retraction and delivery of the fetus was essential to the completion of the case ANESTHESIA: spinal ESTIMATED BLOOD LOSS: Approximately 600 mL. COMPLICATIONS: none REMARKS: none FINDINGS: live male , good cry noted, 4# 5oz; 1948g; apgars 8/9. Normal appearing uterus, tubes and ovaries SPECIMENS REMOVED: placenta PROCEDURE NOTE: see below DESCRIPTION OF PROCEDURE: After obtaining informed consent, the patient was brought to the operating suite and prepped/draped in the usual sterile manner. A surgical timeout was performed and the patient name, date of , and procedure to be performed were verified. Anesthesia was found to be adequate with an Allis clamp. A transverse incision was made 2 fingerbreadths superior to the pubic symphysis, this was carried down to the fascia and the fascia was scored with the scalpel. This was extended laterally bilaterally with Mcguire scissors. the superior and inferior fascia was dissected from the rectus muscles both sharply and bluntly. The rectus muscles were and the peritoneum was entered bluntly. A bladder flap was created. A low transverse uterine incision was made with the scalpel and the uterus was entered bluntly with clear fluid noted. The head was elevated to the level of the incision and delivered with gentle fundal pressure followed by the shoulders and corpus without issue. The was suctioned and stimulated with good cry noted. The cord was clamped and cut and the passed off the field to the pediatrics team for evaluation. Cord gases were obtained. The placenta delivered spontaneously and intact. The uterus was exteriorized and wiped interiorly with a laparotomy sponge. The uterus was closed in two layers with 0-vicryl. A figure of eight stitch was placed at the right angle for hemostasis. The posterior culdesac was irrigated. The uterus was returned to the abdomen. SOme oozing at the edge of the bladder flap was treated with Arrista and hemostasis was noted. The peritoneum was closed with 3-0 vicryl. The fascia was closed with running 0-vicryl. The subcutaneous layer was irrigated then closed with 3-0 vicryl. THe skin was closed with 4-0 monocryl. All clots were cleared from the vagina. All counts were correct and Ant Jovel was taken to the recovery room by anesthesia in good condition. DO GEO Mendoza BRADLEY J. DO Sep 06, 2021 20:20
[2021-09-06] MEDS: DOCUSATE SODIUM 100MG CAPSULE PO SCH (21:00)
[2021-09-07] VITALS (15 sets, daily range): BP systolic 115–139; BP diastolic 62–86
[2021-09-07] MEDS: ACETAMINOPHEN 500 MG TAB PO SCH ×4 (01:55→20:14)
[2021-09-07] MEDS: MAG Sulf (OBGYN) 20GM/500ML 20,000 MG in IV 1 EA IV SCH ×2 (03:27→13:41)
[2021-09-07] MEDS: KETOROLAC 30 MG/ML 1ML VIAL IV SCH ×3 (03:34→13:42)
[2021-09-07] MEDS: LR 1,000 ML IV SCH ×3 (03:55→11:55)
[2021-09-07 08:44] LABS: HEMOGLOBIN 10.8 g/dl (12.0-15.5); MEAN CORPUSCULAR HEMOGLOBIN 30.6 pg (27.0-33.0); MEAN CORPUSCULAR HGB CONC 32.7 g/dl (32.0-36.5); MEAN CORPUSCULAR VOLUME 93.5 fl (80.0-96.0); PLATELET COUNT, AUTOMATED 159 10^3/uL (150-450); RED BLOOD COUNT 3.53 10^6/uL (4.00-5.40); WHITE BLOOD COUNT 16.8 10^3/uL (4.0-10.0)
[2021-09-07 08:51] LABS: ALT/SGPT 15 U/L (12-78); BILIRUBIN,TOTAL 0.2 MG/DL (0.2-1.0); BLOOD UREA NITROGEN 6 MG/DL (7-18); CALCIUM LEVEL 7.1 MG/DL (8.5-10.1); CARBON DIOXIDE LEVEL 25 MEQ/L (21-32); CHLORIDE LEVEL 105 MEQ/L (98-107); CREATININE FOR GFR 0.37 MG/DL (0.55-1.30); GLOMERULAR FILTRATION RATE > 60.0 (>60); GLUCOSE, FASTING 70 MG/DL (70-100); POTASSIUM SERUM 4.5 MEQ/L (3.5-5.1); SODIUM LEVEL 139 MEQ/L (136-145); TOTAL PROTEIN 4.9 GM/DL (6.4-8.2)
[2021-09-07] MEDS: PRENATAL VITAMINS CHEWABLE TABLET PO SCH (08:58)
[2021-09-07] MEDS: DOCUSATE SODIUM 100MG CAPSULE PO SCH ×2 (08:58→20:14)
--- NOTE | 2021-09-07 10:42 | IPNPDOC ---
Progress Note Date of Service: Sep 07, 2021 Day#: 1 Progress Note SUBJECT: Ant Jovel is a 21-year-old status post uncomplicated PLTCD at 33+0 weeks' at approximately 1857 hours on 06SEP2021 of a male 4 pounds 5 ounces (1948 grams) doing well day # 1. She is on magnesium, tolerating clear liquid diet. Pumping without issue. Reports lochia is small. Pain controlled. PREPROCEDURE DIAGNOSES: 1. 33 weeks gestation 2. preeclampsia with severe features 3. uncontrolled hypertension 4. headache refractory to medications 5. maternal declination of expectant management POSTPROCEDURE DIAGNOSES: same as above, delivered She denies headaches, vision changes, shortness of breath, right upper quadrant OBJECTIVE: VITAL SIGNS: normotensive, afebrile. Alert and oriented times three. Breath sounds clear to auscultation. Heart rate: Regular rate and rhythm, no murmurs, rubs or gallops. Abdomen: Fundus firm at U-2. Soft, appropriately tender postoperatively, incision covered with minimal strikethrough 2+ patellar reflexes bilaterally ASSESSMENT: as above ppd#1 on magnesium with preeclampsia with severe features, doing well on day 1. Vitals within normal limits, afebrile, hemodynamically stable with no evidence of infection. No evidence of worsening preeclampsia. PLAN: - continue magnesium until 24 hours after delivery - monitor for signs/symptoms of worsening preeclampsia - anticipate discharge earliest 48 hours with follow up clinic blood pressure checks - once off of magnesium encourage ambulation and advance diet as tolerated - otherwise routine /postoperative care Nikolas Keller, VS, I&O, 24H, Tere Vital Signs/I&O Vital Signs Date Time Temp Pulse Resp B/P (MAP) Pulse Ox O2 Delivery O2 Flow Rate FiO2 09/07/21 10:18 67 18 127/71 (89) 09/07/21 08:28 96 Room Air 09/07/21 07:21 98.1 I&O- Last 24 Hours up to 6 AM 09/07/21 05:59 Intake Total 251.9 ml Output Total 1950 ml Balance -1698.1 ml Laboratory Data 24H LABS Laboratory Tests 2 09/06/21 17:16: Nucleated Red Blood Cells % (auto) 0.4H, Anion Gap 9, Glomerular Filtration Rate > 60.0, Calcium Level 8.9#, Total Bilirubin 0.2, Aspartate Amino Transf (AST/SGOT) 13, Alanine Aminotransferase (ALT/SGPT) 15, Alkaline Phosphatase 70, Total Protein 5.4L, Albumin 2.3L, Albumin/Globulin Ratio 0.7L 09/06/21 18:53: Cord Arterial Blood pH 7.286, Cord Arterial Blood PCO2 52.5, Cord Arterial Blood PO2 27.6, Cord Arterial Blood HCO3 24.5, Cord Arterial Blood Total CO2 26.1, Cord Arterial Blood Base Excess -3.0, Cord Arterial Base Excess (Standard 21.1, Cord Arterial Bld Oxygen Saturation 61.9, Cord Venous Blood pH 7.343, Cord Venous Blood PCO2 42.8, Cord Venous Blood PO2 26.9, Cord Venous Blood HCO3 22.7, Cord Venous Blood Total CO2 24.0, Cord Venous Base Excess (Actual) -3.0, Cord Venous Base Excess (Standard) 21.2, Cord Venous Blood Oxygen Saturation 64.5 09/07/21 07:45: Nucleated Red Blood Cells % (auto) 0.2H, Anion Gap 9, Glomerular Filtration Rate > 60.0, Calcium Level 7.1#L, Total Bilirubin 0.2, Aspartate Amino Transf (AST/SGOT) 15, Alanine Aminotransferase (ALT/SGPT) 15, Alkaline Phosphatase 70, Total Protein 4.9L, Albumin 2.0L, Albumin/Globulin Ratio 0.7L CBC/BMP Laboratory Tests 09/06/21 17:16 09/07/21 07:45 NIKOLAS KELLER DO Sep 07, 2021 10:42
[2021-09-07] MEDS ORDERED: OXYC-517 PO (15:34)
[2021-09-07] MEDS ORDERED: COLA100C5 PO (15:34)
[2021-09-07] MEDS ORDERED: ACET-683 PO (15:34)
[2021-09-07] MEDS ORDERED: IBUP80TA PO (15:34)
[2021-09-07] MEDS: IBUPROFEN 800 MG TAB PO SCH (21:57)
[2021-09-08] MEDS: oxyCODONE 5MG TAB PO PRN ×3 (01:46→11:59)
[2021-09-08] MEDS: ACETAMINOPHEN 500 MG TAB PO SCH ×4 (01:46→20:30)
[2021-09-08 02:00] VITALS: BP 132/78
[2021-09-08 06:00] VITALS: BP 149/87
[2021-09-08] MEDS: IBUPROFEN 800 MG TAB PO SCH ×3 (06:05→22:15)
[2021-09-08] MEDS ORDERED: SLF 3 ML SYR IV PRN (08:05)
--- NOTE | 2021-09-08 08:33 | IPNPDOC ---
Progress Note Date of Service: Sep 08, 2021 Day#: 2 Progress Note SUBJECT: Ant Jovel is a 21-year-old status post uncomplicated PLTCD at 33+0 weeks' at approximately 1857 hours on 06SEP2021 of a male 4 pounds 5 ounces (1948 grams) doing well day # 2. Eating, ambulating, urinating without issue. Passed flatus. Reports severe incisional pain to right side of incision. PREPROCEDURE DIAGNOSES: 1. 33 weeks gestation 2. preeclampsia with severe features 3. uncontrolled hypertension 4. headache refractory to medications 5. maternal declination of expectant management POSTPROCEDURE DIAGNOSES: same as above, delivered Denies headaches, vision changes, shortness of breath, right upper quadrant pain. OBJECTIVE: VITAL SIGNS: Within normal limits, afebrile. Alert and oriented times three. Breath sounds clear to auscultation. Heart rate: Regular rate and rhythm, no murmurs, rubs or gallops. Abdomen: Fundus firm at U-2. Soft, appropriately tender postop. Positive bowel sounds. Incision covered with no strikethrough. Incision nontender to palpation. Bilateral patellar reflexes 2+ ASSESSMENT: as above, G1 PPD#2 PLTCD, preeclampsia with severe features on magnesium, doing well on day 1. Vitals within normal limits, afebrile, hemodynamically stable with no evidence of infection; no evidence of worsening preeclampsia. PLAN: - monitor incision pain, expect to improve, consider gabapentin if neuropathic in nature - encourage ambulation - regular diet - q4h vitals - monitor for worsening preeclampsia - otherwise routine postoperative/ care - consider discharge tomorrow follow up one week for blood pressure check VS, I&O, 24H, Fishbone Vital Signs/I&O Vital Signs Date Time Temp Pulse Resp B/P (MAP) Pulse Ox O2 Delivery O2 Flow Rate FiO2 09/08/21 07:29 18 Room Air 09/08/21 06:00 98.0 83 149/87 (107) 97 I&O- Last 24 Hours up to 6 AM 09/08/21 06:00 Intake Total 3424.3 ml Output Total 2220 ml Balance 1204.3 ml NIKOLAS GUARDADO DO Sep 08, 2021 08:31
[2021-09-08] MEDS: DOCUSATE SODIUM 100MG CAPSULE PO SCH ×2 (09:14→20:30)
[2021-09-08] MEDS: PRENATAL VITAMINS CHEWABLE TABLET PO SCH (09:15)
[2021-09-08 10:38] VITALS: BP 147/101
[2021-09-08 11:18] VITALS: BP 141/85
[2021-09-08] MEDS: SLF 3 ML SYR IV SCH ×2 (14:20→22:00)
[2021-09-08] MEDS ORDERED: GABAPENTIN 300 MG CAP PO SCH (16:00)
[2021-09-08 18:26] VITALS: BP 137/84
[2021-09-08 22:00] VITALS: BP 158/90
[2021-09-08] MEDS: GABAPENTIN 300 MG CAP PO SCH (22:00)
[2021-09-09] VITALS (8 sets, daily range): BP systolic 132–169; BP diastolic 63–92
[2021-09-09] MEDS: ACETAMINOPHEN 500 MG TAB PO SCH ×4 (02:00→19:50)
[2021-09-09] MEDS: GABAPENTIN 300 MG CAP PO SCH ×3 (06:00→21:14)
[2021-09-09] MEDS: IBUPROFEN 800 MG TAB PO SCH ×3 (06:00→21:14)
[2021-09-09] MEDS: PRENATAL VITAMINS CHEWABLE TABLET PO SCH (08:20)
[2021-09-09] MEDS: DOCUSATE SODIUM 100MG CAPSULE PO SCH ×2 (08:20→21:14)
[2021-09-09] MEDS: SLF 3 ML SYR IV SCH ×3 (10:34→22:00)
[2021-09-09] MEDS: LABETALOL 200 MG TAB PO SCH ×2 (10:34→14:28)
[2021-09-09] MEDS: oxyCODONE 5MG TAB PO PRN (16:02)
--- NOTE | 2021-09-09 20:02 | IPNPDOC ---
Progress Note Date of Service: Sep 09, 2021 Progress Note Patient seen late this morning. She is POD#2 s/p uncomplicated PLTCS at ~33 weeks gestation for pre eclampsia with severe features remote from delivery. She is under isolation due to a possible COVID+ exposure (close contact). She is asymptomatic and tested negative on admission. Ant reports overall doing well. She still has pain at the right side of her incision but gabapentin seems to be helping. She is ambulating, voiding on her own, tolerating a regular diet, and has minimal lochia. She denies any headaches, RUQ pain, or visual changes. Vitals - multiple severely elevated BPs today. Non tachycardic, afebrile. General - Sitting up in bed, AAOX3, NAD Abdomen - Soft. Fundus firm at U-2. No fundal tenderness. Optifoam dressing in place over incision. No tenderness to palpation. Extremities - Mild edema. UO - appropriate Labs: Stable Will start 200mg BID labetalol and 30mg daily nifedipine XR for blood pressure control and continue to monitor closely. Once blood pressure is stable she will be ready for discharge. All patient questions answered. Richard VS, I&O, 24H, Tere Vital Signs/I&O Vital Signs Date Time Temp Pulse Resp B/P (MAP) Pulse Ox O2 Delivery O2 Flow Rate FiO2 09/09/21 18:00 98.2 95 16 150/92 (111) Room Air 09/09/21 10:00 97 CHRISTIANO PHAN DO Sep 09, 2021 20:01
[2021-09-09] MEDS ORDERED: NIFEdipine 30 MG XL TAB PO SCH (21:00)
[2021-09-10] VITALS (22 sets, daily range): BP systolic 131–174; BP diastolic 68–106
[2021-09-10] MEDS: ACETAMINOPHEN 500 MG TAB PO SCH ×4 (01:22→20:43)
[2021-09-10] MEDS: GABAPENTIN 300 MG CAP PO SCH ×3 (05:22→21:49)
[2021-09-10] MEDS: IBUPROFEN 800 MG TAB PO SCH ×3 (05:22→21:49)
[2021-09-10] MEDS: SLF 3 ML SYR IV SCH ×2 (05:42→14:00)
--- NOTE | 2021-09-10 07:05 | IPNPDOC ---
Progress Note Date of Service: Sep 10, 2021 Progress Note Ant Jovel is POD#3 s/p uncomplicated PLTCS at ~33 weeks gestation for pre eclampsia with severe features remote from delivery. She is under isolation due to a possible COVID+ exposure (close contact). She is asymptomatic and tested negative on admission. Ant reports overall doing well this AM. She still has pain at the right side of her incision but gabapentin seems to be helping. She is ambulating, voiding on her own, tolerating a regular diet, and has minimal lochia. She denies any headaches, RUQ pain, or visual changes. Vitals - Severely elevated BP this morning, most others 150s systolic. Non tachycardic, afebrile. General - Sitting up in bed, AAOX3, NAD Abdomen - Soft. Fundus firm at U-2. No fundal tenderness. Optifoam dressing i n place over incision. No tenderness to palpation. Extremities - Mild edema. UO - appropriate Labs: Stable Will increase to 300mg TID labetalol and continue 30mg daily XL nifedipine. Continue to monitor closely. Once blood pressure is stable she will be ready for discharge. All patient questions answered. Richard VS, I&O, 24H, Tere Vital Signs/I&O Vital Signs Date Time Temp Pulse Resp B/P (MAP) Pulse Ox O2 Delivery O2 Flow Rate FiO2 09/10/21 05:51 97.5 84 17 163/94 (117) 95 Room Air CHRISTIANO PHAN DO Sep 10, 2021 07:05
[2021-09-10] MEDS: PRENATAL VITAMINS CHEWABLE TABLET PO SCH (08:08)
[2021-09-10] MEDS: DOCUSATE SODIUM 100MG CAPSULE PO SCH ×2 (08:08→20:43)
[2021-09-10] MEDS ORDERED: LABETALOL 100MG TAB PO SCH (09:00)
[2021-09-10] MEDS: NIFEdipine 30 MG XL TAB PO SCH ×2 (09:32→20:43)
--- NOTE | 2021-09-10 11:50 | IPN ---
PROGRESS NOTE DATE: 09/08/2021 This patient requested circumcision of her male . After discussing risks and benefits of circumcision, the medical, the non-medical indications, the penile block and aftercare, expressed understanding of penile block, aftercare and bleeding, signed the consent form. All questions were answered. We await the baby's clearance by the herbarium curator in the NICU.
[2021-09-10] MEDS ORDERED: NIFEdipine 10 MG CAP PO ONE (15:25)
[2021-09-10] MEDS: LABETALOL 200 MG TAB PO SCH (17:10)
[2021-09-10] MEDS ORDERED: LABETALOL 200 MG TAB PO SCH (21:00)
[2021-09-11] MEDS: ACETAMINOPHEN 500 MG TAB PO SCH ×2 (01:36→07:52)
[2021-09-11 01:37] VITALS: BP 140/94
[2021-09-11] MEDS: IBUPROFEN 800 MG TAB PO SCH (05:28)
[2021-09-11] MEDS: GABAPENTIN 300 MG CAP PO SCH (05:28)
[2021-09-11 06:03] VITALS: BP 150/99
[2021-09-11] MEDS ORDERED: LABE300T3 PO (06:19)
[2021-09-11] MEDS ORDERED: PROC30TA PO (06:19)
--- NOTE | 2021-09-11 07:37 | OBDS ---
[facility] Obstetrical Discharge Sum. Obstetrical Discharge Summary Date: Sep 08, 2021 : 3 Term: 0 Pre-term: 1 Abortions: 2 Livin VDRL: Non-Reactive Rh: Positive Rubella: Immune Labor not applicable Delivery primary low transverse delivery Sex: Male Weight: pounds (4), ounces (5), grams (1948) Anesthesia: Regional Anesthesia A/P, Post Course List any complications Admission diagnosis: preeclampsia with severe features Discharge diagnosis: status post primary low transverse delivery Condition at Discharge: Good Discharge Instructions: Home Activity: vaginal rest, no lifting more than 10 pounds Diet: regular Medications: at [place] Follow-up: [facility] for blood pressure check, then 2 weeks incision check at [facility] , 6 weeks visit Other: Day of discharge exam a&ox3 cv rrr lungs ctab abdomen soft, appropriately tender postoperatively, positive bowel sounds negative calf tenderness bilaterally NIKOLAS GUARDADO DO Sep 07, 2021 14:09 MANOHAR DEAN MD Sep 11, 2021 07:37
[2021-09-11] MEDS ORDERED: GABA-282 PO (07:38)
[2021-09-11] MEDS: PRENATAL VITAMINS CHEWABLE TABLET PO SCH (07:52)
[2021-09-11] MEDS: NIFEdipine 30 MG XL TAB PO SCH (07:52)
[2021-09-11] MEDS: DOCUSATE SODIUM 100MG CAPSULE PO SCH (07:52)
[2021-09-11 07:53] VITALS: BP 140/90
[2021-09-11] MEDS: LABETALOL 200 MG TAB PO SCH (07:53)
[2021-09-12] MEDS ORDERED: GABA-282 PO (16:12)
== END 2021-09-11 08:25 | disposition home or self-care (01) | DRG 773 ==
LOC: M LDO 15:38 → M LDI 09-03 00:36 → M OBS 09-04 06:19 → M LDI 09-06 16:18 → M OBS 09-07 11:54
PROVIDERS: ADMIT Advanced Practice Midwife; ATTEND Obstetrics & Gynecology
PROC: 10D00Z1 Extraction of Products of Conception, Low, Open Approach (ICD-10-PCS; principal; 2021-09-06 18:17)
DX: O11.4 Pre-existing hypertension with pre-eclampsia, complicating childbirth (principal); Z3A.32 32 weeks gestation of pregnancy; O99.214 Obesity complicating childbirth; O10.02 Pre-existing essential hypertension complicating childbirth; E66.9 Obesity, unspecified; O99.824 Streptococcus B carrier state complicating childbirth; Z20.822 Contact with and (suspected) exposure to COVID-19; Z37.0 Single live birth

== ENCOUNTER 2021-09-12 15:55 | Outpatient (CLI) | payer OTHER ==
[~2021-09-12] VITALS: Ht 157.5 cm; Wt 96.4 kg
[~2021-09-12 15:55] MED LIST changes: +COLA100C5 PO; +FIOR1CAP PO; +GABA-282 PO; +IBUP80TA PO; +LABE300T3 PO; +METR1GEL7 PV; +OXYC-517 PO; +PROC30TA PO
--- OUTSIDE RECORDS SUMMARY | 2021-09-12 16:00 | CCD ---
Author Author [facility] Organization [facility] Address Unknown Phone Unavailable Care Team Providers Care Instrument Mechanics Supervisor Name Role Phone NO, PCP Unavailable Unavailable CHERELLE, F REZA DO Unavailable Unavailable CHERELLE, F REZA DO Unavailable Unavailable CHERELLE, F REZA DO Unavailable Unavailable CHERELLE, F REZA DO Unavailable Unavailable CHERELLE, F REZA DO Unavailable Unavailable CHERELLE, F REZA DO Unavailable Unavailable CHERELLE, F REAZ DO Unavailable Unavailable CHERELLE, F REZA DO Unavailable Unavailable CHERELLE, F REZA DO Unavailable Unavailable CHERELLE, F ERZA DO Unavailable Unavailable CHERELLE, F REZA DO [...] Unavailable TURRIN, ANDREA Unavailable Unavailable Kirsty PEREZ TRACK MACHINE OPERATOR REPAIRER Unavailable Unavailable CHRIS, T VÍCTOR TRACK MACHINE OPERATOR REPAIRER Unavailable Unavailable CHRIS, T VÍCTOR TRACK MACHINE OPERATOR REPAIRER Unavailable Unavailable CHRIS, T VÍCTOR TRACK MACHINE OPERATOR REPAIRER Unavailable Unavailable CHRIS, T VÍCTOR TRACK MACHINE OPERATOR REPAIRER Unavailable Unavailable CHRIS, T VÍCTOR TRACK MACHINE OPERATOR REPAIRER Unavailable Unavailable CHRIS, T VÍCTOR TRACK MACHINE OPERATOR REPAIRER Unavailable Unavailable CHRIS, T VÍCTOR TRACK MACHINE OPERATOR REPAIRER Unavailable Unavailable CHRIS, T VÍCTOR TRACK MACHINE OPERATOR REPAIRER Unavailable Unavailable CHRIS, T VÍCTOR TRACK MACHINE OPERATOR REPAIRER Unavailable Unavailable CHRIS, T VÍCTOR TRACK MACHINE OPERATOR REPAIRER Unavailable Unavailable CHRIS, T VÍCTOR TRACK MACHINE OPERATOR REPAIRER Unavailable Unavailable CHRIS, T VÍCTOR TRACK MACHINE OPERATOR REPAIRER Unavailable Unavailable CHRIS, T VÍCTOR TRACK MACHINE OPERATOR REPAIRER Unavailable Unavailable CHRIS, T VÍCTOR TRACK MACHINE OPERATOR REPAIRER Unavailable Unavailable CHRIS, T VÍCTOR TRACK MACHINE OPERATOR REPAIRER Unavailable Unavailable CHRIS, T VÍCTOR TRACK MACHINE OPERATOR REPAIRER Unavailable Unavailable CHRIS, T VÍCTOR TRACK MACHINE OPERATOR REPAIRER Unavailable Unavailable CHRIS, T VÍCTOR TRACK MACHINE OPERATOR REPAIRER Unavailable Unavailable CHRIS, T VÍCTOR TRACK MACHINE OPERATOR REPAIRER Unavailable Unavailable CHRIS, T VÍCTOR TRACK MACHINE OPERATOR REPAIRER Unavailable Unavailable CHRIS, T VÍCTOR TRACK MACHINE OPERATOR REPAIRER Unavailable Unavailable CHRIS, T VÍCTOR TRACK MACHINE OPERATOR REPAIRER Unavailable Unavailable CHRIS, T VÍCTOR TRACK MACHINE OPERATOR REPAIRER Unavailable Unavailable CHRIS, T VÍCTOR TRACK MACHINE OPERATOR REPAIRER Unavailable Unavailable CHRIS, T VÍCTOR TRACK MACHINE OPERATOR REPAIRER Unavailable Unavailable CHRIS, T VÍCTOR TRACK MACHINE OPERATOR REPAIRER Unavailable Unavailable CHRIS, T VÍCTOR TRACK MACHINE OPERATOR REPAIRER Unavailable Unavailable CHRIS, T VÍCTOR TRACK MACHINE OPERATOR REPAIRER Unavailable Unavailable CHRIS, T VÍCTOR TRACK MACHINE OPERATOR REPAIRER Unavailable Unavailable CHRIS, T VÍCTOR TRACK MACHINE OPERATOR REPAIRER Unavailable Unavailable CHRIS, T VÍCTOR TRACK MACHINE OPERATOR REPAIRER Unavailable Unavailable CHRIS, T VÍCTOR TRACK MACHINE OPERATOR REPAIRER Unavailable Unavailable CHRIS, T VÍCTOR TRACK MACHINE OPERATOR REPAIRER Unavailable Unavailable CHRIS, T VÍCTOR TRACK MACHINE OPERATOR REPAIRER Unavailable Unavailable CHRIS, T VÍCTOR TRACK MACHINE OPERATOR REPAIRER Unavailable Unavailable CHRIS, T VÍCTOR TRACK MACHINE OPERATOR REPAIRER Unavailable Unavailable CHRIS, T VÍCTOR TRACK MACHINE OPERATOR REPAIRER Unavailable Unavailable CHRIS, T VÍCTOR TRACK MACHINE OPERATOR REPAIRER Unavailable Unavailable CHRIS, T VÍCTOR TRACK MACHINE OPERATOR REPAIRER Unavailable Unavailable Reynaldo Montes De Oca MD [...] MD Unavailable Unavailable Montes De Oca, C Chyan MD Unavailable Unavailable Falguni C Chyna MD [...] is protected by Article 27-F of the [facility] Public Health law. If you continue you may have access to information: Regarding HIV / AIDS; Provided by facilities licensed or operated by the [facility] Office of Mental Health; or Provided by the [facility] Office for People With Developmental Disabilities. If such information is present, then the following [facility] mandated warning applies: This information has [...] law may result in a fine or group home sentence or both. A general authorization for the release of medical or other information is NOT sufficient authorization for further disc losure. Encounters Encounter Providers Location Date Indications Data Source(s ) Outpatient Attender: ROLAND CHAWLA MD Main Office 07/04/2021 01:00:00 PM EDT [facility] ([facility] Emergency Attender: BRIDGER HAMILTON MDConsultant: SACHIN MCKINNON 04/27/2021 02:36:00 PM EDT - 04/27/2021 05:53:00 PM EDT [facility] Patient discharged. Emergency Attender: Ang Tapia MDConsultant: GLENDY SMITH 04/20/2021 10:50:00 PM EDT - 04/21/2021 12:44:00 AM EDT [facility] Patient discharged. Emergency Attender: BRIDGER HAMILTON MDConsultant: SACHIN MCKINNON 03/07/2021 04:47:00 PM EDT - 03/07/2021 06:58:00 PM EDT [facility] Patient discharged. Emergency Attender: ANDREA Conradant: GLENDY CHAUDHARY EConsultant: PCP NO 02/17/2021 06:20:00 PM EDT - 02/17/2021 09:03:00 PM EDT [facility] Patient discharged. Outpatient Attender: Chyna Montes De Oca MD 0 12/16/2020 01:02:15 PM EST - 12/16/2020 01:48:36 PM EST [facility] ([facility]) Outpatient Attender: VÍCTOR FITZPATRICK 11/12 06:47:55 PM EST - 12/02/2020 07:25:15 PM EST [facility] ([facility] ) Emergency Attender: ANDREA Conradant: PCP NO 09/23/2020 11:13:00 PM EST - 09/24/2020 12:22:00 AM EST [facility] Patient discharged. Emergency Attender: REZA VILLARREAL DOConsultant: PCP NO 09/21/2020 09:17:00 AM EST - 09/21/2020 11:40:00 AM EST [facility] Patient discharged. Medications Medication Brand Name Start Date Product Form Dose Route Admi nistrative Instructions Pharmacy Instructions Status Indications Reaction Description Data Source(s) 07/03/2021 12:00:00 AM EDT ORAL active [facility] ([facility]) Insurance Providers Payer name Policy type / Coverage type Policy ID Covered alliance party ID Covered alliance party's relationship to pearson Policy Pearson Plan Information / [id number] Self 01 [id number] [facility] [employer] [id number] HU2 [id number] [facility] [employer] - O/P [id number] 01 [id number] Problems, Conditions, and Diagnoses Code Display Name Description Problem Type Effective Dates Data Source(s) Z3A15 15 weeks gestation of 15 weeks gestation of Diagnosis 04/27/2021 02:36:00 PM EDT [facility] R102 Pelvic and perineal pain Pelvic and perineal pain Diag nosis 04/27/2021 02:36:00 PM EDT [facility] I92745 Other specified related condit ions, second trimester Other specified related conditions, second trimester Diagnosis 04/27/2021 02:36:00 PM [facility] Z8759 Personal history of other co mplications of , childbirth and the puerperium Personal history of other complications of , childbirth and the puerperium Diagnosis 04/20/2021 10:50:00 PM [facility] Z3A00 Weeks of gestation of not spec ified Weeks of gestation of not specified Diagnosis 04/20/2021 10:50:00 PM EDT [facility] G8929 Other chronic pain Other chronic pain Diagnosis 08[facility] [facility] Migraine without aura, intractable, with out status migrainosus Migraine without aura, intractable, without status migrainosus Diagnosis 04/20/2021 10:50:00 PM [facility] W83050 Diseases of the nervous syst em complicating , unspecified trimester Diseases of the nervous system complicat ing , unspecified trimester Diagnosis 04/20/2021 10:50:00 PM EDT [facility] T49021 Other specified related condit ions, unspecified trimester Other specified related conditions, unspecified trimester Diagnosis 04/20/2021 10:50:00 PM EDT [facility] Z3A01 Less than 8 weeks gestation of Less than 8 weeks gestation of Diagnosis 03/07/2021 04:47:00 PM EDT [facility] K66960 Other specified related condit ions, first trimester Other specified related conditions, first trimester Diagnosis 03/07/2021 04:47:00 PM EDT [facility] O200 Threatened Threatened Diagnosis 0 02/17/2021 06:20:00 PM EDT [facility] O034 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 Diagnosis 09/23/2020 11:13:00 PM EST [facility] R00.2 Palpitations Palpitations Problem 07/04/2021 12:00:00 A M EDT [facility] ([facility]) R07.2 Precordial pain Precordial pain Problem 07/04/2021 12:0 0:00 AM EDT [facility] ([facility]) R94.31 Electrocardiogram abnormal Electrocardiogram abnormal Problem 07/04/2021 12:00:00 AM EDT [facility] ([facility]) G43.709 Chronic migraine without aura Chronic migraine without aura Problem 07/04/2021 12:00:00 AM EDT [facility] ([facility]) Surgeries/Procedures Procedure Description Date Indications Data Source(s) ECG ROUTINE ECG W/LEAST 12 LDS W/I&R 07/04/2021 12:00: 00 AM EDT [facility] ([facility]) OFFICE OUTPATIENT NEW 45 MINUTES 07/04/2021 12:00:00 A M EDT [facility] ([facility]) Results ID Date Data Source [id number] 09/03/2021 01:10:00 AM EST [facility] Name Value Range Interpretation Code Description Data Opal rce(s) Supporting Document(s) SARS coronavirus 2 RNA [Presence] in Res piratory specimen by VERONIKA with probe detection NEGATIVE [facility] This lab was ordered by [facility] a nd reported by [facility]. ID Date Data Source [id number] 07/18/2021 12:00:00 AM EDT [facility] Name Value Range Interpretation Code Description Data Opal rce(s) Supporting Document(s) SARS-COV-2 Negative [facility] This lab was ordered by [facility] and re ported by [facility]. ID Date Data Source [id number] 05/08/2021 01:52:00 PM EDT [facility] ([facility]) Name Value Range Interpretation Code Description Data Opal rce(s) Supporting Document(s) White Blood Count 12.5 5.0-10.0 [facility] ([facility]) Red Blood Count 4.22 4.00-5.40 [facility] ([facility]) Platelets 235 172-450 [facility]) Hemoglobin 12.8 [facility] ([facility]) Hematocrit 37.3 [facility] ([facility]) ID Date Data Source [id number] 05/08/2021 01:52:00 PM EDT [facility] ([facility] Name Value Range Interpretation Code Description Data Opal rce(s) Supporting Document(s) Thyroid Stimulating Hormone 1.520 [facility] ([facility]) Free T4 0.97 [facility] ([facility]) ID Date Data Source [id number] 04/29/2021 10:29:00 [place] [address] PHONE: [phone] FAX: [phone] Name .................. : LIZZETH Bernardo Acct Number.................. : [id number] ROOM. ................. : TR-05 Number ................... : [id number] Stay type ............. : E/R Discharge Date......... ... : 04/27/21 Admit Date ......... : 04/27/21 Admit Phys .................... : MYCHAL Date of ....... : 2000 Family Phys ................... : SARHA STEPHENSON Phone .................. : [phone] Age ................................ : 20 Film# .................. .:[id number] Sex ................................. : F Unsigned transcriptions are preliminary reports and do not represent a medical or legal document OB COMPLETE 14WKS OR>(2ND& 04186 COMPLETE:04/27/21 16:33 ADB 55178 Reason for Exam: CRAMPING COMPLETE OB ULTRASOUND: [...] By Pro Tai M.D. , 04/29/21 10:29, [facility] Transcribe Initials: SHIRLENE , Transcribe Date: 04/27/21 18:02, Dictation Date: Copy for: SARAH PIKE Joan via fax Copy for: EMERGENCY DEPT via modem Copy for: 710 MED REC DISCHARGED Page 1 of 1 Name Value Range Interpretation Code Description Data Opal rce(s) Supporting Document(s) ID Date Data Source [id number] 04/27/2021 02:36:00 PM EDT [facility] 1 OrderSheet [facility] Emergency Department [address] [place] [address] Phone #: ext- [phone] 04/27/2021 14:33 Patient: CHRISTOS MOREAU Sex: F : 2000 Age: 20yWEIGHT:85.2 kg (S) HEIGHT:62 inches (S) BMI:34.4ALLERGIES: NoneCHIEF COMPLAINT: pelvic painDIAGNOSIS: C/O pelvic painLAB ORDERSOrder Description Priority Entered Acknowledged InitialedBeta-HCG, Quant STAT 14:40 04/27/2021 14:42 PeterSerum Bridger Hamilton RN ;Urinalysis (Clean STAT 14:40 04/27/2021 14:43 [place]atch) Bridger Hamilton shipfitter, [facility] ; [id number], Urine STAT 14:40 04/27/2021 14:43 [place](Urine, [facility] ; Ykrm5QWV w Diff STAT 14:40 04/27/2021 14:42 Bridger [...] Bridger Hamilton RN ;GENERAL ORDERS 2 OrderSheet [facility] Emergency Department [address] [place] [address] Phone #: ext- [phone] 04/27/2021 14:33 Patient: CHRISTOS MOREAU Sex: F : 2000 Age: 20yOrder Description Priority Entered Acknowledged Initialed[Electronically signed by Carlos Gallagher RN (17:53 04/27/2021)][Electronically signed by Bridger Hamilton (22:45 04/27/2021)][Electronically locked by Carlos Gallagher RN (17:53 04/27/2021)] Name Value Range Interpretation Code Description Data Opal rce(s) Supporting Document(s) ID Date Data Source [id number] 04/27/2021 02:36:00 PM EDT [facility] 1 Medication Reconciliation Report [facility] [address] [place] [address] Phone #: ext- [phone] 04/27/2021 14:33 Patient: [...] rce(s) Supporting Document(s) ID Date Data Source [id number] 04/27/2021 02:36:00 PM EDT [facility] 1 Medication Administration Record [facility] [address] [place] [address] Phone #: ext [phone] 04/27/2021 14:33 Patient: CHRISTOS MOREAU Sex: F : 2000 Age: 20yWeight: 85.2 kgHeight/Length: 62 inBMI: 34.4ALLERGIES: None Date/Time Medication Administered Medication OrderedGiven TYLENOL [PO] (APAP) Tylenol PO 650 mg (NOW)16:19 04/27/2021 Dose: 650 mg Tablets Marialuisa Gallagher RN Name Value Range Interpretation Code Description Data Opal rce(s) Supporting Document(s) ID Date Data Source [id number] 04/27/2021 02:36:00 PM EDT [facility] 1 General Instructions [facility] Department [address] [place] [address] Phone #: ext- [phone] 04/27/2021 14:33 Patient: CHRISTOS MOREAU Sex: F : 2000 Age: 20y Pelvic pain. Ultrasound demonstrated an intrauterine .INSTRUCTIONS Drink plenty of fluids. (take Tylenol for pain. follow up with your plant care worker. your pelvic US showed a live intrauterine [...] the due date nears. 2 General Instructions [facility] Department [address] [place] [address] Phone #: ext- [phone] 04/27/2021 14:33 Patient: CHRISTOS MOREAU Sex: F [...] to by your healthcare provider, take an bfqw-cmo-kkzfere medicine, such as acetaminophen, to relieve pain. Follow instructions carefully for how much to take and how often to take it. Do not take aspirin or nonsteroidal anti-inflammatory medicines (like ibuprofen) unless you have been told to do so by your healthcare provider.Follow-up careFollow up with your healthcare provider, or as advised. 3 General Instructions [facility] Department [address] [place] [address] Phone #: ext- [phone] 04/27/2021 14:33 Patient: CHRISTOS MOREAU Sex: F : 2000 Age: 20yWhen to seek medical [...] 100.4F (38C) or higher 1999- 2019 [employer]. [address] [place] [address]. All rights reserved. This information is not intended as asubstitute for professional medical care. Always follow your healthcare professional's instructions. You have been given the following additional information: Pelvic Pain In : Unclear (2-3 Trimester)(Electronically signed by Bridger Hamilton 04/27/2021 22:45) Name Value Range Interpretation Code Description Data Opal rce(s) Supporting Document(s) ID Date Data Source [id number] 04/27/2021 02:36:00 PM EDT [facility] 1 Clinical Report - Nurses [facility] Emergency Department [address] [place] [address] Phone #: ext- [phone] 04/27/2021 14:33 Patient: [...] water, pt denies any discharge or bleeding).Treatment BLAST FURNACE KEEPER:None.SEPSIS SCREEN: SIRS SCREEN NEGATIVE. SEPSIS SCREEN NEGATIVE. [...] P 0. 2 Clinical Report - Nurses [facility] Department [address] [place] [address] Phone #: ext- [phone] 04/27/2021 14:33 Patient: CHRISTOS MOREAU Sex: F : 2000 Age: 20y SOCIAL [...] PELVIC EXAM: 3 Clinical Report - Nurses [facility] Department [address] [place] [address] Phone #: ext- [phone] 04/27/2021 14:33 Patient: [...] Patient verbalized understanding. Written instructions provided in Israeli. The patient was discharged by the physician. [...] rce(s) Supporting Document(s) ID Date Data Source [id number] 04/27/2021 02:36:00 PM EDT [facility] 1 Clinical Report - Physicians/Mid Levels [facility] Emergency Department [address] [place] [address] Phone #: ext- [phone] 04/27/2021 14:33 Patient: CHRISTOS MOREAU Sex: F : 2000 Age: 20y Time Seen: 14:41 04/27/2021; initial patient contact, initial documentation. Arrived- By private vehicle. Historian- patient. Disposition decision: 17:44 04/27/2021.HISTORY OF PRESENT ILLNESS Chief Complaint: PELVIC PAIN. This started 8 days BLAST FURNACE KEEPER and still present (persistent). It was gradual [...] vaginosis and vaginal yeast infection. patient is T4I2Ax0 and is 14 weeks ). Currently .REVIEW [...] EXAM 2 Clinical Report - Physicians/Mid Levels [facility] [address] [place] [address] Phone #: ext- [phone] 04/27/2021 14:33 Patient: CHRISTOS MOREAU Sex: F : 2000 Age: 20y Vital Signs: Have been reviewed. Oxygen saturation normal. Appearance: Alert. Oriented X3. No acute distress. HEENT: Normal external inspection. Respiratory: No respiratory distress. Breath sounds normal. Chest nontender. Abdomen: Soft. Mild tenderness in the suprapubic area and left lower quadrant. No guarding or rebound tenderness. Bowel sounds normal. Back: Normal external inspection. : Hotel Service Supervisor present (nurse Rafael). Speculum and bimanual exam [...] COMPLETE 14WKS OR>(2ND: (RHONDA: 04/27/2021 16:00) ( MsgRcvd 04/27/2021 16:33) In Progress US OB COMPLETE 14WKS OR>(2ND Reason for Exam: CRAMPING TRANSPORTATION: AMB IV? N O2? N ISOLATION N US OB 1ST TRI W TV IF NEEDED: (RHONDA: 04/27/2021 15:50) ( MsgRcvd 04/27/2021 16:24) Canceled US OB 1ST TRI W TV IF NEEDED Reason(s): pelvic pain 14 weeks TRANSPORTATION: IV? IV?(No) O2? Oxygen?(No) Ayde Beta-HCG, Quant Serum: (RHONDA: 04/27/2021 14:50) ( [facility] 04/27/2021 15:39) Final results Test Result Flag Units (Reference) HCG QUANT 64738.0 mIU/mL Interpretation: Less than 5 mU/mL: Negative 6-10 mU/mL: Borderline (suggest repeat in 48 hours) >10: Positive Approx HCG range (mU/mL) Weeks post LMP 5.4-708 mU/mL 3-4 Weeks 217-68084 mU/mL 5-6 Weeks 4059-594469 mU/mL 7-8 Weeks 95446-694873 mU/mL 9-10 Weeks 34639-72201 mU/mL 12- 14 Weeks 63958-51113 mU/mL 15-16 Weeks 8240-19547 mU/mL 17-18 Weeks Urinalysis: (RHONDA: 04/27/2021 14:45) ( [facility] 04/27/2021 15:40) Final results Test Result Flag Units (Reference) URINALYSIS URINALYSIS 3 Clinical Report - Physicians/Mid Levels [facility] [address] [place] [address] Phone #: ext- [phone] 04/27/2021 14:33 Patient: [...] 107) 4 Clinical Report - Physicians/Mid Levels [facility] [address] [place] [address] Phone #: ext- [phone] 04/27/2021 14:33 Patient: [...] . 5 Clinical Report - Physicians/Mid Levels [facility] [address] [place] [address] Phone #: ext- [phone] 04/27/2021 14:33 Patient: CHRISTOS MOREAU Sex: F : 2000 Age: 20yINSTRUCTIONS Drink plenty of fluids. (take Tylenol for pain. follow up with your plant care worker. your pelvic US showed a live intrauterine [...] rce(s) Supporting Document(s) ID Date Data Source [id number] 04/27/2021 03:39:00 PM EDT [facility] Name Value Range Interpretation Code Description Data Opal rce(s) Supporting Document(s) Choriogonadotropin.intact [Units/volume] in Serum or Plasma 02928.0 mIU/mL [facility] Interpr etation: Less than 5 mU/mL: Negative 6-10 mU/mL: Borderline (suggest repeat in 48 hours) >10: Positive Approx HCG range (mU/mL) Weeks post LMP 5.4-708 mU/mL 3-4 Weeks 217-64195 mU/mL 5-6 Weeks 4059-446526 mU/mL 7-8 Weeks 75936-805437 mU/mL 9-10 Weeks 15385-64550 mU/mL 12-14 Weeks 56422-39212 mU/mL 15-16 Weeks 8240- 26933 mU/mL 17-18 Weeks ID Date Data Source [id number] 04/27/2021 03:38:00 PM EDT [facility] Name Value Range Interpretation Code Description Data [facility] rce(s) Supporting Document(s) COMPREHENSIVE METABOLIC PANEL [facility] COMPREHENSIVE METABOLIC PANEL Sodium [Moles/volume] in Serum or Plasma 137 mEq/L 134 - 153 [facility] Potassium [Moles/volume] in Serum or Plasma 3.9 mEq/L 3.6 - 5.0 [facility] Chloride [Moles/volume] in Serum or Plasma 104 mEq/L 98 - 107 [facility] Carbon dioxide, total [Moles/volume] in Serum or Plasma 23 MEQ/L 22 - 30 [facility] Glucose [Mass/volume] in Serum or Plasma 83 MG/DL 70 - 99 [facility] BUN 5 MG/DL 7 - 21 L [facility] Creatinine [Mass/volume] in Serum or Plasma 0.4 MG/DL 0.7 - 1.5 L [facility] BUN/CREAT 13 8 - 27 [facility] Protein [Mass/volume] in Serum or Plasma 6.8 G/DL 6.3 - 8.2 [facility] Albumin [Mass/volume] in Serum or Plasma 4.1 G/DL 3.9 - 5.0 [facility] Globulin [Mass/volume] in Serum by calculation 2.7 GM/DL 2.4 - 3.2 [facility] A/G RATIO 1.5 0.8 - 2.0 [facility] Calcium [Mass/volume] in Serum or Plasma 9.2 MG/DL 8.4 - 10.2 [facility] Bilirubin.total [Mass/volume] in Serum or Plasma <0.7 MG/DL 0.2 - 1.3 [facility] Alkaline phosphatase [Enzymatic activity/volume] in Serum or Plasma 51 U/L 38 - 126 [facility] Aspartate aminotransferase [Enzymatic activity/volume] in Serum or Plasma 10 U/L 5 - 40 [facility] Alanine aminotransferase [Enzymatic activity/volume] in Seru m or Plasma 7 U/L 7 - 56 [facility] Anion gap 3 in Serum or Plasma 10.0 mmol/L 8.0 - 16.0 [facility] AGE 20 yrs [facility] al NON-AA GFR >60 mL/min [facility] ital AFR AMER GFR >60 mL/min [facility] Ho spital Male GFR In terprentation 20-49 [...] >32 mL/min Normal ID Date Data Source [id number] 04/27/2021 03:09:00 PM EDT [facility] Name Value Range Interpretation Code Description Data Opal rce(s) Supporting Document(s) CBC W/AUTOMATED DIFF [facility] COMPLETE BLOOD COUNT Leukocytes [#/volume] in Blood by Automated count 12.6 10^3/uL 4.2 - 11.0 H [facility] Erythrocytes [#/volume] in Blood by Automated count 4.36 10^6/uL 4. 20 - 5.40 [facility] Hemoglobin [Mass/volume] in Blood 13.3 g/dL 12.0 - 16.0 [facility] Hematocrit [Volume Fraction] of Blood by Automated count 38.4 % 3 7.0 - 47.0 [facility] Erythrocyte mean corpuscular volume [Entitic volume] by Auto mated count 88.1 fL 81.0 - 101 [facility] Erythrocyte mean corpuscular hemoglobin [Entitic mass] by Automated count 30.5 pg 27.0 - 34.0 [facility] Erythrocyte mean corpuscular hemoglobin concentration [Mass/volume] by Automated count 34.6 g/dL 31.0 - 36.0 [facility] Erythrocyte distribution width [Ratio] by Automated count 13.2 % 11.5 - 14.5 [facility] Platelets [#/volume] in Blood by Automated count 296 10^3/uL 150 - 45 0 [facility] Platelet mean volume [Entitic volume] in Blood by Automated count 11.7 fL 7.4 - 10.4 H [facility] Neutrophils/100 leukocytes in Blood by Automated count 78.5 % 37. 0 - 80.0 [facility] Lymphocytes/100 leukocytes in Blood by Manual count 14.7 % 25.0 - 40.0 L [facility] Monocytes/100 leukocytes in Blood by Automated count 5.3 % 3.0 - 8.0 [facility] Eosinophils/100 leukocytes in Blood by Automated count 0.6 % 0.0 - 7.0 [facility] Basophils/100 leukocytes in Blood by Automated count 0.3 % 0.0 - 2.5 [facility] %IG 0.6 % 0.0 - 0.0 [facility] %NRBC 0.0 % 0.0 - 0.0 [facility] Neutrophils [#/volume] in Blood by Automated count 9.88 10^3/uL 2.00 - 6.90 H [facility] Lymphocytes [#/volume] in Blood by Automated count 1.85 10^3/uL 0.60 - 3.40 [facility] Monocytes [#/volume] in Blood by Automated count 0.67 10^3/uL 0.00 - 0.90 [facility] Eosinophils [#/volume] in Blood by Automated count 0.08 10^3/uL 0.00 - 0.70 [facility] Basophils [#/volume] in Blood by Automated count 0.04 10^3/uL 0.00 - 0.20 [facility] #IG 0.07 10^3/uL 0.00 - 0.10 [facility] ospital #NRBC 0.00 10^3/uL 0.00 - 0.00 [facility] MANUAL DIFF NOT INDICATED [facility] RBC MORPH NOT INDICATED [facility] spital ID Date Data Source [id number] 05/01/2021 08:05:00 PM EDT [facility] Name Value Range Interpretation Code Description Data Opal rce(s) Supporting Document(s) CULTURE URINE [facility] spital _CULTURE URINE_$$[id number]$$[id number]$$[id number]$$[id number]$$841762$$062118$$886241$$600206$$462490$$ 005126$$971050$$178936$$694086$$175620$$555466$$084816$$922468$$536340$$131628$$ 097768$$033378$$400357$$238530$$318805$$390251$$883200$$199015 -- Continued on next page --Patient: LIZZETH Bernardo Order: [id number] Page 2Culture: CULTURE URINE Status: Final ==== -- Continued on next page --Patient: LIZZETH Bernardo Order: [id number] Page 2Culture: CULTURE URINE Status: Prelim =====$$[id number]$$[id number] DATE/TIME: 05/01/2021 15:06Culture: CULTURE URINE Status: FinalUrine Culture,Comprehensive: P1No growth in 36 - 48 hours. Previous result entered on 04/30/2021 06:54 ET No growth after 18-24 hours.P1 Test performed by: [facility] #: [id number] [address] [place] [id number] [facility] [address]Medical Director : Mark Bernardo MD NPI #:Lab Di jose : 04/30/21.0719.thiago.SENT REF 05/01/21.SENT REF ID Date Data Source [id number] 04/27/2021 03:39:00 PM EDT [facility] Name Value Range Interpretation Code Description Data Opal rce(s) Supporting Document(s) URINALYSIS [facility] URINALYSIS SOURCE Clean Catch [facility] COLOR yellow NORMAL: Yellow [facility] CLARITY turbid NORMAL: Clear [facility] Specific gravity of Urine by Test strip 1.015 1.001 - 1.030 [facility] pH 6.5 5 - 9 [facility] Glucose [Mass/volume] in Urine by Test strip 50 NORMAL: Negat collette A [facility] Bilirubin.total [Presence] in Urine by Test strip NEG NORMAL: Negative [facility] Ketones [Presence] in Urine by Test strip NEG NORMAL: Negative [facility] Protein [Mass/volume] in Urine by Test strip NEG NORMAL: Negat collette [facility] Nitrite [Presence] in Urine by Test strip NEG NORMAL: Negative [facility] BLOOD NEG NORMAL: Negative [facility] LEUK EST 25 NORMAL: Negative [facility] Urobilinogen [Mass/volume] in Urine by Test strip NOR less moreno n 1.0 mg/dL [facility] MICROSCOPIC See Below [facility] ital WBC 1 - 3 NORMAL: NONE SEEN [facility] Erythrocytes [#/volume] in Urine by Test strip 0 - 1 NORMAL: NON E SEEN [facility] EPITHELIAL MANY NORMAL: NONE SEEN A [facility] Amorphous sediment [Presence] in Urine sediment by Light kayley roscopy RARE NORMAL: NONE SEEN [facility] ID Date Data Source [id number] 04/20/2021 10:50:00 PM EDT [facility] 1 OrderSheet [facility] Emergency Department [address] [place] [address] Phone #: [phone] ext- [phone] 04/20/2021 22:48 Patient: CHRISTOS MOREAU Sex: F [...] Bolus 1000 Ang Tapia ; 04/21/2021 Mya Mario (X1) Francisco J Jimenez R.N.Zofran 4 mg IVP X 1 23:39 04/20/2021 23:58 [place]: 4 mg (NOW Ang Tapia ; Tony RNx1)Acetaminophen IV 23:39 04/20/2021 23:59 [id number] mg (NOW x1, Ang Tapia ; Tony RNInfuse over 15minutes)GENERAL ORDERSOrder Description Priority Entered Acknowledged Initialed[Electronically signed by Vargas Jimenez RN (00:43 04/21/2021)][Electronically signed by Ang Tapia (04:53 2020)][Electronically locked by Vargas Jimenez RN (00:43 04/21/2021)] Name Value Range Interpretation Code Description Data Opal rce(s) Supporting Document(s) ID Date Data Source [id number] 04/20/2021 10:50:00 PM EDT [facility] 1 Medication Reconciliation Report [facility] Emergency Department [address] [place] [address] Phone #: ext- [phone] 04/20/2021 22:48 Patient: [...] rce(s) Supporting Document(s) ID Date Data Source [id number] 04/20/2021 10:50:00 PM EDT [facility] 1 Medication Administration Record [facility] Emergency Department [address] [place] [address] Phone #: ext- [phone] 04/20/2021 22:48 Patient: CHRISTOS MOREAU Sex: F : 2000 Age: 20yWeight: 84.3 kgHeight/Length: 62 inBMI: 34ALLERGIES: None Date/Time Medication Administered Medication OrderedGiven BENADRYL [IVP] (DIPHENHYDRAMINE Benadryl IVP 25 mg (NOW x1)23:52 04/20/2021 HCL)Vargas Jimenez RN Dose: 12.5 mg IVP Site: #1 left ACStart NS [IV] NS IV 1000 mL Bolus: : Bolus 142176:05 04/21/2021 Dose: IV Fluids mL (X1)Vargas Jimenez RN Rate: 1200 mL/hr---- Bolus: 1000 mLStop Dispensed: 1000 mL bag00:36 04/21/2021 Site: #1 left Manpreet Jimenez RNGiven ZOFRAN [IVP] (ONDANSETRON HCL) Zofran 4 mg IVP X 1 dose: 4 mg23:58 04/20/2021 Dose: 4 mg IVP (NOW x1)Vargas Jimenez RN Site: #1 left ACStart Acetaminophen * Acetaminophen IV 1000 mg (NOW23:59 04/20/2021 Dose: 1000mg * Drip IV x1, Infuse over 15 minutes)Vargas Jimenez RN----Stop00:04 04/21/2021rebecca Jimenez RN Name Value Range Interpretation Code Description Data Opal rce(s) Supporting Document(s) ID Date Data Source [id number] 04/20/2021 10:50:00 PM EDT [facility] 1 General Instructions [facility] Emergency Department [address] [place] [address] Phone #: vsx- [phone] 04/20/2021 22:48 Patient: CHRISTOS MOREAU Sex: F [...] headache or are having 2 General Instructions [facility] Emergency Department [address] [place] [address] Phone #: ext- [phone] 04/20/2021 22:48 ----- Patient: CHRISTOS MOREAU Sex: [...] to treat future headaches 3 General Instructions [facility] Emergency Department [address] [place] [address] Phone #: ext- [phone] 04/20/2021 22:48 Patient: CHRISTOS MOREAU Sex: F : 2000 Age: 20y Take [...] side of your face 4 General Instructions [facility] Emergency Department [address] [place] [address] Phone #: ext- [phone] 04/20/2021 22:48 Patient: CHRISTOS MOREAU Sex: F : 2000 Age: 20y Trouble talking or seeing [phone] [employer]. [address] [place] [address]. All rights reserved. Th is information is not intended as asubstitute for professional medical care. Always follow your healthcare professional's instructions. You have been given the following additional information: Headache, Migraine, Classic(Electronically signed by Ang Tapia 04/21/2021 04:53) Name Value Range Interpretation Code Description Data Opal rce(s) Supporting Document(s) ID Date Data Source [id number] 04/20/2021 10:50:00 PM EDT [facility] 1 Clinical Report - Nurses [facility] Emergency Department [address] [place] [address] Phone #: ext [phone] 04/20/2021 22:48 Patient: CHRISTOS MOREAU Sex: F : 2000 Age: 20yTRIAGEArrived by private vehicle. Historian: patient.Triage time: 22:50 04/20/2021.Chief Complaint: MIGRAINE HEADACHE.This started 2 weeks. She has had vomiting (2 times last time around 330). 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 (2 ES at 9am). --23:00 04/20/21 [...] known surgeries.History 2 Clinical Report - Nurses [facility] Emergency Department [address] [place] [address] Phone #: ext- [phone] 04/20/2021 22:48 Patient: CHRISTOS MOREAU Sex: F : 2000 Age: 20y PAST MEDICAL HX: Headaches. Currently : Sees [facility] OB, LMP nov 16, EDC oct 25 2021. Recent sonogram showed intrauterine . G 3. P 0. --23:00 7/11/21 Mya Jimenez R.N. SOCIAL HX: Never smoker. [...] initiated. Bed in low position. Brakes on. Caterpillar Operator at bedside. Call light in reach of [...] Jimenez RN 3 Clinical Report - Nurses [facility] Emergency Department [address] [place] [address] Phone #: ext- [phone] 04/20/2021 22:48 Patient: [...] Patient verbalized understanding. Written instructions provided in Israeli. The patient was discharged home and accompanied by communication and outreach manager. She left ambulatory and via private vehicle. [employer] Operator driving. --00:43 04/21/21 Vargas Jimenez RN 00:41 [...] Jimenez RN 4 Clinical Report - Nurses [facility] Emergency Department [address] [place] [address] Phone #: ext- [phone] 04/20/2021 22:48 Patient: CHRISTOS MOREAU Sex: F : 2000 Age: 20y Name Value Range Interpretation Code Description Data Opal rce(s) Supporting Document(s) ID Date Data Source [id number] 04/20/2021 10:50:00 PM EDT [facility] 1 Clinical Report - Physicians/Mid Levels [facility] Emergency Department [address] [place] [address] Phone #: ext- [phone] 04/20/2021 22:48 Patient: [...] emergency department. ( Seen in ED in [place]).REVIEW OF SYSTEMSCurrently . No fever, muscle aches, [...] None. 2 Clinical Report - Physicians/Mid Levels [facility] Emergency Department [address] [place] [address] Phone #: ext- [phone] 04/20/2021 22:48 Patient: [...] necessary. 3 Clinical Report - Physicians/Mid Levels [facility] Emergency Department [address] [place] [address] Phone #: [phone] yen- [phone] 04/20/2021 22:48 [id number] Sex: F : 2000 Age: 20y GENERAL [...] rce(s) Supporting Document(s) ID Date Data Source [id number] 03/20/2021 01:54:00 PM EDT [facility] ([facility]) Name Value Range Interpretation Code Description Data Opal rce(s) Supporting Document(s) Magnesium Level 2.1 1.8-2.4 [facility] ([facility]) ID Date Data Source [id number] 03/20/2021 01:54:00 PM EDT [facility] ([facility] [place]) Name Value Range Interpretation Code Description Data Opal rce(s) Supporting Document(s) Albumin [Mass/volume] in Serum or Plasma 3.4 [facility] ([facility]) Alanine aminotransferase [Enzymatic activity/volume] in Serum or Pl asma 21 [facility] ([facility]) Calcium [Mass/volume] in Serum or Plasma 8.9 [facility] ([facility]) Carbon dioxide, total [Moles/volume] in Serum or Plasma 26 [facility] ([facility]) Chloride [Moles/volume] in Serum or Plasma 106 [facility] ([facility]) Alkaline phosphatase [Enzymatic activity/volume] in Serum or Plasma 5 4 [facility] ([facility]) Potassium [Moles/volume] in Serum or Plasma 3.8 [facility] ([facility]) Protein [Mass/volume] in Serum or Plasma 6.9 [facility] ([facility]) Sodium 139 [facility] ([facility]) Aspartate aminotransferase [Enzymatic activity/volume] in Serum or Plasma 8 [facility] Urea nitrogen [Mass/volume] in Serum or Plasma 5 [facility]) Creatinine For GFR 0.56 [facility] ([facility]) Glucose 97 83-110 [facility] ID Date Data Source [id number] 03/11/2021 10:07:00 AM EDT [facility] [address] [place] [address] PHONE: [phone] FAX: [phone] Name .................. : LIZZETH Bernardo Acct Number.................. : [id number] ROOM. ................. : VT-05 Number ................... : [id number] Stay type ............. : E/R Discharge Date......... ... : 03/07/21 Admit Date ......... : 03/07/21 Admit Phys .................... : MYCHAL Date of ....... : 2000 Family Phys ................... : SARAH STEPHENSON Phone .................. : [phone] Age ................................ : 20 Film# .................. .:[id number] Sex ................................. : F Unsigned transcriptions are preliminary reports and do not represent a medical or legal document OB 1ST TRI W TV IF NEEDED [id number] COMPLETE:03/07/21 18:21 [facility] [id number] Reason(s): 5 weeks preg nant vaginal bleeding [...] By Pro Tai M.D. , 03/11/21 10:07, [facility] Transcribe Initials: SHIRLENE , Transcribe Date: 03/08/21 02:46, Dictation Date: Copy for: SARAH Franco via fax Copy for: EMERGENCY DEPT via [facility] Copy for: 710 MED REC DISCHARGED Page 1 of 1 Name Value Range Interpretation Code Description Data Opal rce(s) Supporting Document(s) ID Date Data Source [id number] 03/11/2021 07:37:00 AM EDT [facility] Name Value Range Interpretation Code Description Data Opal e(s) Supporting Document(s) ID Date Data Source [id number] 03/07/2021 04:47:00 PM EDT [facility] 1 OrderSheet [facility] Emergency Department [address] [place] [address] Phone #: ext- [phone] 03/07/2021 16:45 Patient: CHRISTOS MOREAU Sex: F : 2000 Age: 20yWEIGHT:83.0 kg (S) HEIGHT:62 inches (S) BMI:33.5ALLERGIES: NoneCHIEF COMPLAINT: pelvic painDIAGNOSIS: Patient currently LAB ORDERSOrder Description Priority Entered Acknowledged InitialedBeta-HCG, Quant STAT 16:59 03/07/2021 17:08 Grace,Serum Bridger Hamilton R.N. ;PT/INR STAT 16:59 03/07/2021 17:08 Mychal Edwards Victoria John R.N. ;CBC w Diff STAT 16:59 03/07/2021 17:08 Mychal Edwards Victoria John R.N. ;BMP STAT 16:59 [...] Scarlett Hackett RN (18:59 03/07/2021)] 2 OrderSheet [facility] Emergency Department [address] [place] [address] Phone #: ext- [phone] 03/07/2021 16:45 Patient: CHRISTOS MOREAU Sex: F : 2000 Age: 20y[El ectronically signed by Bridger Hamilton (19:54 03/07/2021)][Electronically locked by Scarlett Hackett RN (18:59 03/07/2021)] Name Value Range Interpretation Code Description Data [facility]) Supporting Document(s) ID Date Data Source [id number] 03/07/2021 04:47:00 PM EDT [facility] 1 Medication Reconciliation Report [facility] Emergency Department [address] [place] [address] Phone #: ext- [phone] 03/07/2021 16:45 Patient: CHRISTOS MOREAU Sex: F [...] Name Value Range Interpretation Code Description Data [facility]) Supporting Document(s) ID Date Data Source [id number] 03/07/2021 04:47:00 PM EDT [facility] 1 Medication Administration Record [facility] Emergency Department [address] [place] [address] Phone #: ext- [phone] 03/07/2021 16:45 Patient: CHRISTOS MOREAU Sex: F : 2000 Age: 20yWeight: 83.0 kgHeight/Length: 62 inBMI: 33.5ALLERGIES: NoneDate/Time Medication Administered Medication Ordered Name Value Range Interpretation Code Description Data Opal rce(s) Supporting Document(s) ID Date Data Source [id number] 03/07/2021 04:47:00 PM EDT [facility] 1 General Instructions [facility] Emergency Department [address] [place] [address] Phone #: ext- [phone] 03/07/2021 16:45 Patient: CHRISTOS MOREAU Sex: F : 2000 Age: 20yFirst trimester .INSTRUCTIONS(you are 7 weeks . there [place] [address]. follow up withyour OB GY N for care).Your Current Medications: Your current home medications have been reviewed.CONTINUE TAKING THE FOLLOWING MEDI CATIONS: Oral : daily.Progesterone Vaginal : 2x a day.Follow-up with: [facility], , , [address] [place] [address], [facility] Follow up in seven days. Call for an appointment. Reason for referral: evaluation. Summary of careprovided to patient via paper. ADDITIONAL INFORMATIONPregnancy 2 General Instructions [facility] Emergency Department [address] [place] [address] Phone #: ext- [phone] 03/07/2021 16:45 Patient: [...] baby is born healthy: 3 General Instructions [facility] Emergency Department [address] [place] [address] Phone #: ext- [phone] 03/07/2021 16:45 Patient: CHRISTOS MOREAU Sex: F [...] You can seeyour family provider, a specialist (liquid chlorine operator), a salesperson books, or a primary care clinic.When to seek medical adviceCall your healthcare provider right away if any of these occur: Vaginal bleeding Pain in your belly (abdomen) or back that is moderate or severe Lots of vomiting, or you can't keep any fluids down for 6 hours 4 General Instructions [facility] Emergency Department [address] [place] [address] Phone #: ext- [phone] 03/07/2021 16:45 Patient: CHRISTOS MOREAU Sex: F : 2000 Age: 20y Burning feeling when you urinate Headache, dizziness, or rapid weight gain Fever Vision changes or blurred vision [id number] [employer]. [address] [place] [address]. All rights reserved. This information is not intended as asubstitute for professional medical care. Always follow your healthcare professional's instructions. You have been given the following additional information: , New Dx(Electronically signed by Bridger Hamilton 03/07/2021 19:54) Name Value Range Interpretation Code Description Data Opal rce(s) Supporting Document(s) ID Date Data Source [id number] 03/07/2021 04:47:00 PM EDT [facility] 1 Clinical Report - Nurses [facility] Emergency Department [address] [place] [address] Phone #: rci- [phone] 03/07/2021 16:45 Patient: CHRISTOS MOREAU Sex: F [...] just feels "something is off".). 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 SEPSIS SCREEN NEGATIVE. [...] R.N.AllergiesNone. --16:51 03/07/21 Yisel Mendez R.N.PROBLEMS:. --16:51 5/28/21 Yisel Mendez R.N.Medication/allergy information source: the patient. --16:55 03/07/21 Yisel Mendez R.N. 2 Clinical Report - Nurses [facility] Emergency Department [address] [place] [address] Phone #: ext- [phone] 03/07/2021 16:45 Patient: CHRISTOS MOREAU Sex: F : 2000 Age: 20y ADDITIONAL SURGERIES: no known surgeries. History PAST MEDICAL HX: Immunizations: up-to-date. Last normal menstrual period- 11/16/2020, miscarriage in early December, no menses since then, not entirely sure. 3. Para 0. Abortions 2. Confirmed . In 1st trimester. confirmed with sonogram. Has had care by liquid chlorine operator. SOCIAL HX: Never smoker. No alcohol use [...] Pt denies 3 Clinical Report - Nurses [facility] Emergency Department [address] [place] [address] Phone #: ext- [phone] 03/07/2021 16:45 Patient: [...] --16:55 03/07/21 Yisel Mendez R.N. 17:06 03/07/21. Hotel Service Supervisor provided for the genital exam by the [...] Patient verbalized understanding. Written instructions provided in Israeli. The patient was discharged home and accompanied [...] rce(s) Supporting Document(s) ID Date Data Source [id number] 03/07/2021 04:47:00 PM EDT [facility] 1 Clinical Report - Physicians/Mid Levels [facility] Emergency Department [address] [place] [address] Phone #: ext- [phone] 03/07/2021 16:45 Patient: CHRISTOS MOREAU Sex: F : 2000 Age: 20y Time Seen: 17:04 03/07/2021; initial patient contact, initial documentation. Arrived- By private vehicle. Historian- patient. Disposition decision: 18:51 03/07/2021.HISTORY OF PRESENT ILLNESS Chief Complaint: PELVIC PAIN. 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 It was abrupt in onset and has been intermittent. The symptoms are described as mild. Modifying factors. Not worsened by anything. Not relieved by anything. No abdominal pain, pelvic pain, vaginal pain, low back pain or pain with urination. No urinary frequency, urgency of urination or hematuria. Not sexually active. Does not use control measures. (Patient is [id number] suppose to be 7 weeks . was seen in the ER on february 17, 2021. her BHCG then was 166. she was seen at [facility] 10 days ago and was told [...] use. 2 Clinical Report - Physicians/Mid Levels [facility] Emergency Department [address] [place] [address] Phone #: ext- [phone] 03/07/2021 16:45 Patient: CHRISTOS MOREAU Sex: F [...] radiologist.Laboratory Tests: Urinalysis: (RHONDA: 03/07/2021 18:00) ( [facility] 03/07/2021 18:19) Final results Test Result Flag [...] Beta-HCG, Quant Serum: (RHONDA: 03/07/2021 17:08) ( [facility] 03/07/2021 18:19) Final results Test Result Flag Units (Reference) HCG QUANT 55044.0 mIU/mL Interpretation: Less than 5 mU/mL: Negative 6-10 mU/mL: Borderline (suggest repeat in 48 hours) >10: Positive Approx HCG range (mU/mL) Weeks post LMP 5.4-708 mU/mL 3-4 Weeks 3 Clinical Report - Physicians/Mid Levels [facility] Emergency Department [address] [place] [address] Phone #: ext- [phone] 03/07/2021 16:45 Patient: CHRISTOS MOREAU Sex: F : 2000 Age: 26b907-73392 mU/mL 5-6 Weeks 4059-491789 mU/mL 7-8 Vboiw94879-002847 mU/mL 9-10 Weeks 79343-21537 mU/mL 12-14 Mvdof90506-29660 mU/mL 15-16 Weeks 8240-61739 mU/mL 17-18 WeeksPT/INR: (RHNODA: 03/07/2021 17:08) ( MsgRcvd 03/07/2021 17:43) Final results Test Result Flag Units (Reference) PROTIME 13.0 SECONDS (11.0 - 15.5) INR 0.94 (0.93 - 1.23) \\BLDo\\INR INTERPRETATION\\BLDx\\ Therapeutic range for Coumadin andrelated oral anticoagulants. -International Normalized Ratio (INR): 2.0 - 3.0 for VenousThrombosis, Pulmonary Embolus, Tissue heart valves, Acute KS, Atrial Fibrillation, Valvular heartdisease and recurrent Systemic [...] 21) 4 Clinical Report - Physicians/Mid Levels [facility] Emergency Department [address] [place] [address] Phone #: ext- [phone] 03/07/2021 16:45 Patient: [...] AND PROCEDURESCourse of Care: 18:36 03/07/21. patient[place] [facility] [place] [phone]. awaiting for US 18:48 03/07/21. us showed [...] there [place] a [place] [address]. follow up with your OB GY N for care). Your Current Medications: Your current home medications have been reviewed. CONTINUE TAKING THE FOLLOWING MEDICATIONS: 5 Clinical Report - Physicians/Mid Levels [facility] Emergency Department [address] [place] [address] Phone #: ext- [phone] 03/07/2021 16:45 [id number] Sex: F : 2000 Age: 20y Oral : daily. Progesterone Vaginal : 2x a day. [facility], , , [address] [place] [address], [id number] Follow up in seven days. Call for an appointment. Reason for referral: evaluation. Summary of care provided to patient via paper.(Electronically signed by Bridger Hamilton 03/07/2021 19:54) Name Value Range Interpretation Code Description Data Opal e(s) Supporting Document(s) ID Date Data Source [id number] 03/07/2021 06:18:00 PM EDT [facility] Name Value Range Interpretation Code Description Data [facility]) Supporting Document(s) URINALYSIS [facility] URINALYSIS SOURCE R [facility] COLOR yellow NORMAL: Yellow [facility] CLARITY clear NORMAL: Clear [facility] Specific gravity of Urine by Test strip 1.020 1.001 - 1.030 [facility] pH 6.5 5 - 9 [facility] Glucose [Mass/volume] in Urine by Test strip NORM NORMAL: Negat collette [facility] Bilirubin.total [Presence] in Urine by Test strip NEG NORMAL: Negative [facility] Ketones [Presence] in Urine by Test strip NEG NORMAL: Negative [facility] Protein [Mass/volume] in Urine by Test strip NEG NORMAL: Negat collette [facility] Nitrite [Presence] in Urine by Test strip NEG NORMAL: Negative [facility] BLOOD NEG NORMAL: Negative [facility] Leukocyte esterase [Presence] in Urine by Test strip NEG CANDIDA L: Negative [facility] Urobilinogen [Mass/volume] in Urine by Test strip NOR less moreno n 1.0 mg/dL [facility] MICROSCOPIC Not Indicate [facility] ospital ID Date Data Source [id number] 03/07/2021 06:19:00 PM EDT [facility] Name Value Range Interpretation Code Description Data Opal rce(s) Supporting Document(s) Choriogonadotropin.intact [Units/volume] in Serum or Plasma 71823.0 mIU/mL [facility] Interpr etation: Less than 5 mU/mL: Negative 6-10 mU/mL: Borderline (suggest repeat in 48 hours) >10: Positive Approx HCG range (mU/mL) Weeks post LMP 5.4-708 mU/mL 3-4 Weeks 217-48715 mU/mL 5-6 Weeks 4059-974719 mU/mL 7-8 Weeks 53465-637606 mU/mL 9-10 Weeks 41415-82395 mU/mL 12-14 Weeks 89102-88931 mU/mL 15-16 Weeks 8240- 81499 mU/mL 17-18 Weeks ID Date Data Source [id number] 03/07/2021 05:44:00 PM EDT [facility] Name Value Range Interpretation Code Description Data Opal rce(s) Supporting Document(s) BASIC METABOLIC PANEL [facility] BASIC METABOLIC PANEL Sodium [Moles/volume] in Serum or Plasma 135 mEq/L 134 - 153 [facility] Potassium [Moles/volume] in Serum or Plasma 3.9 mEq/L 3.6 - 5.0 [facility] Chloride [Moles/volume] in Serum or Plasma 101 mEq/L 98 - 107 [facility] Carbon dioxide, total [Moles/volume] in Serum or Plasma 24 MEQ/L 22 - 30 [facility] Glucose [Mass/volume] in Serum or Plasma 93 MG/DL 70 - 99 [facility] BUN 7 MG/DL 7 - 21 [facility] Creatinine [Mass/volume] in Serum or Plasma 0.6 MG/DL 0.7 - 1.5 L [facility] BUN/CREAT 12 8 - 27 [facility] Calcium [Mass/volume] in Serum or Plasma 9.5 MG/DL 8.4 - 10.2 [facility] Anion gap 3 in Serum or Plasma 10.0 mmol/L 8.0 - 16.0 [facility] AGE 20 yrs [facility] al AFR AMER GFR >60 mL/min [facility] spital NON-AA GFR >60 mL/min [facility] Male GFR Inter prentation 20-49 yrs [...] >32 mL/min Normal ID Date Data Source [id number] 03/07/2021 05:43:00 PM EDT [facility] Name Value Range Interpretation Code Description Data Opal rce(s) Supporting Document(s) Prothrombin time (PT) 13.0 SECONDS 11.0 - 15.5 [facility] INR in Platelet poor plasma by Coagulation assay 0.94 0.93 - 1. 23 [facility] \\BLDo\\INR INTERPRETATION\\BLDx\\ Therapeutic range for Coumadin and related oral anticoagulants. - International Normalized Ratio (INR): 2.0 - 3.0 for Venous Thrombosis, Pulmonary Embolus, Tissue heart valves, Acute [place], Atrial Fibrillation, Valvular heart disease and recurrent Systemic Embolism. -International Normalized Ratio (INR): 2.5 - 3.5 for Mechanical Prosthetic valve. ID Date Data Source [id number] 03/07/2021 05:28:00 PM EDT [facility] Name Value Range Interpretation Code Description Data Opal rce(s) Supporting Document(s) CBC W/AUTOMATED DIFF [facility] COMPLETE BLOOD COUNT Leukocytes [#/volume] in Blood by Automated count 12.6 10^3/uL 4.2 - 11.0 H [facility] Erythrocytes [#/volume] in Blood by Automated count 4.37 10^6/uL 4. 20 - 5.40 [facility] Hemoglobin [Mass/volume] in Blood 13.6 g/dL 12.0 - 16.0 [facility] Hematocrit [Volume Fraction] of Blood by Automated count 38.8 % 3 7.0 - 47.0 [facility] Erythrocyte mean corpuscular volume [Entitic volume] by Auto mated count 88.8 fL 81.0 - 101 [facility] Erythrocyte mean corpuscular hemoglobin [Entitic mass] by Automated count 31.1 pg 27.0 - 34.0 [facility] Erythrocyte mean corpuscular hemoglobin concentration [Mass/volume] by Automated count 35.1 g/dL 31.0 - 36.0 [facility] Erythrocyte distribution width [Ratio] by Automated count 12.7 % 11.5 - 14.5 [facility] Platelets [#/volume] in Blood by Automated count 347 10^3/uL 150 - 45 0 [facility] Platelet mean volume [Entitic volume] in Blood by Automated count 11.7 fL 7.4 - 10.4 H [facility] Neutrophils/100 leukocytes in Blood by Automated count 67.1 % 37. 0 - 80.0 [facility] Lymphocytes/100 leukocytes in Blood by Manual count 25.5 % 25.0 - 40.0 [facility] Monocytes/100 leukocytes in Blood by Automated count 5.3 % 3.0 - 8.0 [facility] Eosinophils/100 leukocytes in Blood by Automated count 1.1 % 0.0 - 7.0 [facility] Basophils/100 leukocytes in Blood by Automated count 0.6 % 0.0 - 2.5 [facility] %IG 0.4 % 0.0 - 0.0 [facility] %NRBC 0.0 % 0.0 - 0.0 [facility] al Neutrophils [#/volume] in Blood by Automated count 8.47 10^3/uL 2.00 - 6.90 H [facility] Lymphocytes [#/volume] in Blood by Automated count 3.22 10^3/uL 0.60 - 3.40 [facility] Monocytes [#/volume] in Blood by Automated count 0.67 10^3/uL 0.00 - 0.90 [facility] Eosinophils [#/volume] in Blood by Automated count 0.14 10^3/uL 0.00 - 0.70 [facility] Basophils [#/volume] in Blood by Automated count 0.08 10^3/uL 0.00 - 0.20 [facility] #IG 0.05 10^3/uL 0.00 - 0.10 [facility] #NRBC 0.00 10^3/uL 0.00 - 0.00 [facility] MANUAL DIFF NOT INDICATED [facility] RBC MORPH NOT INDICATED [facility] spital ID Date Data Source [id number] 02/17/2021 06:20:00 PM EDT [facility] 1 OrderSheet [facility] Emergency Department [address] [place] [address] Phone #: ext- [phone] 02/17/2021 18:10 Patient: CHRISTOS MOREAU Sex: F : 2000 Age: 20yWEIGHT:81.6 kg (S) HEIGHT:62 inches (S) BMI:32.9ALLERGIES: NoneCHIEF COMPLAINT: abd crampsDIAGNOSIS: Patient currently , Threatened abortionLAB ORDERSOrder Description Priority Entered Acknowledged InitialedCBC w Diff STAT 18:34 02/17/2021 19:07 Mya Jimenez R.N., P.A.-C;CMP STAT 18:34 02/17/2021 19:07 Mya Marx Curly Jimenez R.N. P.A.-C;Type Rh STAT 18:34 02/17/2021 19:07 Mya Francisco J Jimenez R.N. P.A.-C;Urinalysis (Clean STAT 18:34 02/17/2021 19:17 Mya BakerirCatch) Curly Jimenez R.N. P.A.-C;Culture, Urine STAT 18:34 02/17/2021 19:17 Mya Marx(Urine, Clean Curly Jimenez R.N.Catch) P.A.-C;HCG Serum Quant STAT 18:34 02/17/2021 19:07 Mya Jimenez R.N. P.A.-C;DIAGNOSTIC STUDY ORDERSOrder Description Priority Entered Acknowledged InitialedUS OB 1ST TRI W STAT 18:34 02/17/2021 19:17 Mya MarxTV IF NEEDED Curly Jimenez R.N.(Oxygen?(No)) P.A.-C;(IV?(No)) Reason for Study: crmapingMEDICATION/IV/DRIP/FLUID ORDERSOrder Description Priority Entered Acknowledged InitialedGENERAL ORDERS 2 OrderSheet [facility] Emergency Department [address] [place] [address] Phone #: ext- [phone] 02/17/2021 18:10 Patient: CHRISTOS MOREAU Sex: F : 2000 Age: 20yOrder Description Priority Entered Acknowledged InitialedNPO 18:34 02/17/2021 18:38 Elier Infante P.A.- C;[Electronically signed by Vargas Jimenez RN (21:03 02/17/2021)][Electronically signed by Curly Saravia P.A.-C (14:28 02/19/2021)][Electronically locked by Vargas Jimenez RN (21:03 02/17/2021)] Name Value Range Interpretation Code Description Data [facility]) Supporting Document(s) ID Date Data Source [id number] 02/17/2021 06:20:00 PM EDT [facility] 1 Medication Reconciliation Report [facility] Emergency Department [address] [place] [address] Phone #: ext [phone] 02/17/2021 18:10 Patient: CHRISTOS MOREAU Sex: F [...] Name Value Range Interpretation Code Description Data [facility]) Supporting Document(s) ID Date Data Source [id number] 02/17/2021 06:20:00 PM EDT [facility] 1 Medication Administration Record [facility] Emergency Department [address] [place] [address] Phone #: ext- [phone] 02/17/2021 18:10 Patient: CHRISTOS MOREAU Sex: F : 2000 Age: 20yWeight: 81.6 kgHeight/Length: 62 inBMI: 32.9ALLERGIES: NoneDate/Time Medication Administered Medication Ordered Name Value Range Interpretation Code Description Data Opal rce(s) Supporting Document(s) ID Date Data Source [id number] 02/17/2021 06:20:00 PM EDT [facility] 1 General Instructions [facility] Emergency Department [address] [place] [address] Phone #: ext- [phone] 02/17/2021 18:10 Patient: [...] for an appointment. Follow up with an liquid chlorine operator in two days. Call for the nextavailable appointment.Understanding of the discharge instructions verbalized by patient. ADDITIONAL INFORMATIONPregnancy 2 General Instructions [facility] Emergency Department [address] [place] [address] Phone #: ext- [phone] 02/17/2021 18:10 Patient: [...] baby is born healthy: 3 General Instructions [facility] Emergency Department [address] [place] [address] Phone #: ext- [phone] 02/17/2021 18:10 Patient: [...] You can seeyour family provider, a specialist (liquid chlorine operator), a salesperson books, or a primary care clinic.When to seek medical adviceCall your healthcare provider right away if any of these occur: Vaginal bleeding Pain in your belly (abdomen) or back that is moderate or severe Lots of v omiting, or you can't keep any fluids down for 6 hours 4 General Instructions [facility] Emergency Department [address] [place] [address] Phone #: ext- [phone] 02/17/2021 18:10 Patient: CHRISTOS MOREAU Sex: F : 2000 Age: 20y Burning feeling when you urinate Headache, dizziness, or rapid weight gain Fever Vision changes or blurred vision [id number] [employer]. [address] [place] [address]. All rights reserved. This information is not [...] frequently Tiredness or fatigue 5 General Instructions [facility] Emergency Department [address] [place] [address] Phone #: ext- [phone] 02/17/2021 18:10 Patient: CHRISTOS MOREAU ct#: [id number] Sex: F : 2000 Age: 20y Dizziness [...] your healthcare provider.Follow-up care 6 General Instructions [facility] Emergency Department [address] [place] [address] Phone #: ext- [phone] 02/17/2021 18:10 Patient: CHRISTOS MOREAU Sex: F : 2000 Age: 20yCall your healthcare provider to arrange for care. care is important. You can seeyour family provider, a specialist (liquid chlorine operator), a salesperson books, or a primary care clinic.When to seek medical adviceCall your healthcare provider right away if any of these occur: Vaginal bleeding Pain in your belly (abdomen) or back that is moderate or severe Lots of vomiting, or you can't keep any fluids down for 6 hours Burning feeling when you urinate Headache, dizziness, or rapid weight gain Fever Vision changes or blurred vision [phone] [employer]. [address] [place] [address]. All rights reserved. This information is not [...] bleeding. This may be 7 General Instructions [facility] Emergency Department [address] [place] [address] Phone #: ext- [phone] 02/17/2021 18:10 Patient: [...] any new findings that mayaffect your care.Call [phone] [phone] if you have: Severe pain and very [...] by your healthcare provider 8 General Instructions [facility] Emergency Department [address] [place] [address] Phone #: ext- [phone] 02/17/2021 18:10 Patient: CHRISTOS MOREAU Sex: F : 2000 Age: 20y Pain in your lower belly (abdomen) that gets worse Weakness or dizziness Passage of anything that resembles tissue. This would be pink or grayish membrane or solid material. Save the tissue in a clean container and bring it to your provider. [phone] [employer]. [address] [place] [address]. All rights reserved. This information is not intended as asubstitute for professional medical care. Always follow your healthcare professional's instructions. You have been given the following additional information: , New Dx , New Dx Possible Miscarriage (Threatened )(Electronically signed by Curly Saravia P.A.-C 02/19/2021 14:28) Name Value Range Interpretation Code Description Data Opal rce(s) Supporting Document(s) ID Date Data Source [id number] 02/17/2021 06:20:00 PM EDT [facility] 1 Clinical Report - Nurses [facility] Emergency Department [address] [place] [address] Phone #: ext [phone] 02/17/2021 18:10 Patient: CHRISTOS MOREAU Sex: F [...] eptopic pregancy).Alert. No acute distress.Onset. 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 SEPSIS SCREEN NEGATIVE. [...] of CRE. 2 Clinical Report - Nurses [facility] Emergency Department [address] [place] [address] Phone #: ext- [phone] 02/17/2021 18:10 Patient: [...] extremity edema.SKIN: Skin is warm and dry. --18:23 02/17/21 Kiara Flores R.N.NURSING PROGRESS NOTESPatient gowned. Reassuranc e given. Two patient identifiers checked. Call light placed in reach. Siderails up x 2. Bed placed in lowest position. Brakes of bed on. Patient ready for evaluation. --18: Kiara Flores R.N. 18:55 02/17/21. [facility] with [employer]. --19:11 02/17/21 Mya Jimenez R.N. 19:14 02/17/21. [facility] with [employer]. --19:18 02/17/21 Mya Jimenez R.N. 19:16 02/17/21. Checked patient name and birthdate. Clean catch urine collected with return of 3 Clinical Report - Nurses [facility] Emergency Department [address] [place] [address] Phone #: ext- [phone] 02/17/2021 18:10 Patient: CHRISTOS MOREAU Sex: F : 2000 Age: 20y yellow-colored clear urine; sample sent to lab for urinalysis and culture. Specimen labeled in the presence of the patient (Hand carried to lab). --19:19 02/17/21 Mya Jimenez R.N.DISPOSITION / DISCHARGE 20:43 02/17/21. BP: 131/66. MAP: 87. HR: 76. RR: 16. O2 saturation: 100%. Temp: 97.2 F. --20:43 02/17/21 [facility] Tech, Shahrzad Tech1 Jennifer Coma Scale: 15- eyes open- spontaneous (4); best verbal response- oriented (5); best motor response- obeys commands (6). Condition at departure: improved. No learning barriers present. Discharge instructions provided and reviewed with the patient. Reviewed referral to an liquid chlorine operator for followup. Patient verbalized understanding. Written instructions provided in Israeli. The patient was discharged home and accompanied by spouse. She left ambulatory and via private vehicle. Spouse driving. --21:03 02/17/21 Vargas Jimenez RN 21:02 02/17/21. Pain level now: 0/10. --21:03 02/17/21 Vargas Jimenez RN.Locked/Released at 02/17/2021 21:03 by Vargas Jimenez RN Name Value Range Interpretation Code Description Data Opal rce(s) Supporting Document(s) ID Date Data Source [id number] 02/17/2021 06:20:00 PM EDT [facility] 1 Clinical Report - Physicians/Mid Levels [facility] Emergency Department [address] [place] [address] Phone #: ext- [phone] 02/17/2021 18:10 Patient: CHRISTOS MOERAU Sex: F : 2000 Age: 20y Time [...] 02/13). Vitamin D Oral (Capsule 50 MCG (1999)), daily. Oral. metFORMIN HCl Oral (Tablet 500 mg), 3x a day. Allergies: None.SOCIAL HISTORY 2 Clinical Report - Physicians/Mid Levels [facility] Emergency Department [address] [place] [address] Phone #: ext- [phone] 02/17/2021 18:10 Patient: [...] mass. Nofree fluid.Laboratory Tests: US OB TRANSVAGINAL EKWOK: (RHONDA: 02/17/2021 18:49) ( [facility] 02/17/2021 19:22) In Progress US OB TRANSVAGINAL EKWOK Reason for Exam: CRAMPING TRANSPORTATION: AMB IV? N O2? N STATUS: UNKNOWN ISOLATION N CBC w Diff: (RHONDA: 02/17/2021 18:40) ( [facility] 02/17/2021 18:50) Final results Test Result Flag [...] 10.4) 3 Clinical Report - Physicians/Mid Levels [facility] Emergency Department [address] [place] [address] Phone #: ext- [phone] 02/17/2021 18:10 Patient: CHRISTOS MOREAU [facility]#: [id number] Sex: F : 2000 Age: 20y NEUT [...] Male GFR Interprentation 20-49 yrs >60 mL/min Xonbzg77-84 yrs >56 mL/min Normal 60-69 yrs >49 mL/min Normal 70-79yrs>42 mL/min Normal 80 and above >35 mL/min Normal Female GFRInterpretation 20-39 yrs >60 mL/min Normal 40-49 yrs >58 mL/minNormal 50-59 yrs >51 mL/min Normal 60-69 yrs >45 mL/min Lrnlzi75-20 yrs >39 mL/min Normal 80 and above >32 mL/min NormalType Rh: (RHONDA: 02/17/2021 18:40) ( MsgRcvd 02/17/2021 19:16) Final results Test Result Flag Units (Reference) ABO GROUP A RH TYPE POSITIVE { ABO/RH REENTER A POSITIVEUrinalysis: (RHONDA: 02/17/2021 19:10) ( MsgRcvd 02/17/2021 19:35) Final results 4 Clinical Report - Physicians/Mid Levels [facility] Emergency Department [address] [place] [address] Phone #: ext- [phone] 02/17/2021 18:10 Patient: [...] Beta-HCG, Quant Serum: (RHONDA: 02/17/2021 18:40) ( [facility] 02/17/2021 19:16) Final results Test Result Flag Units (Reference) HCG QUANT 166.6 mIU/mL Interpretation: Less than 5 mU/mL: Negative 6-10 mU/mL: Borderline (suggest repeat in 48 hours) >10: Positive Approx HCG range (mU/mL) Weeks post LMP 5.4-708 mU/mL 3-4 Weeks 217-45181 mU/mL 5-6 Weeks 4059-822395 mU/mL 7-8 Weeks 73676-625529 mU/mL 9-10 Weeks 82478-61208 mU/mL 12-14 Weeks 31692-11502 mU/mL 15-16 Weeks 8240-20459 mU/mL 17-18 Weeks US OB 1ST TRI W TV IF NEEDED: (RHONDA: 02/17/2021 18:34) ( [facility] 02/17/2021 19:21) Canceled US OB 1ST TRI [...] today. Came to the ER for eval. KRISSY mustafa NV intact b/l UE and LE. WIll [...] condition. 5 Clinical Report - Physicians/Mid Levels [facility] Emergency Department [address] [place] [address] Phone #: ext- [phone] 02/17/2021 18:10 Patient: [...] for an appointment. Follow up with an liquid chlorine operator in two days. Call for the next available appointment. Understanding of the discharge instructions verbalized by patient.(Electronically signed by Curly Saravia P.A.-C 02/19/2021 14:28) 6Clinical Report - Physicians/Mid Levels [facility] Emergency Department [address] [place] [address] Phone #: [phone] ext- [phone] 02/17/2021 18:10 Patient: CHRISTOS MOREAU Sex: F : 2000 Age: 20y Name Value Range Interpretation Code Description Data Opal rce(s) Supporting Document(s) ID Date Data Source [id number] 02/18/2021 10:17:00 [place] [address] PHONE: [phone] FAX: [phone] Name .................. : LIZZETH Bernardo Acct Number.................. : [id number] ROOM. ................. : TR-1B MR Number ................... : [id number] Stay type ............. : E/R Discharge Date......... ... : 02/17/21 Admit Date .... ..... : 02/17/21 Admit Phys .................... : ANGELICA DENG Date of ....... : 2000 Family Phys ................... : SARAH STEPHENSON Phone .................. : [phone] Age ................................ : 20 Film# .................. .:[id number] Sex ................................. : F Unsigned transcriptions are preliminary reports and do not represent a medical or legal [place] [id number] COMPLETE:02/17/21 19:21 ADB [id number] Reason for Exam: CRAMPING TRANSVAGINAL PELVIC ULTRASOUND: [...] rce(s) Supporting Document(s) ID Date Data Source [id number] 02/24/2021 06:22:00 AM EDT [facility] Name Value Range Interpretation Code Description Data Opal rce(s) Supporting Document(s) CULTURE URINE [facility] _CULTURE URINE_$$[id number]$$[id number]$$225924$$345412$$209539$$422093$$131877$$910659$$156106$$ 883009$$702904$$477076$$915111$$586226$$043494$$854611$$034874$$143849$$046427$$ 020651$$145083$$943678$$265502$$957090$$735177$$[id number]$$[id number] -- Continued on next page --Patient: LIZZETH Bernardo Order: [id number] Page 2Culture: CULTURE URINE Status: Final ==== -- Continued on next page --Patient: LIZZETH Bernardo Order: [id number] Page 2Culture: CULTURE URINE Status: Prelim =====$$[id number]$$[id number] DATE/TIME: 02/23/2021 16:06Culture: CULTURE URINE Status: FinalUrine Culture,Comprehensive: P1No growth in 36 - 48 hours. Previous result entered on 02/20/2021 10:28 ET No growth after 18-24 hours.P1 Test performed by: [facility] Craig MONTANO #: [id number] [address] [place] [id number] [place] [address]Heebgup Director : Mark Bernardo MD NPI #:Head Of Strategy : 02/20/21.1159.XMT.SENT REF 02/24/21.0622.XMT.SENT REF ID Date Data Source [id number] 02/17/2021 07:35:00 PM EDT [facility] Name Value Range Interpretation Code Description Data Opal rce(s) Supporting Document(s) URINALYSIS [facility] URINALYSIS SOURCE Clean Catch [facility] COLOR yellow NORMAL: Yellow [facility] CLARITY hazy NORMAL: Clear [facility] Specific gravity of Urine by Test strip 1.030 1.001 - 1.030 [facility] pH 6 5 - 9 [facility] Gl[facility] [Mass/volume] in Urine by Test strip NORM NORMAL: Negat [facility] Bilirubin.total [Presence] in Urine by Test strip NEG NORMAL: Negative [facility] Ketones [Presence] in Urine by Test strip NEG NORMAL: Negative [facility] Protein [Mass/volume] in Urine by Test strip NEG NORMAL: Negat [facility] Nitrite [Presence] in Urine by Test strip NEG NORMAL: Negative [facility] BLOOD NEG NORMAL: Negative [facility] Leukocyte esterase [Presence] in Urine by Test strip NEG CANDIDA L: Negative [facility] Urobilinogen [Mass/volume] in Urine by Test strip NOR less moreno n 1.0 mg/dL [facility] MICROSCOPIC Not Indicate [facility] ID Date Data Source [id number] 02/17/2021 07:15:00 PM EDT [facility] Name Value Range Interpretation Code Description Data Opal rce(s) Supporting Document(s) ABO group [Type] in Blood A [facility] Rh [Type] in Blood POSITIVE [facility] { ABO/RH REENTER A POSITIVE ID Date Data Source [id number] 02/17/2021 07:15:00 PM EDT [facility] Name Value Range Interpretation Code Description Data Opal rce(s) Supporting Document(s) Choriogonadotropin.intact [Units/volume] in Serum or Plasma 166.6 mIU /mL [facility] Interpr etation: Less than 5 mU/mL: Negative 6-10 mU/mL: Borderline (suggest repeat in 48 hours) >10: Positive Approx HCG range (mU/mL) Weeks post LMP 5.4-708 mU/mL 3-4 Weeks 217-18557 mU/mL 5-6 Weeks 4059-377599 mU/mL 7-8 Weeks 23799-219437 mU/mL 9-10 Weeks 93263-60302 mU/mL 12-14 Weeks 92513-25624 mU/mL 15-16 Weeks 8240- 28353 mU/mL 17-18 Weeks ID Date Data Source [id number] 02/17/2021 07:15:00 PM EDT [facility] Name Value Range Interpretation Code Description Data Opal rce(s) Supporting Document(s) COMPREHENSIVE METABOLIC PANEL [facility] COMPREHENSIVE METABOLIC PANEL Sodium [Moles/volume] in Serum or Plasma 136 mEq/L 134 - 153 [facility] Potassium [Moles/volume] in Serum or Plasma 3.6 mEq/L 3.6 - 5.0 [facility] Chloride [Moles/volume] in Serum or Plasma 104 mEq/L 98 - 107 [facility] Carbon dioxide, total [Moles/volume] in Serum or Plasma 24 MEQ/L 22 - 30 [facility] Glucose [Mass/volume] in Serum or Plasma 108 MG/DL 70 - 99 H [facility] BUN 7 MG/DL 7 - 21 [facility] Creatinine [Mass/volume] in Serum or Plasma 0.5 MG/DL 0.7 - 1.5 L [facility] BUN/CREAT 14 8 - 27 [facility] Protein [Mass/volume] in Serum or Plasma 7.3 G/DL 6.3 - 8.2 [facility] Albumin [Mass/volume] in Serum or Plasma 4.4 G/DL 3.9 - 5.0 [facility] Globulin [Mass/volume] in Serum by calculation 2.9 GM/DL 2.4 - 3.2 [facility] A/G RATIO 1.5 0.8 - 2.0 [facility] Calcium [Mass/volume] in Serum or Plasma 9.5 MG/DL 8.4 - 10.2 [facility] Bilirubin.total [Mass/volume] in Serum or Plasma <0.7 MG/DL 0.2 - 1.3 [facility] Alkaline phosphatase [Enzymatic activity/volume] in Serum or Plasma 64 U/L 38 - 126 [facility] Aspartate aminotransferase [Enzymatic activity/volume] in Serum or Plasma 15 U/L 5 - 40 [facility] Alanine aminotransferase [Enzymatic activity/volume] in Seru m or Plasma 27 U/L 7 - 56 [facility] Anion gap 3 in Serum or Plasma 8.0 mmol/L 8.0 - 16.0 [facility] AGE 20 yrs [facility] NON-AA GFR >60 mL/min [facility] ital AFR AMER GFR >60 mL/min [facility] spital Male GFR In terprentation 20-49 [...] >32 mL/min Normal ID Date Data Source [id number] 02/17/2021 06:49:00 PM EDT [facility] Name Value Range Interpretation Code Description Data Opal rce(s) Supporting Document(s) CBC W/AUTOMATED DIFF [facility] COMPLETE BLOOD COUNT Leukocytes [#/volume] in Blood by Automated count 12.4 10^3/uL 4.2 - 11.0 H [facility] Erythrocytes [#/volume] in Blood by Automated count 4.37 10^6/uL 4. 20 - 5.40 [facility] Hemoglobin [Mass/volume] in Blood 13.5 g/dL 12.0 - 16.0 [facility] Hematocrit [Volume Fraction] of Blood by Automated count 38.3 % 3 7.0 - 47.0 [facility] Erythrocyte mean corpuscular volume [Entitic volume] by Auto mated count 87.6 fL 81.0 - 101 [facility] Erythrocyte mean corpuscular hemoglobin [Entitic mass] by Automated count 30.9 pg 27.0 - 34.0 [facility] Erythrocyte mean corpuscular hemoglobin concentration [Mass/volume] by Automated count 35.2 g/dL 31.0 - 36.0 [facility] Erythrocyte distribution width [Ratio] by Automated count 12.4 % 11.5 - 14.5 [facility] Platelets [#/volume] in Blood by Automated count 421 10^3/uL 150 - 45 0 [facility] Platelet mean volume [Entitic volume] in Blood by Automated count 11.0 fL 7.4 - 10.4 H [facility] Neutrophils/100 leukocytes in Blood by Automated count 66.5 % 37. 0 - 80.0 [facility] Lymphocytes/100 leukocytes in Blood by Manual count 27.0 % 25.0 - 40.0 [facility] Monocytes/100 leukocytes in Blood by Automated count 4.0 % 3.0 - 8.0 [facility] Eosinophils/100 leukocytes in Blood by Automated count 1.4 % 0.0 - 7.0 [facility] Basophils/100 leukocytes in Blood by Automated count 0.8 % 0.0 - 2.5 [facility] %IG 0.3 % 0.0 - 0.0 [facility] 0.0 % 0.0 - 0.0 [facility] al Neutrophils [#/volume] in Blood by Automated count 8.23 10^3/uL 2.00 - 6.90 H [facility] Lymphocytes [#/volume] in Blood by Automated count 3.35 10^3/uL 0.60 - 3.40 [facility] Monocytes [#/volume] in Blood by Automated count 0.50 10^3/uL 0.00 - 0.90 [facility] Eosinophils [#/volume] in Blood by Automated count 0.17 10^3/uL 0.00 - 0.70 [facility] Basophils [#/volume] in Blood by Automated count 0.10 10^3/uL 0.00 - 0.20 [facility] #IG 0.04 10^3/uL 0.00 - 0.10 [facility] ospital #NRBC 0.00 10^3/uL 0.00 - 0.00 [facility] H ospital MANUAL DIFF NOT INDICATED [facility] RBC MORPH NOT INDICATED [facility] spital ID Date Data Source [id number] 09/23/2020 11:13:00 PM [facility] 1 OrderSheet [facility] Emergency Department [address] [place] [address] Phone #: ext- [phone] 09/23/2020 23:12 Patient: [...] rce(s) Supporting Document(s) ID Date Data Source [id number] 09/23/2020 11:13:00 PM [facility] 1 Medication Reconciliation Report [facility] Emergency Department [address] [place] [address] Phone #: ext- [phone] 09/23/2020 23:12 Patient: [...] Value Range Interpretation Code Description Data [facility](s) Supporting Document(s) ID Date Data Source [id number] 09/23/2020 11:13:00 PM [place] [address] Medication Administration Record [facility] Emergency Department [address] [place] [address] Phone #: ext- [phone] 09/23/2020 23:12 Patient: CHRISTOS MOREAU Sex: F : 2000 Age: 20yWeight: 81.6 kgHeight/Length: 62 inBMI: 32.9ALLERGIES: No Known Drug AllergyDate/Time Medication Administered Medication Ordered Name Value Range Interpretation Code Description Data Opal rce(s) Supporting Document(s) ID Date Data Source [id number] 09/23/2020 11:13:00 PM [facility] 1 General Instructions [facility] Emergency Department [address] [place] [address] Phone #: ext- [phone] 09/23/2020 23:12 Patient: CHRISTOS MOREAU Sex: F : 2000 Age: 20yIncomplete spontaneous .No complications.INSTRUCTIONS Drink plenty of fluids. Do not smoke. No alcohol. (YOU MUST FOLLOW UP WITH [facility]OR DATA [facility]T[employer] IN 2-3 DAYS FOR REPEAT QUANT. B-HCG TO MAKE SURE IT GOES DOWN TO ZERO AND NOT STAGNATE OR RISE LIKE ECTOPIC ).Warnings: Further evaluation is necessary ([employer] [employer]LY[employer]). It is very important to follow up [...] department as needed. Follow up with an liquid chlorine operator in two days even if well.Call for an appointment. Reason for referral: evaluation, treatment and repeat B-HCG. Summary of careprovided to patient via paper.Understanding of the discharge instructions verbalized by patient. Expected course of illness, dischargeinstructions, activity level, diet, follow-up appointment and risks and benefits of treatment reviewed withpatient and understanding verbalized. Agrees to plan of care.Follow-up with: [facility], , , [address], [place], [facility] Follow up in two days even if well. Call for an appointment. Reason for referral: evaluation, treatment andrepeat B- HCG. Summary of care provided to patient via paper. ADDITIONAL INFORMATIONCompleted Spontaneous Miscarriage 2 General Instructions [facility] Emergency Department [address] [place] [address] Phone #: ext- [phone] 09/23/2020 23:12 Patient: [...] therest of the tissue. 3 General Instructions [facility] Emergency Department [address] [place] [address] Phone #: ext- [phone] 09/23/2020 23:12 Patient: CHRISTOS MOREAU Sex: F : 2000 Age: 20yIf you had an ultrasound, a radiologist will review it. You will be told of any new findings that mayaffect your care.Call [phone] if you have: Severe pain and very [...] (abdomen) that gets worse Weakness or dizziness [id number] [employer]. [address] [place] [address]. All rights reserved. This information is not [...] falls won't cause a 4 General Instructions [facility] Emergency Department [address] [place] [address] Phone #: ext- [phone] 09/23/2020 23:12 Patient: [...] any new findings that mayaffect your care.Call [phone] if you have: Severe pain and very heavy bleeding Severe lightheadedness, passing out, or fainting 5 General Instructions [facility] Emergency Department [address] [place] [address] Phone #: ext- [phone] 09/23/2020 23:12 Patient: [...] that gets worse Weakness or d izziness [phone] [employer]. [address] [place] [address]. All rights reserved. This information is not intended as asubstitute for professional medical care. Always follow your healthcare professional's instructions. You have been given the following additional information: Miscarriage, Spontaneous (Completed) Miscarriage, Incomplete(Electronically signed by Andrea Mathias M.D. 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 Pt denies anyother complaints at this time.).Treatment BLAST FURNACE KEEPER:None. --23:20 09/23/20 Candelaria Yoo R.N.23:14 09/23/20. BP: 153/83. MAP: 106. HR: 76. RR: 17. O2 saturation: 100% on room air. Temp: 97.8 F.Pain level now: 0/10. --23:20 09/23/20 Candelaria Yoo R.N.Weight: 81.6 kg stated. Height/Length: 62 inches Per Patient. BMI: 32.9. --23:15 09/23/20 Candelaria Yoo R.N.MedicationsPrenatal Vitamins Oral. --23:15 09/23/20 Candelaria Yoo R.N.AllergiesNo Known Drug Allergy. --23:15 09/23/20 Candelaria Yoo R.N.SD OBLEMS:Laceration.Anxiety Reaction.Threatened . Care. --23:15 09/23/20 Candelaria Yoo R.N.HistoryPAST MEDICAL HX: Immunizations: up-to-date. Last normal menstrual period- Aug 19, 2020. Currently.SOCIAL HX: Never smoker. No alcohol use or drug use. She was offered HIV testing but declined. 2 Clinical Report - Nurses [facility] Emergency Department [address] [place] [address] Phone #: ext- [phone] 09/23/2020 23:12 Patient: [...] assessment completed. No skin integrity risk identified. --23:20 09/23/20 Candelaria Yoo R.N. Interventions Identification band on patient. To treatment room. --23:09/23/20 Candelaria Yoo R.N.PHYSICAL ASSESSMENTAmbulatory to room. Patient [...] extremity edema.SKIN: Skin is warm and dry. --23:09/23/20 Candelaria Yoo R.N.NURSING PROGRESS NOTESReassurance given. Two patient identifiers checked. Call light placed in reach. Side rails up x 2. Bedplaced in lowest position. Brakes of bed on. --23:09/23/20 Candelaria Yoo R.N. 3 Clinical Report - Nurses [facility] Emergency Department [address] [place] [address] Phone #: ext- [phone] 09/23/2020 23:12 [id number] Sex: F : 2000 Age: 20y Patient ready for evaluation- ED physician notified. --23:09/23/20 Candelaria Yoo R.N.DISPOSITION / DISCHARGE No learning barriers present. Discharge instructions provided and reviewed with the patient. Reviewed warnings. Reviewed medication(s). Treatments reviewed. Reviewed referral to an liquid chlorine operator. Patient verbalized understanding. Written instructions provided in Israeli. 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 She is . No abdominal pain, vaginal pain, low back pain, flank pain or pain with urination. No urinary frequency, urgency of urination or hematuria. 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 Currently : LNMP: 08-19-20 EDC: 05-25-21 5 [...] and 2 Clinical Report - Physicians/Mid Levels [facility] Emergency Department [address] [place] [address] Phone #: ext- [phone] 09/23/2020 23:12 Patient: [...] CBC w Diff: (RHONDA: 09/23/2020 23:18) ( MsgRcvd 09/23/2020 23:39) Final results Test Result Flag [...] Beta-HCG, Quant Serum: (RHONDA: 09/23/2020 23:18) ( MsgRcvd 09/23/2020 23:56) Final results 3 Clinical Report - Physicians/Mid Levels [facility] Emergency Department [address] [place] [address] Phone #: ext- [phone] 09/23/2020 23:12 Patient: CHRISTOS MOREAU Sex: F : 2000 Age: 20y Test Result Flag Units (Reference) HCG QUANT 15.1 mIU/mL Interpretation: Less than 5 mU/mL: Negative 6-10 mU/mL: Borderline (suggest repeat in 48 hours) >10: Positive Approx HCG range (mU/mL) Weeks post LMP 5.4-708 mU/mL 3-4 Weeks 217-92068 mU/mL 5-6 Weeks 4059-461068 mU/mL 7-8 Weeks 50610-388502 mU/mL 9-10 Weeks 83962-55321 mU/mL 12-14 Weeks 85187-87383 mU/mL 15-16 Weeks 8240-02651 mU/mL 17-18 Weeks.PROGRESS AND PROCEDURESCourse of Care: 00:09 09/24/20. CBC nml, Quant. B-HCG is 15 tonight, was 20 on 09-21-20, had nmlpelvic US on 09-21-20 except for small rt ovarian cyst; pt is A positive; pt is probably having a miscarriage;advised to f/u w DIRECTOR DATA ANALYTICS in 2 days for repeat Quant. B-HCG [...] No alcohol. (YOU MUST FOLLOW UP WITH [facility]OR DATA ANALYTICS IN 2-3 DAYS FOR REPEAT QUANT. B-HCG TO MAKE SURE IT GOES DOWN TO ZERO AND NOT STAGNATE OR RISE LIKE ECTOPIC ). Warnings: Further evaluation is necessary ([employer]OR DATA ANALYTICS). It is very important to follow up [...] worsens. 4 Clinical Report - Physicians/Mid Levels [facility] Emergency Department [address] [place] [address] Phone #: ext- [phone] 09/23/2020 23:12 Patient: CHRISTOS MOREAU Sex: F : 2000 Age: 20y Your Current Medications: Your current home medications have been reviewed. CONTINUE TAKING THE FOLLOWING MEDICATIONS: Vitamins Oral. Follow-up: Return to the emergency department as needed. Follow up with an liquid chlorine operator in two days even if well. Call [...] Agrees to plan of care. Follow-up with: [facility], , , [address] [place], [address] Follow up in two days even if well. Call for an appointment. Reason for referral: evaluation, treatment and repeat B-HCG. Summary of care provided to patient via paper.(Electronically signed by Andrea Mathias M.D. 09/24/2020 00:28) Name Value Range Interpretation Code Description Data [facility]s) ID Date Data Source [id number] 09/23/2020 11:56:00 PM [facility] Name Value Range Interpretation Code Description Data Opal rce(s) Supporting Document(s) Choriogonadotropin.intact [Units/volume] in Serum or Plasma 15.1 mIU/ mL [facility] Interpr etation: Less than 5 mU/mL: Negative 6-10 mU/mL: Borderline (suggest repeat in 48 hours) >10: Positive Approx HCG range (mU/mL) Weeks post LMP 5.4-708 mU/mL 3-4 Weeks 217-03505 mU/mL 5-6 Weeks 4059-429820 mU/mL 7-8 Weeks 93656-500699 mU/mL 9-10 Weeks 09552-42643 mU/mL 12-14 Weeks 02062-67863 mU/mL 15-16 Weeks 8240- 43311 mU/mL 17-18 Weeks ID Date Data Source [id number] 09/23/2020 11:38:00 PM [facility] Name Value Range Interpretation Code Description Data [facility](s) Supporting Document(s) CBC W/AUTOMATED DIFF [facility] COMPLETE BLOOD COUNT Leukocytes [#/volume] in Blood by Automated count 10.8 10^3/uL 4.2 - 11.0 [facility] Erythrocytes [#/volume] in Blood by Automated count 4.61 10^6/uL 4. 20 - 5.40 [facility] Hemoglobin [Mass/volume] in Blood 13.9 g/dL 12.0 - 16.0 [facility] Hematocrit [Volume Fraction] of Blood by Automated count 40.5 % 3 7.0 - 47.0 [facility] Erythrocyte mean corpuscular volume [Entitic volume] by Auto mated count 87.9 fL 81.0 - 101 [facility] Erythrocyte mean corpuscular hemoglobin [Entitic mass] by Automated count 30.2 pg 27.0 - 34.0 [facility] Erythrocyte mean corpuscular hemoglobin concentration [Mass/volume] by Automated count 34.3 g/dL 31.0 - 36.0 [facility] Erythrocyte distribution width [Ratio] by Automated count 11.9 % 11.5 - 14.5 [facility] Platelets [#/volume] in Blood by Automated count 389 10^3/uL 150 - 45 0 [facility] Platelet mean volume [Entitic volume] in Blood by Automated count 11.8 fL 7.4 - 10.4 H [facility] Neutrophils/100 leukocytes in Blood by Automated count 57.3 % 37. 0 - 80.0 [facility] Lymphocytes/100 leukocytes in Blood by Manual count 32.9 % 25.0 - 40.0 [facility] Monocytes/100 leukocytes in Blood by Automated count 7.0 % 3.0 - 8.0 [facility] Eosinophils/100 leukocytes in Blood by Automated count 1.8 % 0.0 - 7.0 [facility] Basophils/100 leukocytes in Blood by Automated count 0.7 % 0.0 - 2.5 [facility] %IG 0.3 % 0.0 - 0.0 [facility] %NRBC 0.0 % 0.0 - 0.0 [facility] al Neutrophils [#/volume] in Blood by Automated count 6.18 10^3/uL 2.00 - 6.90 [facility] Lymphocytes [#/volume] in Blood by Automated count 3.55 10^3/uL 0.60 - 3.40 H [facility] Monocytes [#/volume] in Blood by Automated count 0.75 10^3/uL 0.00 - 0.90 [facility] Eosinophils [#/volume] in Blood by Automated count 0.19 10^3/uL 0.00 - 0.70 [facility] Basophils [#/volume] in Blood by Automated count 0.08 10^3/uL 0.00 - 0.20 [facility] #IG 0.03 10^3/uL 0.00 - 0.10 [facility] ospital #NRBC 0.00 10^3/uL 0.00 - 0.00 [facility] H ospital MANUAL DIFF NOT INDICATED [facility] RBC MORPH NOT INDICATED [facility] Ho spital ID Date Data Source [id number] 09/23/2020 09:07:00 AM EST [facility] [address] [place] [address] PHONE: [phone] FAX: [phone] Name .................. : LIZZETH SHER Az Acct Number.................. : [id number] ROOM. ................. : TR-03 Number ................... : [id number] Stay type ............. : E/R Discharge Date......... ... : 09/21/20 Admit Date ......... : 09/21/20 Admit Phys .................... : CHERELLE DUNCAN Date of ....... : 2000 Family Phys ................... : NO PCP Phone .................. : [phone] Age ................................ : 20 Film# .................. .:[id number] Sex ................................. : F Unsigned transcriptions are preliminary reports and do not represent a medical or legal [place] [id number] COMPLETE:09/21/20 11:12 MCM 78 Reason(s): Pain and cramping ENDOVAGINAL PELVIC ULTRASOUND: FINDINGS: Endovaginal sonography demonstrates a heterogeneous uterus measuring at least 7.7 x 4 x 3.6 cm. No discrete myometrial mass is demonstrated. The endometrium is thickened to 2 cm and clinical correlation and BUHR DRESSER consult is suggested. Consider hysterosonography if clinically [...] By Joaquin Lynne MD , 09/23/20 09:07, AML Transcribe Initials: SHIRLENE , Transcribe Date: 09/21/20 16:30, Dictation Date: Copy for: EMERGENCY DEPT via modem Copy for: 710 MED REC DISCHARGED Page 1 of 1 Name Value Range Interpretation Code Description Data Opal rce(s) Supporting Document(s) ID Date Data Source [id number] 09/21/2020 09:17:00 AM EST [facility] 1 OrderSheet [facility] Emergency Department [address] [place] [address] Phone #: ext- [phone] 09/21/2020 09:08 Patient: [...] (Clean STAT 09:55 09/21/2020 Ack'd: 09:55 09:57 [place] EDCatch) Anabel Hernández Tiffany ER Physician; [id number] Rh STAT 09:55 09/21/2020 Ack'd: 09:55 10:21 [...] 09/21/2020 Ack'd: 10:40 10:50 Андрей,TRANSVAGINAL Anabel HernándezREGNANT EKWOK Physician;(IV?(No))(Oxygen?(No)) NOTES: Pain and cramping Reason for Study: Painand cramping 2 OrderSheet [facility] Emergency Department [address] [place] [address] Phone #: ext- [phone] 09/21/2020 09:08 Patient: CHRISTOS MOREAU Sex: F : 2000 Age: 20yMEDICATION/IV/DRIP/FLUID ORDERSOrder Description Priority Entered Acknowledged InitialedGENERAL ORDERSOrder Description Priority Entered Acknowledged Initialed[Electronically signed by Anabel Chiang (11:40 09/21/2020)][Electronically signed by Reza Villarreal (13:19 09/21/2020)][Electronically locked by Anabel Chiang (11:40 09/21/2020)] Name Value Range Interpretation Code Description Data [facility](s) ID Date Data Source [id number] 09/21/2020 09:17:00 AM [facility] 1 Medication Reconciliation Report [facility] Emergency Department [address] [place] [address] Phone #: ext- [phone] 09/21/2020 09:08 Patient: CHRISTOS MOREAU Sex: F : 2000 Age: 20yWeight: 81.6 kgHeight/Length: 62 in.BMI: 32.9ALLERGIES: NoneThe patient's Home Medications are listed below:NONE.The source(s) of the original Home Medication information:Not obtained.The following Medications were given to the patient in the Emergency Department:None.The following Medications were prescribed to the patient:None. Name Value Range Interpretation Code Description Data [facility](s) Supporting Document(s) ID Date Data Source [id number] 09/21/2020 09:17:00 AM [facility] 1 Medication Administration Record [facility] Emergency Department [address] [place] [address] Phone #: ext- [phone] 09/21/2020 09:08 Patient: CHRISTOS MOREAU Sex: F : 2000 Age: 20yWeight: 81.6 kgHeight/Length: 62 inBMI: 32.9ALLERGIES: NoneDate/Time Medication Administered Medication Ordered Name Value Range Interpretation Code Description Data Opal rce(s) Supporting Document(s) ID Date Data Source [id number] 09/21/2020 09:17:00 AM EST [facility] 1 General Instructions [facility] Emergency Department [address] [place] [address] Phone #: ext- [phone] 09/21/2020 09:08 Patient: [...] instructions verbalized.Follow-[facility] with: [facility] Res[facility] Team Da[place], , , [address] [facility] [address], , [place], [address] Follow up in four days as scheduled. Reason for referral: evaluation. Summary of care provided topatient via paper. ADDITIONAL INFORMATIONAbdominal Pain and Early 2 General Instructions [facility] Emergency Department [address] [place] [address] Phone #: ext- [phone] 09/21/2020 09:08 Patient: [...] and as it grows 3 General Instructions [facility] Emergency Department [address] [place] [address] Phone #: ext- [phone] 09/21/2020 09:08 Patient: CHRISTOS MOREAU Sex: F [...] lower abdomen Vaginal bleeding 4 General Instructions [facility] Emergency Department [address] [place] [address] Phone #: ext- [phone] 09/21/2020 09:08 Patient: [...] any new findings thatmay affect your care.Call 911Call 911 if you have any of these: Severe [...] weak when you stand. 5 General Instructions [facility] Emergency Department [address] [place] [address] Phone #: ext- [phone] 09/21/2020 09:08 Patient: [...] or as directed by your healthcare provider. [employer]. [address] [place] [address]. All rights reserved. This information is not intended as asubstitute for professional medical care. Always follow your healthcare professional's instructions. You have been given the following additional information: Abdominal Pain, Early (Electronically signed by Reza Villarreal, Physician 09/21/2020 13:19) Name Value Range Interpretation Code Description Data Opal rce(s) Supporting Document(s) ID Date Data Source [id number] 09/21/2020 09:17:00 AM EST [facility] 1 Clinical Report - Nurses [facility] Emergency Department [address] [place] [address] Phone #: ext- [phone] 09/21/2020 09:08 Patient: CHRISTOS MOREAU Sex: F : 2000 Age: 20yTRIAGEArrived by private vehicle. Historian: patient. Accompanied by spouse.Acuity: LEVEL 3.Chief Complaint: ABDOMINAL CRAMPS.Alert. No acute distress.Onset. (2 days ago). ( Patient c/o cramping for past 2 days. States she had a positive home pregnancytest 3 days ago.).Treatment BLAST FURNACE KEEPER:None. --09:18 09/21/20 Anabel Chiang09:13 09/21/20. BP: 151/93. MAP: 112. HR: 88. RR: 16. O2 saturation: 99%. Temp: 98.5 F. Pain levelnow: 0/10. --09:18 09/21/20 Shilo Chiang Complaint: ABDOMINAL CRAMPS. --09:09/21/20 Anabel Chiang.Weight: 81.6 kg. Height/Length: 62 inches. [...] the [place] 2 Clinical Report - Nurses [facility] Emergency Department [address] [place] [address] Phone #: ext- [phone] 09/21/2020 09:08 Patient: [...] Chiang. FAMILY HX: Negative. --09:50 09/21/20 Reza Villarreal, Physician.PHYSICAL ASSESSMENT( Patient states intermittent cramping for [...] RR: 16. O2 saturation: 99%. --09:57 09/21/20 [place] shipfitter, LYDIA [place] Tech1 3 Clinical Report - Nurses [facility] Emergency Department [address] [place] [address] Phone #: [phone]- [phone] 09/21/2020 09:08 Patient: CHRISTOS MOREAU Sex: F : 2000 Age: 20y ( Lab in room drawing blood for ordered labs.). --10:21 09/21/20 Anabel Chiang [facility]. --10:49 09/21/20 [...] Patient verbalized understanding. Written instructions provided in [place]. The patient was discharged by the physician. [...] rce(s) Supporting Document(s) ID Date Data Source [id number] 09/21/2020 09:17:00 AM [facility] 1 Clinical Report - Physicians/Mid Levels [facility] Emergency Department [address] [place] [address] Phone #: ext- [phone] 09/21/2020 09:08 Patient: CHRISTOS MOREAU Sex: [place] : 2000 Age: 20y Time Seen: 09:44 [...] hematuria. The patient has missed a period ([facility] 08/19). Last normal menstrual period- Aug 19. [...] HISTORY 2 Clinical Report - Physicians/Mid Levels [facility] Emergency Department [address] [place] [address] Phone #: ext- [phone] 09/21/2020 09:08 Patient: CHRISTOS MOREAU Sex: F [...] in themedical decision making process. OB TRANSVAGINAL EKWOK: (RHONDA: 09/21/2020 10:40) ( [facility] 09/21/2020 11:12) In Progress OB TRANSVAGINAL EKWOK Reason(s): Painand cramping TRANSPORTATION: WC IV? IV?(No) O2? Oxygen?(No) Ayde : Yes CMTS: Pain and cramping CBC w Diff: (RHONDA: 09/21/2020 10:20) ( [facility] 09/21/2020 10:58) Final results Test Result Flag [...] 80.0) 3 Clinical Report - Physicians/Mid Levels [facility] Emergency Department [address] [place] [address] Phone #: ext- [phone] 09/21/2020 09:08 Patient: [...] Weeks post LMP 5.4-708 mU/mL 3-4 Weeks 217-69625 mU/mL 5-6 Weeks 4059-986995 mU/mL 7-8 Weeks 37166-474182 mU/mL 9-10 Weeks 16344-44615 mU/mL 12-14 Weeks 07916-48825 mU/mL 15-16 Weeks 8240-77437 mU/mL 17-18 Weeks Urinalysis: (RHONDA: 09/21/2020 09:45) ( [facility] 09/21/2020 10:58) Final results Test Result Flag [...] TO 14 WEEKS: (RHONDA: 09/21/2020 09:55) ( [facility] 09/21/2020 10:38) Canceled Reason(s): Lower abdominal pain and cramping. Reason(s): Lower abdominal pain and cramping. TRANSPORTATION: WC IV? IV?(No) O2? Oxygen?(No) Ayde : Yes CMTS: lower abdominal pain and cramping no bleeding.PROGRESS AND PROCEDURES 4 Clinical Report - Physicians/Mid Levels [facility] Emergency Department [address] [place] [address] Phone #: ext- [phone] 09/21/2020 09:08 [id number] Sex: F : 2000 Age: 20y Course [...] CLINIC Respective Team [place], , , [id number] [facility] [place], , [place], [address] Follow up in four days as scheduled. Reason for referral: evaluation. Summary of care provided to patient via paper.(Electronically signed by Reza Villarreal, Physician 09/21/2020 13:19) Name Value Range Interpretation Code Description Data Opal rce(s) Supporting Document(s) ID Date Data Source [id number] 09/21/2020 11:49:00 AM [facility] Name Value Range Interpretation Code Description Data Opal rce(s) Supporting Document(s) ABO group [Type] in Blood A [facility] Rh [Type] in Blood POSITIVE [facility] { ABO/RH REENTER A POSITIVE ID Date Data Source [id number] 09/21/2020 11:45:00 AM [facility] Name Value Range Interpretation Code Description Data Opal rce(s) Supporting Document(s) BASIC METABOLIC PANEL [facility] BASIC METABOLIC PANEL Sodium [Moles/volume] in Serum or Plasma 137 mEq/L 134 - 153 [facility] Potassium [Moles/volume] in Serum or Plasma 4.7 mEq/L 3.6 - 5.0 [facility] Chloride [Moles/volume] in Serum or Plasma 105 mEq/L 98 - 107 [facility] Carbon dioxide, total [Moles/volume] in Serum or Plasma 24 MEQ/L 22 - 30 [facility] Glucose [Mass/volume] in Serum or Plasma 86 MG/DL 65 - 110 [facility] BUN 10 MG/DL 7 - 21 [facility] al Creatinine [Mass/volume] in Serum or Plasma 0.6 MG/DL 0.7 - 1.5 L [facility] BUN/CREAT 17 8 - 27 [facility] Calcium [Mass/volume] in Serum or Plasma 9.7 MG/DL 8.4 - 10.2 [facility] Anion gap 3 in Serum or Plasma 8.0 mmol/L 8.0 - 16.0 [facility] AGE 20 yrs [facility] al AFR AMER GFR >60 mL/min [facility] NON-AA GFR >60 mL/min [facility] ital Male GFR Inter prentation 20-49 yrs [...] >32 mL/min Normal ID Date Data Source [id number] 09/21/2020 11:20:00 AM EST [facility] Name Value Range Interpretation Code Description Data Opal rce(s) Supporting Document(s) Choriogonadotropin.intact [Units/volume] in Serum or Plasma 20.6 mIU/ mL [facility] Interpr etation: Less than 5 mU/mL: Negative 6-10 mU/mL: Borderline (suggest repeat in 48 hours) >10: Positive Approx HCG range (mU/mL) Weeks post LMP 5.4-708 mU/mL 3-4 Weeks 217-48830 mU/mL 5-6 Weeks 4059-040054 mU/mL 7-8 Weeks 20142-920515 mU/mL 9-10 Weeks 21538-21041 mU/mL 12-14 Weeks 38324-48218 mU/mL 15-16 Weeks 8240- 29131 mU/mL 17-18 Weeks ID Date Data Source [id number] 09/21/2020 10:58:00 AM EST [facility] Name Value Range Interpretation Code Description Data Opal rce(s) Supporting Document(s) CBC W/AUTOMATED DIFF [facility] COMPLETE BLOOD COUNT Leukocytes [#/volume] in Blood by Automated count 8.2 10^3/uL 4.2 - 1 1.0 [facility] Erythrocytes [#/volume] in Blood by Automated count 4.56 10^6/uL 4. 20 - 5.40 [facility] Hemoglobin [Mass/volume] in Blood 13.6 g/dL 12.0 - 16.0 [facility] Hematocrit [Volume Fraction] of Blood by Automated count 40.1 % 3 7.0 - 47.0 [facility] Erythrocyte mean corpuscular volume [Entitic volume] by Auto mated count 87.9 fL 81.0 - 101 [facility] Erythrocyte mean corpuscular hemoglobin [Entitic mass] by Automated count 29.8 pg 27.0 - 34.0 [facility] Erythrocyte mean corpuscular hemoglobin concentration [Mass/volume] by Automated count 33.9 g/dL 31.0 - 36.0 [facility] Erythrocyte distribution width [Ratio] by Automated count 11.9 % 11.5 - 14.5 [facility] Platelets [#/volume] in Blood by Automated count 338 10^3/uL 150 - 45 0 [facility] Platelet mean volume [Entitic volume] in Blood by Automated count 11.8 fL 7.4 - 10.4 H [facility] Neutrophils/100 leukocytes in Blood by Automated count 66.1 % 37. 0 - 80.0 [facility] Lymphocytes/100 leukocytes in Blood by Manual count 26.3 % 25.0 - 40.0 [facility] Monocytes/100 leukocytes in Blood by Automated count 5.2 % 3.0 - 8.0 [facility] Eosinophils/100 leukocytes in Blood by Automated count 1.2 % 0.0 - 7.0 [facility] Basophils/100 leukocytes in Blood by Automated count 1.0 % 0.0 - 2.5 [facility] %IG 0.2 % 0.0 - 0.0 [facility] %NRBC 0.0 % 0.0 - 0.0 [facility] al Neutrophils [#/volume] in Blood by Automated count 5.44 10^3/uL 2.00 - 6.90 [facility] Lymphocytes [#/volume] in Blood by Automated count 2.17 10^3/uL 0.60 - 3.40 [facility] Monocytes [#/volume] in Blood by Automated count 0.43 10^3/uL 0.00 - 0.90 [facility] Eosinophils [#/volume] in Blood by Automated count 0.10 10^3/uL 0.00 - 0.70 [facility] Basophils [#/volume] in Blood by Automated count 0.08 10^3/uL 0.00 - 0.20 [facility] #IG 0.02 10^3/uL 0.00 - 0.10 [facility] #NRBC 0.00 10^3/uL 0.00 - 0.00 [facility] MANUAL DIFF NOT INDICATED [facility] RBC MORPH NOT INDICATED [facility] ID Date Data Source [id number] 09/21/2020 10:58:00 AM EST [facility] Name Value Range Interpretation Code Description Data Opal rce(s) Supporting Document(s) [facility]IS [facility] URINALYSIS SOURCE R [facility] al COLOR yellow NORMAL: Yellow [facility] CLARITY clear NORMAL: Clear [facility] Specific gravity of Urine by Test strip 1.015 1.001 - 1.030 [facility] pH 6 5 - 9 [facility] al Glucose [Mass/volume] in Urine by Test strip NORM NORMAL: Negat [facility] Bilirubin.total [Presence] in Urine by Test strip NEG NORMAL: Negative [facility] Ketones [Presence] in Urine by Test strip NEG NORMAL: Negative [facility] Protein [Mass/volume] in Urine by Test strip NEG NORMAL: Negat [facility] Nitrite [Presence] in Urine by Test strip NEG NORMAL: Negative [facility] BLOOD NEG NORMAL: Negative [facility] Leukocyte esterase [Presence] in Urine by Test strip NEG CANDIDA L: Negative [facility] Urobilinogen [Mass/volume] in Urine by Test strip NOR less moreno n 1.0 mg/dL [facility] MICROSCOPIC Not Indicate [facility] Procedure Social History Code Duration Value Status Description Data Source(s ) Smoking 07/04/2021 12:00:00 AM EDT Patient has never smoked co mpleted Patient has never smoked [facility] ([facility]) Vital Signs ID Date Data Source UNK Name Value Range Interpretation Code Description Data Source(s) Body weight 197.00 [lb_av] 197.00 [lb_av] [facility] T ([facility]) Body height 62 [in_i] 62 [in_i] [facility] 5'2" Body mass index (BMI) [Ratio] 36.0 kg/m2 36.0 k g/m2 [facility] ([facility]) Heart rate 74 /min 74 /min [facility] regular Respiratory rate 16 /min 16 /min [facility] ( [facility]) Systolic blood pressure--sitting 116 mm[Hg] 116 mm[Hg] [facility] ([facility]) Medium cuff, Ra: 118/82 [place] Diastolic blood pressure--sitting 78 mm[Hg] 78 mm[Hg] [facility] ([facility]) Medium cuff, Ra: 118/82 [place] Systolic blood pressure--supine 118 mm[Hg] 118 mm[Hg] [facility] ([facility]) Ra Diastolic blood pressure--supine 78 mm[Hg] 78 mm[Hg] [facility] ([facility]) Ra
[2021-09-12 16:05] VITALS: BP 137/91
[2021-09-12] MEDS ORDERED: GABA-282 PO (16:12)
[2021-09-12] MEDS ORDERED: HOME MED LIST COMPLETE! XX SCH (16:15)
[2021-09-12 16:23] VITALS: BP 134/85
[2021-09-12 16:37] VITALS: BP 139/82
--- NOTE | 2021-10-13 08:27 | IPNPDOC ---
Obstetrical Progress Note Date of Service Sep 12, 2021 Subjective carole Jovel was sent to triage after noting elevated BP in clinic. in triage she had mild range bp and did not have any headaches, vision changes, nause or vomiting, RUQ poin. multiple PB were taken and none were in the severe range. she was given strict retunr precautions and and was admived to continue her home meds and keep her upccoming F/U appt with her Ob. she did not have any concerns at time of discharge. MANOHAR DEAN MD Oct 13, 2021 08:27
== END 2021-09-12 16:51 | disposition home or self-care (01) ==
LOC: M LDO 15:55 → M LDI 15:55 → UNDOADMIN 15:55 → M LDI 15:56 → UNDODISIN 16:51 → M LDO 16:51
PROVIDERS: ATTEND Registered Nurse
DX: O14.15 Severe pre-eclampsia, complicating the puerperium (principal); Z3A.00 Weeks of gestation of pregnancy not specified

== ENCOUNTER 2021-09-14 20:35 | Emergency (ER) | payer OTHER ==
[~2021-09-14] VITALS: Ht 157.5 cm; Wt 91.2 kg
[2021-09-14 20:37] VITALS: BP 142/90
--- OUTSIDE RECORDS SUMMARY | 2021-09-14 20:44 | CCD ---
Author Author [facility] Organization [facility] Address Unknown Phone Unavailable Care Team Providers Care Air Bag Buffer Name Role Phone NO, PCP Unavailable Unavailable [...] Unavailable Melida CHAWLA MD Unavailable Unavailable CHAWLAMelida Vgiil MD Unavailable Unavailable CHAWLAMelida MD Unavailable Unavailable [...] Unavailable Unavailable CHAWLAMelida Vigil MD Unavailable Unavailable CHAWLA E ROLAND MCGRATH [...] Unavailable CHAWLA E ROLAND MCGRATH Unavailable Unavailable Ang Tapia MD Unavailable Unavailable Ang Tapia MD Unavailable Unavailable Ang Tapia MD Unavailable Unavailable Ang Tapia MD Unavailable Unavailable Ang Tapia MD Unavailable Unavailable Ang Tapia MD Unavailable Unavailable TURRIN, ANDREA Unavailable Unavailable TURRIN, ANDREA Unavailable Unavailable TURRIN, ANDREA Unavailable Unavailable TURRIN, ANDREA Unavailable Unavailable CHRIS, T VÍCTOR ELEVATOR CONSTRUCTOR HYDRAULIC Unavailable Unavailable CHRIS, T VÍCTOR ELEVATOR CONSTRUCTOR HYDRAULIC Unavailable Unavailable CHRIS, T VÍCTOR ELEVATOR CONSTRUCTOR HYDRAULIC Unavailable Unavailable CHRIS, T VÍCTOR ELEVATOR CONSTRUCTOR HYDRAULIC Unavailable Unavailable CHRIS, T VÍCTOR ELEVATOR CONSTRUCTOR HYDRAULIC Unavailable Unavailable CHRIS, T VÍCTOR ELEVATOR CONSTRUCTOR HYDRAULIC Unavailable Unavailable CHRIS, T VÍCTOR ELEVATOR CONSTRUCTOR HYDRAULIC Unavailable Unavailable CHRIS, T VÍCTOR ELEVATOR CONSTRUCTOR HYDRAULIC Unavailable Unavailable CHRIS, T VÍCTOR ELEVATOR CONSTRUCTOR HYDRAULIC Unavailable Unavailable CHRIS, T VÍCTOR ELEVATOR CONSTRUCTOR HYDRAULIC Unavailable Unavailable CHRIS, T VÍCTOR ELEVATOR CONSTRUCTOR HYDRAULIC Unavailable Unavailable CHRIS, T VÍCTOR ELEVATOR CONSTRUCTOR HYDRAULIC Unavailable Unavailable CHRIS, T VÍCTOR ELEVATOR CONSTRUCTOR HYDRAULIC Unavailable Unavailable CHRIS, T VÍCTOR ELEVATOR CONSTRUCTOR HYDRAULIC Unavailable Unavailable CHRIS, T VÍCTOR ELEVATOR CONSTRUCTOR HYDRAULIC Unavailable Unavailable CHRIS, T VÍCTOR ELEVATOR CONSTRUCTOR HYDRAULIC Unavailable Unavailable CHRIS, T VÍCTOR ELEVATOR CONSTRUCTOR HYDRAULIC Unavailable Unavailable CHRIS, T VÍCTOR ELEVATOR CONSTRUCTOR HYDRAULIC Unavailable Unavailable CHRIS, T VÍCTOR ELEVATOR CONSTRUCTOR HYDRAULIC Unavailable Unavailable CHRIS, T VÍCTOR ELEVATOR CONSTRUCTOR HYDRAULIC Unavailable Unavailable CHRIS, T VÍCTOR ELEVATOR CONSTRUCTOR HYDRAULIC Unavailable Unavailable CHRIS, T VÍCTOR ELEVATOR CONSTRUCTOR HYDRAULIC Unavailable Unavailable CHRIS, T VÍCTOR ELEVATOR CONSTRUCTOR HYDRAULIC Unavailable Unavailable CHRIS, T VÍCTOR ELEVATOR CONSTRUCTOR HYDRAULIC Unavailable Unavailable CHRIS, T VÍCTOR ELEVATOR CONSTRUCTOR HYDRAULIC Unavailable Unavailable CHRIS, T VÍCTOR ELEVATOR CONSTRUCTOR HYDRAULIC Unavailable Unavailable CHRIS, T VÍCTOR ELEVATOR CONSTRUCTOR HYDRAULIC Unavailable Unavailable CHRIS, T VÍCTOR ELEVATOR CONSTRUCTOR HYDRAULIC Unavailable Unavailable CHRIS, T VÍCTOR ELEVATOR CONSTRUCTOR HYDRAULIC Unavailable Unavailable CHRIS, T VÍCTOR ELEVATOR CONSTRUCTOR HYDRAULIC Unavailable Unavailable CHRIS, T VÍCTOR ELEVATOR CONSTRUCTOR HYDRAULIC Unavailable Unavailable CHRIS, T VÍCTOR ELEVATOR CONSTRUCTOR HYDRAULIC Unavailable Unavailable CHRIS, T VÍCTOR ELEVATOR CONSTRUCTOR HYDRAULIC Unavailable Unavailable CHRIS, T VÍCTOR ELEVATOR CONSTRUCTOR HYDRAULIC Unavailable Unavailable CHRIS, T VÍCTOR ELEVATOR CONSTRUCTOR HYDRAULIC Unavailable Unavailable CHRIS, T VÍCTOR ELEVATOR CONSTRUCTOR HYDRAULIC Unavailable Unavailable CHRIS, T VÍCTOR ELEVATOR CONSTRUCTOR HYDRAULIC Unavailable Unavailable CHRIS, T VÍCTOR ELEVATOR CONSTRUCTOR HYDRAULIC Unavailable Unavailable CHRIS, T VÍCTOR ELEVATOR CONSTRUCTOR HYDRAULIC Unavailable Unavailable CHRIS, T VÍCTOR ELEVATOR CONSTRUCTOR HYDRAULIC Unavailable Unavailable Reynaldo Montes De Oca MD [...] Reynaldo Montes De Oca MD Unavailable Unavailable Falguni C Chyna Unavailable Unavailable Falguni, C Chyna Unavailable Unavailable Montes De Oca, C Chyna [...] is protected by Article 27-F of the [facility] Public Health law. If you continue you may have access to information: Regarding HIV / AIDS; Provided by facilities licensed or operated by the [facility] Office of Mental Health; or Provided by the [facility] Office for People With Developmental Disabilities. If such information is present, then the following [facility] mandated warning applies: This information has [...] law may result in a fine or care home sentence or both. A general authorization for the release of medical or other information is NOT sufficient authorization for further disc losure. Encounters Encounter Providers Location Date Indications Data Source(s ) Outpatient Attender: ROLAND CHAWLA MD Main Office 07/04/2021 01:00:00 PM EDT [facility] Emergency Attender: BRIDGER HAMILTON MDConsultant: SACHIN MCKINNON 04/27/2021 02:36:00 PM EDT - 04/27/2021 05:53:00 PM EDT [facility] Patient discharged. Emergency Attender: Ang Tapia MDConsultant: GLENDY SMITH 04/20/2021 10:50:00 PM EDT - 04/21/2021 12:44:00 AM EDT [facility] Patient discharged. Emergency Attender: BRIDGER HAMILTON MDConsultant: SACHIN MCKINNON 03/07/2021 04:47:00 PM EDT - 03/07/2021 06:58:00 PM EDT [facility] Patient discharged. Emergency Attender: ANDREA Kramersuant: GLENDY CHAUDHARY EConsultant: PCP NO 02/17/2021 06:20:00 PM EDT - 02/17/2021 09:03:00 PM EDT [facility] Patient discharged. Outpatient Attender: Chyna Montes De Oca MD 0 12/16/2020 01:02:15 PM EST - 12/16/2020 01:48:36 PM EST [facility] ([facility]) Outpatient Attender: VÍCTOR FITZPATRICK 11/12 06:47:55 PM EST - 12/02/2020 07:25:15 PM EST [facility] ([facility] ) Emergency Attender: ANDREA Conradant: PCP NO 09/23/2020 11:13:00 PM EST - 09/24/2020 12:22:00 AM EST [facility] Patient discharged. Emergency Attender: REZA VILLARREAL DOConsultant: PCP NO 09/21/2020 09:17:00 AM EST - 09/21/2020 11:40:00 AM EST [facility] Patient discharged. Medications Medication Brand Name Start Date Product Form Dose Route Admi nistrative Instructions Pharmacy Instructions Status Indications Reaction Description Data Source(s) 07/03/2021 12:00:00 AM EDT ORAL active [facility] ([facility]) Insurance Providers Payer name Policy type / Coverage type Policy ID Covered libertarian ID Covered libertarian's relationship to pearson Policy Pearson Plan Information / [id number] Self 01 [id number] [facility] [employer] [id number] 2 [id number] [facility] [employer] - O/P [id number] 01 [id number] Problems, Conditions, and Diagnoses Code Display Name Description Problem Type Effective Dates Data Source(s) Z3A15 15 weeks gestation of 15 weeks gestation of Diagnosis 04/27/2021 02:36:00 PM EDT [facility] R102 Pelvic and perineal pain Pelvic and perineal pain Diag nosis 04/27/2021 02:36:00 PM EDT [facility] W24188 Other specified related condit ions, second trimester Other specified related conditions, second trimester Diagnosis 04/27/2021 02:36:00 PM EDT [facility] Z8759 Personal history of other co mplications of , childbirth and the puerperium Personal history of other complications of , childbirth and the puerperium Diagnosis [facility] Weeks of gestation of not spec ified Weeks of gestation of not specified Diagnosis 04/20/2021 10:50:00 PM EDT [facility] G8929 Other chronic pain Other chronic pain Diagnosis 08[facility]2021 [facility] O99[facility] Migraine without aura, intractable, with out status migrainosus Migraine without aura, intractable, without status migrainosus Diagnosis 04/20/2021 10:50:00 PM EDT [facility] P54429 Diseases of the nervous syst em complicating , unspecified trimester Diseases of the nervous system complicat ing , unspecified trimester Diagnosis 04/20/2021 10:50:00 PM EDT [facility] Q82984 Other specified related condit ions, unspecified trimester Other specified related conditions, unspecified trimester Diagnosis 04/20/2021 10:50:00 PM EDT [facility] Z3A01 Less than 8 weeks gestation of Less than 8 weeks gestation of Diagnosis 03/07/2021 04:47:00 PM EDT [facility] C46508 Other specified related condit ions, first trimester Other specified related conditions, first trimester Diagnosis 03/07/2021 04:47:00 PM EDT [facility] O200 Threatened Threatened Diagnosis 0 02/17/2021 06:20:00 PM EDT [facility] O034 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 Diagnosis 09/23/2020 11:13:00 PM EST [facility] R00.2 Palpitations Palpitations Problem 07/04/2021 12:00:00 A M EDT [facility] ([facility]) R07.2 Precordial pain Precordial pain Problem 07/04/2021 12:0 0:00 AM EDT [facility] ([facility]) R94.31 Electrocardiogram abnormal Electrocardiogram abnormal Problem 07/04/2021 12:00:00 AM EDT [facility] ([facility]) G43.709 Chronic migraine without aura Chronic migraine without aura Problem 07/04/2021 12:00:00 AM EDT [facility] ([facility]) Surgeries/Procedures Procedure Description Date Indications Data Source(s) ECG ROUTINE ECG W/LEAST 12 LDS W/I&R 07/04/2021 12:00: 00 AM EDT [facility] ([facility]) OFFICE OUTPATIENT NEW 45 MINUTES 07/04/2021 12:00:00 A M EDT [facility] ([facility]) Results ID Date Data Source [id number] 09/03/2021 01:10:00 AM EST [facility] Name Value Range Interpretation Code Description Data Opal rce(s) Supporting Document(s) SARS coronavirus 2 RNA [Presence] in Res piratory specimen by VERONIKA with probe detection NEGATIVE [facility] was ordered by [facility] a nd reported by [facility]. ID Date Data Source [id number] 07/18/2021 12:00:00 AM EDT [facility] Name Value Range Interpretation Code Description Data Opal rce(s) Supporting Document(s) SARS-COV-2 Negative [facility] This lab was ordered by [facility] and re ported by [facility]. ID Date Data Source [id number] 05/08/2021 01:52:00 PM EDT [facility] ([facility]) Name Value Range Interpretation Code Description Data Opal rce(s) Supporting Document(s) White Blood Count 12.5 5.0-10.0 [facility] ([facility]) Red Blood Count 4.22 4.00-5.40 [facility] ([facility]) Platelets 235 172-450 [facility] Hemoglobin 12.8 [facility] ([facility]) Hematocrit 37.3 [facility] ([facility]) ID Date Data Source [id number] 05/08/2021 01:52:00 PM EDT [facility] Name Value Range Interpretation Code Description Data Opal rce(s) Supporting Document(s) Thyroid Stimulating Hormone 1.520 [facility] ([facility]) Free T4 0.97 [facility] ID Date Data Source [id number] 04/29/2021 10:29:00 [place] [address] PHONE: [phone] FAX: [phone] Name .................. : LIZZETH Bernardo Acct Number.................. : [id number] ROOM. ................. : TR-05 Number ................... : [id number] Stay type ............. : E/R Discharge Date......... ... : 04/27/21 Admit Date ......... : 04/27/21 Admit Phys .................... : MYCHAL Date of ....... : 2000 Family Phys ................... : SARAH STEPHENSON Phone .................. : [phone] Age ................................ : 20 Film# .................. .:[id number] Sex ................................. : F Unsigned transcriptions are preliminary reports and do not represent a medical or legal document OB COMPLETE 14WKS OR>(2ND& 67931 COMPLETE:04/27/21 16:33 ADB 94738 Reason for Exam: CRAMPING COMPLETE OB ULTRASOUND: [...] By Pro Tai M.D. , 04/29/21 10:29, SDY Transcribe Initials: SHIRLENE , Transcribe Date: 04/27/21 18:02, Dictation Date: Copy for: SARAH CAMELA Joan via fax Copy for: EMERGENCY DEPT via [facility] Copy for: 710 MED REC DISCHARGED Page 1 of 1 Name Value Range Interpretation Code Description Data Opal rce(s) Supporting Document(s) ID Date Data Source [id number] 04/27/2021 02:36:00 PM EDT [facility] 1 OrderSheet [facility] Emergency Department [address] [place] [address] Phone #: ext- [phone] 04/27/2021 14:33 Patient: CHRISTOS MOREAU Sex: F : 2000 Age: 20yWEIGHT:85.2 kg (S) HEIGHT:62 inches (S) BMI:34.4ALLERGIES: NoneCHIEF COMPLAINT: pelvic painDIAGNOSIS: C/O pelvic painLAB ORDERSOrder Description Priority Entered Acknowledged InitialedBeta-HCG, Quant STAT 14:40 04/27/2021 14:42 PeterSerum Bridger Hamilton RN ;Urinalysis (Clean STAT 14:40 04/27/2021 14:43 BurnhamCatch) Bridger Hamilton ED TechCarlitos ER ; Uhbh6Dhdaqbh, Urine STAT 14:40 04/27/2021 14:43 Frantz(Urine, Clean Bridger Hamilton ED Tech, Carlitos ERCatch) ; Kimd4JHL w Diff STAT 14:40 04/27/2021 14:42 Bridger Harrison RN ;CMP STAT 14:40 04/27/2021 14:42 Bridger Harrison RN ;DIAGNOSTIC STUDY ORDERSOrder Description Priority Entered Acknowledged InitialedUS OB 1ST TRI W STAT 15:50 04/27/2021 16:02 Bang IF NEEDED Bridger Hamilton RN(Oxygen?(No)) ;(IV?(No)) Reason for Study: pelvic pain 14 weeks MEDICATION/IV/DRIP/FLUID ORDERSOrder Description Priority Entered Acknowledged InitialedTylenol PO 650 mg 15:48 04/27/2021 16:19 Carlos(NOW) Bridger Hamilton RN ;GENERAL ORDERS 2 OrderSheet [facility] Emergency Department [address] [place] [address] Phone #: ext- [phone] 04/27/2021 14:33 Patient: CHRISTOS MOREAU Sex: F : 2000 Age: 20yOrder Description Priority Entered Acknowledged Initialed[Electronically signed by Carlos Gallagher RN (17:53 04/27/2021)][Electronically signed by Bridger Hamilton (22:45 04/27/2021)][Electronically locked by Carlos Gallagher RN (17:53 04/27/2021)] Name Value Range Interpretation Code Description Data [facility] Supporting Document(s) ID Date Data Source [id number] 04/27/2021 02:36:00 PM EDT [facility] 1 Medication Reconciliation Report [facility] Emergency Department [address] [place] [address] Phone #: ext- [phone] 04/27/2021 14:33 Patient: [...] rce(s) Supporting Document(s) ID Date Data Source [id number] 04/27/2021 02:36:00 PM EDT [facility] 1 Medication Administration Record [facility] Emergency Department [address] [place] [address] Phone #: ext- [phone] 04/27/2021 14:33 Patient: CHRISTOS MOREAU Sex: F : 2000 Age: 20yWeight: 85.2 kgHeight/Length: 62 inBMI: 34.4ALLERGIES: None Date/Time Medication Administered Medication OrderedGiven TYLENOL [PO] (APAP) Tylenol PO 650 mg (NOW)16:19 04/27/2021 Dose: 650 mg Tablets Marialuisa Gallagher RN Name Value Range Interpretation Code Description Data [facility] rce(s) Supporting Document(s) ID Date Data Source [id number] 04/27/2021 02:36:00 PM EDT [facility] 1 General Instructions [facility] Emergency Department [address] [place] [address] Phone #: ext- [phone] 04/27/2021 14:33 Patient: CHRISTOS MOREAU Sex: F : 2000 Age: 20y Pelvic pain. Ultrasound demonstrated an intrauterine .INSTRUCTIONS Drink plenty of fluids. (take Tylenol for pain. follow up with your salmon gillnet vessel operator. your pelvic US showed a live intrauterine [...] the due date nears. 2 General Instructions [facility] Emergency Department [address] [place] [address] Phone #: ext- [phone] 04/27/2021 14:33 [id number] Sex[facility] F : 2000 Age: 20yPain in [...] to by your healthcare provider, take an grtd-iye-zzotjzb medicine, such as acetaminophen, to relieve pain. Follow instructions carefully for how much to take and how often to take it. Do not take aspirin or nonsteroidal anti-inflammatory medicines (like ibuprofen) unless you have been told to do so by your healthcare provider.Follow-up careFollow up with your healthcare provider, or as advised. 3 General Instructions [facility] Emergency Department [address] [place] [address] Phone #: ext- [phone] 04/27/2021 14:33 Patient: [...] 100.4F (38C) or higher 1999- 2019 [employer]. [address] [place] [address]. All rights reserved. This information is not intended as asubstitute for professional medical care. Always follow your healthcare professional's instructions. You have been given the following additional information: Pelvic Pain In : Unclear (2-3 Trimester)(Electronically signed by Bridger Hamilton 04/27/2021 22:45) Name Value Range Interpretation Code Description Data Opal rce(s) Supporting Document(s) ID Date Data Source [id number] 04/27/2021 02:36:00 PM EDT [facility] 1 Clinical Report - Nurses [facility] Emergency Department [address] [place] [address] Phone #: ext- [phone] 04/27/2021 14:33 Patient: [...] water, pt denies any discharge or bleeding).Treatment REELING OPERATOR:None.SEPSIS SCREEN: SIRS SCREEN NEGATIVE. SEPSIS SCREEN NEGATIVE. [...] P 0. 2 Clinical Report - Nurses [facility] Emergency Department [address] [place] [address] Phone #: ext- [phone] 04/27/2021 14:33 Patient: CHRISTOS MOREAU Sex: F [...] PELVIC EXAM: 3 Clinical Report - Nurses [facility] Emergency Department [address] [place] [address] Phone #: ext- [phone] 04/27/2021 14:33 Patient: [...] Patient verbalized understanding. Written instructions provided in Micronesian. The patient was discharged by the physician. [...] rce(s) Supporting Document(s) ID Date Data Source [id number] 04/27/2021 02:36:00 PM EDT [facility] 1 Clinical Report - Physicians/Mid Levels [facility] Emergency Department [address] [place] [address] Phone #: ext- [phone] 04/27/2021 14:33 Patient: CHRISTOS MOREAU Sex: F : 2000 Age: 20y Time Seen: 14:41 04/27/2021; initial patient contact, initial documentation. Arrived- By private vehicle. Historian- patient. Disposition decision: 17:44 04/27/2021.HISTORY OF PRESENT ILLNESS Chief Complaint: PELVIC PAIN. This started 8 days REELING OPERATOR and still present (persistent). It was gradual [...] vaginosis and vaginal yeast infection. patient is G9C0St1 and is 14 weeks ). Currently .REVIEW [...] EXAM 2 Clinical Report - Physicians/Mid Levels [facility] Emergency Department [address] [place] [address] Phone #: ext- [phone] 04/27/2021 14:33 Patient: CHRISTOS MOREAU Sex: F [...] sounds normal. Back: Normal external inspection. : Plant Facilities Technician present (nurse Rafael). Speculum and bimanual exam [...] Test Result Flag Units (Reference) HCG QUANT 91887.0 mIU/mL Interpretation: Less than 5 mU/mL: Negative 6-10 mU/mL: Borderline (suggest repeat in 48 hours) >10: Positive Approx HCG range (mU/mL) Weeks post LMP 5.4-708 mU/mL 3-4 Weeks 217-18308 mU/mL 5-6 Weeks 4059-301430 mU/mL 7-8 Weeks 04314-868308 mU/mL 9-10 Weeks 60959-04930 mU/mL 12- 14 Weeks 75162-58769 mU/mL 15-16 Weeks 8240-16616 mU/mL 17-18 Weeks Urinalysis: (RHONDA: 04/27/2021 14:45) ( MsgRcvd 04/27/2021 15:40) Final results Test Result Flag Units (Reference) URINALYSIS URINALYSIS 3 Clinical Report - Physicians/Mid Levels [facility] Emergency Department [address] [place] [address] Phone #: ext- [phone] 04/27/2021 14:33 Patient: [...] 107) 4 Clinical Report - Physicians/Mid Levels [facility] Emergency Department [address] [place] [address] Phone #: ext- [phone] 04/27/2021 14:33 Patient: [...] . 5 Clinical Report - Physicians/Mid Levels [facility] Emergency Department [address] [place] [address] Phone #: ext- [phone] 04/27/2021 14:33 Patient: CHRISTOS MOREAU Sex: F : 2000 Age: 20yINSTRUCTIONS Drink plenty of fluids. (take Tylenol for pain. follow up with your salmon gillnet vessel operator. your pelvic US showed a live intrauterine [...] rce(s) Supporting Document(s) ID Date Data Source [id number] 04/27/2021 03:39:00 PM EDT [facility] Name Value Range Interpretation Code Description Data Opal rce(s) Supporting Document(s) Choriogonadotropin.intact [Units/volume] in Serum or Plasma 44843.0 mIU/mL [facility] Interpr etation: Less than 5 mU/mL: Negative 6-10 mU/mL: Borderline (suggest repeat in 48 hours) >10: Positive Approx HCG range (mU/mL) Weeks post LMP 5.4-708 mU/mL 3-4 Weeks 217-25959 mU/mL 5-6 Weeks 4059-530115 mU/mL 7-8 Weeks 53556-969498 mU/mL 9-10 Weeks 49686-16695 mU/mL 12-14 Weeks 01436-35573 mU/mL 15-16 Weeks 8240- 72135 mU/mL 17-18 Weeks ID Date Data Source [id number] 04/27/2021 03:38:00 PM EDT [facility] Name Value Range Interpretation Code Description Data Opal rce(s) Supporting Document(s) COMPREHENSIVE METABOLIC PANEL [facility] COMPREHENSIVE METABOLIC PANEL Sodium [Moles/volume] in Serum or Plasma 137 mEq/L 134 - 153 [facility] Potassium [Moles/volume] in Serum or Plasma 3.9 mEq/L 3.6 - 5.0 [facility] Chloride [Moles/volume] in Serum or Plasma 104 mEq/L 98 - 107 [facility] Carbon dioxide, total [Moles/volume] in Serum or Plasma 23 MEQ/L 22 - 30 [facility] Glucose [Mass/volume] in Serum or Plasma 83 MG/DL 70 - 99 [facility] BUN 5 MG/DL 7 - 21 L [facility] al Creatinine [Mass/volume] in Serum or Plasma 0.4 MG/DL 0.7 - 1.5 L [facility] BUN/CREAT 13 8 - 27 [facility] Protein [Mass/volume] in Serum or Plasma 6.8 G/DL 6.3 - 8.2 [facility] Albumin [Mass/volume] in Serum or Plasma 4.1 G/DL 3.9 - 5.0 [facility] Globulin [Mass/volume] in Serum by calculation 2.7 GM/DL 2.4 - 3.2 [facility] A/G RATIO 1.5 0.8 - 2.0 [facility] Calcium [Mass/volume] in Serum or Plasma 9.2 MG/DL 8.4 - 10.2 [facility] Bilirubin.total [Mass/volume] in Serum or Plasma <0.7 MG/DL 0.2 - 1.3 [facility] Alkaline phosphatase [Enzymatic activity/volume] in Serum or Plasma 51 U/L 38 - 126 [facility] Aspartate aminotransferase [Enzymatic activity/volume] in Serum or Plasma 10 U/L 5 - 40 [facility] Alanine aminotransferase [Enzymatic activity/volume] in Seru m or Plasma 7 U/L 7 - 56 [facility] Anion gap 3 in Serum or Plasma 10.0 mmol/L 8.0 - 16.0 [facility] AGE 20 yrs [facility] NON-AA GFR >60 mL/min [facility] ital AFR AMER GFR >60 mL/min [facility] Ho spital Male GFR In [...] >32 mL/min Normal ID Date Data Source [id number] 04/27/2021 03:09:00 PM EDT [facility] Name Value Range Interpretation Code Description Data Opal rce(s) Supporting Document(s) CBC W/AUTOMATED DIFF [facility] COMPLETE BLOOD COUNT Leukocytes [#/volume] in Blood by Automated count 12.6 10^3/uL 4.2 - 11.0 H [facility] Erythrocytes [#/volume] in Blood by Automated count 4.36 10^6/uL 4. 20 - 5.40 [facility] Hemoglobin [Mass/volume] in Blood 13.3 g/dL 12.0 - 16.0 [facility] Hematocrit [Volume Fraction] of Blood by Automated count 38.4 % 3 7.0 - 47.0 [facility] Erythrocyte mean corpuscular volume [Entitic volume] by Auto mated count 88.1 fL 81.0 - 101 [facility] Erythrocyte mean corpuscular hemoglobin [Entitic mass] by Automated count 30.5 pg 27.0 - 34.0 [facility] Erythrocyte mean corpuscular hemoglobin concentration [Mass/volume] by Automated count 34.6 g/dL 31.0 - 36.0 [facility] Erythrocyte distribution width [Ratio] by Automated count 13.2 % 11.5 - 14.5 [facility] Platelets [#/volume] in Blood by Automated count 296 10^3/uL 150 - 45 0 [facility] Platelet mean volume [Entitic volume] in Blood by Automated count 11.7 fL 7.4 - 10.4 H [facility] Neutrophils/100 leukocytes in Blood by Automated count 78.5 % 37. 0 - 80.0 [facility] Lymphocytes/100 leukocytes in Blood by Manual count 14.7 % 25.0 - 40.0 L [facility] Monocytes/100 leukocytes in Blood by Automated count 5.3 % 3.0 - 8.0 [facility] Eosinophils/100 leukocytes in Blood by Automated count 0.6 % 0.0 - 7.0 [facility] Basophils/100 leukocytes in Blood by Automated count 0.3 % 0.0 - 2.5 [facility] %IG 0.6 % 0.0 - 0.0 [facility] %NRBC 0.0 % 0.0 - 0.0 [facility] Neutrophils [#/volume] in Blood by Automated count 9.88 10^3/uL 2.00 - 6.90 H [facility] Lymphocytes [#/volume] in Blood by Automated count 1.85 10^3/uL 0.60 - 3.40 [facility] Monocytes [#/volume] in Blood by Automated count 0.67 10^3/uL 0.00 - 0.90 [facility] Eosinophils [#/volume] in Blood by Automated count 0.08 10^3/uL 0.00 - 0.70 [facility] Basophils [#/volume] in Blood by Automated count 0.04 10^3/uL 0.00 - 0.20 [facility] #IG 0.07 10^3/uL 0.00 - 0.10 [facility] #NRBC 0.00 10^3/uL 0.00 - 0.00 [facility] MANUAL DIFF NOT INDICATED [facility] RBC MORPH NOT INDICATED [facility] spital ID Date Data Source [id number] 05/01/2021 08:05:00 PM EDT [facility] Name Value Range Interpretation Code Description Data Opal rce(s) Supporting Document(s) CULTURE URINE [facility] _CULTURE URINE_$$[id number]$$465504$$413487$$984120$$210656$$946225$$486433$$489298$$217181$$ 853618$$694557$$525231$$856774$$599183$$222196$$050867$$826761$$058298$$736138$$ 213462$$671836$$574332$$115977$$486719$$911235$$140596$$416114 -- Continued on next page --Patient: LIZZETH Bernardo Order: [id number] Page 2Culture: CULTURE URINE Status: Final ==== -- Continued on next page --Patient: LIZZETH Bernardo Order: [id number] Page 2Culture: CULTURE URINE Status: Prelim =====$$[id number]$$[id number] DATE/TIME: 05/01/2021 15:06Culture: CULTURE URINE Status: FinalUrine Culture,Comprehensive: P1No growth in 36 - 48 hours. Previous result entered on 04/30/2021 06:54 ET No growth after 18-24 hours.P1 Test performed by: [facility]ANO #: [id number] [address] [place] [id number] [facility] [address]Medical Director : Mark Bernardo MD NPI #:Lab Di jose : 04/30/21.0719.thiago.SENT REF 05/01/21.thiago.SENT REF ID Date Data Source [id number] 04/27/2021 03:39:00 PM EDT [facility] Name Value Range Interpretation Code Description Data Opal rce(s) Supporting Document(s) URINALYSIS [facility] URINALYSIS SOURCE Clean Catch [facility] COLOR yellow NORMAL: Yellow [facility] CLARITY turbid NORMAL: Clear [facility] Specific gravity of Urine by Test strip 1.015 1.001 - 1.030 [facility] pH 6.5 5 - 9 [facility] Glucose [Mass/volume] in Urine by Test strip 50 NORMAL: Negat collette A [facility] Bilirubin.total [Presence] in Urine by Test strip NEG NORMAL: Negative [facility] Ketones [Presence] in Urine by Test strip NEG NORMAL: Negative [facility] Protein [Mass/volume] in Urine by Test strip NEG NORMAL: Negat collette [facility] Nitrite [Presence] in Urine by Test strip NEG NORMAL: Negative [facility] BLOOD NEG NORMAL: Negative [facility] LEUK EST 25 NORMAL: Negative [facility] Urobilinogen [Mass/volume] in Urine by Test strip NOR less moreno n 1.0 mg/dL [facility] MICROSCOPIC See Below [facility] WBC 1 - 3 NORMAL: NONE SEEN [facility] Erythrocytes [#/volume] in Urine by Test strip 0 - 1 NORMAL: NON E SEEN [facility] EPITHELIAL MANY NORMAL: NONE SEEN A [facility] Amorphous sediment [Presence] in Urine sediment by Light kayley roscopy RARE NORMAL: NONE SEEN [facility] ID Date Data Source [id number] 04/20/2021 10:50:00 PM EDT [facility] 1 OrderSheet [facility] Emergency Department [address] [place] [address] Phone #: [phone]- [phone] 04/20/2021 22:48 Patient: CHRISTOS MOREAU Sex: F [...] ; Tony RNx1)Acetaminophen IV 23:39 04/20/2021 23:59 [id number] mg (NOW x1, Ang Tapia ; Tony RNInfuse over 15minutes)GENERAL ORDERSOrder Description Priority Entered Acknowledged Initialed[Electronically signed by Vargas Jimenez RN (00:43 04/21/2021)][Electronically signed by Ang Tapia (04:53 2020)][Electronically locked by Vargas Jimenez RN (00:43 04/21/2021)] Name Value Range Interpretation Code Description Data Opal rce(s) Supporting Document(s) ID Date Data Source [id number] 04/20/2021 10:50:00 PM EDT [facility] 1 Medication Reconciliation Report [facility] Emergency Department [address] [place] [address] Phone #: ext- [phone] 04/20/2021 22:48 Patient: [...] rce(s) Supporting Document(s) ID Date Data Source [id number] 04/20/2021 10:50:00 PM EDT [facility] 1 Medication Administration Record [facility] Emergency Department [address] [place] [address] Phone #: ext- [phone] 04/20/2021 22:48 Patient: CHRISTOS MOREAU Sex: F : 2000 Age: 20yWeight: 84.3 kgHeight/Length: 62 inBMI: 34ALLERGIES: None Date/Time Medication Administered Medication OrderedGiven BENADRYL [IVP] (DIPHENHYDRAMINE Benadryl IVP 25 mg (NOW x1)23:52 04/20/2021 HCL)Vargas Jimenez RN Dose: 12.5 mg IVP Site: #1 left ACStart NS [IV] NS IV 1000 mL Bolus: : Bolus [id number] 04/21/2021 Dose: IV Fluids mL (X1)Vargas Jimenez [...] rce(s) Supporting Document(s) ID Date Data Source [id number] 04/20/2021 10:50:00 PM EDT [facility] 1 General Instructions [facility] Emergency Department [address] [place] [address] Phone #: [phone]- [phone] 04/20/2021 22:48 Patient: CHRISTOS MOREAU Sex: F [...] headache or are having 2 General Instructions [facility] Emergency Department [address] [place] [address] Phone #: ext- [phone] 04/20/2021 22:48 ----- [...] to treat future headaches 3 General Instructions [facility] Emergency Department [address] [place] [address] Phone #: ext- [phone] 04/20/2021 22:48 Patient: [...] side of your face 4 General Instructions [facility] Emergency Department [address] [place] [address] Phone #: ext- [phone] 04/20/2021 22:48 Patient: CHRISTOS MOREAU Sex: F : 2000 Age: 20y Trouble talking or seeing [phone] [employer]. [address] [place] [address]. All rights reserved. Th is information is not intended as asubstitute for professional medical care. Always follow your healthcare professional's instructions. You have been given the following additional information: Headache, Migraine, Classic(Electronically signed by Ang Tapia 04/21/2021 04:53) Name Value Range Interpretation Code Description Data Opal rce(s) Supporting Document(s) ID Date Data Source [id number] 04/20/2021 10:50:00 PM EDT [facility] 1 Clinical Report - Nurses [facility] Emergency Department [address] [place] [address] Phone #: ext- [phone] 04/20/2021 22:48 Patient: CHRISTOS MOREAU Sex: F : 2000 Age: 20yTRIAGEArrived by private vehicle. Historian: patient.Triage time: 22:50 04/20/2021.Chief Complaint: MIGRAINE HEADACHE.This started 2 weeks. She has had vomiting (2 times last time around 330). 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 (2 ES at 9am). --23:00 04/20/21 [...] known surgeries.History 2 Clinical Report - Nurses [facility] Emergency Department [address] [place] [address] Phone #: ext- [phone] 04/20/2021 22:48 Patient: CHRISTOS MOREAU Sex: F : 2000 Age: 20y PAST MEDICAL HX: Headaches. Currently : Sees [facility], LMP nov 16, EDC [...] initiated. Bed in low position. Brakes on. Podopediatrician at bedside. Call light in reach of patient. --23:04 04/20/21 Mya Jimenez R.N. FAMILY HX: Father: Migraine Headache. --23:44 04/20/21 Agn Tapia.PHYSICAL ASSESSMENTAmbulatory to room.GENERAL / NEURO / [...] Jimenez RN 3 Clinical Report - Nurses [facility] Emergency Department [address] [place] [address] Phone #: ext- [phone] 04/20/2021 22:48 Patient: [...] or swelling. IV flushed thoroughly. --00:41 04/21/21 Vargsa Jimenez RN.DISPOSITION / DISCHARGE Jennifer Coma Scale: 15- eyes open- spontaneous (4); best verbal response- oriented (5); best motor response- obeys commands (6). Condition at departure: improved. No learning barriers present. Discharge instructions provided and reviewed with the patient. Reviewed referral to family practice for followup. Patient verbalized understanding. Written instructions provided in Micronesian. The patient was discharged home and accompanied by equipment operator. She left ambulatory and via private vehicle. Podopediatrician driving. --00:43 04/21/21 Vargas Jimenez RN 00:41 [...] Jimenez RN 4 Clinical Report - Nurses [facility] Emergency Department [address] [place] [address] Phone #: ext- [phone] 04/20/2021 22:48 Patient: CHRISTOS MOREAU Sex: Katy : 2000 Age: 20y Name Value Range Interpretation Code Description Data Opal rce(s) Supporting Document(s) ID Date Data Source [id number] 04/20/2021 10:50:00 PM EDT [facility] 1 Clinical Report - Physicians/Mid Levels [facility] Emergency Department [address] [place] [address] Phone #: ext- [phone] 04/20/2021 22:48 Patient: CHRISTOS MOREAU Sex: Katy : 2000 Age: 20y Time Seen: 23:37 [...] emergency department. ( Seen in ED in [place]).REVIEW OF SYSTEMSCurrently . No fever, muscle aches, [...] None. 2 Clinical Report - Physicians/Mid Levels [facility] Emergency Department [address] [place] [address] Phone #: ext- [phone] 04/20/2021 22:48 Patient: [...] necessary. 3 Clinical Report - Physicians/Mid Levels [facility] Emergency Department [address] [place] [address] Phone #: [phone]- [phone] 04/20/2021 22:48 Patient: CHRISTOS MOREAU Sex: F : 2000 Age: 20y GENERAL [...] rce(s) Supporting Document(s) ID Date Data Source [id number] 03/20/2021 01:54:00 PM EDT [facility] ([facility]) Name Value Range Interpretation Code Description Data Opal rce(s) Supporting Document(s) Magnesium Level 2.1 1.8-2.4 [facility] ([facility]) ID Date Data Source [id number] 03/20/2021 01:54:00 PM EDT [facility] ([facility]) Name Value Range Interpretation Code Description Data Opal rce(s) Supporting Document(s) Albumin [Mass/volume] in Serum or Plasma 3.4 [facility] ([facility]) Alanine aminotransferase [Enzymatic activity/volume] in Serum or Pl asma 21 [facility] ([facility]) Calcium [Mass/volume] in Serum or Plasma 8.9 [facility] ([facility]) Carbon dioxide, total [Moles/volume] in Serum or Plasma 26 [facility]) Chloride [Moles/volume] in Serum or Plasma 106 [facility]) Alkaline phosphatase [Enzymatic activity/volume] in Serum or Plasma 5 4 [facility]) Potassium [Moles/volume] in Serum or Plasma 3.8 [facility] ([facility]) Protein [Mass/volume] in Serum or Plasma 6.9 [facility] ([facility]) Sodium 139 [facility] Aspartate aminotransferase [Enzymatic activity/volume] in Serum or Plasma 8 [facility]) Urea nitrogen [Mass/volume] in Serum or Plasma 5 [facility]) Creatinine For GFR 0.56 [facility] ([facility]) Glucose 97 83-110 [facility]) ID Date Data Source [id number] 03/11/2021 10:07:[address] [facility] [address] [place] [address] PHONE: [phone] FAX: [phone] Name .................. : LIZZETH Bernardo Acct Number.................. : [id number] ROOM. ................. : VT-05 Number ................... : [id number] Stay type ............. : E/R Discharge Date......... ... : 03/07/21 Admit Date ......... : 03/07/21 Admit Phys .................... : MYCHAL Date of ....... : 2000 Family Phys ................... : SARAH STEPHENSON Phone .................. : [phone] Age ................................ : 20 Film# .................. .:[id number] Sex ................................. : F Unsigned transcriptions are preliminary reports and do not represent a medical or legal document OB 1ST TRI W TV IF NEEDED [id number] COMPLETE:03/07/21 18:21 [facility] 30556 Reason(s): 5 weeks preg nant vaginal bleeding [...] By Pro Tai M.D. , 03/11/21 10:07, [place] Transcribe Initials: SHIRLENE , Transcribe Date: 03/08/21 02:46, Dictation Date: Copy for: SARAH Franco via fax Copy for: EMERGENCY DEPT via modem Copy for: 710 MED REC DISCHARGED Page 1 of 1 Name Value Range Interpretation Code Description Data Opal rce(s) Supporting Document(s) ID Date Data Source [id number] 03/11/2021 07:37:00 AM EDT [facility] Name Value Range Interpretation Code Description Data Opal rce(s) Supporting Document(s) ID Date Data Source [id number] 03/07/2021 04:47:00 PM EDT [facility] 1 OrderSheet [facility] Emergency Department [address] [place] [address] Phone #: ext- [phone] 03/07/2021 16:45 Patient: [...] Scarlett Hackett RN (18:59 03/07/2021)] 2 OrderSheet [facility] Emergency Department [address] [place] [address] Phone #: ext- [phone] 03/07/2021 16:45 Patient: CHRISTOS MOREAU Sex: F : 2000 Age: 20y[El ectronically signed by Bridger Hamilton (19:54 03/07/2021)][Electronically locked by Scarlett Hackett RN (18:59 03/07/2021)] Name Value Range Interpretation Code Description Data [facility](s) Supporting Document(s) ID Date Data Source [id number] 03/07/2021 04:47:00 PM EDT [facility] 1 Medication Reconciliation Report [facility] Emergency Department [address] [place] [address] Phone #: ext [phone] 03/07/2021 16:45 Patient: CHRISTOS MOREAU Sex: F [...] Name Value Range Interpretation Code Description Data [facility]) Supporting Document(s) ID Date Data Source [id number] 03/07/2021 04:47:00 PM EDT [facility] 1 Medication Administration Record [facility] Emergency Department [address] [place] [address] Phone #: ext- [phone] 03/07/2021 16:45 Patient: CHRISTOS MOREAU Sex: F : 2000 Age: 20yWeight: 83.0 kgHeight/Length: 62 inBMI: 33.5ALLERGIES: NoneDate/Time Medication Administered Medication Ordered Name Value Range Interpretation Code Description Data Opal rce(s) Supporting Document(s) ID Date Data Source [id number] 03/07/2021 04:47:00 PM EDT [facility] 1 General Instructions [facility] Emergency Department [address] [place] [address] Phone #: ext- [phone] 03/07/2021 16:45 Patient: CHRISTOS MOREAU Sex: F : 2000 Age: 20yFirst trimester .INSTRUCTIONS(you are 7 weeks . there [place] [address]. follow up withyour OB GY N for care).Your Current Medications: Your current home medications have been reviewed.CONTINUE TAKING THE FOLLOWING MEDI CATIONS: Oral : daily.Progesterone Vaginal : 2x a day.Follow-up with: [facility], , , [address] [place] [address], Critical access hospital Follow up in seven days. Call for an appointment. Reason for referral: evaluation. Summary of careprovided to patient via paper. ADDITIONAL INFORMATIONPregnancy 2 General Instructions [facility] Emergency Department [address] [place] [address] Phone #: ext- [phone] 03/07/2021 16:45 Patient: [...] baby is born healthy: 3 General Instructions [facility] Emergency Department [address] [place] [address] Phone #: ext- [phone] 03/07/2021 16:45 Patient: CHRISTOS MOREAU Sex: F [...] You can seeyour family provider, a specialist (vascular physician), a casting tester, or a primary care clinic.When to seek medical adviceCall your healthcare provider right away if any of these occur: Vaginal bleeding Pain in your belly (abdomen) or back that is moderate or severe Lots of vomiting, or you can't keep any fluids down for 6 hours 4 General Instructions [facility] Emergency Department [address] [place] [address] Phone #: ext- [phone] 03/07/2021 16:45 Patient: CHRISTOS MOREAU Sex: F : 2000 Age: 20y Burning feeling when you urinate Headache, dizziness, or rapid weight gain Fever Vision changes or blurred vision [phone] [facility] [employer]. [address] [place] [address]. All rights reserved. This information is not intended as asubstitute for professional medical care. Always follow your healthcare professional's instructions. You have been given the following additional information: , New Dx(Electronically signed by Bridger Hamilton 03/07/2021 19:54) Name Value Range Interpretation Code Description Data Opal rce(s) Supporting Document(s) ID Date Data Source [id number] 03/07/2021 04:47:00 PM EDT [facility] 1 Clinical Report - Nurses [facility] Emergency Department [address] [place] [address] Phone #: [phone] ohw- [phone] 03/07/2021 16:45 Patient: CHRISTOS MOREAU Sex: F [...] just feels "something is off".). No vomiting.Treatment REELING OPERATOR:None.SEPSIS SCREEN: SIRS SCREEN NEGATIVE. SEPSIS SCREEN NEGATIVE. [...] Mendez R.N. 2 Clinical Report - Nurses [facility] Emergency Department [address] [place] [address] Phone #: ext- [phone] 03/07/2021 16:45 Patient: CHRISTOS MOREAU Sex: F : 2000 Age: 20y ADDITIONAL SURGERIES: no known surgeries. History PAST MEDICAL HX: Immunizations: up-to-date. Last normal menstrual period- 11/16/2020, miscarriage in early December, no menses since then, not entirely sure. 3. Para 0. Abortions 2. Confirmed . In 1st trimester. confirmed with sonogram. Has had care by vascular physician. SOCIAL HX: Never smoker. No alcohol use [...] Pt denies 3 Clinical Report - Nurses [facility] Emergency Department [address] [place] [address] Phone #: ext- [phone] 03/07/2021 16:45 [id number] Sex: F : 2000 Age: 20y urinary [...] --16:55 03/07/21 Yisel Mendez R.N. 17:06 03/07/21. Plant Facilities Technician provided for the genital exam by the [...] Patient verbalized understanding. Written instructions provided in Micronesian. The patient was discharged home and accompanied [...] rce(s) Supporting Document(s) ID Date Data Source [id number] 03/07/2021 04:47:00 PM EDT [facility] 1 Clinical Report - Physicians/Mid Levels [facility] Emergency Department [address] [place] [address] Phone #: ext- [phone] 03/07/2021 16:45 Patient: CHRISTOS MOREAU Sex: F : 2000 Age: 20y Time Seen: 17:04 03/07/2021; initial patient contact, initial documentation. Arrived- By private vehicle. Historian- patient. Disposition decision: 18:51 03/07/2021.HISTORY OF PRESENT ILLNESS Chief Complaint: PELVIC PAIN. 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 It was abrupt in onset and has been intermittent. The symptoms are described as mild. Modifying factors. Not worsened by anything. Not relieved by anything. No abdominal pain, pelvic pain, vaginal pain, low back pain or pain with urination. No urinary frequency, urgency of urination or hematuria. Not sexually active. Does not use control measures. (Patient is [id number] suppose to be 7 weeks . was seen in the ER on february 17, 2021. her BHCG then was 166. she was seen at [facility] ago and was told her [...] use. 2 Clinical Report - Physicians/Mid Levels [facility] Emergency Department [address] [place] [address] Phone #: ext- [phone] 03/07/2021 16:45 Patient: CHRISTOS MOREAU Sex: F [...] radiologist.Laboratory Tests: Urinalysis: (RHONDA: 03/07/2021 18:00) ( [facility] 03/07[facility] 18:19) Final results Test Result Flag [...] Beta-HCG, Quant Serum: (RHONDA: 03/07/2021 17:08) ( [facility] 03/07/2021 18:19) Final results Test Result Flag Units (Reference) HCG QUANT 77397.0 mIU/mL Interpretation: Less than 5 mU/mL: Negative 6-10 mU/mL: Borderline (suggest repeat in 48 hours) >10: Positive Approx HCG range (mU/mL) Weeks post LMP 5.4-708 mU/mL 3-4 Weeks 3 Clinical Report - Physicians/Mid Levels [facility] Emergency Department [address] [place] [address] Phone #: ext- [phone] 03/07/2021 16:45 Patient: CHRISTOS MOREAU Sex: F : 2000 Age: [id number] mU/mL 5-6 Weeks 4059-011032 mU/mL 7-8 Xqzvs53774-320233 mU/mL 9-10 Weeks 05890-61222 mU/mL 12-14 Tecgv05840-46133 mU/mL 15-16 Weeks 8240-08328 mU/mL 17-18 WeeksPT/INR: (RHONDA: 03/07/2021 17:08) ( MsgRcvd 03/07/2021 17:43) Final results Test Result Flag Units (Reference) PROTIME 13.0 SECONDS (11.0 - 15.5) INR 0.94 (0.93 - 1.23) \\BLDo\\INR INTERPRETATION\\BLDx\\ Therapeutic range for Coumadin andrelated oral anticoagulants. -International Normalized Ratio (INR): 2.0 - 3.0 for VenousThrombosis, Pulmonary Embolus, Tissue heart valves, Acute AR, Atrial Fibrillation, Valvular heartdisease and recurrent Systemic [...] 21) 4 Clinical Report - Physicians/Mid Levels [facility] Emergency Department [address] [place] [address] Phone #: ext- [phone] 03/07/2021 16:45 Patient: [...] AND PROCEDURESCourse of Care: 18:36 03/07/21. [place] [address]. awaiting for US 18:48 03/07/21. us showed [...] there is a live intrauterine and your [facility] [facility] [place] [address]. follow up with your OB GY N for care). Your Current Medications: Your current home medications have been reviewed. CONTINUE TAKING THE FOLLOWING MEDICATIONS: 5 Clinical Report - Physicians/Mid Levels [facility] Emergency Department 15 [place] [address] Phone #: ext- [phone] 03/07/2021 16:45 [id number] Sex: F : 2000 Age: 20y Oral : daily. Progesterone Vaginal : 2x a day. Follow-up with: [facility], , , [address] [place] [address], Critical access hospital Follow up in seven days. Call for an appointment. Reason for referral: evaluation. Summary of care provided to patient via paper.(Electronically signed by Bridger Hamilton 03/07/2021 19:54) Name Value Range Interpretation Code Description Data [facility] Supporting Document(s) ID Date Data Source [id number] 03/07/2021 06:18:00 PM EDT [facility] Name Value Range Interpretation Code Description Data [facility](s) Supporting Document(s) URINALYSIS [facility] URINALYSIS SOURCE R [facility] COLOR yellow NORMAL: Yellow [facility] CLARITY clear NORMAL: Clear [facility] Specific gravity of Urine by Test strip 1.020 1.001 - 1.030 [facility] pH 6.5 5 - 9 [facility] Glucose [Mass/volume] in Urine by Test strip NORM NORMAL: Negat collette [facility] Bilirubin.total [Presence] in Urine by Test strip NEG NORMAL: Negative [facility] Ketones [Presence] in Urine by Test strip NEG NORMAL: Negative [facility] Protein [Mass/volume] in Urine by Test strip NEG NORMAL: Negat collette [facility] Nitrite [Presence] in Urine by Test strip NEG NORMAL: Negative [facility] BLOOD NEG NORMAL: Negative [facility] Leukocyte esterase [Presence] in Urine by Test strip NEG CANDIDA L: Negative [facility] Urobilinogen [Mass/volume] in Urine by Test strip NOR less moreno n 1.0 mg/dL [facility] MICROSCOPIC Not Indicate [facility] ospital ID Date Data Source [id number] 03/07/2021 06:19:00 PM EDT [facility] Name Value Range Interpretation Code Description Data Opal rce(s) Supporting Document(s) Choriogonadotropin.intact [Units/volume] in Serum or Plasma 60177.0 mIU/mL [facility] Interpr etation: Less than 5 mU/mL: Negative 6-10 mU/mL: Borderline (suggest repeat in 48 hours) >10: Positive Approx HCG range (mU/mL) Weeks post LMP 5.4-708 mU/mL 3-4 Weeks 217-90907 mU/mL 5-6 Weeks 4059-263619 mU/mL 7-8 Weeks 13463-549532 mU/mL 9-10 Weeks 65722-04169 mU/mL 12-14 Weeks 64405-45190 mU/mL 15-16 Weeks 8240- 86630 mU/mL 17-18 Weeks ID Date Data Source [id number] 03/07/2021 05:44:00 PM EDT [facility] Name Value Range Interpretation Code Description Data Opal rce(s) Supporting Document(s) BASIC METABOLIC PANEL [facility] BASIC METABOLIC PANEL Sodium [Moles/volume] in Serum or Plasma 135 mEq/L 134 - 153 [facility] Potassium [Moles/volume] in Serum or Plasma 3.9 mEq/L 3.6 - 5.0 [facility] Chloride [Moles/volume] in Serum or Plasma 101 mEq/L 98 - 107 [facility] Carbon dioxide, total [Moles/volume] in Serum or Plasma 24 MEQ/L 22 - 30 [facility] Glucose [Mass/volume] in Serum or Plasma 93 MG/DL 70 - 99 [facility] BUN 7 MG/DL 7 - 21 [facility] Creatinine [Mass/volume] in Serum or Plasma 0.6 MG/DL 0.7 - 1.5 L [facility] BUN/CREAT 12 8 - 27 [facility] Calcium [Mass/volume] in Serum or Plasma 9.5 MG/DL 8.4 - 10.2 [facility] Anion gap 3 in Serum or Plasma 10.0 mmol/L 8.0 - 16.0 [facility] AGE 20 yrs [facility] AFR AMER GFR >60 mL/min [facility] NON-AA GFR >60 mL/min [facility] ital Male GFR Inter prentation 20-49 [...] >32 mL/min Normal ID Date Data Source [id number] 03/07/2021 05:43:00 PM EDT [facility] Name Value Range Interpretation Code Description Data Opal rce(s) Supporting Document(s) Prothrombin time (PT) 13.0 SECONDS 11.0 - 15.5 [facility] INR in Platelet poor plasma by Coagulation assay 0.94 0.93 - 1. 23 [facility] \\BLDo\\INR INTERPRETATION\\BLDx\\ Therapeutic range for Coumadin and related oral anticoagulants. - International Normalized Ratio (INR): 2.0 - 3.0 for Venous Thrombosis, Pulmonary Embolus, Tissue heart valves, Acute AR, Atrial Fibrillation, Valvular heart disease and recurrent Systemic Embolism. -International Normalized Ratio (INR): 2.5 - 3.5 for Mechanical Prosthetic valve. ID Date Data Source [id number] 03/07/2021 05:28:00 PM EDT [facility] Name Value Range Interpretation Code Description Data Opal rce(s) Supporting Document(s) CBC W/AUTOMATED DIFF [facility] COMPLETE BLOOD COUNT Leukocytes [#/volume] in Blood by Automated count 12.6 10^3/uL 4.2 - 11.0 H [facility] Erythrocytes [#/volume] in Blood by Automated count 4.37 10^6/uL 4. 20 - 5.40 [facility] Hemoglobin [Mass/volume] in Blood 13.6 g/dL 12.0 - 16.0 [facility] Hematocrit [Volume Fraction] of Blood by Automated count 38.8 % 3 7.0 - 47.0 [facility] Erythrocyte mean corpuscular volume [Entitic volume] by Auto mated count 88.8 fL 81.0 - 101 [facility] Erythrocyte mean corpuscular hemoglobin [Entitic mass] by Automated count 31.1 pg 27.0 - 34.0 [facility] Erythrocyte mean corpuscular hemoglobin concentration [Mass/volume] by Automated count 35.1 g/dL 31.0 - 36.0 [facility] Erythrocyte distribution width [Ratio] by Automated count 12.7 % 11.5 - 14.5 [facility] Platelets [#/volume] in Blood by Automated count 347 10^3/uL 150 - 45 0 [facility] Platelet mean volume [Entitic volume] in Blood by Automated count 11.7 fL 7.4 - 10.4 H [facility] Neutrophils/100 leukocytes in Blood by Automated count 67.1 % 37. 0 - 80.0 [facility] Lymphocytes/100 leukocytes in Blood by Manual count 25.5 % 25.0 - 40.0 [facility] Monocytes/100 leukocytes in Blood by Automated count 5.3 % 3.0 - 8.0 [facility] Eosinophils/100 leukocytes in Blood by Automated count 1.1 % 0.0 - 7.0 [facility] Basophils/100 leukocytes in Blood by Automated count 0.6 % 0.0 - 2.5 [facility] %IG 0.4 % 0.0 - 0.0 H [facility] %NRBC 0.0 % 0.0 - 0.0 [facility] Neutrophils [#/volume] in Blood by Automated count 8.47 10^3/uL 2.00 - 6.90 H [facility] Lymphocytes [#/volume] in Blood by Automated count 3.22 10^3/uL 0.60 - 3.40 [facility] Monocytes [#/volume] in Blood by Automated count 0.67 10^3/uL 0.00 - 0.90 [facility] Eosinophils [#/volume] in Blood by Automated count 0.14 10^3/uL 0.00 - 0.70 [facility] Basophils [#/volume] in Blood by Automated count 0.08 10^3/uL 0.00 - 0.20 [facility] #IG 0.05 10^3/uL 0.00 - 0.10 [facility] #NRBC 0.00 10^3/uL 0.00 - 0.00 [facility] MANUAL DIFF NOT INDICATED [facility] RBC MORPH NOT INDICATED [facility] spital ID Date Data Source [id number] 02/17/2021 06:20:00 PM EDT [facility] 1 OrderSheet [facility] Emergency Department [address] [place] [address] Phone #: ext- [phone] 02/17/2021 18:10 Patient: CHRISTOS MOREAU Sex: F : 2000 Age: 20yWEIGHT:81.6 kg (S) HEIGHT:62 inches (S) BMI:32.9ALLERGIES: NoneCHIEF COMPLAINT: abd crampsDIAGNOSIS: Patient currently , Threatened abortionLAB ORDERSOrder Description Priority Entered Acknowledged InitialedCBC w Diff STAT 18:34 02/17/2021 19:07 Mya iJmenez R.N. P.A.-C;CMP STAT 18:34 02/17/2021 19:07 Mya Marx Thiagochana Rani Jimenez R.N. P.A.-C;Type Rh STAT 18:34 02/17/2021 19:07 Mya Marx Curly Jimenez R.N. P.A.-C;Urinalysis (Clean STAT 18:34 02/17/2021 19:17 Mya BakerirCatch) Curly Jimenez R.N. P.A.-C;Culture, Urine STAT 18:34 02/17/2021 19:17 Mya Marx(Urine, Clean Curly Jimenez R.N.Catch) P.A.-C;HCG Serum Quant STAT 18:34 02/17/2021 19:07 Mya Francisco J Jimenez R.N. P.A.-C;DIAGNOSTIC STUDY ORDERSOrder Description Priority Entered Acknowledged InitialedUS OB 1ST TRI W STAT 18:34 02/17/2021 19:17 Mya Almanzar IF NEEDED Curly Jimenez R.N.(Oxygen?(No)) P.A.-C;(IV?(No)) Reason for Study: crmapingMEDICATION/IV/DRIP/FLUID ORDERSOrder Description Priority Entered Acknowledged InitialedGENERAL ORDERS 2 OrderSheet [facility] Emergency Department [address] [place] [address] Phone #: ext- [phone] 02/17/2021 18:10 Patient: CHRISTOS MOREAU Sex: F : 2000 Age: 20yOrder Description Priority Entered Acknowledged InitialedNPO 18:34 02/17/2021 18:38 Elier Infante P.A.- C;[Electronically signed by Vargas Jimenez RN (21:03 02/17/2021)][Electronically signed by Curly Saravia P.A.-C (14:28 02/19/2021)][Electronically locked by Vargas Jimenez RN (21:03 02/17/2021)] Name Value Range Interpretation Code Description Data [facility](s) Supporting Document(s) ID Date Data Source [id number] 02/17/2021 06:20:00 PM EDT [facility] 1 Medication Reconciliation Report [facility] Emergency Department [address] [place] [address] Phone #: ext- [phone] 02/17/2021 18:10 Patient: [...] Name Value Range Interpretation Code Description Data [facility]) Supporting Document(s) ID Date Data Source [id number] 02/17/2021 06:20:00 PM EDT [facility] 1 Medication Administration Record [facility] Emergency Department [address] [place] [address] Phone #: ext- [phone] 02/17/2021 18:10 Patient: CHRISTOS MOREAU Sex: F : 2000 Age: 20yWeight: 81.6 kgHeight/Length: 62 inBMI: 32.9ALLERGIES: NoneDate/Time Medication Administered Medication Ordered Name Value Range Interpretation Code Description Data Opal rce(s) Supporting Document(s) ID Date Data Source [id number] 02/17/2021 06:20:00 PM EDT [facility] 1 General Instructions [facility] Emergency Department [address] [place] [address] Phone #: ext- [phone] 02/17/2021 18:10 Patient: [...] for an appointment. Follow up with an vascular physician in two days. Call for the nextavailable appointment.Understanding of the discharge instructions verbalized by patient. ADDITIONAL INFORMATIONPregnancy 2 General Instructions [facility] Emergency Department [address] [place] [address] Phone #: ext- [phone] 02/17/2021 18:10 Patient: [...] baby is born healthy: 3 General Instructions [facility] Emergency Department [address] [place] [address] Phone #: ext- [phone] 02/17/2021 18:10 Patient: [...] You can seeyour family provider, a specialist (vascular physician), a casting tester, or a primary care clinic.When to seek medical adviceCall your healthcare provider right away if any of these occur: Vaginal bleeding Pain in your belly (abdomen) or back that is moderate or severe Lots of v omiting, or you can't keep any fluids down for 6 hours 4 General Instructions [facility] Emergency Department [address] [place] [address] Phone #: ext- [phone] 02/17/2021 18:10 Patient: CHRISTOS MOREAU Sex: F : 2000 Age: 20y Burning feeling when you urinate Headache, dizziness, or rapid weight gain Fever Vision changes or blurred vision [employer]. [address] [place] [address]. All rights reserved. This information is not [...] frequently Tiredness or fatigue 5 General Instructions [facility] Emergency Department [address] [place] [address] Phone #: ext- [phone] 02/17/2021 18:10 Patient: CHRISTOS MOREAU ct#: [id number] Sex: F : 2000 Age: 20y Dizziness [...] your healthcare provider.Follow-up care 6 General Instructions [facility] Emergency Department [address] [place] [address] Phone #: ext- [phone] 02/17/2021 18:10 Patient: CHRISTOS MOREAU Sex: F : 2000 Age: 20yCall your healthcare provider to arrange for care. care is important. You can seeyour family provider, a specialist (vascular physician), a casting tester, or a primary care clinic.When to seek medical adviceCall your healthcare provider right away if any of these occur: Vaginal bleeding Pain in your belly (abdomen) or back that is moderate or severe Lots of vomiting, or you can't keep any fluids down for 6 hours Burning feeling when you urinate Headache, dizziness, or rapid weight gain Fever Vision changes or blurred vision [phone] [employer]. [address] [place] [address]. All rights reserved. This information is not [...] bleeding. This may be 7 General Instructions [facility] Emergency Department [address] [place] [address] Phone #: ext- [phone] 02/17/2021 18:10 Patient: [...] any new findings that mayaffect your care.Call [phone] if you have: Severe pain and very [...] by your healthcare provider 8 General Instructions [facility] Emergency Department [address] [place] [address] Phone #: ext- [phone] 02/17/2021 18:10 Patient: CHRISTOS MOREAU Sex: F : 2000 Age: 20y Pain in your lower belly (abdomen) that gets worse Weakness or dizziness Passage of anything that resembles tissue. This would be pink or grayish membrane or solid material. Save the tissue in a clean container and bring it to your provider. [phone] [employer]. [address] [place] [address]. All rights reserved. This information is not intended as asubstitute for professional medical care. Always follow your healthcare professional's instructions. You have been given the following additional information: , New Dx , New Dx Possible Miscarriage (Threatened )(Electronically signed by Curly Saravia P.A.-C 02/19/2021 14:28) Name Value Range Interpretation Code Description Data Opal rce(s) Supporting Document(s) ID Date Data Source [id number] 02/17/2021 06:20:00 PM EDT [facility] 1 Clinical Report - Nurses [facility] Emergency Department [address] [place] [address] Phone #: ext- [phone] 02/17/2021 18:10 Patient: [...] eptopic pregancy).Alert. No acute distress.Onset. (last week).Treatment REELING OPERATOR:None.SEPSIS SCREEN: SIRS SCREEN NEGATIVE. SEPSIS SCREEN NEGATIVE. [...] of CRE. 2 Clinical Report - Nurses [facility] Emergency Department [address] [place] [address] Phone #: ext- [phone] 02/17/2021 18:10 Patient: [...] of bed on. Patient ready for evaluation. --18:235 Kiara Flores R.N. 18:55 02/17/21. [facility] with donor support technician. --19:11 02/17/21 Mya Jimenez R.N. 19:14 02/17/21. Patient returned from [facility] by wheelchair with donor support technician. --19:18 02/17/21 Mya Jimenez R.N. 19:16 02/17/21. Checked patient name and birthdate. Clean catch urine collected with return of 3 Clinical Report - Nurses [facility] Emergency Department [address] [place] [address] Phone #: ext- [phone] 02/17/2021 18:10 Patient: CHRISTOS MOREAU Sex: F : 2000 Age: 20y yellow-colored clear urine; sample sent to lab for urinalysis and culture. Specimen labeled in the presence of the patient (Hand carried to lab). --19:19 02/17/21 Mya Jimenez R.N.DISPOSITION / DISCHARGE 20:43 02/17/21. BP: 131/66. MAP: 87. HR: 76. RR: 16. O2 saturation: 100%. Temp: 97.2 F. --20:43 02/17/21 [facility] Tech, [facility] [place] Coma Scale: 15- eyes open- spontaneous (4); best verbal response- oriented (5); best motor response- obeys commands (6). Condition at departure: improved. No learning barriers present. Discharge instructions provided and reviewed with the patient. Reviewed referral to an vascular physician for followup. Patient verbalized understanding. Written instructions provided in Micronesian. The patient was discharged home and accompanied by spouse. She left ambulatory and via private vehicle. Spouse driving. --21:03 02/17/21 Vargas Jimenez RN 21:02 02/17/21. Pain level now: 0/10. --21:03 02/17/21 Vargas Jimenez RN.Locked/Released at 02/17/2021 21:03 by Vargas Jimenez RN Name Value Range Interpretation Code Description Data Opal rce(s) Supporting Document(s) ID Date Data Source [id number] 02/17/2021 06:20:00 PM EDT [facility] 1 Clinical Report - Physicians/Mid Levels [facility] Emergency Department [address] [place] [address] Phone #: ext- [phone] 02/17/2021 18:10 [id number] Sex[facility] F : 2000 Age: 20y Time [...] Allergies: None.SOCIAL HISTORY 2 Clinical Report - Physicians/[facility] Emergency Department [address] [place] [address] Phone #: ext- [phone] 02/17/2021 18:10 Patient: [...] mass. Nofree fluid.Laboratory Tests: US OB TRANSVAGINAL KAKTOVIK: (RHONDA: 02/17/2021 18:49) ( [facility] 02/17/2021 19:22) In Progress US OB TRANSVAGINAL KAKTOVIK Reason for Exam: CRAMPING TRANSPORTATION: AMB IV? N O2? N STATUS: UNKNOWN ISOLATION N CBC w Diff: (RHONDA: 02/17/2021 18:40) ( [facility] 02/17/20[facility] 18:50) Final results Test Result Flag [...] 10.4) 3 Clinical Report - Physicians/Mid Levels [facility] Emergency Department [address] [place] [address] Phone #: [phone] ext- [phone] 02/17/2021 18:10 [id number] Sex: F : 2000 Age: 20y NEUT [...] Male GFR Interprentation 20-49 yrs >60 mL/min Rmjqmg70-39 yrs >56 mL/min Normal 60-69 yrs >49 mL/min Normal 70-79yrs>42 mL/min Normal 80 and above >35 mL/min Normal Female GFRInterpretation 20-39 yrs >60 mL/min Normal 40-49 yrs >58 mL/minNormal 50-59 yrs >51 mL/min Normal 60-69 yrs >45 mL/min Zylxlv37-49 yrs >39 mL/min Normal 80 and above >32 mL/min NormalType Rh: (RHONDA: 02/17/2021 18:40) ( M[facility]d 02/17/2021 19:16) Final results Test Result Flag Units (Reference) ABO GROUP A RH TYPE POSITIVE { ABO/RH REENTER A POSITIVEUrinalysis: (RHONDA: 02/17/2021 19:10) ( MsgRcvd 02/17/2021 19:35) Final results 4 Clinical Report - Physicians/Mid Levels [facility] Emergency Department [address] [place] [address] Phone #: ext- [phone] 02/17/2021 18:10 Patient: [...] Beta-HCG, Quant Serum: (RHONDA: 02/17/2021 18:40) ( [facility] 02/17/2021 19:16) Final results Test Result Flag Units (Reference) HCG QUANT 166.6 mIU/mL Interpretation: Less than 5 mU/mL: Negative 6-10 mU/mL: Borderline (suggest repeat in 48 hours) >10: Positive Approx HCG range (mU/mL) Weeks post LMP 5.4-708 mU/mL 3-4 Weeks 217-13963 mU/mL 5-6 Weeks 4059-504657 mU/mL 7-8 Weeks 91640-620580 mU/mL 9-10 Weeks 99783-49535 mU/mL 12-14 Weeks 37978-39170 mU/mL 15-16 Weeks 8240-09860 mU/mL 17-18 Weeks US OB 1ST TRI W TV IF NEEDED: (RHONDA: 02/17/2021 18:34) ( [facility] 02/17/2021 19:21) Canceled US OB 1ST TRI [...] condition. 5 Clinical Report - Physicians/Mid Levels [facility] Emergency Department [address] [place] [address] Phone #: ext- [phone] 02/17/2021 18:10 Patient: [...] for an appointment. Follow up with an vascular physician in two days. Call for the next available appointment. Understanding of the discharge instructions verbalized by patient.(Electronically signed by Curly Saravia P.A.-C 02/19/2021 14:28) 6Clinical Report - Physicians/Mid Levels [facility] Emergency Department [address] [place] [address] Phone #: ext- [phone] 02/17/2021 18:10 Patient: CHRISTOS MOREAU Sex: F : 2000 Age: 20y Name Value Range Interpretation Code Description Data Opal rce(s) Supporting Document(s) ID Date Data Source [id number] 02/18/2021 10:17:00 [place] [address] PHONE: [phone] FAX: [phone] Name .................. : LIZZETH Bernardo Acct Number.................. : [id number] ROOM. ................. : TR-1B MR Number ................... : [id number] Stay type ............. : E/R Discharge Date......... ... : 02/17/21 Admit Date .... ..... : 02/17/21 Admit Phys .................... : ANGELICA DENG Date of ....... : 2000 Family Phys ................... : SARAH STEPHENSON Phone .................. : [phone] Age ................................ : 20 Film# .................. .:[id number] Sex ................................. : F Unsigned transcriptions are preliminary reports and do not represent a medical or legal document [place] [id number] COMPLETE:02/17/21 19:21 ADB [id number] Reason for Exam: CRAMPING TRANSVAGINAL PELVIC ULTRASOUND: [...] rce(s) Supporting Document(s) ID Date Data Source [id number] 02/24/2021 06:22:00 AM EDT [facility] Name Value Range Interpretation Code Description Data Opal rce(s) Supporting Document(s) CULTURE URINE [facility] _CULTURE URINE_$$[id number]$$[id number]$$539544$$615058$$299056$$460540$$386155$$866676$$805351$$ 095084$$151447$$848447$$758045$$302004$$395601$$334875$$829980$$678851$$866991$$ 473754$$614908$$439107$$623684$$234666$$508325$$550839$$[id number] -- Continued on next page --Patient: LIZZETH Bernardo Order: [id number] Page 2Culture: CULTURE URINE Status: Final ==== -- Continued on next page --Patient: LIZZETH Bernardo Order: [id number] Page 2Culture: CULTURE URINE Status: Prelim =====$$[id number]$$[id number] DATE/TIME: 02/23/2021 16:06Culture: CULTURE URINE Status: FinalUrine Culture,Comprehensive: P1No growth in 36 - 48 hours. Previous result entered on 02/20/2021 10:28 ET No growth after 18-24 hours.P1 Test performed by: [facility] Craig MONTANO #: [id number] Count Includes [facility] [id number] [facility] [id number] Director : Mark Bernardo MD NPI #:Blade Bender Furnace Tender : 02/20/21.1159.XMT.SENT REF 02/24/21.0622.XMT.SENT REF ID Date Data Source [id number] 02/17/2021 07:35:00 PM EDT [facility] Name Value Range Interpretation Code Description Data Opal rce(s) Supporting Document(s) URINALYSIS [facility] URINALYSIS SOURCE Clean Catch [facility] COLOR yellow NORMAL: Yellow [facility] CLARITY hazy NORMAL: Clear [facility] Specific gravity of Urine by Test strip 1.030 1.001 - 1.030 [facility] pH 6 5 - 9 [facility] Glucose [Mass/volume] in Urine by Test strip [facility]: [facility] Bil[facility].total [Presence] in Urine by Test strip NEG NORMAL: Negative [facility] Ketones [Presence] in Urine by Test strip NEG NORMAL: Negative [facility] Protein [Mass/volume] in Urine by Test strip NEG NORMAL: Negat [facility] Nitrite [Presence] in Urine by Test strip NEG NORMAL: Negative [facility] BLOOD NEG NORMAL: Negative [facility] Leukocyte esterase [Presence] in Urine by Test strip NEG CANDIDA L: Negative [facility] Urobilinogen [Mass/volume] in Urine by Test strip NOR less moreno n 1.0 mg/dL [facility] MICROSCOPIC Not Indicate [facility] ID Date Data Source [id number] 02/17/2021 07:15:00 PM EDT [facility] Name Value Range Interpretation Code Description Data Opal rce(s) Supporting Document(s) ABO group [Type] in Blood A [facility] Rh [Type] in Blood POSITIVE [facility] { ABO/RH REENTER A POSITIVE ID Date Data Source [id number] 02/17/2021 07:15:00 PM EDT [facility] Name Value Range Interpretation Code Description Data Opal rce(s) Supporting Document(s) Choriogonadotropin.intact [Units/volume] in Serum or Plasma 166.6 mIU /mL [facility] Interpr etation: Less than 5 mU/mL: Negative 6-10 mU/mL: Borderline (suggest repeat in 48 hours) >10: Positive Approx HCG range (mU/mL) Weeks post LMP 5.4-708 mU/mL 3-4 Weeks 217-44959 mU/mL 5-6 Weeks 4059-478113 mU/mL 7-8 Weeks 99178-107465 mU/mL 9-10 Weeks 09021-54950 mU/mL 12-14 Weeks 63654-87866 mU/mL 15-16 Weeks 8240- 29966 mU/mL 17-18 Weeks ID Date Data Source [id number] 02/17/2021 07:15:00 PM EDT [facility] Name Value Range Interpretation Code Description Data Opal rce(s) Supporting Document(s) COMPREHENSIVE METABOLIC PANEL [facility] COMPREHENSIVE METABOLIC PANEL Sodium [Moles/volume] in Serum or Plasma 136 mEq/L 134 - 153 [facility] Potassium [Moles/volume] in Serum or Plasma 3.6 mEq/L 3.6 - 5.0 [facility] Chloride [Moles/volume] in Serum or Plasma 104 mEq/L 98 - 107 [facility] Carbon dioxide, total [Moles/volume] in Serum or Plasma 24 MEQ/L 22 - 30 [facility] Glucose [Mass/volume] in Serum or Plasma 108 MG/DL 70 - 99 H [facility] BUN 7 MG/DL 7 - 21 [facility] Creatinine [Mass/volume] in Serum or Plasma 0.5 MG/DL 0.7 - 1.5 L [facility] BUN/CREAT 14 8 - 27 [facility] Protein [Mass/volume] in Serum or Plasma 7.3 G/DL 6.3 - 8.2 [facility] Albumin [Mass/volume] in Serum or Plasma 4.4 G/DL 3.9 - 5.0 [facility] Globulin [Mass/volume] in Serum by calculation 2.9 GM/DL 2.4 - 3.2 [facility] A/G RATIO 1.5 0.8 - 2.0 [facility] Calcium [Mass/volume] in Serum or Plasma 9.5 MG/DL 8.4 - 10.2 [facility] Bilirubin.total [Mass/volume] in Serum or Plasma <0.7 MG/DL 0.2 - 1.3 [facility] Alkaline phosphatase [Enzymatic activity/volume] in Serum or Plasma 64 U/L 38 - 126 [facility] Aspartate aminotransferase [Enzymatic activity/volume] in Serum or Plasma 15 U/L 5 - 40 [facility] Alanine aminotransferase [Enzymatic activity/volume] in Seru m or Plasma 27 U/L 7 - 56 [facility] Anion gap 3 in Serum or Plasma 8.0 mmol/L 8.0 - 16.0 [facility] AGE 20 yrs [facility] NON-AA GFR >60 mL/min [facility] AFR AMER GFR >60 mL/min [facility] Male GFR In [...] >32 mL/min Normal ID Date Data Source [id number] 02/17/2021 06:49:00 PM EDT [facility] Name Value Range Interpretation Code Description Data Opal rce(s) Supporting Document(s) CBC W/AUTOMATED DIFF [facility] COMPLETE BLOOD COUNT Leukocytes [#/volume] in Blood by Automated count 12.4 10^3/uL 4.2 - 11.0 H [facility] Erythrocytes [#/volume] in Blood by Automated count 4.37 10^6/uL 4. 20 - 5.40 [facility] Hemoglobin [Mass/volume] in Blood 13.5 g/dL 12.0 - 16.0 [facility] Hematocrit [Volume Fraction] of Blood by Automated count 38.3 % 3 7.0 - 47.0 [facility] Erythrocyte mean corpuscular volume [Entitic volume] by Auto mated count 87.6 fL 81.0 - 101 [facility] Erythrocyte mean corpuscular hemoglobin [Entitic mass] by Automated count 30.9 pg 27.0 - 34.0 [facility] Erythrocyte mean corpuscular hemoglobin concentration [Mass/volume] by Automated count 35.2 g/dL 31.0 - 36.0 [facility] Erythrocyte distribution width [Ratio] by Automated count 12.4 % 11.5 - 14.5 [facility] Platelets [#/volume] in Blood by Automated count 421 10^3/uL 150 - 45 0 [facility] Platelet mean volume [Entitic volume] in Blood by Automated count 11.0 fL 7.4 - 10.4 H [facility] Neutrophils/100 leukocytes in Blood by Automated count 66.5 % 37. 0 - 80.0 [facility] Lymphocytes/100 leukocytes in Blood by Manual count 27.0 % 25.0 - 40.0 [facility] Monocytes/100 leukocytes in Blood by Automated count 4.0 % 3.0 - 8.0 [facility] Eosinophils/100 leukocytes in Blood by Automated count 1.4 % 0.0 - 7.0 [facility] Basophils/100 leukocytes in Blood by Automated count 0.8 % 0.0 - 2.5 [facility] %IG 0.3 % 0.0 - 0.0 [facility] %NRBC 0.0 % 0.0 - 0.0 [facility] al Neutrophils [#/volume] in Blood by Automated count 8.23 10^3/uL 2.00 - 6.90 H [facility] Lymphocytes [#/volume] in Blood by Automated count 3.35 10^3/uL 0.60 - 3.40 [facility] Monocytes [#/volume] in Blood by Automated count 0.50 10^3/uL 0.00 - 0.90 [facility] Eosinophils [#/volume] in Blood by Automated count 0.17 10^3/uL 0.00 - 0.70 [facility] Basophils [#/volume] in Blood by Automated count 0.10 10^3/uL 0.00 - 0.20 [facility] #IG 0.04 10^3/uL 0.00 - 0.10 [facility] ospital #NRBC 0.00 10^3/uL 0.00 - 0.00 [facility] MANUAL DIFF NOT INDICATED [facility] RBC MORPH NOT INDICATED [facility] ID Date Data Source [id number] 09/23/2020 11:13:00 PM [facility] 1 OrderSheet [facility] Emergency Department [address] [place] [address] Phone #: ext- [phone] 09/23/2020 23:12 Patient: [...] rce(s) Supporting Document(s) ID Date Data Source [id number] 09/23/2020 11:13:00 PM [facility] 1 Medication Reconciliation Report [facility] Emergency Department [address] [place] [address] Phone #: ext [phone] 09/23/2020 23:12 Patient: CHRISTOS MOREAU Sex: F [...] Value Range Interpretation Code Description Data [facility]al [facility](s) Supporting Document(s) ID Date Data Source [id number] 09/23/2020 11:13:00 PM [facility] 1 Medication Administration Record [facility] Emergency Department [address] [place] [address] Phone #: ext [phone] 09/23/2020 23:12 Patient: CHRISTOS MOREAU Sex: F : 2000 Age: 20yWeight: 81.6 kgHeight/Length: 62 inBMI: 32.9ALLERGIES: No Known Drug AllergyDate/Time Medication Administered Medication Ordered Name Value Range Interpretation Code Description Data Opal rce(s) Supporting Document(s) ID Date Data Source [id number] 09/23/2020 11:13:00 PM [facility] 1 General Instructions [facility] Emergency Department [address] [place] [address] Phone #: ext [phone] 09/23/2020 23:12 Patient: CHRISTOS MOREAU Sex: F : 2000 Age: 20yIncomplete spontaneous .No complications.INSTRUCTIONS Drink plenty of fluids. Do not smoke. No alcohol. (YOU MUST FOLLOW UP WITH COVER MAKER IN 2-3 DAYS FOR REPEAT QUANT. B-HCG TO MAKE SURE IT GOES DOWN TO ZERO AND NOT STAGNATE OR RISE LIKE ECTOPIC ).Warnings: Further evaluation is necessary (COVER MAKER). It is very important to follow up [...] department as needed. Follow up with an vascular physician in two days even if well.Call for an appointment. Reason for referral: evaluation, treatment and repeat B-HCG. Summary of careprovided to patient via paper.Understanding of the discharge instructions verbalized by patient. Expected course of illness, dischargeinstructions, activity level, diet, follow-up appointment and risks and benefits of treatment reviewed withpatient and understanding verbalized. Agrees to plan of care.Follow-up with: [facility], , , [address] [place], [address] Follow up in two days even if well. Call for an appointment. Reason for referral: evaluation, treatment andrepeat B- HCG. Summary of care provided to patient via paper. ADDITIONAL INFORMATIONCompleted Spontaneous Miscarriage 2 General Instructions [facility] Emergency Department [address] [place] [address] Phone #: ext- [phone] 09/23/2020 23:12 Patient: CHRISTOS MOREAU Sex: Katy : 2000 Age: 20yToday's exams show your [...] therest of the tissue. 3 General Instructions [facility] Emergency Department [address] [place] [address] Phone #: ext- [phone] 09/23/2020 23:12 Patient: CHRISTOS MOREAU Sex: F : 2000 Age: 20yIf you had an ultrasound, a radiologist will review it. You will be told of any new findings that mayaffect your care.Call [phone] if you have: Severe pain and very [...] (abdomen) that gets worse Weakness or dizziness [id number] [employer] [address] [place] [address]. All rights reserved. This information is not [...] falls won't cause a 4 General Instructions [facility] Emergency Department [address] [place] [address] Phone #: ext- [phone] 09/23/2020 23:12 Patient: [...] any new findings that mayaffect your care.Call [id number] [phone] if you have: Severe pain and very heavy bleeding Severe lightheadedness, passing out, or fainting 5 General Instructions [facility] Emergency Department [address] [place] [address] Phone #: ext- [phone] 09/23/2020 23:12 Patient: [...] that gets worse Weakness or d izziness [id number] [employer] [address] [place] [address]. All rights reserved. This information is not intended as asubstitute for professional medical care. Always follow your healthcare professional's instructions. You have been given the following additional information: Miscarriage, Spontaneous (Completed) Miscarriage, Incomplete(Electronically signed by Andrea Mathias M.D. 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 Pt denies anyother complaints at this time.).Treatment REELING OPERATOR:None. --23:20 09/23/20 Candelaria Yoo R.N.23:14 09/23/20. BP: 153/83. MAP: 106. HR: 76. RR: 17. O2 saturation: 100% on room air. Temp: 97.8 F.Pain level now: 0/10. --23:20 09/23/20 Candelaria Yoo R.N.Weight: 81.6 kg stated. Height/Length: 62 inches Per Patient. BMI: 32.9. --23:15 09/23/20 Candelaria Yoo R.N.MedicationsPrenatal Vitamins Oral. --23:15 09/23/20 Candelaria Yoo R.N.AllergiesNo Known Drug Allergy. --23:15 09/23/20 Candelaria Yoo R.N.VT OBLEMS:Laceration.Anxiety Reaction.Threatened . Care. --23:15 09/23/20 Candelaria Yoo R.N.HistoryPAST MEDICAL HX: Immunizations: up-to-date. Last normal menstrual period- Aug 19, 2020. Currently.SOCIAL HX: Never smoker. No alcohol use or drug use. She was offered HIV testing but declined. 2 Clinical Report - Nurses [facility] Emergency Department [address] [place] [address] Phone #: ext- [phone] 09/23/2020 23:12 Patient: [...] Identification band on patient. To treatment room. --:09/23/20 Candelaria Yoo R.N.PHYSICAL ASSESSMENTAmbulatory to room. Patient [...] extremity edema.SKIN: Skin is warm and dry. --:09/23/20 Candelaria Yoo R.N.NURSING PROGRESS NOTESReassurance given. Two patient identifiers checked. Call light placed in reach. Side rails up x 2. Bedplaced in lowest position. Brakes of bed on. --:09/23/20 Candelaria Yoo R.N. 3 Clinical Report - Nurses [facility] Emergency Department [address] [place] [address] Phone #: ext- [phone] 09/23/2020 23:12 Patient: CHRISTOS MOREAU Sex: F : 2000 Age: 20y Patient ready for evaluation- ED physician notified. --:09/23/20 Candelaria Yoo R.N.DISPOSITION / DISCHARGE No learning barriers present. Discharge instructions provided and reviewed with the patient. Reviewed warnings. Reviewed medication(s). Treatments reviewed. Reviewed referral to an vascular physician. Patient verbalized understanding. Written instructions provided in Micronesian. 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 She is . No abdominal pain, vaginal pain, low back pain, flank pain or pain with urination. No urinary frequency, urgency of urination or hematuria. 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 Currently : LNMP: 08-19-20 EDC: 05-25-21 5 [...] and 2 Clinical Report - Physicians/Mid Levels [facility] Emergency Department [address] [place] [address] Phone #: ext- [phone] 09/23/2020 23:12 Patient: CHRISTOS MOREAU Sex: F [...] results 3 Clinical Report - Physicians/Mid Levels [facility] Emergency Department [address] [place] [address] Phone #: ext- [phone] 09/23/2020 23:12 Patient: CHRISTOS MOREAU Sex: F : 2000 Age: 20y Test Result Flag Units (Reference) HCG QUANT 15.1 mIU/mL Interpretation: Less than 5 mU/mL: Negative 6-10 mU/mL: Borderline (suggest repeat in 48 hours) >10: Positive Approx HCG range (mU/mL) Weeks post LMP 5.4-708 mU/mL 3-4 Weeks 217-29235 mU/mL 5-6 Weeks 4059-507845 mU/mL 7-8 Weeks 83089-403915 mU/mL 9-10 Weeks 45115-60565 mU/mL 12-14 Weeks 15946-36012 mU/mL 15-16 Weeks 8240-60161 mU/mL 17-18 Weeks.PROGRESS AND PROCEDURESCourse of Care: 00:09 09/24/20. CBC nml, Quant. B-HCG is 15 tonight, was 20 on 09-21-20, had nmlpelvic US on 09-21-20 except for small rt ovarian cyst; pt is A positive; pt is probably having a miscarriage;advised to f/u w COVER MAKER in 2 days for repeat Quant. B-HCG [...] No alcohol. (YOU MUST FOLLOW UP WITH COVER MAKER IN 2-3 DAYS FOR REPEAT QUANT. B-HCG TO MAKE SURE IT GOES DOWN TO ZERO AND NOT STAGNATE OR RISE LIKE ECTOPIC ). Warnings: Further evaluation is necessary (COVER MAKER). It is very important to follow up [...] worsens. 4 Clinical Report - Physicians/Mid Levels [facility] Emergency Department [address] [place] [address] Phone #: ext- [phone] 09/23/2020 23:12 Patient: CHRISTOS MOREAU Sex: F : 2000 Age: 20y Your Current Medications: Your current home medications have been reviewed. CONTINUE TAKING THE FOLLOWING MEDICATIONS: Vitamins Oral. Follow-up: Return to the emergency department as needed. Follow up with an vascular physician in two days even if well. Call [...] Agrees to plan of care. Follow-up with: [facility], , , [address] [place] [address], [place], [address] Follow up in two days even if well. Call for an appointment. Reason for referral: evaluation, treatment and repeat B-HCG. Summary of care provided to patient via paper.(Electronically signed by Andrea Mathias M.D. 09/24/2020 00:28) Name Value Range Interpretation Code Description Data Opal rce(s) Supporting Document(s) ID Date Data Source [id number] 09/23/2020 11:56:00 PM [facility] Name Value Range Interpretation Code Description Data Opal rce(s) Supporting Document(s) Choriogonadotropin.intact [Units/volume] in Serum or Plasma 15.1 mIU/ mL [facility] Interpr etation: Less than 5 mU/mL: Negative 6-10 mU/mL: Borderline (suggest repeat in 48 hours) >10: Positive Approx HCG range (mU/mL) Weeks post LMP 5.4-708 mU/mL 3-4 Weeks 217-56285 mU/mL 5-6 Weeks 4059-560234 mU/mL 7-8 Weeks 04252-612966 mU/mL 9-10 Weeks 64542-52093 mU/mL 12-14 Weeks 32403-05669 mU/mL 15-16 Weeks 8240- 94683 mU/mL 17-18 Weeks ID Date Data Source [id number] 09/23/2020 11:38:00 PM [facility] Name Value Range Interpretation Code Description Data [facility] Supporting Document(s) CBC W/AUTOMATED DIFF [facility] COMPLETE BLOOD COUNT Leukocytes [#/volume] in Blood by Automated count 10.8 10^3/uL 4.2 - 11.0 [facility] Erythrocytes [#/volume] in Blood by Automated count 4.61 10^6/uL 4. 20 - 5.40 [facility] Hemoglobin [Mass/volume] in Blood 13.9 g/dL 12.0 - 16.0 [facility] Hematocrit [Volume Fraction] of Blood by Automated count 40.5 % 3 7.0 - 47.0 [facility] Erythrocyte mean corpuscular volume [Entitic volume] by Auto mated count 87.9 fL 81.0 - 101 [facility] Erythrocyte mean corpuscular hemoglobin [Entitic mass] by Automated count 30.2 pg 27.0 - 34.0 [facility] Erythrocyte mean corpuscular hemoglobin concentration [Mass/volume] by Automated count 34.3 g/dL 31.0 - 36.0 [facility] Erythrocyte distribution width [Ratio] by Automated count 11.9 % 11.5 - 14.5 [facility] Platelets [#/volume] in Blood by Automated count 389 10^3/uL 150 - 45 0 [facility] Platelet mean volume [Entitic volume] in Blood by Automated count 11.8 fL 7.4 - 10.4 H [facility] Neutrophils/100 leukocytes in Blood by Automated count 57.3 % 37. 0 - 80.0 [facility] Lymphocytes/100 leukocytes in Blood by Manual count 32.9 % 25.0 - 40.0 [facility] Monocytes/100 leukocytes in Blood by Automated count 7.0 % 3.0 - 8.0 [facility] Eosinophils/100 leukocytes in Blood by Automated count 1.8 % 0.0 - 7.0 [facility] Basophils/100 leukocytes in Blood by Automated count 0.7 % 0.0 - 2.5 [facility] %IG 0.3 % 0.0 - 0.0 [facility] %NRBC 0.0 % 0.0 - 0.0 [facility] al Neutrophils [#/volume] in Blood by Automated count 6.18 10^3/uL 2.00 - 6.90 [facility] Lymphocytes [#/volume] in Blood by Automated count 3.55 10^3/uL 0.60 - 3.40 H [facility] Monocytes [#/volume] in Blood by Automated count 0.75 10^3/uL 0.00 - 0.90 [facility] Eosinophils [#/volume] in Blood by Automated count 0.19 10^3/uL 0.00 - 0.70 [facility] Basophils [#/volume] in Blood by Automated count 0.08 10^3/uL 0.00 - 0.20 [facility] #IG 0.03 10^3/uL 0.00 - 0.10 [facility] ospital #NRBC 0.00 10^3/uL 0.00 - 0.00 [facility] MANUAL DIFF NOT INDICATED [facility] RBC MORPH NOT INDICATED [facility] ID Date Data Source [id number] 09/23/2020 09:07:[address] [facility] [address] [place] [address] PHONE: [phone] FAX: [phone] Name .................. : LIZZETH Bernardo Acct Number.................. : [id number] ROOM. ................. : TR-03 Number ................... : [id number] Stay type ............. : E/R Discharge Date......... ... : 09/21/20 Admit Date ......... : 09/21/20 Admit Phys .................... : CHERELLE DUNCAN Date of ....... : 2000 Family Phys ................... : NO PCP Phone .................. : [phone] Age ................................ : 20 Film# .................. .:[id number] Sex ................................. : F Unsigned transcriptions are preliminary reports and do not represent a medical or legal [place] [id number] COMPLETE:09/21/20 11:12 MCM 78 Reason(s): Pain and cramping ENDOVAGINAL PELVIC ULTRASOUND: FINDINGS: Endovaginal sonography demonstrates a heterogeneous uterus measuring at least 7.7 x 4 x 3.6 cm. No discrete myometrial mass is demonstrated. The endometrium is thickened to 2 cm and clinical correlation and PRINT PRESS OPERATOR consult is suggested. Consider hysterosonography if clinically [...] , 09/23/20 09:07, AML Transcribe Initials: SHIRLENE Transcribe Date: 09/21/20 16:30, Dictation Date: Copy for: EMERGENCY DEPT via modem Copy for: 710 MED REC DISCHARGED Page 1 of 1 Name Value Range Interpretation Code Description Data Opal rce(s) Supporting Document(s) ID Date Data Source [id number] 09/21/2020 09:17:00 AM EST [facility] 1 OrderSheet [facility] Emergency Department [address] [place] [address] Phone #: ext- [phone] 09/21/2020 09:08 Patient: CHRISTOS MOREAU Sex: F : 2000 Age: 20yWEIGHT:81.6 kg HEIGHT:62 inches BMI:32.9ALLERGIES: NoneCHIEF COMPLAINT: pelvic painDIAGNOSIS: Threatened abortionLAB ORDERSOrder Description Priority Entered Acknowledged InitialedCBC w Diff STAT 09:55 09/21/2020 Ack'd: 09:55 10:21 Reza Chiang, Anabel Little Physician;HCG Serum Quant STAT 09:55 09/21/2020 Ack'd: 09:55 10:21 Reza Chiang, Anabel Little Physician;Urinalysis (Clean STAT 09:55 09/21/2020 Ack'd: 09:55 09:57 Marina EDCatch) Anabel Hernández Tiffany ER Physician; Irtu3Orhp Rh STAT 09:55 09/21/2020 Ack'd: 09:55 10:21 Андрей, Reza Chiang, Anabel Little Physician;BMP STAT 09:55 09/21/2020 Ack'd: 09:55 10:21 Reza Chiang, Anabel Little Physician;DIAGNOSTIC STUDY ORDERSOrder Description Priority Entered Acknowledged InitialedUS OB 1ST TRI UP STAT 09:55 09/21/2020 Ack'd: 09:55 Kamran Chiang 14 WEEKS Reza Villarreal Cancelled: Wrong Order 10:38 Reza(Oxygen?(No)) Physician; Cherelle Physician(IV?(No)) NOTES: lower abdominal pain and cramping no bleeding Reason for Study: Lower abdominal pain and cramping.US OB STAT 10:40 09/21/2020 Ack'd: 10:40 10:50 Андрей,TRANSVAGINAL Anabel HernándezREGNANT KAKTOVIK Physician;(IV?(No))(Oxygen?(No)) NOTES: Pain and cramping Reason for Study: Painand cramping 2 OrderSheet [facility] Emergency Department [address] [place] [address] Phone #: ext- [phone] 09/21/2020 09:08 Patient: CHRISTOS MOREAU Sex: F : 2000 Age: 20yMEDICATION/IV/DRIP/FLUID ORDERSOrder Description Priority Entered Acknowledged InitialedGENERAL ORDERSOrder Description Priority Entered Acknowledged Initialed[Electronically signed by Anabel Chiang (11:40 09/21/2020)][Electronically signed by Reza Villarreal (13:19 09/21/2020)][Electronically locked by Anabel Chiang (11:40 09/21/2020)] Name Value Range Interpretation Code Description Data Opal rce(s) Supporting Document(s) ID Date Data Source [id number] 09/21/2020 09:17:00 AM [facility] 1 Medication Reconciliation Report [facility] Emergency Department [address] [place] [address] Phone #: ext- [phone] 09/21/2020 09:08 Patient: CHRISTOS MOREAU Sex: F : 2000 Age: 20yWeight: 81.6 kgHeight/Length: 62 in.BMI: 32.9ALLERGIES: NoneThe patient's Home Medications are listed below:NONE.The source(s) of the original Home Medication information:Not obtained.The following Medications were given to the patient in the Emergency Department:None.The following Medications were prescribed to the patient:None. Name Value Range Interpretation Code Description Data [facility] Supporting Document(s) ID Date Data Source [id number] 09/21/2020 09:17:00 AM [facility] 1 Medication Administration Record [facility] Emergency Department [address] [place] [address] Phone #: ext- [phone] 09/21/2020 09:08 Patient: CHRISTOS MOREAU Sex: F : 2000 Age: 20yWeight: 81.6 kgHeight/Length: 62 inBMI: 32.9ALLERGIES: NoneDate/Time Medication Administered Medication Ordered Name Value Range Interpretation Code Description Data Opal rce(s) Supporting Document(s) ID Date Data Source [id number] 09/21/2020 09:17:00 AM EST [facility] 1 General Instructions [facility] Emergency Department [address] [place] [address] Phone #: ext- [phone] 09/21/2020 09:08 Patient: [...] CLINIC Respective Team Daisha LAWRENCE, , , [address] [facility], , [place], [address] Follow up in four days as scheduled. Reason for referral: evaluation. Summary of care provided topatient via paper. ADDITIONAL INFORMATIONAbdominal Pain and Early 2 General Instructions [facility] Emergency Department [address] [place] [address] Phone #: ext- [phone] 09/21/2020 09:08 Patient: [...] and as it grows 3 General Instructions [facility] Emergency Department [address] [place] [address] Phone #: ext- [phone] 09/21/2020 09:08 Patient: [...] lower abdomen Vaginal bleeding 4 General Instructions [facility] Emergency Department [address] [place] [address] Phone #: ext- [phone] 09/21/2020 09:08 Patient: CHRISTOS MOREAU Sex: F [...] weak when you stand. 5 General Instructions [facility] Emergency Department [address] [place] [address] Phone #: ext- [phone] 09/21/2020 09:08 Patient: [...] or as directed by your healthcare provider. [employer]. [address] [place] [address], [place] [address]. All rights reserved. This information is not intended as asubstitute for professional medical care. Always follow your healthcare professional's instructions. You have been given the following additional information: Abdominal Pain, Early (Electronically signed by Reza Villarreal, Physician 09/21/2020 13:19) Name Value Range Interpretation Code Description Data Opal rce(s) Supporting Document(s) ID Date Data Source [id number] 09/21/2020 09:17:00 AM EST [facility] 1 Clinical Report - Nurses [facility] Emergency Department [address] [place] [address] Phone #: ext- [phone] 09/21/2020 09:08 Patient: CHRISTOS MOREAU Sex: F : 2000 Age: 20yTRIAGEArrived by private vehicle. Historian: patient. Accompanied by spouse.Acuity: LEVEL 3.Chief Complaint: ABDOMINAL CRAMPS.Alert. No acute distress.Onset. (2 days ago). ( Patient c/o cramping for past 2 days. States she had a positive home pregnancytest 3 days ago.).Treatment REELING OPERATOR:None. --09:18 09/21/20 Anabel Chiang09:13 09/21/20. BP: 151/93. MAP: 112. HR: 88. RR: 16. O2 saturation: 99%. Temp: 98.5 F. Pain levelnow: 0/10. --09:18 09/21/20 Shilo Chiang Complaint: ABDOMINAL CRAMPS. --09:09/21/20 Anabel Chiang.Weight: 81.6 kg. Height/Length: 62 inches. BMI: 32.9. --09:15 09/21/20 Anabel Chiang.MedicationsNone. --09:09/21/20 Anabel Chiang.AllergiesNone. --09:15 09/21/20 Anabel Chiang.PROBLEMS:no known [...] the [place] 2 Clinical Report - Nurses [facility] Emergency Department [address] [place] [address] Phone #: ext- [phone] 09/21/2020 09:08 Patient: [...] RR: 16. O2 saturation: 99%. --09:57 09/21/20 [place] traffic engineering director, [facility] 3 Clinical Report - Nurses [facility] Emergency Department [address] [place] [address] Phone #: [phone]- [phone] 09/21/2020 09:08 Patient: CHRISTOS MOREAU Sex: F : 2000 Age: 20y ( Lab in room drawing blood for ordered labs.). --10:21 09/21/20 [facility]abel [facility]. --10:49 09/21/20 [...] Patient verbalized understanding. Written instructions provided in Micronesian. The patient was discharged by the physician. [...] rce(s) Supporting Document(s) ID Date Data Source [id number] 09/21/2020 09:17:00 AM EST [facility] 1 Clinical Report - Physicians/Mid Levels [facility] Emergency Department [address] [place] [address] Phone #: ext- [phone] 09/21/2020 09:08 Patient: CHRISTOS MOREAU Sex: Katy [...] The patient has missed a period ([facility] 08/19). Last normal menstrual period- Aug 19. [...] HISTORY 2 Clinical Report - Physicians/Mid Levels [facility] Emergency Department [address] [place] [address] Phone #: [phone] 09/21/2020 09:08 Patient: CHRISTOS MOREAU Sex: F [...] in themedical decision making process. OB TRANSVAGINAL KAKTOVIK: (RHONDA: 09/21/2020 10:40) ( [facility] 09/21/2020 11:12) In Progress OB TRANSVAGINAL KAKTOVIK Reason(s): Painand cramping TRANSPORTATION: WC IV? IV?(No) O2? Oxygen?(No) Ayde : Yes CMTS: Pain and cramping CBC w Diff: (RHONDA: 09/21/2020 10:20) ( [facility] 09/21/2020 10:58) Final results Test Result Flag [...] 80.0) 3 Clinical Report - Physicians/Mid Levels [facility] Emergency Department [address] [place] [address] Phone #: ext- [phone] 09/21/2020 09:08 Patient: [...] Beta-HCG, Quant Serum: (RHONDA: 09/21/2020 10:20) ( [facility] 09/21/2020 11:20) Final results Test Result Flag Units (Reference) HCG QUANT 20.6 mIU/mL Interpretation: Less than 5 mU/mL: Negative 6-10 mU/mL: Borderline (suggest repeat in 48 hours) >10: Positive Approx HCG range (mU/mL) Weeks post LMP 5.4-708 mU/mL 3-4 Weeks 217-71576 mU/mL 5-6 Weeks 4059-580005 mU/mL 7-8 Weeks 36764-513217 mU/mL 9-10 Weeks 94378-58156 mU/mL 12-14 Weeks 31264-63330 mU/mL 15-16 Weeks 8240-37481 mU/mL 17-18 Weeks Urinalysis: (RHONDA: 09/21/2020 09:45) ( [facility] 09/21/2020 10:58) Final results Test Result Flag [...] TO 14 WEEKS: (RHONDA: 09/21/2020 09:55) ( [facility] 09/21/2020 10:38) Canceled Reason(s): Lower abdominal pain and cramping. Reason(s): Lower abdominal pain and cramping. TRANSPORTATION: WC IV? IV?(No) O2? Oxygen?(No) Ayde : Yes CMTS: lower abdominal pain and cramping no bleeding.PROGRESS AND PROCEDURES 4 Clinical Report - Physicians/Mid Levels [facility] Emergency Department [address] [place] [address] Phone #: ext- [phone] 09/21/2020 09:08 Patient: CHRISTOS MOREAU [facility]#: [id number] Sex: Katy : 2000 Age: 20y Course of Care: [...] CLINIC Respective Team Daisha LAWRENCE, , , [address] [facility], , [place], [address] Follow up in four days as scheduled. Reason for referral: evaluation. Summary of care provided to patient via paper.(Electronically signed by Reza Villarreal, Physician 09/21/2020 13:19) Name Value Range Interpretation Code Description Data Opal rce(s) Supporting Document(s) ID Date Data Source [id number] 09/21/2020 11:49:00 AM [facility] Name Value Range Interpretation Code Description Data [facility](s) Supporting Document(s) ABO group [Type] in Blood A [facility] Rh [Type] in Blood POSITIVE [facility] { ABO/RH REENTER A POSITIVE ID Date Data Source [id number] 09/21/2020 11:45:00 AM [facility] Name Value Range Interpretation Code Description Data Opal rce(s) Supporting Document(s) BASIC METABOLIC PANEL [facility] BASIC METABOLIC PANEL Sodium [Moles/volume] in Serum or Plasma 137 mEq/L 134 - 153 [facility] Potassium [Moles/volume] in Serum or Plasma 4.7 mEq/L 3.6 - 5.0 [facility] Chloride [Moles/volume] in Serum or Plasma 105 mEq/L 98 - 107 [facility] Carbon dioxide, total [Moles/volume] in Serum or Plasma 24 MEQ/L 22 - 30 [facility] Glucose [Mass/volume] in Serum or Plasma 86 MG/DL 65 - 110 [facility] BUN 10 MG/DL 7 - 21 [facility] Creatinine [Mass/volume] in Serum or Plasma 0.6 MG/DL 0.7 - 1.5 L [facility] BUN/CREAT 17 8 - 27 [facility] Calcium [Mass/volume] in Serum or Plasma 9.7 MG/DL 8.4 - 10.2 [facility] Anion gap 3 in Serum or Plasma 8.0 mmol/L 8.0 - 16.0 [facility] AGE 20 yrs [facility] al AFR AMER GFR >60 mL/min [facility] NON-AA GFR >60 mL/min [facility] ital Male GFR Inter prentation 20-49 [...] >32 mL/min Normal ID Date Data Source [id number] 09/21/2020 11:20:00 AM [facility] Name Value Range Interpretation Code Description Data Opal rce(s) Supporting Document(s) Choriogonadotropin.intact [Units/volume] in Serum or Plasma 20.6 mIU/ mL [facility] Interpr etation: Less than 5 mU/mL: Negative 6-10 mU/mL: Borderline (suggest repeat in 48 hours) >10: Positive Approx HCG range (mU/mL) Weeks post LMP 5.4-708 mU/mL 3-4 Weeks 217-34715 mU/mL 5-6 Weeks 4059-750081 mU/mL 7-8 Weeks 85915-896771 mU/mL 9-10 Weeks 13102-80949 mU/mL 12-14 Weeks 43880-83701 mU/mL 15-16 Weeks 8240- 75638 mU/mL 17-18 Weeks ID Date Data Source [id number] 09/21/2020 10:58:00 AM EST [facility] Name Value Range Interpretation Code Description Data Opal rce(s) Supporting Document(s) CBC W/AUTOMATED DIFF [facility] COMPLETE BLOOD COUNT Leukocytes [#/volume] in Blood by Automated count 8.2 10^3/uL 4.2 - 1 1.0 [facility] Erythrocytes [#/volume] in Blood by Automated count 4.56 10^6/uL 4. 20 - 5.40 [facility] Hemoglobin [Mass/volume] in Blood 13.6 g/dL 12.0 - 16.0 [facility] Hematocrit [Volume Fraction] of Blood by Automated count 40.1 % 3 7.0 - 47.0 [facility] Erythrocyte mean corpuscular volume [Entitic volume] by Auto mated count 87.9 fL 81.0 - 101 [facility] Erythrocyte mean corpuscular hemoglobin [Entitic mass] by Automated count 29.8 pg 27.0 - 34.0 [facility] Erythrocyte mean corpuscular hemoglobin concentration [Mass/volume] by Automated count 33.9 g/dL 31.0 - 36.0 [facility] Erythrocyte distribution width [Ratio] by Automated count 11.9 % 11.5 - 14.5 [facility] Platelets [#/volume] in Blood by Automated count 338 10^3/uL 150 - 45 0 [facility] Platelet mean volume [Entitic volume] in Blood by Automated count 11.8 fL 7.4 - 10.4 H [facility] Neutrophils/100 leukocytes in Blood by Automated count 66.1 % 37. 0 - 80.0 [facility] Lymphocytes/100 leukocytes in Blood by Manual count 26.3 % 25.0 - 40.0 [facility] Monocytes/100 leukocytes in Blood by Automated count 5.2 % 3.0 - 8.0 [facility] Eosinophils/100 leukocytes in Blood by Automated count 1.2 % 0.0 - 7.0 [facility] Basophils/100 leukocytes in Blood by Automated count 1.0 % 0.0 - 2.5 [facility] %IG 0.2 % 0.0 - 0.0 H [facility] %NRBC 0.0 % 0.0 - 0.0 [facility] al Neutrophils [#/volume] in Blood by Automated count 5.44 10^3/uL 2.00 - 6.90 [facility] Lymphocytes [#/volume] in Blood by Automated count 2.17 10^3/uL 0.60 - 3.40 [facility] Monocytes [#/volume] in Blood by Automated count 0.43 10^3/uL 0.00 - 0.90 [facility] Eosinophils [#/volume] in Blood by Automated count 0.10 10^3/uL 0.00 - 0.70 [facility] Basophils [#/volume] in Blood by Automated count 0.08 10^3/uL 0.00 - 0.20 [facility] #IG 0.02 10^3/uL 0.00 - 0.10 [facility] #NRBC 0.00 10^3/uL 0.00 - 0.00 [facility] MANUAL DIFF NOT INDICATED [facility] RBC MORPH NOT INDICATED [facility] ID Date Data Source [id number] 09/21/2020 10:58:00 AM EST [facility] Name Value Range Interpretation Code Description Data Opla rce(s) Supporting Document(s) [facility]IS [facility] [place] URINALYSIS SOURCE R [facility] COLOR yellow NORMAL: Yellow [facility] CLARITY clear NORMAL: Clear [facility] Specific gravity of Urine by Test strip 1.015 1.001 - 1.030 [facility] pH 6 5 - 9 [facility] Glucose [Mass/volume] in Urine by Test strip NORM NORMAL: Negat [facility] Bilirubin.total [Presence] in Urine by Test strip NEG NORMAL: Negative [facility] Ketones [Presence] in Urine by Test strip NEG NORMAL: Negative [facility] Protein [Mass/volume] in Urine by Test strip NEG NORMAL: Negat [facility] Nitrite [Presence] in Urine by Test strip NEG NORMAL: Negative [facility] BLOOD NEG NORMAL: Negative [facility] Leukocyte esterase [Presence] in Urine by Test strip NEG CANDIDA L: Negative [facility] Urobilinogen [Mass/volume] in Urine by Test strip NOR less moreno n 1.0 mg/dL [facility] MICROSCOPIC Not Indicate [facility] Procedure Social History Code Duration Value Status Description Data Source(s ) Smoking 07/04/2021 12:00:00 AM EDT Patient has never smoked co mpleted Patient has never smoked [facility] ([facility] Vital Signs ID Date Data Source UNK Name Value Range Interpretation Code Description Data Source(s) Body weight 197.00 [lb_av] 197.00 [lb_av] [facility] T ([facility]) Body mass index (BMI) [Ratio] 36.0 kg/m2 36.0 k g/m2 [facility] ([facility]) Body height 62 [in_i] 62 [in_i] [facility] 5'2" Diastolic blood pressure--supine 78 mm[Hg] 78 mm[Hg] [facility] ([facility]) Ra Heart rate 74 /min 74 /min [facility] regular Respiratory rate 16 /min 16 /min [facility] ( [facility]) Systolic blood pressure--sitting 116 mm[Hg] 116 mm[Hg] [facility] ([facility]) Medium cuff, Ra: 118/82 [place] Diastolic blood pressure--sitting 78 mm[Hg] 78 mm[Hg] [facility] ([facility]) Medium cuff, Ra: 118/82 [place] Systolic blood pressure--supine 118 mm[Hg] 118 mm[Hg] [facility] ([facility]) Ra
[2021-09-14] MEDS ORDERED: IBUP80TA PO (20:50)
--- OUTSIDE RECORDS SUMMARY | 2021-09-14 22:09 | CCD ---
Author Author [facility] Organization [facility] Address Unknown Phone Unavailable Care Team Providers Care Director Blood Bank Name Role Phone NO, PCP Unavailable Unavailable [...] TURRIN, ANDREA Unavailable Unavailable CHRIS, T VÍCTOR DOCUMENTATION CLERK Unavailable Unavailable CHRIS, T VÍCTOR DOCUMENTATION CLERK Unavailable Unavailable CHRIS, T VÍCTOR DOCUMENTATION CLERK Unavailable Unavailable CHRIS, T VÍCTOR DOCUMENTATION CLERK Unavailable Unavailable CHRIS, T VÍCTOR DOCUMENTATION CLERK Unavailable Unavailable HCRIS, T VÍCTOR DOCUMENTATION CLERK Unavailable Unavailable CHRIS, T VÍCTOR DOCUMENTATION CLERK Unavailable Unavailable CHRIS, T VÍCTOR DOCUMENTATION CLERK Unavailable Unavailable CHRIS, T VÍCTOR DOCUMENTATION CLERK Unavailable Unavailable CHRIS, T VÍCTOR DOCUMENTATION CLERK Unavailable Unavailable CHRIS, T VÍCTOR DOCUMENTATION CLERK Unavailable Unavailable CHRIS, T VÍCTOR DOCUMENTATION CLERK Unavailable Unavailable CHRIS, T VÍCTOR DOCUMENTATION CLERK Unavailable Unavailable CHRIS, T VÍCTOR DOCUMENTATION CLERK Unavailable Unavailable CHRIS, T VÍCTOR DOCUMENTATION CLERK Unavailable Unavailable CHRIS, T VÍCTOR DOCUMENTATION CLERK Unavailable Unavailable CHRIS, T VÍCTOR DOCUMENTATION CLERK Unavailable Unavailable CHRIS, T VÍCTOR DOCUMENTATION CLERK Unavailable Unavailable CHRIS, T VÍCTOR DOCUMENTATION CLERK Unavailable Unavailable CHRIS, T VÍCTOR DOCUMENTATION CLERK Unavailable Unavailable CHRIS, T VÍCTOR DOCUMENTATION CLERK Unavailable Unavailable CHRIS, T VÍCTOR DOCUMENTATION CLERK Unavailable Unavailable CHRIS, T VÍCTOR DOCUMENTATION CLERK Unavailable Unavailable CHRIS, T VÍCTOR DOCUMENTATION CLERK Unavailable Unavailable CHRIS, T VÍCTOR DOCUMENTATION CLERK Unavailable Unavailable CHRIS, T VÍCTOR DOCUMENTATION CLERK Unavailable Unavailable CHRIS, T VÍCTOR DOCUMENTATION CLERK Unavailable Unavailable CHRIS, T VÍCTOR DOCUMENTATION CLERK Unavailable Unavailable CHRIS, T VÍCTOR DOCUMENTATION CLERK Unavailable Unavailable CHRIS, T VÍCTOR DOCUMENTATION CLERK Unavailable Unavailable CHRIS, T VÍCTOR DOCUMENTATION CLERK Unavailable Unavailable CHRIS, T VÍCTOR DOCUMENTATION CLERK Unavailable Unavailable CHRIS, T VÍCTOR DOCUMENTATION CLERK Unavailable Unavailable CHRIS, T VÍCTOR DOCUMENTATION CLERK Unavailable Unavailable CHRIS, T VÍCTOR DOCUMENTATION CLERK Unavailable Unavailable CHRIS, T VÍCTOR DOCUMENTATION CLERK Unavailable Unavailable CHRIS, T VÍCTOR DOCUMENTATION CLERK Unavailable Unavailable CHRIS, T VÍCTOR DOCUMENTATION CLERK Unavailable Unavailable CHRIS, T VÍCTOR DOCUMENTATION CLERK Unavailable Unavailable CHRIS, T VÍCTOR DOCUMENTATION CLERK Unavailable Unavailable Reynaldo Montes De Oca MD [...] is protected by Article 27-F of the [place] Public Health law. If you continue you may have access to information: Regarding HIV / AIDS; Provided by facilities licensed or operated by the [place] Office of Mental Health; or Provided by the [place] Office for People With Developmental Disabilities. If such information is present, then the following [place] mandated warning applies: This information has been [...] law may result in a fine or retirement sentence or both. A general authorization for the release of medical or other information is NOT sufficient authorization for further disc losure. Encounters Encounter Providers Location Date Indications Data Source(s ) Outpatient Attender: ROLAND CHAWLA MD Main Office 07/04/2021 01:00:00 PM EDT [facility] ([facility]) Emergency Attender: BRIDGER HAMILTON MDConsultant: SACHIN MCKINNON 04/27/2021 02:36:00 PM EDT - 04/27/2021 05:53:00 PM EDT [facility] Patient discharged. Emergency Attender: Ang Tapia MDConsultant: GLENDY SMITH 04/20/2021 10:50:00 PM EDT - 04/21/2021 12:44:00 AM EDT [facility] Patient discharged. Emergency Attender: BRIDGER HAMILTON MDConsultant: SACHIN MCKINNON 03/07/2021 04:47:00 PM EDT - 03/07/2021 06:58:00 PM EDT [facility] Patient discharged. Emergency Attender: ANDREA Kramersuant: GLENDY CHAUDHARY EConsultant: PCP NO 02/17/2021 06:20:00 PM EDT - 02/17/2021 09:03:00 PM EDT [facility] Patient discharged. Outpatient Attender: Chyna Montes De Oca MD 0 12/16/2020 01:02:15 PM EST - 12/16/2020 01:48:36 PM EST [facility] ([facility]) Outpatient Attender: VÍCTOR FITZPATRICK 11/12 06:47:55 PM EST - 12/02/2020 07:25:15 PM EST [facility] ([facility] ) Emergency Attender: ANDREA Conradant: PCP NO 09/23/2020 11:13:00 PM EST - 09/24/2020 12:22:00 AM EST [facility] Patient discharged. Emergency Attender: REZA VILLARREAL DOConsultant: PCP NO 09/21/2020 09:17:00 AM EST - 09/21/2020 11:40:00 AM EST [facility] Patient discharged. Medications Medication Brand Name Start Date Product Form Dose Route Admi nistrative Instructions Pharmacy Instructions Status Indications Reaction Description Data Source(s) 07/03/2021 12:00:00 AM EDT OR[facility] active [facility] ([facility]) Insurance Providers Payer name Policy type / Coverage type Policy ID Covered green party ID Covered green party's relationship to pearson Policy Pearson Plan Information / [id number] Self 01 [id number] [facility] [employer] [id number] 2 [id number] [facility] [employer] - O/P [id number] 01 [id number] Problems, Conditions, and Diagnoses Code Display Name Description Problem Type Effective Dates Data Source(s) Z3A15 15 weeks gestation of 15 weeks gestation of Diagnosis 04/27/2021 02:36:00 PM EDT [facility] R102 Pelvic and perineal pain Pelvic and perineal pain Diag nosis 04/27/2021 02:36:00 PM EDT [facility] W28879 Other specified related condit ions, second trimester Other specified related conditions, second trimester Diagnosis 04/27/2021 02:36:00 PM EDT [facility] Z8759 Personal history of other co mplications of , childbirth and the puerperium Personal history of other complications of , childbirth and the puerperium Diagnosis [facility] Weeks of gestation of not spec ified Weeks of gestation of not specified Diagnosis 04/20/2021 10:50:00 PM EDT [facility] G8929 Other chronic pain Other chronic pain Diagnosis 08[facility]2021 [facility] M[facility] Migraine without aura, intractable, with out status migrainosus Migraine without aura, intractable, without status migrainosus Diagnosis 04/20/2021 10:50:00 PM EDT [facility] U19009 Diseases of the nervous syst em complicating , unspecified trimester Diseases of the nervous system complicat ing , unspecified trimester Diagnosis 04/20/2021 10:50:00 PM EDT [facility] S45698 Other specified related condit ions, unspecified trimester Other specified related conditions, unspecified trimester Diagnosis 04/20/2021 10:50:00 PM EDT [facility] Z3A01 Less than 8 weeks gestation of Less than 8 weeks gestation of Diagnosis 03/07/2021 04:47:00 PM EDT [facility] K27372 Other specified related condit ions, first trimester Other specified related conditions, first trimester Diagnosis 03/07/2021 04:47:00 PM EDT [facility] O200 Threatened Threatened Diagnosis 0 02/17/2021 06:20:00 PM EDT [facility] O034 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 Diagnosis 09/23/2020 11:13:00 PM EST [facility] R00.2 Palpitations Palpitations Problem 07/04/2021 12:00:00 A M EDT [facility] ([facility]) R07.2 Precordial pain Precordial pain Problem 07/04/2021 12:0 0:00 AM EDT [facility] ([facility]) R94.31 Electrocardiogram abnormal Electrocardiogram abnormal Problem 07/04/2021 12:00:00 AM EDT [facility] ([facility]) G43.709 Chronic migraine without aura Chronic migraine without aura Problem 07/04/2021 12:00:00 AM EDT [facility] ([facility]) Surgeries/Procedures Procedure Description Date Indications Data Source(s) ECG ROUTINE ECG W/LEAST 12 LDS W/I&R 07/04/2021 12:00: 00 AM EDT [facility] ([facility]) OFFICE OUTPATIENT NEW 45 MINUTES 07/04/2021 12:00:00 A M EDT [facility] ([facility]) Results ID Date Data Source [id number] 09/03/2021 01:10:00 AM EST [facility] Name Value Range Interpretation Code Description Data Opal rce(s) Supporting Document(s) SARS coronavirus 2 RNA [Presence] in Res piratory specimen by VERONIKA with probe detection NEGATIVE [facility] This lab was ordered by [facility] a nd reported by [facility]. ID Date Data Source [id number] 07/18/2021 12:00:00 AM EDT [facility] Name Value Range Interpretation Code Description Data Opal rce(s) Supporting Document(s) SARS-COV-2 Negative [facility] This lab was ordered by [facility] and re ported by [facility]. ID Date Data Source [id number] 05/08/2021 01:52:00 PM EDT [facility] ([facility] Name Value Range Interpretation Code Description Data Opal rce(s) Supporting Document(s) White Blood Count 12.5 5.0-10.0 [facility]) Red Blood Count 4.22 4.00-5.40 [facility]) Platelets 235 172-450 [facility] Hemoglobin 12.8 [facility] ([facility]) Hematocrit 37.3 [facility]) ID Date Data Source [id number] 05/08/2021 01:52:00 PM EDT [facility] Name Value Range Interpretation Code Description Data Opal rce(s) Supporting Document(s) Thyroid Stimulating Hormone 1.520 [facility] ([facility]) Free T4 0.97 [facility] ID Date Data Source [id number] 04/29/2021 10:29:00 [place] [address] PHONE: [phone] FAX: [phone] Name .................. : LIZZETH Bernardo Acct Number.................. : [id number] ROOM. ................. : TR-05 Number ................... : [id number] Stay type ............. : E/R Discharge Date......... ... : 04/27/21 Admit Date ......... : 04/27/21 Admit Phys .................... : MYCHAL Date of ....... : 2000 Family Phys ................... : SARAH STEPHENSON Phone .................. : [phone] Age ................................ : 20 Film# .................. .:[id number] Sex ................................. : F Unsigned transcriptions are preliminary reports and do not represent a medical or legal document OB COMPLETE 14WKS OR>(2ND& 39448 COMPLETE:04/27/21 16:33 ADB 25387 Reason for Exam: CRAMPING COMPLETE OB ULTRASOUND: [...] By Pro Tai M.D. , 04/29/21 10:29, ORY Transcribe Initials: SHIRLENE , Transcribe Date: 04/27/21 18:02, Dictation Date: Copy for: SARAH CAMELA Joan via fax Copy for: EMERGENCY DEPT via [facility] Copy for: 710 MED REC DISCHARGED Page 1 of 1 Name Value Range Interpretation Code Description Data Opal rce(s) Supporting Document(s) ID Date Data Source [id number] 04/27/2021 02:36:00 PM EDT [facility] 1 OrderSheet [facility] Emergency Department [address] [place] [address] Phone #: ext- [phone] 04/27/2021 14:33 Patient: CHRISTOS MOREAU Sex: F : 2000 Age: 20yWEIGHT:85.2 kg (S) HEIGHT:62 inches (S) BMI:34.4ALLERGIES: NoneCHIEF COMPLAINT: pelvic painDIAGNOSIS: C/O pelvic painLAB ORDERSOrder Description Priority Entered Acknowledged InitialedBeta-HCG, Quant STAT 14:40 04/27/2021 14:42 PeterSerum Bridger Hamilton RN ;Urinalysis (Clean STAT 14:40 04/27/2021 14:43 BurnhamCatch) Bridger Hamilton ED TechCarlitos ER ; Fpot5Olhmbbw, Urine STAT 14:40 04/27/2021 14:43 Frantz(Urine, Clean Bridger Hamilton ED Tech, Carlitos ERCatch) ; [id number] w Diff STAT 14:40 04/27/2021 14:42 Bridger [...] Bridger Hamilton RN ;GENERAL ORDERS 2 OrderSheet [facility] Emergency Department [address] [place] [address] Phone #: ext- [phone] 04/27/2021 14:33 Patient: CHRISTOS MOREAU Sex: F : 2000 Age: 20yOrder Description Priority Entered Acknowledged Initialed[Electronically signed by Carlos Gallagher RN (17:53 04/27/2021)][Electronically signed by Bridger Hamilton (22:45 04/27/2021)][Electronically locked by Carlos Gallagher RN (17:53 04/27/2021)] Name Value Range Interpretation Code Description [facility] Supporting Document(s) ID Date Data Source [id number] 04/27/2021 02:36:00 PM EDT [facility] 1 Medication Reconciliation Report [facility] Emergency Department [address] [place] [address] Phone #: ext- [phone] 04/27/2021 14:33 Patient: [...] rce(s) Supporting Document(s) ID Date Data Source [id number] 04/27/2021 02:36:00 PM EDT [facility] 1 Medication Administration Record [facility] Emergency Department [address] [place] [address] Phone #: ext- [phone] 04/27/2021 14:33 Patient: CHRISTOS MOREAU Sex: F : 2000 Age: 20yWeight: 85.2 kgHeight/Length: 62 inBMI: 34.4ALLERGIES: None Date/Time Medication Administered Medication OrderedGiven TYLENOL [PO] (APAP) Tylenol PO 650 mg (NOW)16:19 04/27/2021 Dose: 650 mg Tablets Marialuisa Gallagher RN Name Value Range Interpretation Code Description Data [facility] rce(s) Supporting Document(s) ID Date Data Source [id number] 04/27/2021 02:36:00 PM EDT [facility] 1 General Instructions [facility] Emergency Department [address] [place] [address] Phone #: ext- [phone] 04/27/2021 14:33 Patient: CHRISTOS MOREAU Sex: F : 2000 Age: 20y Pelvic pain. Ultrasound demonstrated an intrauterine .INSTRUCTIONS Drink plenty of fluids. (take Tylenol for pain. follow up with your collar turner. your pelvic US showed a live intrauterine [...] the due date nears. 2 General Instructions [facility] Emergency Department [address] [place] [address] Phone #: ext- [phone] 04/27/2021 14:33 [id number] Sex[facility] F : 2000 Age: 20yPain in [...] to by your healthcare provider, take an fybw-pjo-rdaasah medicine, such as acetaminophen, to relieve pain. Follow instructions carefully for how much to take and how often to take it. Do not take aspirin or nonsteroidal anti-inflammatory medicines (like ibuprofen) unless you have been told to do so by your healthcare provider.Follow-up careFollow up with your healthcare provider, or as advised. 3 General Instructions [facility] Emergency Department [address] [place] [address] Phone #: ext- [phone] 04/27/2021 14:33 Patient: [...] 100.4F (38C) or higher 1999- 2019 [employer]. [address] [place] [address]. All rights reserved. This information is not intended as asubstitute for professional medical care. Always follow your healthcare professional's instructions. You have been given the following additional information: Pelvic Pain In : Unclear (2-3 Trimester)(Electronically signed by Bridger Hamilton 04/27/2021 22:45) Name Value Range Interpretation Code Description Data Op[facility] rce(s) Supporting Document(s) ID Date Data Source [id number] 04/27/2021 02:36:00 PM EDT [facility] 1 Clinical Report - Nurses [facility] Emergency Department [address] [place] [address] Phone #: ext- [phone] 04/27/2021 14:33 Patient: [...] water, pt denies any discharge or bleeding).Treatment WEB ADMINISTRATOR:None.SEPSIS SCREEN: SIRS SCREEN NEGATIVE. SEPSIS SCREEN NEGATIVE. [...] P 0. 2 Clinical Report - Nurses [facility] Emergency Department [address] [place] [address] Phone #: ext- [phone] 04/27/2021 14:33 Patient: CHRISTOS MOREAU Sex: F [...] PELVIC EXAM: 3 Clinical Report - Nurses [facility] Emergency Department [address] [place] [address] Phone #: ext- [phone] 04/27/2021 14:33 Patient: [...] Patient verbalized understanding. Written instructions provided in Greek. The patient was discharged by the physician. [...] rce(s) Supporting Document(s) ID Date Data Source [id number] 04/27/2021 02:36:00 PM EDT [facility] 1 Clinical Report - Physicians/Mid Levels [facility] Emergency Department [address] [place] [address] Phone #: ext- [phone] 04/27/2021 14:33 Patient: CHRISTOS MOREAU Sex: F : 2000 Age: 20y Time Seen: 14:41 04/27/2021; initial patient contact, initial documentation. Arrived- By private vehicle. Historian- patient. Disposition decision: 17:44 04/27/2021.HISTORY OF PRESENT ILLNESS Chief Complaint: PELVIC PAIN. This started 8 days WEB ADMINISTRATOR and still present (persistent). It was gradual [...] vaginosis and vaginal yeast infection. patient is [id number] and is 14 weeks ). Currently .REVIEW [...] EXAM 2 Clinical Report - Physicians/Mid Levels [facility] Department [address] [place] [address] Phone #: ext- [phone] 04/27/2021 14:33 Patient: CHRISTOS MOREAU Sex: F [...] sounds normal. Back: Normal external inspection. : [employer] Farmworker present (nurse Rafael). Speculum and bimanual exam [...] Test Result Flag Units (Reference) HCG QUANT 82507.0 mIU/mL Interpretation: Less than 5 mU/mL: Negative 6-10 mU/mL: Borderline (suggest repeat in 48 hours) >10: Positive Approx HCG range (mU/mL) Weeks post LMP 5.4-708 mU/mL 3-4 Weeks 217-53161 mU/mL 5-6 Weeks 4059-285640 mU/mL 7-8 Weeks 23393-852001 mU/mL 9-10 Weeks 94007-60365 mU/mL 12- 14 Weeks 37318-24327 mU/mL 15-16 Weeks 8240-25718 mU/mL 17-18 Weeks Urinalysis: (RHONDA: 04/27/2021 14:45) ( MsgRcvd 04/27/2021 15:40) Final results Test Result Flag Units (Reference) URINALYSIS URINALYSIS 3 Clinical Report - Physicians/Mid Levels [facility] [address] [place] [address] Phone #: ext- [phone] 04/27/2021 14:33 Patient: [...] 107) 4 Clinical Report - Physicians/Mid Levels [facility] [address] [place] [address] Phone #: ext- [phone] 04/27/2021 14:33 Patient: [...] . 5 Clinical Report - Physicians/Mid Levels [facility] Department [address] [place] [address] Phone #: ext- [phone] 04/27/2021 14:33 Patient: CHRISTOS MOREAU Sex: F : 2000 Age: 20yINSTRUCTIONS Drink plenty of fluids. (take Tylenol for pain. follow up with your collar turner. your pelvic US showed a live intrauterine [...] rce(s) Supporting Document(s) ID Date Data Source [id number] 04/27/2021 03:39:00 PM EDT [facility] Name Value Range Interpretation Code Description Data Opal rce(s) Supporting Document(s) Choriogonadotropin.intact [Units/volume] in Serum or Plasma 44283.0 mIU/mL [facility] Interpr etation: Less than 5 mU/mL: Negative 6-10 mU/mL: Borderline (suggest repeat in 48 hours) >10: Positive Approx HCG range (mU/mL) Weeks post LMP 5.4-708 mU/mL 3-4 Weeks 217-33574 mU/mL 5-6 Weeks 4059-053313 mU/mL 7-8 Weeks 11897-443617 mU/mL 9-10 Weeks 17559-91218 mU/mL 12-14 Weeks 80569-84149 mU/mL 15-16 Weeks 8240- 16300 mU/mL 17-18 Weeks ID Date Data Source [id number] 04/27/2021 03:38:00 PM EDT [facility] Name Value Range Interpretation Code Description Data Opal rce(s) Supporting Document(s) COMPREHENSIVE METABOLIC PANEL [facility] COMPREHENSIVE METABOLIC PANEL Sodium [Moles/volume] in Serum or Plasma 137 mEq/L 134 - 153 [facility] Potassium [Moles/volume] in Serum or Plasma 3.9 mEq/L 3.6 - 5.0 [facility] Chloride [Moles/volume] in Serum or Plasma 104 mEq/L 98 - 107 [facility] Carbon dioxide, total [Moles/volume] in Serum or Plasma 23 MEQ/L 22 - 30 [facility] Glucose [Mass/volume] in Serum or Plasma 83 MG/DL 70 - 99 [facility] BUN 5 MG/DL 7 - 21 L [facility] Creatinine [Mass/volume] in Serum or Plasma 0.4 MG/DL 0.7 - 1.5 L [facility] BUN/CREAT 13 8 - 27 [facility] Protein [Mass/volume] in Serum or Plasma 6.8 G/DL 6.3 - 8.2 [facility] Albumin [Mass/volume] in Serum or Plasma 4.1 G/DL 3.9 - 5.0 [facility] Globulin [Mass/volume] in Serum by calculation 2.7 GM/DL 2.4 - 3.2 [facility] A/G RATIO 1.5 0.8 - 2.0 [facility] Calcium [Mass/volume] in Serum or Plasma 9.2 MG/DL 8.4 - 10.2 [facility] Bilirubin.total [Mass/volume] in Serum or Plasma <0.7 MG/DL 0.2 - 1.3 [facility] Alkaline phosphatase [Enzymatic activity/volume] in Serum or Plasma 51 U/L 38 - 126 [facility] Aspartate aminotransferase [Enzymatic activity/volume] in Serum or Plasma 10 U/L 5 - 40 [facility] Alanine aminotransferase [Enzymatic activity/volume] in Seru m or Plasma 7 U/L 7 - 56 [facility] Anion gap 3 in Serum or Plasma 10.0 mmol/L 8.0 - 16.0 [facility] AGE 20 yrs [facility] NON-AA GFR >60 mL/min [facility] ital AFR AMER GFR >60 mL/min [facility] Male GFR In terprentation [...] >32 mL/min Normal ID Date Data Source [id number] 04/27/2021 03:09:00 PM EDT [facility] Name Value Range Interpretation Code Description Data Opal rce(s) Supporting Document(s) CBC W/AUTOMATED DIFF [facility] COMPLETE BLOOD COUNT Leukocytes [#/volume] in Blood by Automated count 12.6 10^3/uL 4.2 - 11.0 H [facility] Erythrocytes [#/volume] in Blood by Automated count 4.36 10^6/uL 4. 20 - 5.40 [facility] Hemoglobin [Mass/volume] in Blood 13.3 g/dL 12.0 - 16.0 [facility] Hematocrit [Volume Fraction] of Blood by Automated count 38.4 % 3 7.0 - 47.0 [facility] Erythrocyte mean corpuscular volume [Entitic volume] by Auto mated count 88.1 fL 81.0 - 101 [facility] Erythrocyte mean corpuscular hemoglobin [Entitic mass] by Automated count 30.5 pg 27.0 - 34.0 [facility] Erythrocyte mean corpuscular hemoglobin concentration [Mass/volume] by Automated count 34.6 g/dL 31.0 - 36.0 [facility] Erythrocyte distribution width [Ratio] by Automated count 13.2 % 11.5 - 14.5 [facility] Platelets [#/volume] in Blood by Automated count 296 10^3/uL 150 - 45 0 [facility] Platelet mean volume [Entitic volume] in Blood by Automated count 11.7 fL 7.4 - 10.4 H [facility] Neutrophils/100 leukocytes in Blood by Automated count 78.5 % 37. 0 - 80.0 [facility] Lymphocytes/100 leukocytes in Blood by Manual count 14.7 % 25.0 - 40.0 L [facility] Monocytes/100 leukocytes in Blood by Automated count 5.3 % 3.0 - 8.0 [facility] Eosinophils/100 leukocytes in Blood by Automated count 0.6 % 0.0 - 7.0 [facility] Basophils/100 leukocytes in Blood by Automated count 0.3 % 0.0 - 2.5 [facility] %IG 0.6 % 0.0 - 0.0 H [facility] %NRBC 0.0 % 0.0 - 0.0 [facility] Neutrophils [#/volume] in Blood by Automated count 9.88 10^3/uL 2.00 - 6.90 H [facility] Lymphocytes [#/volume] in Blood by Automated count 1.85 10^3/uL 0.60 - 3.40 [facility] Monocytes [#/volume] in Blood by Automated count 0.67 10^3/uL 0.00 - 0.90 [facility] Eosinophils [#/volume] in Blood by Automated count 0.08 10^3/uL 0.00 - 0.70 [facility] Basophils [#/volume] in Blood by Automated count 0.04 10^3/uL 0.00 - 0.20 [facility] #IG 0.07 10^3/uL 0.00 - 0.10 [facility] #NRBC 0.00 10^3/uL 0.00 - 0.00 [facility] MANUAL DIFF NOT INDICATED [facility] RBC MORPH NOT INDICATED [facility] spital ID Date Data Source [id number] 05/01/2021 08:05:00 PM EDT [facility] Name Value Range Interpretation Code Description Data Opal rce(s) Supporting Document(s) CULTURE URINE [facility] _CULTURE URINE_$$[id number]$$[id number]$$[id number]$$530237$$[id number]$$[id number]$$834001$$[id number]$$[id number]$$ 195911$$062520$$268921$$294604$$507979$$911494$$440809$$725302$$569163$$795034$$ 194510$$300822$$548256$$257002$$758991$$720390$$[id number]$$[id number] -- Continued on next page --Patient: LIZZETH Bernardo Order: [id number] Page 2Culture: CULTURE URINE Status: Final ==== -- Continued on next page --Patient: LIZZETH Bernardo Order: [id number] Page 2Culture: CULTURE URINE Status: Prelim =====$$[id number] DATE/TIME: 05/01/2021 15:06Culture: CULTURE URINE Status: FinalUrine Culture,Comprehensive: P1No growth in 36 - 48 hours. Previous result entered on 04/30/2021 06:54 ET No growth after 18-24 hours.P1 Test performed by: [facility] MNOTANO #: [id number] [address] [place] [address] [id number] [facility] [address]Medical Director : Mark Bernardo MD NPI #:Lab Di jose : 04/30/21.0719.thiago.SENT REF 05/01/21.thiago.SENT REF ID Date Data Source [id number] 04/27/2021 03:39:00 PM EDT [facility] Name Value Range Interpretation Code Description Data Opal rce(s) Supporting Document(s) URINALYSIS [facility] URINALYSIS SOURCE Clean Catch [facility] COLOR yellow NORMAL: Yellow [facility] CLARITY turbid NORMAL: Clear [facility] Specific gravity of Urine by Test strip 1.015 1.001 - 1.030 [facility] pH 6.5 5 - 9 [facility] Glucose [Mass/volume] in Urine by Test strip 50 NORMAL: Negat collette A [facility] Bilirubin.total [Presence] in Urine by Test strip NEG NORMAL: Negative [facility] Ketones [Presence] in Urine by Test strip NEG NORMAL: Negative [facility] Protein [Mass/volume] in Urine by Test strip NEG NORMAL: Negat collette [facility] Nitrite [Presence] in Urine by Test strip NEG NORMAL: Negative [facility] BLOOD NEG NORMAL: Negative [facility] LEUK EST 25 NORMAL: Negative [facility] Urobilinogen [Mass/volume] in Urine by Test strip NOR less moreno n 1.0 mg/dL [facility] MICROSCOPIC See Below [facility] ital WBC 1 - 3 NORMAL: NONE SEEN [facility] Erythrocytes [#/volume] in Urine by Test strip 0 - 1 NORMAL: NON E SEEN [facility] EPITHELIAL MANY NORMAL: NONE SEEN A [facility] Amorphous sediment [Presence] in Urine sediment by Light kayley roscopy RARE NORMAL: NONE SEEN [facility] ID Date Data Source [id number] 04/20/2021 10:50:00 PM EDT [facility] 1 OrderSheet [facility] Emergency Department [address] [place] [address] Phone #: [phone] vwd- [phone] 04/20/2021 22:48 Patient: CHRISTOS MOREAU Sex: F [...] ; Tony RNx1)Acetaminophen IV 23:39 04/20/2021 23:59 [id number] mg (NOW x1, Ang Tapia ; Tony RNInfuse over 15minutes)GENERAL ORDERSOrder Description Priority Entered Acknowledged Initialed[Electronically signed by Vargas Jimenez RN (00:43 04/21/2021)][Electronically signed by Ang Tapia (04:53 2020)][Electronically locked by Vargas Jimenez RN (00:43 04/21/2021)] Name Value Range Interpretation Code Description Data Opal rce(s) Supporting Document(s) ID Date Data Source [id number] 04/20/2021 10:50:00 PM EDT [facility] 1 Medication Reconciliation Report [facility] Emergency Department [address] [place] [address] Phone #: ext- [phone] 04/20/2021 22:48 Patient: [...] rce(s) Supporting Document(s) ID Date Data Source [id number] 04/20/2021 10:50:00 PM EDT [facility] 1 Medication Administration Record [facility] Emergency Department [address] [place] [address] Phone #: ext- [phone] 04/20/2021 22:48 Patient: CHRISTOS MOREAU Sex: F : 2000 Age: 20yWeight: 84.3 kgHeight/Length: 62 inBMI: 34ALLERGIES: None Date/Time Medication Administered Medication OrderedGiven BENADRYL [IVP] (DIPHENHYDRAMINE Benadryl IVP 25 mg (NOW x1)23:52 04/20/2021 HCL)Vargas Jimenez RN Dose: 12.5 mg IVP Site: #1 left ACStart NS [IV] NS IV 1000 mL Bolus: : Bolus [id number] 04/21/2021 Dose: IV Fluids mL (X1)Vargas Jimenez [...] rce(s) Supporting Document(s) ID Date Data Source [id number] 04/20/2021 10:50:00 PM EDT [facility] 1 General Instructions [facility] Emergency Department [address] [place] [address] Phone #: nlo- [phone] 04/20/2021 22:48 Patient: CHRISTOS MOREAU Sex: F [...] headache or are having 2 General Instructions [facility] Emergency Department [address] [place] [address] Phone #: ext- [phone] 04/20/2021 22:48 ----- [...] to treat future headaches 3 General Instructions [facility] Emergency Department [address] [place] [address] Phone #: ext- [phone] 04/20/2021 22:48 Patient: [...] side of your face 4 General Instructions [facility] Emergency Department [address] [place] [address] Phone #: ext- [phone] 04/20/2021 22:48 Patient: CHRISTOS MOREAU Sex: F : 2000 Age: 20y Trouble talking or seeing [phone] [employer] [place] [address]. All rights reserved. Th is information is not intended as asubstitute for professional medical care. Always follow your healthcare professional's instructions. You have been given the following additional information: Headache, Migraine, Classic(Electronically signed by Ang Tapia 04/21/2021 04:53) Name Value Range Interpretation Code Description Data Opal rce(s) Supporting Document(s) ID Date Data Source [id number] 04/20/2021 10:50:00 PM EDT [facility] 1 Clinical Report - Nurses [facility] Emergency Department [address] [place] [address] Phone #: ext- [phone] 04/20/2021 22:48 Patient: CHRISTOS MOREAU Sex: F : 2000 Age: 20yTRIAGEArrived by private vehicle. Historian: patient.Triage time: 22:50 04/20/2021.Chief Complaint: MIGRAINE HEADACHE.This started 2 weeks. She has had vomiting (2 times last time around 330). ( Ate burger errol and Doritosearlier today).Treatment WEB ADMINISTRATOR:Took Tylenol. (2 ES at 9am). --23:00 04/20/21 [...] known surgeries.History 2 Clinical Report - Nurses [facility] Emergency Department [address] [place] [address] Phone #: ext- [phone] 04/20/2021 22:48 Patient: CHRISTOS MOREAU Sex: F : 2000 Age: 20y PAST MEDICAL HX: Headaches. Currently : Sees [facility], LMP nov 16, EDC oct 25 [...] initiated. Bed in low position. Brakes on. Straddle Truck Operator at bedside. Call light in reach [...] Jimenez RN 3 Clinical Report - Nurses [facility] Emergency Department [address] [place] [address] Phone #: ext- [phone] 04/20/2021 22:48 Patient: [...] Patient verbalized understanding. Written instructions provided in Greek. The patient was discharged home and accompanied by salt machine operator. She left ambulatory and via private vehicle. Straddle Truck Operator driving. --00:43 04/21/21 Vargas Jimenez RN [...] Jimenez RN 4 Clinical Report - Nurses [facility] Emergency Department [address] [place] [address] Phone #: ext- [phone] 04/20/2021 22:48 Patient: CHRISTOS MOREAU Sex: Katy : 2000 Age: 20y Name Value Range Interpretation Code Description Data Opal rce(s) Supporting Document(s) ID Date Data Source [id number] 04/20/2021 10:50:00 PM EDT [facility] 1 Clinical Report - Physicians/Mid Levels [facility] Emergency Department [address] [place] [address] Phone #: ext- [phone] 04/20/2021 22:48 Patient: [...] emergency department. ( Seen in ED in [place]).REVIEW OF SYSTEMSCurrently . No fever, muscle aches, [...] None. 2 Clinical Report - Physicians/Mid Levels [facility] Emergency Department [address] [place] [address] Phone #: ext- [phone] 04/20/2021 22:48 Patient: [...] necessary. 3 Clinical Report - Physicians/Mid Levels [facility] Emergency Department [address] [place] [address] Phone #: [phone] uor- [phone] 04/20/2021 22:48 Patient: CHRISTOS MOREAU Sex: F [...] rce(s) Supporting Document(s) ID Date Data Source [id number] 03/20/2021 01:54:00 PM EDT [facility] ([facility]) Name Value Range Interpretation Code Description Data Opal rce(s) Supporting Document(s) Magnesium Level 2.1 1.8-2.4 [facility] ([facility]) ID Date Data Source [id number] 03/20/2021 01:54:00 PM EDT [facility] ([facility] [place] [place]) Name Value Range Interpretation Code Description Data Opal rce(s) Supporting Document(s) Albumin [Mass/volume] in Serum or Plasma 3.4 [facility] ([facility]) Alanine aminotransferase [Enzymatic activity/volume] in Serum or Pl asma 21 [facility]) Calcium [Mass/volume] in Serum or Plasma 8.9 [facility] ([facility]) Carbon dioxide, total [Moles/volume] in Serum or Plasma 26 [facility]) Chloride [Moles/volume] in Serum or Plasma 106 [facility]) Alkaline phosphatase [Enzymatic activity/volume] in Serum or Plasma 5 4 [facility]) Potassium [Moles/volume] in Serum or Plasma 3.8 [facility] ([facility]) Protein [Mass/volume] in Serum or Plasma 6.9 [facility]) Sodium 139 [facility] Aspartate aminotransferase [Enzymatic activity/volume] in Serum or Plasma 8 [facility] Urea nitrogen [Mass/volume] in Serum or Plasma 5 [facility]) Creatinine For GFR 0.56 [facility] ([facility]) Glucose 97 83-110 [facility]) ID Date Data Source [id number] 03/11/2021 10:07:00 AM EDT [facility] [address] [place] [address] PHONE: [phone] FAX: [phone] Name .................. : LIZZETH Bernardo Acct Number.................. : [id number] ROOM. ................. : VT-05 Number ................... : [id number] Stay type ............. : E/R Discharge Date......... ... : 03/07/21 Admit Date ......... : 03/07/21 Admit Phys .................... : MYCHAL Date of ....... : 2000 Family Phys ................... : SARAH STEPHENSON Phone .................. : [phone] Age ................................ : 20 Film# .................. .:[id number] Sex ................................. : F Unsigned transcriptions are preliminary reports and do not represent a medical or legal document OB 1ST TRI W TV IF NEEDED [id number] COMPLETE:03/07/21 18:21 [facility] [id number] Reason(s): 5 weeks preg nant vaginal bleeding [...] rce(s) Supporting Document(s) ID Date Data Source [id number] 03/11/2021 07:37:00 AM EDT [facility] Name Value Range Interpretation Code Description Data Opal rce(s) Supporting Document(s) ID Date Data Source [id number] 03/07/2021 04:47:00 PM EDT [facility] 1 OrderSheet [facility] Emergency Department [address] [place] [address] Phone #: ext- [phone] 03/07/2021 16:45 Patient: [...] Scarlett Hackett RN (18:59 03/07/2021)] 2 OrderSheet [facility] Emergency Department [address] [place] [address] Phone #: ext- [phone] 03/07/2021 16:45 Patient: CHRISTOS MOREAU Sex: F : 2000 Age: 20y[El ectronically signed by Bridger Hamilton (19:54 03/07/2021)][Electronically locked by Scarlett Hackett RN (18:59 03/07/2021)] Name Value Range Interpretation Code Description Data [facility](s) Supporting Document(s) ID Date Data Source [id number] 03/07/2021 04:47:00 PM EDT [facility] 1 Medication Reconciliation Report [facility] Emergency Department [address] [place] [address] Phone #: ext [phone] 03/07/2021 16:45 Patient: CHRISTOS MOREAU Sex: F [...] Name Value Range Interpretation Code Description Data [facility](s) Supporting Document(s) ID Date Data Source [id number] 03/07/2021 04:47:00 PM EDT [facility] 1 Medication Administration Record [facility] Emergency Department [address] [place] [address] Phone #: ext- [phone] 03/07/2021 16:45 Patient: CHRISTOS MOREAU Sex: F : 2000 Age: 20yWeight: 83.0 kgHeight/Length: 62 inBMI: 33.5ALLERGIES: NoneDate/Time Medication Administered Medication Ordered Name Value Range Interpretation Code Description Data Opal rce(s) Supporting Document(s) ID Date Data Source [id number] 03/07/2021 04:47:00 PM EDT [facility] 1 General Instructions [facility] Emergency Department [address] [place] [address] Phone #: ext- [phone] 03/07/2021 16:45 Patient: CHRISTOS MOREAU Sex: F : 2000 Age: 20yFirst trimester .INSTRUCTIONS(you are 7 weeks . there [place] [address]. follow up withyour OB GY N for care).Your Current Medications: Your current home medications have been reviewed.CONTINUE TAKING THE FOLLOWING MEDI CATIONS: Oral : daily.Progesterone Vaginal : 2x a day.Follow-up with: [facility], , , [address] [place] [address], [facility] Follow up in seven days. Call for an appointment. Reason for referral: evaluation. Summary of careprovided to patient via paper. ADDITIONAL INFORMATIONPregnancy 2 General Instructions [facility] Emergency Department [address] [place] [address] Phone #: ext- [phone] 03/07/2021 16:45 Patient: [...] baby is born healthy: 3 General Instructions [facility] Emergency Department [address] [place] [address] Phone #: ext- [phone] 03/07/2021 16:45 Patient: CHRISTOS MOREAU Sex: F [...] You can seeyour family provider, a specialist (marketing operations analyst), a nurse midwife, or a primary care clinic.When to seek medical adviceCall your healthcare provider right away if any of these occur: Vaginal bleeding Pain in your belly (abdomen) or back that is moderate or severe Lots of vomiting, or you can't keep any fluids down for 6 hours 4 General Instructions [facility] Emergency Department [address] [place] [address] Phone #: ext- [phone] 03/07/2021 16:45 Patient: CHRISTOS MOREAU Sex: F : 2000 Age: 20y Burning feeling when you urinate Headache, dizziness, or rapid weight gain Fever Vision changes or blurred vision [phone] [employer] [place] [address]. All rights reserved. This information is not intended as asubstitute for professional medical care. Always follow your healthcare professional's instructions. You have been given the following additional information: , New Dx(Electronically signed by Bridger Hamilton 03/07/2021 19:54) Name Value Range Interpretation Code Description Data Opal rce(s) Supporting Document(s) ID Date Data Source [id number] 03/07/2021 04:47:00 PM EDT [facility] 1 Clinical Report - Nurses [facility] Emergency Department [address] [place] [address] Phone #: [phone]- [phone] 03/07/2021 16:45 Patient: CHRISTOS MOREAU Sex: F [...] just feels "something is off".). No vomiting.Treatment WEB ADMINISTRATOR:None.SEPSIS SCREEN: SIRS SCREEN NEGATIVE. SEPSIS SCREEN NEGATIVE. [...] Mendez R.N. 2 Clinical Report - Nurses [facility] Emergency Department [address] [place] [address] Phone #: ext- [phone] 03/07/2021 16:45 Patient: CHRISTOS MOREAU Sex: F : 2000 Age: 20y ADDITIONAL SURGERIES: no known surgeries. History PAST MEDICAL HX: Immunizations: up-to-date. Last normal menstrual period- 11/16/2020, miscarriage in early December, no menses since then, not entirely sure. 3. Para 0. Abortions 2. Confirmed . In 1st trimester. confirmed with sonogram. Has had care by marketing operations analyst. SOCIAL HX: Never smoker. No alcohol use [...] No skin integrity risk identified. --16:55 03/07/21 iYsel Mendez R.N. Interventions Identification band on patient. [...] Pt denies 3 Clinical Report - Nurses [facility] Emergency Department [address] [place] [address] Phone #: ext- [phone] 03/07/2021 16:45 [id number] Sex: F : 2000 Age: 20y urinary [...] --16:55 03/07/21 Yisel Mendez R.N. 17:06 03/07/21. Field Crop Ii Farmworker provided for the genital exam by the [...] Patient verbalized understanding. Written instructions provided in Greek. The patient was discharged home and accompanied [...] rce(s) Supporting Document(s) ID Date Data Source [id number] 03/07/2021 04:47:00 PM EDT [facility] 1 Clinical Report - Physicians/Mid Levels [facility] Emergency Department [address] [place] [address] Phone #: ext- [phone] 03/07/2021 16:45 Patient: CHRISTOS MOREAU Sex: F : 2000 Age: 20y Time Seen: 17:04 03/07/2021; initial patient contact, initial documentation. Arrived- By private vehicle. Historian- patient. Disposition decision: 18:51 03/07/2021.HISTORY OF PRESENT ILLNESS Chief Complaint: PELVIC PAIN. This started 1 week WEB ADMINISTRATOR and now gone. It was abrupt in onset and has been intermittent. The symptoms are described as mild. Modifying factors. Not worsened by anything. Not relieved by anything. No abdominal pain, pelvic pain, vaginal pain, low back pain or pain with urination. No urinary frequency, urgency of urination or hematuria. Not sexually active. Does not use control measures. (Patient is [id number] suppose to be 7 weeks . was seen in the ER on february 17, 2021. her BHCG then was 166. she was seen at [facility] 10 days ago and was told [...] use. 2 Clinical Report - Physicians/Mid Levels [facility] Emergency Department [address] [place] [address] Phone #: ext- [phone] 03/07/2021 16:45 Patient: CHRISTOS MOREAU Sex: F [...] radiologist.Laboratory Tests: Urinalysis: (RHONDA: 03/07/2021 18:00) ( [facility] 03/07/[facility] 18:19) Final results Test Result Flag [...] Beta-HCG, Quant Serum: (RHONDA: 03/07/2021 17:08) ( [facility] 03/07/2021 18:19) Final results Test Result Flag Units (Reference) HCG QUANT 26722.0 mIU/mL Interpretation: Less than 5 mU/mL: Negative 6-10 mU/mL: Borderline (suggest repeat in 48 hours) >10: Positive Approx HCG range (mU/mL) Weeks post LMP 5.4-708 mU/mL 3-4 Weeks 3 Clinical Report - Physicians/Mid Levels [facility] Emergency Department [address] [place] [address] Phone #: ext- [phone] 03/07/2021 16:45 Patient: CHRISOTS MOREAU Sex: F : 2000 Age: 40q737-95266 mU/mL 5-6 Weeks 4059-720376 mU/mL 7-8 Qlfhr00428-873558 mU/mL 9-10 Weeks 61177-69589 mU/mL 12-14 Vbnnh91038-80043 mU/mL 15-16 Weeks 8240-84062 mU/mL 17-18 WeeksPT/INR: (RHONDA: 03/07/2021 17:08) ( MsgRcvd 03/07/2021 17:43) Final results Test Result Flag Units (Reference) PROTIME 13.0 SECONDS (11.0 - 15.5) INR 0.94 (0.93 - 1.23) \\BLDo\\INR INTERPRETATION\\BLDx\\ Therapeutic range for Coumadin andrelated oral anticoagulants. -International Normalized Ratio (INR): 2.0 - 3.0 for VenousThrombosis, Pulmonary Embolus, Tissue heart valves, Acute NJ, Atrial Fibrillation, Valvular heartdisease and recurrent Systemic [...] 21) 4 Clinical Report - Physicians/Mid Levels [facility] Emergency Department [address] [place] [address] Phone #: ext- [phone] 03/07/2021 16:45 Patient: [...] 18:36 03/07/21. [place] [address]. awaiting for US 18:48 03/07/21. us showed [...] there is a live intrauterine and [place] [facility] [place] [address]. follow up with your OB GY N for care). Your Current Medications: Your current home medications have been reviewed. CONTINUE TAKING THE FOLLOWING MEDICATIONS: 5 Clinical Report - Physicians/Mid Levels [facility] Emergency Department [address] [place] [address] Phone #: ext- [phone] 03/07/2021 16:45 [id number] Sex: F : 2000 Age: 20y Oral : daily. Progesterone Vaginal : 2x a day. Follow-up with: [facility], , , [address] [place] [address], [facility] Follow up in seven days. Call for an appointment. Reason for referral: evaluation. Summary of care provided to patient via paper.(Electronically signed by Bridger Hamilton 03/07/2021 19:54) Name Value Range Interpretation Code Description Data [facility] Supporting Document(s) ID Date Data Source [id number] 03/07/2021 06:18:00 PM EDT [facility] Name Value Range Interpretation Code Description Data [facility](s) Supporting Document(s) URINALYSIS [facility] URINALYSIS SOURCE R [facility] COLOR yellow NORMAL: Yellow [facility] CLARITY clear NORMAL: Clear [facility] Specific gravity of Urine by Test strip 1.020 1.001 - 1.030 [facility] pH 6.5 5 - 9 [facility] Glucose [Mass/volume] in Urine by Test strip NORM NORMAL: Negat collette [facility] Bilirubin.total [Presence] in Urine by Test strip NEG NORMAL: Negative [facility] Ketones [Presence] in Urine by Test strip NEG NORMAL: Negative [facility] Protein [Mass/volume] in Urine by Test strip NEG NORMAL: Negat collette [facility] Nitrite [Presence] in Urine by Test strip NEG NORMAL: Negative [facility] BLOOD NEG NORMAL: Negative [facility] Leukocyte esterase [Presence] in Urine by Test strip NEG CANDIDA L: Negative [facility] Urobilinogen [Mass/volume] in Urine by Test strip NOR less moreno n 1.0 mg/dL [facility] MICROSCOPIC Not Indicate [facility] ospital ID Date Data Source [id number] 03/07/2021 06:19:00 PM EDT [facility] Name Value Range Interpretation Code Description Data Opal rce(s) Supporting Document(s) Choriogonadotropin.intact [Units/volume] in Serum or Plasma 72743.0 mIU/mL [facility] Interpr etation: Less than 5 mU/mL: Negative 6-10 mU/mL: Borderline (suggest repeat in 48 hours) >10: Positive Approx HCG range (mU/mL) Weeks post LMP 5.4-708 mU/mL 3-4 Weeks 217-18875 mU/mL 5-6 Weeks 4059-271401 mU/mL 7-8 Weeks 05730-061870 mU/mL 9-10 Weeks 40628-17313 mU/mL 12-14 Weeks 86150-40212 mU/mL 15-16 Weeks 8240- 14872 mU/mL 17-18 Weeks ID Date Data Source [id number] 03/07/2021 05:44:00 PM EDT [facility] Name Value Range Interpretation Code Description Data Opal rce(s) Supporting Document(s) BASIC METABOLIC PANEL [facility] BASIC METABOLIC PANEL Sodium [Moles/volume] in Serum or Plasma 135 mEq/L 134 - 153 [facility] Potassium [Moles/volume] in Serum or Plasma 3.9 mEq/L 3.6 - 5.0 [facility] Chloride [Moles/volume] in Serum or Plasma 101 mEq/L 98 - 107 [facility] Carbon dioxide, total [Moles/volume] in Serum or Plasma 24 MEQ/L 22 - 30 [facility] Glucose [Mass/volume] in Serum or Plasma 93 MG/DL 70 - 99 [facility] BUN 7 MG/DL 7 - 21 [facility] Creatinine [Mass/volume] in Serum or Plasma 0.6 MG/DL 0.7 - 1.5 L [facility] BUN/CREAT 12 8 - 27 [facility] Calcium [Mass/volume] in Serum or Plasma 9.5 MG/DL 8.4 - 10.2 [facility] Anion gap 3 in Serum or Plasma 10.0 mmol/L 8.0 - 16.0 [facility] AGE 20 yrs [facility] AFR AMER GFR >60 mL/min [facility]ital NON-AA GFR >60 mL/min [facility] ital Male GFR Inter prentation 20-49 yrs [...] >32 mL/min Normal ID Date Data Source [id number] 03/07/2021 05:43:00 PM EDT [facility] Name Value Range Interpretation Code Description Data Opal rce(s) Supporting Document(s) Prothrombin time (PT) 13.0 SECONDS 11.0 - 15.5 [facility] INR in Platelet poor plasma by Coagulation assay 0.94 0.93 - 1. 23 [facility] \\BLDo\\INR INTERPRETATION\\BLDx\\ Therapeutic range for Coumadin and related oral anticoagulants. - International Normalized Ratio (INR): 2.0 - 3.0 for Venous Thrombosis, Pulmonary Embolus, Tissue heart valves, Acute [place], Atrial Fibrillation, Valvular heart disease and recurrent Systemic Embolism. -International Normalized Ratio (INR): 2.5 - 3.5 for Mechanical Prosthetic valve. ID Date Data Source [id number] 03/07/2021 05:28:00 PM EDT [facility] Name Value Range Interpretation Code Description Data Opal rce(s) Supporting Document(s) CBC W/AUTOMATED DIFF [facility] COMPLETE BLOOD COUNT Leukocytes [#/volume] in Blood by Automated count 12.6 10^3/uL 4.2 - 11.0 H [facility] Erythrocytes [#/volume] in Blood by Automated count 4.37 10^6/uL 4. 20 - 5.40 [facility] Hemoglobin [Mass/volume] in Blood 13.6 g/dL 12.0 - 16.0 [facility] Hematocrit [Volume Fraction] of Blood by Automated count 38.8 % 3 7.0 - 47.0 [facility] Erythrocyte mean corpuscular volume [Entitic volume] by Auto mated count 88.8 fL 81.0 - 101 [facility] Erythrocyte mean corpuscular hemoglobin [Entitic mass] by Automated count 31.1 pg 27.0 - 34.0 [facility] Erythrocyte mean corpuscular hemoglobin concentration [Mass/volume] by Automated count 35.1 g/dL 31.0 - 36.0 [facility] Erythrocyte distribution width [Ratio] by Automated count 12.7 % 11.5 - 14.5 [facility] Platelets [#/volume] in Blood by Automated count 347 10^3/uL 150 - 45 0 [facility] Platelet mean volume [Entitic volume] in Blood by Automated count 11.7 fL 7.4 - 10.4 H [facility] Neutrophils/100 leukocytes in Blood by Automated count 67.1 % 37. 0 - 80.0 [facility] Lymphocytes/100 leukocytes in Blood by Manual count 25.5 % 25.0 - 40.0 [facility] Monocytes/100 leukocytes in Blood by Automated count 5.3 % 3.0 - 8.0 [facility] Eosinophils/100 leukocytes in Blood by Automated count 1.1 % 0.0 - 7.0 [facility] Basophils/100 leukocytes in Blood by Automated count 0.6 % 0.0 - 2.5 [facility] %IG 0.4 % 0.0 - 0.0 H [facility] %NRBC 0.0 % 0.0 - 0.0 [facility] Neutrophils [#/volume] in Blood by Automated count 8.47 10^3/uL 2.00 - 6.90 H [facility] Lymphocytes [#/volume] in Blood by Automated count 3.22 10^3/uL 0.60 - 3.40 [facility] Monocytes [#/volume] in Blood by Automated count 0.67 10^3/uL 0.00 - 0.90 [facility] Eosinophils [#/volume] in Blood by Automated count 0.14 10^3/uL 0.00 - 0.70 [facility] Basophils [#/volume] in Blood by Automated count 0.08 10^3/uL 0.00 - 0.20 [facility] #IG 0.05 10^3/uL 0.00 - 0.10 [facility] #NRBC 0.00 10^3/uL 0.00 - 0.00 [facility] MANUAL DIFF NOT INDICATED [facility] RBC MORPH NOT INDICATED [facility] spital ID Date Data Source [id number] 02/17/2021 06:20:00 PM EDT [facility] 1 OrderSheet [facility] Emergency Department [address] [place] [address] Phone #: ext- [phone] 02/17/2021 18:10 Patient: CHRISTOS MORAEU Sex: F : 2000 Age: 20yWEIGHT:81.6 kg (S) HEIGHT:62 inches (S) BMI:32.9ALLERGIES: NoneCHIEF COMPLAINT: abd crampsDIAGNOSIS: Patient currently , Threatened abortionLAB ORDERSOrder Description Priority Entered Acknowledged InitialedCBC w Diff STAT 18:34 02/17/2021 19:07 Mya Jimenez R.N. P.A.-C;CMP STAT 18:34 02/17/2021 19:07 Mya [...] Priority Entered Acknowledged InitialedGENERAL ORDERS 2 OrderSheet [facility] Emergency Department [address] [place] [address] Phone #: ext- [phone] 02/17/2021 18:10 Patient: CHRISTOS MOREAU Sex: F : 2000 Age: 20yOrder Description Priority Entered Acknowledged InitialedNPO 18:34 02/17/2021 18:38 Elier Infante P.A.- C;[Electronically signed by Vargas Jimenez RN (21:03 02/17/2021)][Electronically signed by Curly Saravia P.A.-C (14:28 02/19/2021)][Electronically locked by Vargas Jimenez RN (21:03 02/17/2021)] Name Value Range Interpretation Code Description Data [facility](s) Supporting Document(s) ID Date Data Source [id number] 02/17/2021 06:20:00 PM EDT [facility] 1 Medication Reconciliation Report [facility] Emergency Department [address] [place] [address] Phone #: ext- [phone] 02/17/2021 18:10 Patient: [...] Name Value Range Interpretation Code Description Data [facility](s) Supporting Document(s) ID Date Data Source [id number] 02/17/2021 06:20:00 PM EDT [facility] 1 Medication Administration Record [facility] Emergency Department [address] [place] [address] Phone #: ext- [phone] 02/17/2021 18:10 Patient: CHRISTOS MOREAU Sex: F : 2000 Age: 20yWeight: 81.6 kgHeight/Length: 62 inBMI: 32.9ALLERGIES: NoneDate/Time Medication Administered Medication Ordered Name Value Range Interpretation Code Description Data Opal rce(s) Supporting Document(s) ID Date Data Source [id number] 02/17/2021 06:20:00 PM EDT [facility] 1 General Instructions [facility] Emergency Department [address] [place] [address] Phone #: ext- [phone] 02/17/2021 18:10 Patient: [...] for an appointment. Follow up with an marketing operations analyst in two days. Call for the nextavailable appointment.Understanding of the discharge instructions verbalized by patient. ADDITIONAL INFORMATIONPregnancy 2 General Instructions [facility] Emergency Department [address] [place] [address] Phone #: ext- [phone] 02/17/2021 18:10 Patient: [...] baby is born healthy: 3 General Instructions [facility] Emergency Department [address] [place] [address] Phone #: ext- [phone] 02/17/2021 18:10 Patient: [...] You can seeyour family provider, a specialist (marketing operations analyst), a nurse midwife, or a primary care clinic.When to seek medical adviceCall your healthcare provider right away if any of these occur: Vaginal bleeding Pain in your belly (abdomen) or back that is moderate or severe Lots of v omiting, or you can't keep any fluids down for 6 hours 4 General Instructions [facility] Emergency Department [address] [place] [address] Phone #: ext- [phone] 02/17/2021 18:10 Patient: CHRISTOS MOREAU Sex: F : 2000 Age: 20y Burning feeling when you urinate Headache, dizziness, or rapid weight gain Fever Vision changes or blurred vision [employer] [address] [place] [address]. All rights reserved. This information is not [...] frequently Tiredness or fatigue 5 General Instructions [facility] Emergency Department [address] [place] [address] Phone #: ext- [phone] 02/17/2021 18:10 Patient: CHRISTOS MOREAU ct#: [id number] Sex: F : 2000 Age: 20y Dizziness [...] your healthcare provider.Follow-up care 6 General Instructions [facility] Emergency Department [address] [place] [address] Phone #: ext- [phone] 02/17/2021 18:10 Patient: CHRISTOS MOREAU Sex: F : 2000 Age: 20yCall your healthcare provider to arrange for care. care is important. You can seeyour family provider, a specialist (marketing operations analyst), a nurse midwife, or a primary care clinic.When to seek medical adviceCall your healthcare provider right away if any of these occur: Vaginal bleeding Pain in your belly (abdomen) or back that is moderate or severe Lots of vomiting, or you can't keep any fluids down for 6 hours Burning feeling when you urinate Headache, dizziness, or rapid weight gain Fever Vision changes or blurred vision [phone] [employer] [place] [address]. All rights reserved. This information is not [...] bleeding. This may be 7 General Instructions [facility] Emergency Department [address] [place] [address] Phone #: ext- [phone] 02/17/2021 18:10 Patient: [...] any new findings that mayaffect your care.Call [phone] if you have: Severe pain and very [...] by your healthcare provider 8 General Instructions [facility] Emergency Department [address] [place] [address] Phone #: ext- [phone] 02/17/2021 18:10 Patient: CHRISTOS MOREAU Sex: F : 2000 Age: 20y Pain in your lower belly (abdomen) that gets worse Weakness or dizziness Passage of anything that resembles tissue. This would be pink or grayish membrane or solid material. Save the tissue in a clean container and bring it to your provider. [phone] [employer]. [address] [place] [address]. All rights reserved. This information is not intended as asubstitute for professional medical care. Always follow your healthcare professional's instructions. You have been given the following additional information: , New Dx , New Dx Possible Miscarriage (Threatened )(Electronically signed by Curly Saravia P.A.-C 02/19/2021 14:28) Name Value Range Interpretation Code Description Data Opal rce(s) Supporting Document(s) ID Date Data Source [id number] 02/17/2021 06:20:00 PM EDT [facility] 1 Clinical Report - Nurses [facility] Emergency Department [address] [place] [address] Phone #: ext- [phone] 02/17/2021 18:10 Patient: [...] eptopic pregancy).Alert. No acute distress.Onset. (last week).Treatment WEB ADMINISTRATOR:None.SEPSIS SCREEN: SIRS SCREEN NEGATIVE. SEPSIS SCREEN NEGATIVE. [...] of CRE. 2 Clinical Report - Nurses [facility] Emergency Department [address] [place] [address] Phone #: ext- [phone] 02/17/2021 18:10 Patient: [...] Flores R.N. 18:55 02/17/21. [facility] manager. --19:11 02/17/21 Mya Jimenez R.N. 19:14 02/17/21. [facility] by wheelchair with radiology manager. --19:18 02/17/21 Mya Jimenez R.N. 19:16 02/17/21. Checked patient name and birthdate. Clean catch urine collected with return of 3 Clinical Report - Nurses [facility] Emergency Department [address] [place] [address] Phone #: ext- [phone] 02/17/2021 18:10 Patient: CHRISTOS MOREAU Sex: F : 2000 Age: 20y yellow-colored clear urine; sample sent to lab for urinalysis and culture. Specimen labeled in the presence of the patient (Hand carried to lab). --19:19 02/17/21 Mya Jimenez R.N.DISPOSITION / DISCHARGE 20:43 02/17/21. BP: 131/66. MAP: 87. HR: 76. RR: 16. O2 saturation: 100%. Temp: 97.2 F. --20:43 02/17/[address] [facility] Tech, [facility] Tech Cornell Coma Scale: 15- eyes open- spontaneous (4); best verbal response- oriented (5); best motor response- obeys commands (6). Condition at departure: improved. No learning barriers present. Discharge instructions provided and reviewed with the patient. Reviewed referral to an marketing operations analyst for followup. Patient verbalized understanding. Written instructions provided in Greek. The patient was discharged home and accompanied by spouse. She left ambulatory and via private vehicle. Spouse driving. --21:03 02/17/21 Vargas Jimenez RN 21:02 02/17/21. Pain level now: 0/10. --21:03 02/17/21 Vargas Jimenez RN.Locked/Released at 02/17/2021 21:03 by Vargas Jimenez RN Name Value Range Interpretation Code Description Data Opal rce(s) Supporting Document(s) ID Date Data Source [id number] 02/17/2021 06:20:00 PM EDT [facility] 1 Clinical Report - Physicians/Mid Levels [facility] Emergency Department [address] [place] [address] Phone #: ext- [phone] 02/17/2021 18:10 [id number] Sex[facility] F : 2000 Age: 20y Time [...] Allergies: None.SOCIAL HISTORY 2 Clinical Report - Physicians/[facility] Emergency Department [address] [place] [address] Phone #: ext- [phone] 02/17/2021 18:10 Patient: [...] mass. Nofree fluid.Laboratory Tests: US OB TRANSVAGINAL WAINWRIGHT: (RHONDA: 02/17/2021 18:49) ( [facility] 19:22[facility] In Progress US OB TRANSVAGINAL WAINWRIGHT Reason for Exam: CRAMPING TRANSPORTATION: AMB IV? N O2? N STATUS: UNKNOWN ISOLATION N CBC w Diff: (RHONDA: 02/17/2021 18:40) ( [facility] 02/17/2021 18:50) Final results Test Result Flag [...] 10.4) 3 Clinical Report - Physicians/Mid Levels [facility] Emergency Department [address] [place] [address] Phone #: [phone] ext- [phone] 02/17/2021 18:10 [id number] Sex: F : 2000 Age: 20y NEUT [...] Male GFR Interprentation 20-49 yrs >60 mL/min Tthgew71-97 yrs >56 mL/min Normal 60-69 yrs >49 mL/min Normal 70-79yrs>42 mL/min Normal 80 and above >35 mL/min Normal Female GFRInterpretation 20-39 yrs >60 mL/min Normal 40-49 yrs >58 mL/minNormal 50-59 yrs >51 mL/min Normal 60-69 yrs >45 mL/min Fdyuoc85-97 yrs >39 mL/min Normal 80 and above >32 mL/min NormalType Rh: (RHONDA: 02/17/2021 18:40) ( MsgRcvd 02/17/2021 19:16) Final results Test Result Flag Units (Reference) ABO GROUP A RH TYPE POSITIVE { ABO/RH REENTER A POSITIVEUrinalysis: (RHONDA: 02/17/2021 19:10) ( MsgRcvd 02/17/2021 19:35) Final results 4 Clinical Report - Physicians/Mid Levels [facility] Emergency Department [address] [place] [address] Phone #: ext- [phone] 02/17/2021 18:10 Patient: [...] Beta-HCG, Quant Serum: (RHONDA: 02/17/2021 18:40) ( [facility] 02/17/2021 19:16) Final results Test Result Flag Units (Reference) HCG QUANT 166.6 mIU/mL Interpretation: Less than 5 mU/mL: Negative 6-10 mU/mL: Borderline (suggest repeat in 48 hours) >10: Positive Approx HCG range (mU/mL) Weeks post LMP 5.4-708 mU/mL 3-4 Weeks 217-38056 mU/mL 5-6 Weeks 4059-696079 mU/mL 7-8 Weeks 96614-016642 mU/mL 9-10 Weeks 46431-31731 mU/mL 12-14 Weeks 73113-94201 mU/mL 15-16 Weeks 8240-11902 mU/mL 17-18 Weeks US OB 1ST TRI W TV IF NEEDED: (RHONDA: 02/17/2021 18:34) ( [facility] 02/17/2021 19:21) Canceled US OB 1ST TRI [...] condition. 5 Clinical Report - Physicians/Mid Levels [facility] Emergency Department [address] [place] [address] Phone #: ext- [phone] 02/17/2021 18:10 Patient: [...] for an appointment. Follow up with an marketing operations analyst in two days. Call for the next available appointment. Understanding of the discharge instructions verbalized by patient.(Electronically signed by Curly Saravia P.A.-C 02/19/2021 14:28) 6Clinical Report - Physicians/Mid Levels [facility] Emergency Department [address] [place] [address] Phone #: ext- [phone] 02/17/2021 18:10 Patient: CHRISTOS MOREAU Sex: F : 2000 Age: 20y Name Value Range Interpretation Code Description Data Opal rce(s) Supporting Document(s) ID Date Data Source [id number] 02/18/2021 10:17:00 [place] [address] PHONE: [phone] FAX: [phone] Name .................. : LIZZETH Bernardo Acct Number.................. : [id number] ROOM. ................. : TR-1B MR Number ................... : [id number] Stay type ............. : E/R Discharge Date......... ... : 02/17/21 Admit Date .... ..... : 02/17/21 Admit Phys .................... : ANGELICA DENG Date of ....... : 2000 Family Phys ................... : SARAH STEPHENSON Phone .................. : [phone] Age ................................ : 20 Film# .................. .:[id number] Sex ................................. : F Unsigned transcriptions are preliminary reports and do not represent a medical or legal document [place] [id number] COMPLETE:02/17/21 19:21 ADB [id number] Reason for Exam: CRAMPING TRANSVAGINAL PELVIC ULTRASOUND: [...] rce(s) Supporting Document(s) ID Date Data Source [id number] 02/24/2021 06:22:00 AM EDT [facility] Name Value Range Interpretation Code Description Data Opal rce(s) Supporting Document(s) CULTURE URINE [facility] _CULTURE URINE_$$003744$$599190$$947527$$567589$$808809$$520714$$436620$$023267$$034338$$ 212070$$905945$$290314$$620559$$177609$$940239$$206262$$027372$$648703$$546422$$ 966087$$922895$$791043$$344967$$515624$$668549$$649082$$211607 -- Continued on next page --Patient: LIZZETH Bernardo Order: [id number] Page 2Culture: CULTURE URINE Status: Final ==== -- Continued on next page --Patient: LIZZETH Brenardo Order: [id number] Page 2Culture: CULTURE URINE Status: Prelim =====$$[id number]$$[id number] DATE/TIME: 02/23/2021 16:06Culture: CULTURE URINE Status: FinalUrine Culture,Comprehensive: P1No growth in 36 - 48 hours. Previous result entered on 02/20/2021 10:28 ET No growth after 18-24 hours.P1 Test performed by: [facility] Craig MONTANO #: [id number] [address] [id number] [facility] [id number] Director : Mark Bernardo MD NPI #:Analytics Director : 02/20/21.1159.XMT.SENT REF 02/24/21.0622.XMT.SENT REF ID Date Data Source [id number] 02/17/2021 07:35:00 PM EDT [facility] Name Value Range Interpretation Code Description Data Opal rce(s) Supporting Document(s) URINALYSIS [facility] URINALYSIS SOURCE Clean Catch [facility] COLOR yellow NORMAL: Yellow [facility] CLARITY hazy NORMAL: Clear [facility] Specific gravity of Urine by Test strip 1.030 1.001 - 1.030 [facility] pH 6 5 - 9 [facility] Glucose [Mass/volume] in Urine by Test strip NORM [facility]: [facility] Bilirubin.total [Presence] in Urine by Test strip NEG NORMAL: Negative [facility] Ketones [Presence] in Urine by Test strip NEG NORMAL: Negative [facility] Protein [Mass/volume] in Urine by Test strip NEG NORMAL: Negat [facility] Nitrite [Presence] in Urine by Test strip NEG NORMAL: Negative [facility] BLOOD NEG NORMAL: Negative [facility] Leukocyte esterase [Presence] in Urine by Test strip NEG CANDIDA L: Negative [facility] Urobilinogen [Mass/volume] in Urine by Test strip NOR less moreno n 1.0 mg/dL [facility] MICROSCOPIC Not Indicate [facility] ID Date Data Source [id number] 02/17/2021 07:15:00 PM EDT [facility] Name Value Range Interpretation Code Description Data Opal rce(s) Supporting Document(s) ABO group [Type] in Blood A [facility] Rh [Type] in Blood POSITIVE [facility] { ABO/RH REENTER A POSITIVE ID Date Data Source [id number] 02/17/2021 07:15:00 PM EDT [facility] Name Value Range Interpretation Code Description Data Opal rce(s) Supporting Document(s) Choriogonadotropin.intact [Units/volume] in Serum or Plasma 166.6 mIU /mL [facility] Interpr etation: Less than 5 mU/mL: Negative 6-10 mU/mL: Borderline (suggest repeat in 48 hours) >10: Positive Approx HCG range (mU/mL) Weeks post LMP 5.4-708 mU/mL 3-4 Weeks 217-35708 mU/mL 5-6 Weeks 4059-557774 mU/mL 7-8 Weeks 09132-149308 mU/mL 9-10 Weeks 66301-43348 mU/mL 12-14 Weeks 65674-67163 mU/mL 15-16 Weeks 8240- 19861 mU/mL 17-18 Weeks ID Date Data Source [id number] 02/17/2021 07:15:00 PM EDT [facility] Name Value Range Interpretation Code Description Data Opal rce(s) Supporting Document(s) COMPREHENSIVE METABOLIC PANEL [facility] COMPREHENSIVE METABOLIC PANEL Sodium [Moles/volume] in Serum or Plasma 136 mEq/L 134 - 153 [facility] Potassium [Moles/volume] in Serum or Plasma 3.6 mEq/L 3.6 - 5.0 [facility] Chloride [Moles/volume] in Serum or Plasma 104 mEq/L 98 - 107 [facility] Carbon dioxide, total [Moles/volume] in Serum or Plasma 24 MEQ/L 22 - 30 [facility] Glucose [Mass/volume] in Serum or Plasma 108 MG/DL 70 - 99 H [facility] BUN 7 MG/DL 7 - 21 [facility] Creatinine [Mass/volume] in Serum or Plasma 0.5 MG/DL 0.7 - 1.5 L [facility] BUN/CREAT 14 8 - 27 [facility] Protein [Mass/volume] in Serum or Plasma 7.3 G/DL 6.3 - 8.2 [facility] Albumin [Mass/volume] in Serum or Plasma 4.4 G/DL 3.9 - 5.0 [facility] Globulin [Mass/volume] in Serum by calculation 2.9 GM/DL 2.4 - 3.2 [facility] A/G RATIO 1.5 0.8 - 2.0 [facility] Calcium [Mass/volume] in Serum or Plasma 9.5 MG/DL 8.4 - 10.2 [facility] Bilirubin.total [Mass/volume] in Serum or Plasma <0.7 MG/DL 0.2 - 1.3 [facility] Alkaline phosphatase [Enzymatic activity/volume] in Serum or Plasma 64 U/L 38 - 126 [facility] Aspartate aminotransferase [Enzymatic activity/volume] in Serum or Plasma 15 U/L 5 - 40 [facility] Alanine aminotransferase [Enzymatic activity/volume] in Seru m or Plasma 27 U/L 7 - 56 [facility] Anion gap 3 in Serum or Plasma 8.0 mmol/L 8.0 - 16.0 [facility] AGE 20 yrs [facility] NON-AA GFR >60 mL/min [facility] AFR AMER GFR >60 mL/min [facility] Male GFR In terprentation [...] >32 mL/min Normal ID Date Data Source [id number] 02/17/2021 06:49:00 PM EDT [facility] Name Value Range Interpretation Code Description Data Opal rce(s) Supporting Document(s) CBC W/AUTOMATED DIFF [facility] COMPLETE BLOOD COUNT Leukocytes [#/volume] in Blood by Automated count 12.4 10^3/uL 4.2 - 11.0 H [facility] Erythrocytes [#/volume] in Blood by Automated count 4.37 10^6/uL 4. 20 - 5.40 [facility] Hemoglobin [Mass/volume] in Blood 13.5 g/dL 12.0 - 16.0 [facility] Hematocrit [Volume Fraction] of Blood by Automated count 38.3 % 3 7.0 - 47.0 [facility] Erythrocyte mean corpuscular volume [Entitic volume] by Auto mated count 87.6 fL 81.0 - 101 [facility] Erythrocyte mean corpuscular hemoglobin [Entitic mass] by Automated count 30.9 pg 27.0 - 34.0 [facility] Erythrocyte mean corpuscular hemoglobin concentration [Mass/volume] by Automated count 35.2 g/dL 31.0 - 36.0 [facility] Erythrocyte distribution width [Ratio] by Automated count 12.4 % 11.5 - 14.5 [facility] Platelets [#/volume] in Blood by Automated count 421 10^3/uL 150 - 45 0 [facility] Platelet mean volume [Entitic volume] in Blood by Automated count 11.0 fL 7.4 - 10.4 H [facility] Neutrophils/100 leukocytes in Blood by Automated count 66.5 % 37. 0 - 80.0 [facility] Lymphocytes/100 leukocytes in Blood by Manual count 27.0 % 25.0 - 40.0 [facility] Monocytes/100 leukocytes in Blood by Automated count 4.0 % 3.0 - 8.0 [facility] Eosinophils/100 leukocytes in Blood by Automated count 1.4 % 0.0 - 7.0 [facility] Basophils/100 leukocytes in Blood by Automated count 0.8 % 0.0 - 2.5 [facility] %IG 0.3 % 0.0 - 0.0 [facility] %NRBC 0.0 % 0.0 - 0.0 [facility] al Neutrophils [#/volume] in Blood by Automated count 8.23 10^3/uL 2.00 - 6.90 H [facility] Lymphocytes [#/volume] in Blood by Automated count 3.35 10^3/uL 0.60 - 3.40 [facility] Monocytes [#/volume] in Blood by Automated count 0.50 10^3/uL 0.00 - 0.90 [facility] Eosinophils [#/volume] in Blood by Automated count 0.17 10^3/uL 0.00 - 0.70 [facility] Basophils [#/volume] in Blood by Automated count 0.10 10^3/uL 0.00 - 0.20 [facility] #IG 0.04 10^3/uL 0.00 - 0.10 [facility] ospital #NRBC 0.00 10^3/uL 0.00 - 0.00 [facility] MANUAL DIFF NOT INDICATED [facility] RBC MORPH NOT INDICATED [facility] ID Date Data Source [id number] 09/23/2020 11:13:00 PM [facility] 1 OrderSheet [facility] Emergency Department [address] [place] [address] Phone #: ext- [phone] 09/23/2020 23:12 Patient: [...] rce(s) Supporting Document(s) ID Date Data Source [id number] 09/23/2020 11:13:00 PM [facility] 1 Medication Reconciliation Report [facility] Emergency Department [address] [place] [address] Phone #: ext [phone] 09/23/2020 23:12 Patient: CHRISTOS MOREAU Sex: F [...] Value Range Interpretation Code Description Data [facility](s) Supporting Document(s) ID Date Data Source [id number] 09/23/2020 11:13:00 PM [facility] 1 Medication Administration Record [facility] Emergency Department [address] [place] [address] Phone #: ext [phone] 09/23/2020 23:12 Patient: CHRISTOS MOREAU Sex: F : 2000 Age: 20yWeight: 81.6 kgHeight/Length: 62 inBMI: 32.9ALLERGIES: No Known Drug AllergyDate/Time Medication Administered Medication Ordered Name Value Range Interpretation Code Description Data Opal rce(s) Supporting Document(s) ID Date Data Source [id number] 09/23/2020 11:13:00 PM [facility] 1 General Instructions [facility] Emergency Department [address] [place] [address] Phone #: ext [phone] 09/23/2020 23:12 Patient: CHRISTOS MOREAU Sex: F : 2000 Age: 20yIncomplete spontaneous .No complications.INSTRUCTIONS Drink plenty of fluids. Do not smoke. No alcohol. (YOU MUST FOLLOW UP WITH EVALUATION MANAGER IN 2-3 DAYS FOR REPEAT QUANT. B-HCG TO MAKE SURE IT GOES DOWN TO ZERO AND NOT STAGNATE OR RISE LIKE ECTOPIC ).Warnings: Further evaluation is necessary (EVALUATION MANAGER). It is very important to follow up [...] department as needed. Follow up with an marketing operations analyst in two days even if well.Call for an appointment. Reason for referral: evaluation, treatment and repeat B-HCG. Summary of careprovided to patient via paper.Understanding of the discharge instructions verbalized by patient. Expected course of illness, dischargeinstructions, activity level, diet, follow-up appointment and risks and benefits of treatment reviewed withpatient and understanding verbalized. Agrees to plan of care.Follow-up with: [facility], , , [address] [place], [address] Follow up in two days even if well. Call for an appointment. Reason for referral: evaluation, treatment andrepeat B- HCG. Summary of care provided to patient via paper. ADDITIONAL INFORMATIONCompleted Spontaneous Miscarriage 2 General Instructions [facility] Emergency Department [address] [place] [address] Phone #: ext- [phone] 09/23/2020 23:12 Patient: [...] therest of the tissue. 3 General Instructions [facility] Emergency Department [address] [place] [address] Phone #: ext- [phone] 09/23/2020 23:12 Patient: CHRISTOS MOREAU Sex: F : 2000 Age: 20yIf you had an ultrasound, a radiologist will review it. You will be told of any new findings that mayaffect your care.Call [phone] if you have: Severe pain and very [...] (abdomen) that gets worse Weakness or dizziness [phone] [employer]. [address] [place] [address]. All rights reserved. This information is not [...] falls won't cause a 4 General Instructions [facility] Emergency Department [address] [place] [address] Phone #: ext- [phone] 09/23/2020 23:12 Patient: [...] any new findings that mayaffect your care.Call [phone] if you have: Severe pain and very heavy bleeding Severe lightheadedness, passing out, or fainting 5 General Instructions [facility] Emergency Department [address] [place] [address] Phone #: ext- [phone] 09/23/2020 23:12 Patient: [...] that gets worse Weakness or d izziness [phone] [employer]. [address] [place] [address]. All rights reserved. This information is not intended as asubstitute for professional medical care. Always follow your healthcare professional's instructions. You have been given the following additional information: Miscarriage, Spontaneous (Completed) Miscarriage, Incomplete(Electronically signed by Andrea Mathias M.D. 09/24/2020 00:28) Name Value Range Interpretation Code Description Data Opal rce(s) Supporting Document(s) ID Date Data Source [id number] 09/23/2020 11:13:00 PM EST [facility] 1 Clinical Report - Nurses [facility] Emergency Department [address] [place] [address] Phone #: ext- [phone] 09/23/2020 23:12 Patient: [...] states her home tests have also been mental health nurse practitioner in [place]. Pt denies anyother complaints at this time.).Treatment WEB ADMINISTRATOR:None. --23:20 09/23/20 Candelaria Yoo R.N.23:14 09/23/20. BP: 153/83. MAP: 106. HR: 76. RR: 17. O2 saturation: 100% on room air. Temp: 97.8 F.Pain level now: 0/10. --23:20 09/23/20 Candelaria Yoo R.N.Weight: 81.6 kg stated. Height/Length: 62 inches Per Patient. BMI: 32.9. --23:15 09/23/20 Candelaria Yoo R.N.MedicationsPrenatal Vitamins Oral. --23:15 09/23/20 Candelaria Yoo R.N.AllergiesNo Known Drug Allergy. --23:15 09/23/20 Candelaria Yoo R.N.CA OBLEMS:Laceration.Anxiety Reaction.Threatened . Care. --23:15 09/23/20 Candelaria Yoo R.N.HistoryPAST MEDICAL HX: Immunizations: up-to-date. Last normal menstrual period- Aug 19, 2020. Currently.SOCIAL HX: Never smoker. No alcohol use or drug use. She was offered HIV testing but declined. 2 Clinical Report - Nurses [facility] Emergency Department [address] [place] [address] Phone #: ext- [phone] 09/23/2020 23:12 Patient: [...] Yoo R.N. 3 Clinical Report - Nurses [facility] Emergency Department [address] [place] [address] Phone #: ext- [phone] 09/23/2020 23:12 Patient: CHRISTOS MOREAU Sex: F : 2000 Age: 20y Patient ready for evaluation- ED physician notified. --:09/23/20 Candelaria Yoo R.N.DISPOSITION / DISCHARGE No learning barriers present. Discharge instructions provided and reviewed with the patient. Reviewed warnings. Reviewed medication(s). Treatments reviewed. Reviewed referral to an marketing operations analyst. Patient verbalized understanding. Written instructions provided in Greek. The patient was discharged home and accompanied [...] rce(s) Supporting Document(s) ID Date Data Source [id number] 09/23/2020 11:13:00 PM EST [facility] 1 Clinical Report - Physicians/Mid Levels [facility] Emergency Department [address] [place] [address] Phone #: ext- [phone] 09/23/2020 23:12 Patient: [...] She has had abnormal bleeding described as mental health nurse practitioner than normal period. She is . No abdominal pain, vaginal pain, low back pain, flank pain or pain with urination. No urinary frequency, urgency of urination or hematuria. 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 tests were mental health nurse practitioner). Currently : LNMP: 08-19-20 EDC: 05-25-21 5 [...] and 2 Clinical Report - Physicians/Mid Levels [facility] Emergency Department [address] [place] [address] Phone #: ext- [phone] 09/23/2020 23:12 Patient: CHRISTOS MOREAU Sex: F [...] results 3 Clinical Report - Physicians/Mid Levels [facility] Department [address] [place] [address] Phone #: ext- [phone] 09/23/2020 23:12 Patient: CHRISTOS MOREAU Sex: F : 2000 Age: 20y Test Result Flag Units (Reference) HCG QUANT 15.1 mIU/mL Interpretation: Less than 5 mU/mL: Negative 6-10 mU/mL: Borderline (suggest repeat in 48 hours) >10: Positive Approx HCG range (mU/mL) Weeks post LMP 5.4-708 mU/mL 3-4 Weeks 217-35020 mU/mL 5-6 Weeks 4059-532910 mU/mL 7-8 Weeks 16791-095859 mU/mL 9-10 Weeks 21608-61787 mU/mL 12-14 Weeks 21660-59633 mU/mL 15-16 Weeks 8240-16204 mU/mL 17-18 Weeks.PROGRESS AND PROCEDURESCourse of Care: 00:09 09/24/20. CBC nml, Quant. B-HCG is 15 tonight, was 20 on 09-21-20, had nmlpelvic US on 09-21-20 except for small rt ovarian cyst; pt is A positive; pt is probably having a miscarriage;advised to f/u w EVALUATION MANAGER in 2 days for repeat Quant. B-HCG [...] No alcohol. (YOU MUST FOLLOW UP WITH EVALUATION MANAGER IN 2-3 DAYS FOR REPEAT QUANT. B-HCG TO MAKE SURE IT GOES DOWN TO ZERO AND NOT STAGNATE OR RISE LIKE ECTOPIC ). Warnings: Further evaluation is necessary (EVALUATION MANAGER). It is very important to follow up [...] worsens. 4 Clinical Report - Physicians/Mid Levels [facility] Emergency Department [address] [place] [address] Phone #: ext- [phone] 09/23/2020 23:12 Patient: CHRISTOS MOREAU Sex: F : 2000 Age: 20y Your Current Medications: Your current home medications have been reviewed. CONTINUE TAKING THE FOLLOWING MEDICATIONS: Vitamins Oral. Follow-up: Return to the emergency department as needed. Follow up with an marketing operations analyst in two days even if well. Call [...] Agrees to plan of care. Follow-up with: [facility], , , [address] [place] [address], [place], [address] Follow up in two days even if well. Call for an appointment. Reason for referral: evaluation, treatment and repeat B-HCG. Summary of care provided to patient via paper.(Electronically signed by Andrea Mathias M.D. 09/24/2020 00:28) Name Value Range Interpretation Code Description Data Opal rce(s) Supporting Document(s) ID Date Data Source [id number] 09/23/2020 11:56:00 PM [facility] Name Value Range Interpretation Code Description Data Opal rce(s) Supporting Document(s) Choriogonadotropin.intact [Units/volume] in Serum or Plasma 15.1 mIU/ mL [facility] Interpr etation: Less than 5 mU/mL: Negative 6-10 mU/mL: Borderline (suggest repeat in 48 hours) >10: Positive Approx HCG range (mU/mL) Weeks post LMP 5.4-708 mU/mL 3-4 Weeks 217-67390 mU/mL 5-6 Weeks 4059-907224 mU/mL 7-8 Weeks 37335-965020 mU/mL 9-10 Weeks 50426-04294 mU/mL 12-14 Weeks 76344-48489 mU/mL 15-16 Weeks 8240- 24699 mU/mL 17-18 Weeks ID Date Data Source [id number] 09/23/2020 11:38:00 PM [facility] Name Value Range Interpretation Code Description Data [facility] Supporting Document(s) CBC W/AUTOMATED DIFF [facility] COMPLETE BLOOD COUNT Leukocytes [#/volume] in Blood by Automated count 10.8 10^3/uL 4.2 - 11.0 [facility] Erythrocytes [#/volume] in Blood by Automated count 4.61 10^6/uL 4. 20 - 5.40 [facility] Hemoglobin [Mass/volume] in Blood 13.9 g/dL 12.0 - 16.0 [facility] Hematocrit [Volume Fraction] of Blood by Automated count 40.5 % 3 7.0 - 47.0 [facility] Erythrocyte mean corpuscular volume [Entitic volume] by Auto mated count 87.9 fL 81.0 - 101 [facility] Erythrocyte mean corpuscular hemoglobin [Entitic mass] by Automated count 30.2 pg 27.0 - 34.0 [facility] Erythrocyte mean corpuscular hemoglobin concentration [Mass/volume] by Automated count 34.3 g/dL 31.0 - 36.0 [facility] Erythrocyte distribution width [Ratio] by Automated count 11.9 % 11.5 - 14.5 [facility] Platelets [#/volume] in Blood by Automated count 389 10^3/uL 150 - 45 0 [facility] Platelet mean volume [Entitic volume] in Blood by Automated count 11.8 fL 7.4 - 10.4 H [facility] Neutrophils/100 leukocytes in Blood by Automated count 57.3 % 37. 0 - 80.0 [facility] Lymphocytes/100 leukocytes in Blood by Manual count 32.9 % 25.0 - 40.0 [facility] Monocytes/100 leukocytes in Blood by Automated count 7.0 % 3.0 - 8.0 [facility] Eosinophils/100 leukocytes in Blood by Automated count 1.8 % 0.0 - 7.0 [facility] Basophils/100 leukocytes in Blood by Automated count 0.7 % 0.0 - 2.5 [facility] %IG 0.3 % 0.0 - 0.0 [facility] %NRBC 0.0 % 0.0 - 0.0 [facility] al Neutrophils [#/volume] in Blood by Automated count 6.18 10^3/uL 2.00 - 6.90 [facility] Lymphocytes [#/volume] in Blood by Automated count 3.55 10^3/uL 0.60 - 3.40 H [facility] Monocytes [#/volume] in Blood by Automated count 0.75 10^3/uL 0.00 - 0.90 [facility] Eosinophils [#/volume] in Blood by Automated count 0.19 10^3/uL 0.00 - 0.70 [facility] Basophils [#/volume] in Blood by Automated count 0.08 10^3/uL 0.00 - 0.20 [facility] #IG 0.03 10^3/uL 0.00 - 0.10 [facility] ospital #NRBC 0.00 10^3/uL 0.00 - 0.00 [facility] H ospital MANUAL DIFF NOT INDICATED [facility] RBC MORPH NOT INDICATED [facility] Ho spital ID Date Data Source [id number] 09/23/2020 09:07:00 AM EST [facility] [address] [place] [address] PHONE: [phone] FAX: [phone] Name .................. : LIZZETH Bernardo Acct Number.................. : [id number] ROOM. ................. : TR-03 Number ................... : [id number] Stay type ............. : E/R Discharge Date......... ... : 09/21/20 Admit Date ......... : 09/21/20 Admit Phys .................... : CHERELLE DUNCAN Date of ....... : 2000 Family Phys ................... : NO PCP Phone .................. : [phone] Age ................................ : 20 Film# .................. .:[id number] Sex ................................. : F Unsigned transcriptions are preliminary reports and do not represent a medical or legal document OB TRANSVAGINAL U [id number] COMPLETE:09/21/20 11:12 MCM 78 Reason(s): Pain and cramping ENDOVAGINAL PELVIC ULTRASOUND: FINDINGS: Endovaginal sonography demonstrates a heterogeneous uterus measuring at least 7.7 x 4 x 3.6 cm. No discrete myometrial mass is demonstrated. The endometrium is thickened to 2 cm and clinical correlation and JAVA SECURITY ENGINEER consult is suggested. Consider hysterosonography if clinically [...] rce(s) Supporting Document(s) ID Date Data Source [id number] 09/21/2020 09:17:00 AM EST [facility] 1 OrderSheet [facility] Emergency Department [address] [place] [address] Phone #: ext- [phone] 09/21/2020 09:08 Patient: CHRISTOS MOREAU Sex: F [...] Marina EDCatch) Anabel Hernández Tiffany ER Physician; [id number] Rh STAT 09:55 09/21/2020 Ack'd: 09:55 10:21 [...] 09/21/2020 Ack'd: 10:40 10:50 Андрей,TRANSVAGINAL Anabel HernándezREGNANT WAINWRIGHT Physician;(IV?(No))(Oxygen?(No)) NOTES: Pain and cramping Reason for Study: Painand cramping 2 OrderSheet [facility] Department [address] [place] [address] Phone #: ext- [phone] 09/21/2020 09:08 Patient: CHRISTOS MOREAU Sex: F : 2000 Age: 20yMEDICATION/IV/DRIP/FLUID ORDERSOrder Description Priority Entered Acknowledged InitialedGENERAL ORDERSOrder Description Priority Entered Acknowledged Initialed[Electronically signed by Anabel Chiang (11:40 09/21/2020)][Electronically signed by Reza Villarreal (13:19 09/21/2020)][Electronically locked by Anabel Chiang (11:40 09/21/2020)] Name Value Range Interpretation Code Description Data Opal rce(s) Supporting Document(s) ID Date Data Source [id number] 09/21/2020 09:17:00 AM [facility] 1 Medication Reconciliation Report [facility] Department [address] [place] [address] Phone #: ext- [phone] 09/21/2020 09:08 Patient: CHRISTOS MOREAU Sex: F : 2000 Age: 20yWeight: 81.6 kgHeight/Length: 62 in.BMI: 32.9ALLERGIES: NoneThe patient's Home Medications are listed below:NONE.The source(s) of the original Home Medication information:Not obtained.The following Medications were given to the patient in the Emergency Department:None.The following Medications were prescribed to the patient:None. Name Value Range Interpretation Code Description Data [facility] Supporting Document(s) ID Date Data Source [id number] 09/21/2020 09:17:00 AM [facility] 1 Medication Administration Record [facility] Department [address] [place] [address] Phone #: ext- [phone] 09/21/2020 09:08 Patient: CHRISTOS MOREAU Sex: F : 2000 Age: 20yWeight: 81.6 kgHeight/Length: 62 inBMI: 32.9ALLERGIES: NoneDate/Time Medication Administered Medication Ordered Name Value Range Interpretation Code Description Data Opal rce(s) Supporting Document(s) ID Date Data Source [id number] 09/21/2020 09:17:00 AM EST [facility] 1 General Instructions [facility] Emergency Department [address] [place] [address] Phone #: ext- [phone] 09/21/2020 09:08 Patient: [...] Respective Team Daisha [place], , , [address] [facility], , [place], [address] Follow up in four days as scheduled. Reason for referral: evaluation. Summary of care provided topatient via paper. ADDITIONAL INFORMATIONAbdominal Pain and Early 2 General Instructions [facility] Department [address] [place] [address] Phone #: ext- [phone] 09/21/2020 09:08 Patient: [...] and as it grows 3 General Instructions [facility] Department [address] [place] [address] Phone #: ext- [phone] 09/21/2020 09:08 Patient: [...] lower abdomen Vaginal bleeding 4 General Instructions [facility] Department [address] [place] [address] Phone #: ext- [phone] 09/21/2020 09:08 Patient: CHRISTOS MOREAU Sex: F [...] weak when you stand. 5 General Instructions [facility] Emergency Department [address] [place] [address] Phone #: ext- [phone] 09/21/2020 09:08 Patient: [...] or as directed by your healthcare provider. [employer]. [address] [place] [address], [place] [address]. All rights reserved. This information is not intended as asubstitute for professional medical care. Always follow your healthcare professional's instructions. You have been given the following additional information: Abdominal Pain, Early (Electronically signed by Reza Villarreal, Physician 09/21/2020 13:19) Name Value Range Interpretation Code Description Data Opal rce(s) Supporting Document(s) ID Date Data Source [id number] 09/21/2020 09:17:00 AM EST [facility] 1 Clinical Report - Nurses [facility] Department [address] [place] [address] Phone #: ext- [phone] 09/21/2020 09:08 Patient: CHRISTOS MOREAU Sex: F : 2000 Age: 20yTRIAGEArrived by private vehicle. Historian: patient. Accompanied by spouse.Acuity: LEVEL 3.Chief Complaint: ABDOMINAL CRAMPS.Alert. No acute distress.Onset. (2 days ago). ( Patient c/o cramping for past 2 days. States she had a positive home pregnancytest 3 days ago.).Treatment WEB ADMINISTRATOR:None. --09:18 09/21/20 Anabel Chiang09:13 09/21/20. BP: 151/93. [...] the [place] 2 Clinical Report - Nurses [facility] Department [address] [place] [address] Phone #: ext- [phone] 09/21/2020 09:08 Patient: [...] RR: 16. O2 saturation: 99%. --09:57 09/21/20 [place] strap maker, [facility] 3 Clinical Report - Nurses [facility] Department [address] [place] [address] Phone #: ieq- [phone] 09/21/2020 09:08 Patient: CHRISTOS MOREAU Sex: F : 2000 Age: 20y ( Lab in room drawing blood for ordered labs.). --10:21 09/21/20 Anabel Chiang [facility]. --10:49 09/21/20 Anabel [...] Patient verbalized understanding. Written instructions provided in Greek. The patient was discharged by the physician. [...] rce(s) Supporting Document(s) ID Date Data Source [id number] 09/21/2020 09:17:00 AM EST [facility] 1 Clinical Report - Physicians/Mid Levels [facility] Emergency Department [address] [place] [address] Phone #: ext- [phone] 09/21/2020 09:08 Patient: CHRISTOS MOREAU Sex: Katy [...] hematuria. The patient has missed a period ([facility] 08/19). Last normal menstrual period- Aug [...] HISTORY 2 Clinical Report - Physicians/Mid Levels [facility] Department [address] [place] [address] Phone #: diq- [phone] 09/21/2020 09:08 Patient: CHRISTOS MOREAU Sex: F [...] in themedical decision making process. OB TRANSVAGINAL WAINWRIGHT: (RHONDA: 09/21/2020 10:40) ( [facility] 09/21/2020 11:12) In Progress OB TRANSVAGINAL WAINWRIGHT Reason(s): Painand cramping TRANSPORTATION: WC IV? IV?(No) O2? Oxygen?(No) Ayde : Yes CMTS: Pain and cramping CBC w Diff: (RHONDA: 09/21/2020 10:20) ( [facility] 09/21/2020 10:58) Final results Test Result Flag [...] 80.0) 3 Clinical Report - Physicians/Mid Levels [facility] Department [address] [place] [address] Phone #: ext- [phone] 09/21/2020 09:08 Patient: [...] Beta-HCG, Quant Serum: (RHONDA: 09/21/2020 10:20) ( [facility] 09/21/2020 11:20) Final results Test Result Flag Units (Reference) HCG QUANT 20.6 mIU/mL Interpretation: Less than 5 mU/mL: Negative 6-10 mU/mL: Borderline (suggest repeat in 48 hours) >10: Positive Approx HCG range (mU/mL) Weeks post LMP 5.4-708 mU/mL 3-4 Weeks 217-30646 mU/mL 5-6 Weeks 4059-490697 mU/mL 7-8 Weeks 64310-390141 mU/mL 9-10 Weeks 76050-82548 mU/mL 12-14 Weeks 85170-27745 mU/mL 15-16 Weeks 8240-57990 mU/mL 17-18 Weeks Urinalysis: (RHONDA: 09/21/2020 09:45) ( [facility] 09/21/2020 10:58) Final results Test Result Flag [...] TO 14 WEEKS: (RHONDA: 09/21/2020 09:55) ( [facility] 09/21/2020 10:38) Canceled Reason(s): Lower abdominal pain and cramping. Reason(s): Lower abdominal pain and cramping. TRANSPORTATION: WC IV? IV?(No) O2? Oxygen?(No) Ayde : Yes CMTS: lower abdominal pain and cramping no bleeding.PROGRESS AND PROCEDURES 4 Clinical Report - Physicians/Mid Levels [facility] Department [address] [place] [address] Phone #: ext- [phone] 09/21/2020 09:08 Patient: CHRISTOS MOREAU [facility]#: [id number] Sex: Katy : 2000 Age: 20y Course [...] CLINIC Respective Team Daisha LAWR[place], , , [address] [facility], , [place], [address] Follow up in four days as scheduled. Reason for referral: evaluation. Summary of care provided to patient via paper.(Electronically signed by Reza Villarreal, Physician 09/21/2020 13:19) Name Value Range Interpretation Code Description Data Opal rce(s) Supporting Document(s) ID Date Data Source [id number] 09/21/2020 11:49:00 AM [facility] Name Value Range Interpretation Code Description Data [facility](s) Supporting Document(s) ABO group [Type] in Blood A [facility] Rh [Type] in Blood POSITIVE [facility] { ABO/RH REENTER A POSITIVE ID Date Data Source [id number] 09/21/2020 11:45:00 AM [facility] Name Value Range Interpretation Code Description Data Opal rce(s) Supporting Document(s) BASIC METABOLIC PANEL [facility] BASIC METABOLIC PANEL Sodium [Moles/volume] in Serum or Plasma 137 mEq/L 134 - 153 [facility] Potassium [Moles/volume] in Serum or Plasma 4.7 mEq/L 3.6 - 5.0 [facility] Chloride [Moles/volume] in Serum or Plasma 105 mEq/L 98 - 107 [facility] Carbon dioxide, total [Moles/volume] in Serum or Plasma 24 MEQ/L 22 - 30 [facility] Glucose [Mass/volume] in Serum or Plasma 86 MG/DL 65 - 110 [facility] BUN 10 MG/DL 7 - 21 [facility] Creatinine [Mass/volume] in Serum or Plasma 0.6 MG/DL 0.7 - 1.5 L [facility] BUN/CREAT 17 8 - 27 [facility] Calcium [Mass/volume] in Serum or Plasma 9.7 MG/DL 8.4 - 10.2 [facility] Anion gap 3 in Serum or Plasma 8.0 mmol/L 8.0 - 16.0 [facility] AGE 20 yrs [facility] al AFR AMER GFR >60 mL/min [facility] Ho spital NON-AA GFR >60 mL/min [facility] ital Male GFR Inter prentation 20-49 yrs [...] >32 mL/min Normal ID Date Data Source [id number] 09/21/2020 11:20:00 AM [facility] Name Value Range Interpretation Code Description Data Opal rce(s) Supporting Document(s) Choriogonadotropin.intact [Units/volume] in Serum or Plasma 20.6 mIU/ mL [facility] Interpr etation: Less than 5 mU/mL: Negative 6-10 mU/mL: Borderline (suggest repeat in 48 hours) >10: Positive Approx HCG range (mU/mL) Weeks post LMP 5.4-708 mU/mL 3-4 Weeks 217-98325 mU/mL 5-6 Weeks 4059-918511 mU/mL 7-8 Weeks 41011-875329 mU/mL 9-10 Weeks 55400-82604 mU/mL 12-14 Weeks 50587-55130 mU/mL 15-16 Weeks 8240- 86174 mU/mL 17-18 Weeks ID Date Data Source [id number] 09/21/2020 10:58:00 AM EST [facility] Name Value Range Interpretation Code Description Data Opal rce(s) Supporting Document(s) CBC W/AUTOMATED DIFF [facility] COMPLETE BLOOD COUNT Leukocytes [#/volume] in Blood by Automated count 8.2 10^3/uL 4.2 - 1 1.0 [facility] Erythrocytes [#/volume] in Blood by Automated count 4.56 10^6/uL 4. 20 - 5.40 [facility] Hemoglobin [Mass/volume] in Blood 13.6 g/dL 12.0 - 16.0 [facility] Hematocrit [Volume Fraction] of Blood by Automated count 40.1 % 3 7.0 - 47.0 [facility] Erythrocyte mean corpuscular volume [Entitic volume] by Auto mated count 87.9 fL 81.0 - 101 [facility] Erythrocyte mean corpuscular hemoglobin [Entitic mass] by Automated count 29.8 pg 27.0 - 34.0 [facility] Erythrocyte mean corpuscular hemoglobin concentration [Mass/volume] by Automated count 33.9 g/dL 31.0 - 36.0 [facility] Erythrocyte distribution width [Ratio] by Automated count 11.9 % 11.5 - 14.5 [facility] Platelets [#/volume] in Blood by Automated count 338 10^3/uL 150 - 45 0 [facility] Platelet mean volume [Entitic volume] in Blood by Automated count 11.8 fL 7.4 - 10.4 H [facility] Neutrophils/100 leukocytes in Blood by Automated count 66.1 % 37. 0 - 80.0 [facility] Lymphocytes/100 leukocytes in Blood by Manual count 26.3 % 25.0 - 40.0 [facility] Monocytes/100 leukocytes in Blood by Automated count 5.2 % 3.0 - 8.0 [facility] Eosinophils/100 leukocytes in Blood by Automated count 1.2 % 0.0 - 7.0 [facility] Basophils/100 leukocytes in Blood by Automated count 1.0 % 0.0 - 2.5 [facility] %IG 0.2 % 0.0 - 0.0 H [facility] %NRBC 0.0 % 0.0 - 0.0 [facility] al Neutrophils [#/volume] in Blood by Automated count 5.44 10^3/uL 2.00 - 6.90 [facility] Lymphocytes [#/volume] in Blood by Automated count 2.17 10^3/uL 0.60 - 3.40 [facility] Monocytes [#/volume] in Blood by Automated count 0.43 10^3/uL 0.00 - 0.90 [facility] Eosinophils [#/volume] in Blood by Automated count 0.10 10^3/uL 0.00 - 0.70 [facility] Basophils [#/volume] in Blood by Automated count 0.08 10^3/uL 0.00 - 0.20 [facility] #IG 0.02 10^3/uL 0.00 - 0.10 [facility] #NRBC 0.00 10^3/uL 0.00 - 0.00 [facility] MANUAL DIFF NOT INDICATED [facility] RBC MORPH NOT INDICATED [facility] ID Date Data Source [id number] 09/21/2020 10:58:00 AM EST [facility] Name Value Range Interpretation Code Description Data Opal rce(s) Supporting Document(s) [facility] COL[facility] yellow NORMAL: Yellow [facility] CLARITY clear NORMAL: Clear [facility] Specific gravity of Urine by Test strip 1.015 1.001 - 1.030 [facility] pH 6 5 - 9 [facility] Glucose [Mass/volume] in Urine by Test strip NORM N[facility]AL: [facility] Bil[facility].total [Presence] in Urine by Test strip NEG NORMAL: Negative [facility] Ketones [Presence] in Urine by Test strip NEG NORMAL: Negative [facility] Protein [Mass/volume] in Urine by Test strip NEG NORMAL: Negat [facility] Nitrite [Presence] in Urine by Test strip NEG NORMAL: Negative [facility] BLOOD NEG NORMAL: Negative [facility] Leukocyte esterase [Presence] in Urine by Test strip NEG CANDIDA L: Negative [facility] Urobilinogen [Mass/volume] in Urine by Test strip NOR less moreno n 1.0 mg/dL [facility] MICROSCOPIC Not Indicate [facility] Procedure Social History Code Duration Value Status Description Data Source(s ) Smoking 07/04/2021 12:00:00 AM EDT Patient has never smoked co mpleted Patient has never smoked [facility] ([facility]) Vital Signs ID Date Data Source UNK Name Value Range Interpretation Code Description Data Source(s) Body weight 197.00 [lb_av] 197.00 [lb_av] [facility] T ([facility]) Body height 62 [in_i] 62 [in_i] [facility]) 5'2" Body mass index (BMI) [Ratio] 36.0 kg/m2 36.0 k g/m2 [facility] ([facility]) Heart rate 74 /min 74 /min [facility]) regular Respiratory rate 16 /min 16 /min [facility] ( [facility]) Systolic blood pressure--sitting 116 mm[Hg] 116 mm[Hg] [facility] ([facility]) Medium cuff, Ra: 118/82 [place] Diastolic blood pressure--sitting 78 mm[Hg] 78 mm[Hg] [facility] ([facility]) Medium cuff, Ra: 118/82 [place] Systolic blood pressure--supine 118 mm[Hg] 118 mm[Hg] [facility] ([facility]) Ra Diastolic blood pressure--supine 78 mm[Hg] 78 mm[Hg] [facility] ([facility]) Ra
== END 2021-09-14 22:05 | disposition left against medical advice (07) ==
LOC: M ED 20:35
DX: Z53.29 Procedure and treatment not carried out because of patient's decision for other reasons (principal)

== ENCOUNTER → 2023-10-13 | Outpatient (CLI) | payer OTHER ==
[~2023-10-13] MED LIST changes: +SERT50TA29 PO
== END ==
LOC: M PLALAB 15:37
PROVIDERS: ATTEND Advanced Practice Midwife
DX: O09.299 Supervision of pregnancy with other poor reproductive or obstetric history, unspecified trimester (principal)

== ENCOUNTER → 2023-12-07 | Outpatient (CLI) | payer OTHER | LOC: M WHC 08:21 | PROVIDERS: ATTEND Advanced Practice Midwife | DX: Z34.82 Encounter for supervision of other normal pregnancy, second trimester (principal) ==

== ENCOUNTER → 2023-12-17 | Outpatient (REF) | payer OTHER ==
[2023-12-17 15:59] LABS: APPEARANCE, URINE CLOUDY (CLEAR); BACTERIA, URINE AUTO 2+ (NEGATIVE); BILIRUBIN, URINE AUTO NEGATIVE (NEGATIVE); BLOOD, URINE BLOOD NEGATIVE (NEGATIVE); COLOR, URINE YELLOW (YELLOW); GLUCOSE, URINE (UA) AUTO NEGATIVE (NEGATIVE); KETONE, URINE AUTO NEGATIVE (NEGATIVE); LEUKOCYTE ESTERASE, URINE AUTO TRACE (NEGATIVE); MUCUS, URINE SMALL (NEGATIVE); NITRITE, URINE AUTO NEGATIVE (NEGATIVE); PROTEIN, URINE AUTO 1+ mg/dL (NEGATIVE); RBC, URINE AUTO 2 /HPF (0-3); SQUAMOUS EPITHELIAL CELL UR AU 51 /HPF (0-6); UROBILINOGEN, URINE AUTO 0.2 mg/dL (0.0-2.0); WBC, URINE AUTO 10 /HPF (0-3)
== END ==
LOC: M SFHCWAGY 15:27
PROVIDERS: ATTEND Advanced Practice Midwife
DX: R30.0 Dysuria (principal)

== ENCOUNTER → 2023-12-21 | Outpatient (CLI) | payer OTHER | LOC: M WHC 10:31 | PROVIDERS: ATTEND Advanced Practice Midwife | DX: O99.419 Diseases of the circulatory system complicating pregnancy, unspecified trimester (principal); Z3A.19 19 weeks gestation of pregnancy ==

== ENCOUNTER → 2024-01-06 | Outpatient (REF) | payer OTHER | LOC: M SFHCWAGY 10:17 | PROVIDERS: ATTEND Advanced Practice Midwife | DX: O09.299 Supervision of pregnancy with other poor reproductive or obstetric history, unspecified trimester (principal); Z3A.00 Weeks of gestation of pregnancy not specified ==

== ENCOUNTER → 2024-02-10 | Outpatient (CLI) | payer OTHER | LOC: M WHC 13:54 | PROVIDERS: ATTEND Advanced Practice Midwife | DX: O09.292 Supervision of pregnancy with other poor reproductive or obstetric history, second trimester (principal) ==

== ENCOUNTER → 2024-02-21 | Outpatient (CLI) | payer OTHER ==
[2024-02-21 13:37] LABS: HEMOGLOBIN 12.7 g/dl (12.0-15.5); MEAN CORPUSCULAR HEMOGLOBIN 30.7 pg (27.0-33.0); MEAN CORPUSCULAR HGB CONC 33.4 g/dl (32.0-36.5); MEAN CORPUSCULAR VOLUME 91.8 fl (80.0-96.0); PLATELET COUNT, AUTOMATED 247 10^3/uL (150-450); RED BLOOD COUNT 4.14 10^6/uL (4.00-5.40); WHITE BLOOD COUNT 11.8 10^3/uL (4.0-10.0)
== END ==
LOC: M PLALAB 11:27
PROVIDERS: ATTEND Advanced Practice Midwife
DX: O09.292 Supervision of pregnancy with other poor reproductive or obstetric history, second trimester (principal)

== ENCOUNTER 2024-02-26 11:34 | Outpatient (CLI) | payer OTHER ==
[~2024-02-26] VITALS: Ht 157.5 cm; Wt 99.3 kg
[2024-02-26] MEDS ORDERED: ASPI81CH33 PO (11:49)
[2024-02-26] MEDS ORDERED: PRENTAB9 PO (11:49)
[2024-02-26] MEDS ORDERED: HOME MED LIST COMPLETE! XX SCH (11:50)
[2024-02-26 11:57] VITALS: BP 132/80
[2024-02-26 12:30] VITALS: BP 127/79
[2024-02-26 12:44] LABS: APPEARANCE, URINE CLOUDY (CLEAR); BACTERIA, URINE AUTO 1+ (NEGATIVE); BILIRUBIN, URINE AUTO NEGATIVE (NEGATIVE); BLOOD, URINE BLOOD NEGATIVE (NEGATIVE); COLOR, URINE YELLOW (YELLOW); GLUCOSE, URINE (UA) AUTO NEGATIVE (NEGATIVE); KETONE, URINE AUTO NEGATIVE (NEGATIVE); LEUKOCYTE ESTERASE, URINE AUTO NEGATIVE (NEGATIVE); MUCUS, URINE SMALL (NEGATIVE); NITRITE, URINE AUTO NEGATIVE (NEGATIVE); PROTEIN, URINE AUTO 1+ mg/dL (NEGATIVE); RBC, URINE AUTO 2 /HPF (0-3); SPECIFIC GRAVITY URINE AUTO 1.015 (1.002-1.035); SQUAMOUS EPITHELIAL CELL UR AU 31 /HPF (0-6); UROBILINOGEN, URINE AUTO 0.2 mg/dL (0.0-2.0); WBC, URINE AUTO 3 /HPF (0-3)
[2024-02-26 13:10] VITALS: BP 121/82
== END 2024-02-26 14:15 | disposition home or self-care (01) ==
LOC: M LDO 11:34
PROVIDERS: ATTEND Specialist
DX: O26.893 Other specified pregnancy related conditions, third trimester (principal); O47.03 False labor before 37 completed weeks of gestation, third trimester; R30.9 Painful micturition, unspecified; Z3A.30 30 weeks gestation of pregnancy
CPT/HCPCS: 59025; 81001; 87086; G0463

== ENCOUNTER 2024-03-08 20:17 | Outpatient (CLI) | payer OTHER ==
[~2024-03-08] VITALS: Ht 157.5 cm; Wt 99.5 kg
[~2024-03-08 20:17] MED LIST changes: +ASPI81CH33 PO; +PRENTAB9 PO
[2024-03-08 20:39] VITALS: BP 130/86
[2024-03-08 20:56] VITALS: BP 122/83
== END 2024-03-08 21:15 | disposition home or self-care (01) ==
LOC: M LDO 20:17
PROVIDERS: ATTEND Advanced Practice Midwife
DX: O26.893 Other specified pregnancy related conditions, third trimester (principal); O34.219 Maternal care for unspecified type scar from previous cesarean delivery; R03.0 Elevated blood-pressure reading, without diagnosis of hypertension; Z87.59 Personal history of other complications of pregnancy, childbirth and the puerperium; Z3A.32 32 weeks gestation of pregnancy
CPT/HCPCS: 59025; G0463

== ENCOUNTER 2024-04-01 02:26 | Outpatient (CLI) | payer OTHER ==
[~2024-04-01] VITALS: Ht 157.5 cm; Wt 101.5 kg
[2024-04-01 02:48] VITALS: BP 152/98; TEMP 97.9
[2024-04-01 03:26] LABS: HEMATOCRIT 36.7 % (36.0-47.0); HEMOGLOBIN 12.6 g/dl (12.0-15.5); MEAN CORPUSCULAR HEMOGLOBIN 30.8 pg (27.0-33.0); MEAN CORPUSCULAR HGB CONC 34.3 g/dl (32.0-36.5); MEAN CORPUSCULAR VOLUME 89.7 fl (80.0-96.0); PLATELET COUNT, AUTOMATED 227 10^3/uL (150-450); RED BLOOD COUNT 4.09 10^6/uL (4.00-5.40); WHITE BLOOD COUNT 11.7 10^3/uL (4.0-10.0)
[2024-04-01 03:46] LABS: TOTAL PROTEIN,RANDOM URINE 8.8 MG/DL (0.0-14.0)
[2024-04-01 03:50] LABS: URIC ACID 3.3 MG/DL (3.1-7.8)
[2024-04-01 03:51] LABS: CREATININE,RANDOM URINE 22.2 MG/DL
[2024-04-01 03:52] LABS: LDH LACTATE DEHYDROGENASE 148 U/L (120-246)
[2024-04-01 03:53] LABS: ALBUMIN 2.6 G/DL (3.2-5.2); ALKALINE PHOSPHATASE 90 U/L (46-116); ALT/SGPT 12 U/L (7.0-40); AST/SGOT < 8 U/L (<34); BILIRUBIN,TOTAL 0.3 MG/DL (0.3-1.2); BLOOD UREA NITROGEN 6 MG/DL (9-23); CALCIUM LEVEL 11.1 MG/DL (8.5-10.1); CARBON DIOXIDE LEVEL 25 MMOL/L (20-31); CHLORIDE LEVEL 107 MMOL/L (98-107); CREATININE FOR GFR 0.44 MG/DL (0.55-1.30); GLOMERULAR FILTRATION RATE > 60.0 (>60); GLUCOSE, FASTING 79 MG/DL (60-100); POTASSIUM SERUM 3.6 MMOL/L (3.5-5.1); SODIUM LEVEL 138 MMOL/L (136-145); TOTAL PROTEIN 5.8 G/DL (5.7-8.2)
[2024-04-01] MEDS: BETAMETHASONE SOLUSPAN 6MG/ML 5ML VIAL IM ONE (05:05)
== END 2024-04-01 05:11 | disposition home or self-care (01) ==
LOC: M LDO 02:26
PROVIDERS: ATTEND Advanced Practice Midwife
DX: O14.93 Unspecified pre-eclampsia, third trimester (principal); O34.219 Maternal care for unspecified type scar from previous cesarean delivery; Z3A.35 35 weeks gestation of pregnancy
CPT/HCPCS: 59025; 80053; 82247; 82570; 83615; 84156; 84450; 84460; 84550; 85027; 96372; G0463; J0702

== ENCOUNTER 2024-04-02 10:01 | Outpatient (CLI) | payer OTHER ==
[~2024-04-02] VITALS: Ht 157.5 cm; Wt 101.3 kg
[2024-04-02 10:21] VITALS: BP 128/84
[2024-04-02] MEDS ORDERED: HOME MED LIST COMPLETE! XX SCH (10:45)
[2024-04-02] MEDS: BETAMETHASONE SOLUSPAN 6MG/ML 5ML VIAL IM ONE (11:04)
== END 2024-04-02 12:06 | disposition home or self-care (01) ==
LOC: M LDO 10:01
PROVIDERS: ATTEND Obstetrics & Gynecology
DX: O14.93 Unspecified pre-eclampsia, third trimester (principal); O34.219 Maternal care for unspecified type scar from previous cesarean delivery; Z3A.35 35 weeks gestation of pregnancy
CPT/HCPCS: 59025; 96372; G0463; J0702

== ENCOUNTER → 2024-04-05 | Outpatient (REF) | payer OTHER | LOC: M SFHCWAGY 15:14 | PROVIDERS: ATTEND Advanced Practice Midwife | DX: O34.211 Maternal care for low transverse scar from previous cesarean delivery (principal) ==

== ENCOUNTER 2024-04-06 21:24 | Outpatient (CLI) | payer OTHER ==
[~2024-04-06] VITALS: Ht 157.5 cm; Wt 102.1 kg
[2024-04-06] MEDS ORDERED: HOME MED LIST COMPLETE! XX SCH (21:35)
== END 2024-04-06 22:26 | disposition home or self-care (01) ==
LOC: M LDO 21:24
PROVIDERS: ATTEND Obstetrics & Gynecology
DX: O14.93 Unspecified pre-eclampsia, third trimester (principal); O34.219 Maternal care for unspecified type scar from previous cesarean delivery; Z3A.36 36 weeks gestation of pregnancy; Z87.59 Personal history of other complications of pregnancy, childbirth and the puerperium
CPT/HCPCS: 59025; G0463